=== PATIENT | female | born 1940 | race Caucasian/White ===

== ENCOUNTER 2020-02-16 08:50 | Outpatient (RCR) | payer MEDICARE, SELFPAY | END 2020-02-24 12:07 | disposition home or self-care (01) | LOC: HO.WCC 08:50 | PROVIDERS: PCP Internal Medicine; Visit Provider Surgery | DX: S81.811D Laceration without foreign body, right lower leg, subsequent encounter (principal) | CPT/HCPCS: 99212 ==

== ENCOUNTER 2020-03-14 10:34 | Outpatient (REF) | payer MEDICARE, SELFPAY ==
[2020-03-14 11:40] LABS: C Reactive Protein 0.12 mg/dL (< or = 0.50)
[2020-03-14 12:10] LABS: Erythrocyte Sedimentation Rate 12 MM/HR (0-20)
== END 2020-03-14 10:35 | disposition home or self-care (01) ==
LOC: HO.LAB 10:34
PROVIDERS: PCP Internal Medicine; Visit Provider Student in an Organized Health Care Education/Training Program
DX: M35.3 Polymyalgia rheumatica (principal); Z79.52 Long term (current) use of systemic steroids
CPT/HCPCS: 36415; 85652; 86140

== ENCOUNTER 2020-03-21 09:18 | Outpatient (REF) | payer MEDICARE, SELFPAY ==
--- NOTE | 2020-03-21 10:57 | XR_ITS ---
EXAMINATION: XR CHEST CLINICAL INFORMATION: Nonthrombocytopenic purpura. COMPARISON: CT chest 11/11/2019 TECHNIQUE: 2 views of the chest were obtained. FINDINGS: The lungs are somewhat expanded with increase interstitial markings in both lungs suggestive of chronic changes. No consolidation, mass or nodule seen. There is no pleural effusion. The heart size is enlarged. Pulmonary vascularity is normal. There are median sternotomy sutures and mediastinal caesar from previous CABG. No gross bony abnormality seen. XR/XR chest 2V IMPRESSION: Chronic increased interstitial markings likely airway disease. No acute pneumonic process seen.
[2020-03-21 11:15] LABS: MANUAL DIFF FLAG NO
[2020-03-21 11:32] LABS: Basophils Absolute Auto 0.1 X10*3/uL (0.0-0.2); Basophils Percent Auto 0.8 % (0-2); Eosinophils Absolute Auto 0.4 X10*3/uL (0.0-0.4); Eosinophils Percent Auto 6.3 % (0-4); Hemoglobin 12.5 g/dl (12.0-16.0); Imm Gran Abs Auto 0.02 X10*3/uL (0.00-0.03); Imm Gran Pct Auto 0.3 % (0.0-0.4); Lymphocytes Absolute Auto 1.2 X10*3/uL (1.2-4.9); Lymphocytes Percent Auto 18.7 % (20-40); Mean Corpuscular HGB Conc 32.1 g/dl (31.0-35.0); Mean Corpuscular Hemoglobin 29.9 pg (27.0-33.0); Mean Corpuscular Volume 93.3 fL (80-98); Mean Platelet Volume 8.9 fL (9.4-12.3); Monocytes Absolute Auto 0.5 X10*3/uL (0.1-1.2); Monocytes Percent Auto 8.2 % (2-11); Neutrophils Absolute Auto 4.1 X10*3/uL (2.0-8.3); Neutrophils Percent Auto 65.7 % (45-73); Platelet Count 325 X10*3/uL (160-400); Red Blood Count 4.18 X10*6/uL (4.20-5.50); Red Cell Distribution Width 12.3 % (11.0-16.0); White Blood Count 6.3 X10*3/uL (4.8-10.8)
[2020-03-21 11:51] LABS: Glucose Urine UA NEG (NEG); Leukocyte Esterase Urine 1+ (NEG); Nitrite Urine NEG (NEG); PH 5.5 (5.0-8.0); Specific Gravity - Urine >= 1.030 (1.005-1.025); Urine Blood 2+ (NEG); Urine Ketones NEG (NEG); Urine Protein NEG (NEG-TRACE)
[2020-03-21 11:57] LABS: Alanine Aminotransferase 15 U/L (0-31); Albumin Level 4.2 g/dL (3.5-5.0); Alkaline Phosphatase 73 U/L (39-117); Anion Gap 13 (12-20); Aspartate Amino Transferase 22 U/L (5-31); Bilirubin Total 0.2 mg/dL (0.0-1.0); Blood Urea Nitrogen 9 mg/dL (9-16); C Reactive Protein 0.48 mg/dL (< or = 0.50); Calcium 9.5 mg/dL (8.4-10.2); Carbon Dioxide 30 mmol/L (22-29); Chloride 103 mmol/L (96-108); Estimated Glomerular Filt Rate > 60; Glucose Random 103 mg/dL (60-115); Potassium 4.4 mmol/l (3.3-5.1); Sodium 142 mmol/L (135-145); Total Protein 6.9 g/dL (6.5-8.0)
[2020-03-21 11:58] LABS: Appearance Urine HAZY; Color Urine YELLOW
[2020-03-21 12:20] LABS: Mucus Urine 2+ /LPF; Renal Epithelial Cells Urine 1+ /LPF; Squamous Epithelial Cell Urine 2+ /LPF
[2020-03-21 12:42] LABS: Erythrocyte Sedimentation Rate 16 MM/HR (0-20)
[2020-03-22 11:17] LABS: Myeloperoxidase Antibody <1.0 AI; Proteinase 3 PR3 Antibodies <1.0 AI
[2020-03-25 12:56] LABS: Vitamin D 25-OH, D2 <4 ng/mL; Vitamin D 25-OH, D3 26 ng/mL; Vitamin D 25-OH, Total 26 ng/mL (30-100)
== END 2020-03-21 09:19 | disposition home or self-care (01) ==
LOC: HO.LAB 09:18
PROVIDERS: PCP Internal Medicine; Referring Provider Internal Medicine; Visit Provider Student in an Organized Health Care Education/Training Program
DX: M35.3 Polymyalgia rheumatica (principal); D69.2 Other nonthrombocytopenic purpura; M85.80 Other specified disorders of bone density and structure, unspecified site; Z79.52 Long term (current) use of systemic steroids
CPT/HCPCS: 36415; 71046; 80053; 81001; 82306; 85025; 85652; 86021; 86140; 99212

== ENCOUNTER → 2020-03-30 11:12 | Outpatient (BNVA) | payer MEDICARE, SELFPAY | PROVIDERS: PCP Internal Medicine; Visit Provider Nurse Practitioner Family | DX: I25.10 Atherosclerotic heart disease of native coronary artery without angina pectoris (principal); D69.2 Other nonthrombocytopenic purpura; E78.5 Hyperlipidemia, unspecified; Z79.02 Long term (current) use of antithrombotics/antiplatelets; Z79.52 Long term (current) use of systemic steroids; Z95.1 Presence of aortocoronary bypass graft | CPT/HCPCS: 93005; 99212 ==

== ENCOUNTER → 2020-05-07 10:09 | Outpatient (BNVA) | payer MEDICARE, SELFPAY | PROVIDERS: PCP Internal Medicine; Visit Provider Internal Medicine | DX: J84.10 Pulmonary fibrosis, unspecified (principal) | CPT/HCPCS: 99212 ==

== ENCOUNTER 2020-05-30 10:41 | Outpatient (REF) | payer MEDICARE, SELFPAY ==
[2020-05-30 12:40] LABS: Glucose Urine UA NEG (NEG); Leukocyte Esterase Urine NEG (NEG); Nitrite Urine NEG (NEG); PH 5.5 (5.0-8.0); Urine Blood 1+ (NEG); Urine Ketones NEG (NEG); Urine Protein NEG (NEG-TRACE)
[2020-05-30 12:47] LABS: Appearance Urine CLEAR; Color Urine YELLOW
[2020-05-30 13:16] LABS: Bacteria Urine TRACE /LPF; RBC Urine 0-2 /HPF (0); Squamous Epithelial Cell Urine 1+ /LPF; WBC Urine 0-2 /HPF (0-4)
== END 2020-05-30 10:42 | disposition home or self-care (01) ==
LOC: HO.LAB 10:41
PROVIDERS: PCP Internal Medicine; Visit Provider Student in an Organized Health Care Education/Training Program
DX: D69.2 Other nonthrombocytopenic purpura (principal)
CPT/HCPCS: 81001

== ENCOUNTER 2020-06-05 15:22 | Outpatient (REF) | payer MEDICARE, SELFPAY ==
--- NOTE | 2020-06-05 | MM_ITS ---
EXAMINATION: MM SCREENING DIGITAL BREAST TOMOSYNTHESIS, BILATERAL CLINICAL INFORMATION: Screening. Asymptomatic. The lifetime risk of breast cancer based on the Tyrer-Cuzick Model is 1.7%. COMPARISON: Mammography: May 31, 2019 and studies dating back to March 15, 2012 TECHNIQUE: Digital breast tomosynthesis is performed in both the craniocaudal and mediolateral oblique views along with computer-aided detection (CAD). Synthesized 2D images are generated from the tomosynthesis. FINDINGS: There are scattered areas of fibroglandular density (ACR BI-RADS breast composition Category b). There are no significant masses, abnormal calcifications, or other abnormalities. MM/MM tomosynthesis screening BI IMPRESSION: There are no significant changes from prior study. ASSESSMENT: BI-RADS 1: Negative RECOMMENDATION: Routine annual mammography screening. This patient's information was entered into a reminder system with a target due date for their next mammogram.
== END 2020-06-05 15:23 | disposition home or self-care (01) ==
LOC: HO.MAMMO 15:22
PROVIDERS: PCP Internal Medicine; Visit Provider Internal Medicine
DX: Z12.31 Encounter for screening mammogram for malignant neoplasm of breast (principal)
CPT/HCPCS: 77063; 77067

== ENCOUNTER → 2020-06-07 11:29 | Outpatient (BNVA) | payer MEDICARE, SELFPAY | PROVIDERS: PCP Internal Medicine; Referring Provider Internal Medicine; Visit Provider Student in an Organized Health Care Education/Training Program | DX: M35.3 Polymyalgia rheumatica (principal); Z79.52 Long term (current) use of systemic steroids | CPT/HCPCS: 99212 ==

== ENCOUNTER 2020-06-12 10:35 | Outpatient (REF) | payer MEDICARE, SELFPAY ==
[2020-06-12 12:23] LABS: Erythrocyte Sedimentation Rate 7 MM/HR (0-20)
[2020-06-12 12:38] LABS: C Reactive Protein 0.12 mg/dL (< or = 0.50)
== END 2020-06-12 10:36 | disposition home or self-care (01) ==
LOC: HO.LAB 10:35
PROVIDERS: PCP Internal Medicine; Visit Provider Student in an Organized Health Care Education/Training Program
DX: M35.3 Polymyalgia rheumatica (principal); D69.2 Other nonthrombocytopenic purpura
CPT/HCPCS: 36415; 85652; 86140

== ENCOUNTER → 2020-06-26 09:12 | Outpatient (BNVA) | payer MEDICARE, SELFPAY | PROVIDERS: PCP Internal Medicine; Visit Provider Internal Medicine Cardiovascular Disease | DX: I25.10 Atherosclerotic heart disease of native coronary artery without angina pectoris (principal); E78.2 Mixed hyperlipidemia | CPT/HCPCS: 99212 ==

== ENCOUNTER 2020-07-10 09:28 | Outpatient (REF) | payer MEDICARE, SELFPAY ==
[2020-07-10 10:25] LABS: Cholesterol 219 mg/dL; HDL Cholesterol 56 mg/dL; LDL Cholesterol Calculated 124 mg/dl; Triglycerides 199 mg/dL
[2020-07-10 10:48] LABS: Glucose Urine UA NEG (NEG); Leukocyte Esterase Urine 1+ (NEG); Nitrite Urine NEG (NEG); PH 5.5 (5.0-8.0); Specific Gravity - Urine >= 1.030 (1.005-1.025); Urine Blood 2+ (NEG); Urine Ketones NEG (NEG); Urine Protein NEG (NEG-TRACE)
[2020-07-10 10:51] LABS: Appearance Urine HAZY; Color Urine YELLOW
[2020-07-10 11:05] LABS: Mucus Urine 3+ /LPF; Squamous Epithelial Cell Urine 1+ /LPF
== END 2020-07-10 09:29 | disposition home or self-care (01) ==
LOC: HO.LAB 09:28
PROVIDERS: Student in an Organized Health Care Education/Training Program; PCP Internal Medicine; Visit Provider Internal Medicine Cardiovascular Disease
DX: I25.10 Atherosclerotic heart disease of native coronary artery without angina pectoris (principal); M35.3 Polymyalgia rheumatica; Z79.52 Long term (current) use of systemic steroids
CPT/HCPCS: 36415; 80061; 81001

== ENCOUNTER 2020-08-13 09:59 | Outpatient (REF) | payer MEDICARE, SELFPAY ==
[2020-08-13 11:34] LABS: Erythrocyte Sedimentation Rate 8 MM/HR (0-20)
[2020-08-13 12:06] LABS: Glucose Urine UA NEG (NEG); Leukocyte Esterase Urine NEG (NEG); Nitrite Urine NEG (NEG); PH 5.5 (5.0-8.0); Specific Gravity - Urine >= 1.030 (1.005-1.025); Urine Blood 2+ (NEG); Urine Ketones 5 MG/DL (NEG); Urine Protein TRACE MG/DL (NEG-TRACE)
[2020-08-13 12:10] LABS: Appearance Urine CLEAR; Color Urine YELLOW
[2020-08-13 12:23] LABS: WBC Urine 0-2 /HPF (0-4)
[2020-08-13 12:24] LABS: Bacteria Urine TRACE /LPF; Granular Casts Urine 0-2 /LPF
== END 2020-08-13 10:00 | disposition home or self-care (01) ==
LOC: HO.LAB 09:59
PROVIDERS: PCP Internal Medicine; Visit Provider Student in an Organized Health Care Education/Training Program
DX: M35.3 Polymyalgia rheumatica (principal); D69.2 Other nonthrombocytopenic purpura
CPT/HCPCS: 36415; 81001; 85652; 86140

== ENCOUNTER → 2020-08-16 09:09 | Outpatient (BNVA) | payer MEDICARE, SELFPAY | PROVIDERS: Visit Provider Student in an Organized Health Care Education/Training Program | DX: M35.3 Polymyalgia rheumatica (principal); M65.311 Trigger thumb, right thumb; M85.89 Other specified disorders of bone density and structure, multiple sites; Z79.52 Long term (current) use of systemic steroids | CPT/HCPCS: 99212 ==

== ENCOUNTER 2020-09-21 11:02 | Outpatient (REF) | payer MEDICARE, SELFPAY ==
[2020-09-21 12:11] LABS: C Reactive Protein 0.32 mg/dL (< or = 0.50)
[2020-09-21 13:26] LABS: Erythrocyte Sedimentation Rate 14 MM/HR (0-20)
[2020-09-21 13:59] LABS: Glucose Urine UA NEG (NEG); Leukocyte Esterase Urine TRACE (NEG); Nitrite Urine NEG (NEG); Urine Blood 1+ (NEG); Urine Ketones NEG (NEG); Urine Protein NEG (NEG-TRACE)
[2020-09-21 14:02] LABS: Appearance Urine CLEAR; Color Urine YELLOW
[2020-09-21 14:41] LABS: Mucus Urine 1+ /LPF; Squamous Epithelial Cell Urine 1+ /LPF
== END 2020-09-21 11:03 | disposition home or self-care (01) ==
LOC: HO.LAB 11:02
PROVIDERS: PCP Internal Medicine; Visit Provider Student in an Organized Health Care Education/Training Program
DX: M35.3 Polymyalgia rheumatica (principal)
CPT/HCPCS: 36415; 81001; 85652; 86140

== ENCOUNTER 2020-10-03 11:00 | Outpatient (RCR) | payer MEDICARE, SELFPAY ==
--- NOTE | 2020-08-22 09:59 | MHC.OT.OEV ---
[address] [phone] F: [phone] Occupational Therapy Evaluation Diagnosis: Right trigger thumb Date of Onset: 07/16/20 Attending Provider: Dr Mesa Prescribed Treatment: Samantha and Chase FARMER Follow Up Appointment: 10/16/20 History of Current Condition: Pt picked up her large 18lb cat and felt pain in the thumb, notes some locking but able to actively extend to correct. Significant Medical History: Precautions/Contraindications: Patient Goals: Pain free use of right thumb Hand Dominance: Right QuickDASH Score: 36 Prior Level of Function and Occupation Self Care, Employment, Leisure: Independent with all daily activities, enjoys quilting Living Situation, Family and/or Social Support: Lives w/ her Current Level of Function and Occupation Self Care, Employment, Leisure: Still Ind w/ activities, less quilting now Sleep: No issues sleeping, wears nighttime resting wrist orthosis w/ thumb free (for CTS) Wakes w/ pain and stiffness in thumb Driving: Limited driving due to age Vision: Balance: Pain Assessment Pain Score: 3 Pain Scale Used: Numeric (0 - 10) Pain Location and Description: Pain free at rest 2/10 tenderness at D1 MP/itz 3/10 w/ active trigger/locking Aggravating Factors: Gripping, pinching, tender to touch Alleviating Factors: Warm water helps w/ stiffness Skin and Soft Tissue Assessment Skin and Soft Tissue: Atrophy Callus Comments: Dry skin B/L hands, mild atrophy Sensory Assessment Comments: Denies sensory changes Edema Assessment Upper Extremity: WNL Lower Extremity: WNL Comments: Dexterity Assessment Dexterity: Right Impaired due to triggering/pain Comments: AROM(PROM) Strength Thumb Thumb CMC Flexion: Thumb MCP Flexion: Thumb IP Flexion: Radial Abduction: Palmar Abduction: [place] (Kapandji 0-10): Comments: WFL PROM Digits Index MCP: PIP: DIP: Long MCP: PIP: DIP: Ring MCP: PIP: DIP: Small MCP: PIP: DIP: Comments: WFL (right thumb tested passively) Gross Grasp: R 26lb L 32lb Lateral Pinch: Two-Point Pinch: Three-Jaw Jude: Comments: Patient Education Primary Language: Ghanaian Laborer General Required: No Current Knowledge: Understands information with skills for self-management Teaching Method: Demonstration Handouts Verbal Education Needs Identified on Evaluation: ADL's Disease Information Equipment Use Exercise Pain Safety How did patient/family demonstrate learning? Patient demonstrates Patient verbalizes Barriers to Learning: None Readiness for Learning: Accepting Who was educated? Patient Comments: Trigger thumb protocol Plan of Care Assessment: 79 yo female presents w/ onset of right trigger thumb for about 5 weeks now after lifting her cat and feeling immediate pain. She has been trying to self treat w/ ROM and gripping, but reports persistent pain and triggering, appears to be level two trigger finger and able to actively extend. She will benefit from cont'd OT for progression of protocol w/ orthosis, ROM, heat and ice massage. STG Duration: 3 weeks Short Term Goals: Ind w/ orthosis wear Trigger free w/ removal for hygiene and exercises <1/10 w/ light daily use of right hand Good understanding of progression of program and weaning schedule LTG Duration: Long-Term Goals: Same as above Frequency and Duration: The patient will be seen 1x/wk for 3 weeks Treatment Plan: Therapeutic Exercise Therapeutic Activity Home Exercise Program Splinting Patient Education Edema Control ADL Training Ultrasound Paraffin MHP Cold Packs Soft Tissue Mobilization Kinesiotaping Electronically Signed By: Radha Archer OTR/L Please sign and return to therapist, Thank you for your referral.
--- NOTE | 2020-10-03 11:28 | MHC.OT.DC ---
[address] [phone] F: [phone] Occupational Therapy Discharge Note Provider: Dr Mesa Diagnosis: Right trigger thumb Date of Evaluation: 08/22/20 Date of Discharge: Treatments to Date: 6 Cancellations to Date: No Shows to Date: Discharge Status: Recommend MD Follow-up Discharge Summary: Pt still w/ active trigger in right thumb, needing to passively extend IP joint to correct. Wearing the splint for hair wash but still getting a trigger. Completes exercises, but still gets trigger, unable to demo HEP w/ proper protective technique. Still w/ palpable nodule on volar thumb MP. Overall decreased carry over w/ safety recommendations and exercises. Eager to get back to more manual functional tasks (quilting), may benefit from cortisone injection, otherwise may refer to Ortho hand specialist. Electronically Signed By: Radha Archer OTR/L Reviewed/agree with student documentation: N/A Therapist: Please Sign and return to therapist, thank you for your referral.
== END 2020-10-03 11:29 | disposition other institution (70) ==
LOC: HO.OT 11:00
PROVIDERS: Visit Provider Student in an Organized Health Care Education/Training Program
DX: M65.311 Trigger thumb, right thumb (principal)
CPT/HCPCS: 29130; 97110; 97140; 97165; 97760

== ENCOUNTER → 2020-10-26 09:16 | Outpatient (BNVA) | payer MEDICARE, SELFPAY | PROVIDERS: PCP Internal Medicine; Visit Provider Student in an Organized Health Care Education/Training Program | DX: M35.3 Polymyalgia rheumatica (principal); M85.89 Other specified disorders of bone density and structure, multiple sites; Z79.52 Long term (current) use of systemic steroids | CPT/HCPCS: 99212 ==

== ENCOUNTER 2020-11-09 09:38 | Outpatient (REF) | payer MEDICARE, SELFPAY ==
[2020-11-09 10:18] LABS: MANUAL DIFF FLAG NO
[2020-11-09 10:22] LABS: Basophils Percent Auto 0.6 % (0-2); Eosinophils Absolute Auto 0.6 X10*3/uL (0.0-0.4); Hematocrit 39.5 % (37-47); Hemoglobin 12.9 g/dl (12.0-16.0); Imm Gran Abs Auto 0.02 X10*3/uL (0.00-0.03); Imm Gran Pct Auto 0.4 % (0.0-0.4); Lymphocytes Absolute Auto 1.7 X10*3/uL (1.2-4.9); Mean Corpuscular HGB Conc 32.7 g/dl (31.0-35.0); Mean Corpuscular Volume 91.9 fL (80-98); Mean Platelet Volume 8.8 fL (9.4-12.3); Monocytes Absolute Auto 0.5 X10*3/uL (0.1-1.2); Monocytes Percent Auto 8.9 % (2-11); Neutrophils Absolute Auto 2.3 X10*3/uL (2.0-8.3); Neutrophils Percent Auto 45.1 % (45-73); Platelet Count 260 X10*3/uL (160-400); Red Cell Distribution Width 12.9 % (11.0-16.0); White Blood Count 5.2 X10*3/uL (4.8-10.8)
[2020-11-09 10:39] LABS: Alanine Aminotransferase 10 U/L (0-31); Albumin Level 4.3 g/dL (3.5-5.0); Alkaline Phosphatase 67 U/L (39-117); Anion Gap 12 (12-20); Aspartate Amino Transferase 18 U/L (5-31); Bilirubin Total 0.4 mg/dL (0.0-1.0); Blood Urea Nitrogen 16 mg/dL (9-16); C Reactive Protein 0.13 mg/dL (< or = 0.50); Calcium 9.4 mg/dL (8.4-10.2); Carbon Dioxide 29 mmol/L (22-29); Chloride 104 mmol/L (96-108); Cholesterol 210 mg/dL; Estimated Glomerular Filt Rate > 60; Glucose Random 86 mg/dL (60-115); HDL Cholesterol 59 mg/dL; LDL Cholesterol Calculated 120 mg/dl; Potassium 4.1 mmol/L (3.3-5.1); Sodium 141 mmol/L (135-145); Total Protein 6.9 g/dL (6.5-8.0); Triglycerides 159 mg/dL
[2020-11-09 11:01] LABS: Thyroid Stimulating Hormone 2.72 uIU/mL (0.32-4.0)
[2020-11-09 11:02] LABS: Free T4 (Free Thyroxine) 0.77 ng/dL (0.71-1.85); Glucose Urine UA NEG (NEG); Leukocyte Esterase Urine TRACE (NEG); Nitrite Urine NEG (NEG); Urine Blood 2+ (NEG); Urine Ketones NEG (NEG); Urine Protein NEG (NEG-TRACE); Vitamin D 25-OH Total 28.2 ng/mL (>30)
[2020-11-09 11:04] LABS: Erythrocyte Sedimentation Rate 8 MM/HR (0-20)
[2020-11-09 11:08] LABS: Folate 15.1 ng/mL (> or = 4.0); Vitamin B12 272 pg/mL (200-900)
[2020-11-09 11:16] LABS: Appearance Urine CLEAR; Color Urine YELLOW
[2020-11-09 11:55] LABS: Calcium Phosphate Crystals Ur TRACE /LPF; Squamous Epithelial Cell Urine TRACE /LPF; WBC Urine 0-2 /HPF (0-4)
== END 2020-11-09 09:39 | disposition home or self-care (01) ==
LOC: HO.LAB 09:38
PROVIDERS: Student in an Organized Health Care Education/Training Program; PCP Internal Medicine; Visit Provider Internal Medicine
DX: M35.3 Polymyalgia rheumatica (principal); E78.2 Mixed hyperlipidemia; I25.10 Atherosclerotic heart disease of native coronary artery without angina pectoris; D69.2 Other nonthrombocytopenic purpura; E78.00 Pure hypercholesterolemia, unspecified
CPT/HCPCS: 36415; 80053; 80061; 81001; 82306; 82607; 82746; 84439; 84443; 85025; 85652; 86140

== ENCOUNTER → 2020-11-13 10:45 | Outpatient (BNVA) | payer MEDICARE, SELFPAY | PROVIDERS: PCP Internal Medicine; Visit Provider Internal Medicine | DX: J30.9 Allergic rhinitis, unspecified (principal); J84.10 Pulmonary fibrosis, unspecified; R05 Cough | CPT/HCPCS: 99212 ==

== ENCOUNTER 2020-11-22 08:14 | Outpatient (REF) | payer MEDICARE, SELFPAY ==
--- NOTE | ~2020-11-22 | CT_ITS ---
EXAMINATION: CT CHEST WITHOUT CONTRAST CLINICAL INFORMATION: Cough COMPARISON: Previous chest x-rays most recent March [address] October 2019 TECHNIQUE: Multidetector volumetric CT imaging of the chest was done. Axial MIP volume rendering provided. Sagittal and coronal reformatted images were obtained. This CT examination was performed using dose optimization techniques as appropriate, variously including the following: *Automated exposure control *Adjustment of mA and/or kV according to patient size (this includes techniques or standardized protocols for targeted exams where dose is matched to indication/reason for exam; i.e. extremities or head) *Use of iterative reconstruction technique DLP: 112 mGy-cm FINDINGS: LUNGS: There are increased peripheral interstitial markings with increased peripheral reticulation suggestive of mild interstitial lung disease. The lungs are otherwise clear. No pulmonary nodule is seen. There is no endobronchial or endotracheal lesion. No bronchiectasis or honeycombing is seen. MEDIASTINUM: There are post-CABG changes. The heart is slightly enlarged. There is no pericardial effusion. The thoracic aorta is normal in caliber. The pulmonary arteries are upper normal in size. There are no enlarged hilar or mediastinal lymph nodes. The visualized thyroid gland is unremarkable. PLEURA: There is no pleural effusion. No pleural mass or thickening. AXILLA: No lymphadenopathy. UPPER ABDOMEN: Unremarkable. OSSEOUS STRUCTURES: There are degenerative changes of the spine. There is a healed median sternotomy. CT/CT chest wo con IMPRESSION: Mild peripheral interstitial lung disease. This is not appear appreciably changed from October 2019 exam. Slightly enlarged heart and post-CABG changes.
== END 2020-11-22 08:15 | disposition home or self-care (01) ==
LOC: HO.CT 08:14
PROVIDERS: PCP Internal Medicine; Visit Provider Internal Medicine
DX: J84.10 Pulmonary fibrosis, unspecified (principal); R05 Cough
CPT/HCPCS: 71250

== ENCOUNTER → 2020-12-12 08:02 | Outpatient (BNVA) | payer MEDICARE, SELFPAY | PROVIDERS: PCP Physician Assistant; Visit Provider Orthopaedic Surgery | DX: M65.311 Trigger thumb, right thumb (principal) | CPT/HCPCS: 20550; 99202; J1100 ==

== ENCOUNTER 2020-12-27 09:13 | Outpatient (REF) | payer MEDICARE, SELFPAY ==
[2020-12-27 10:43] LABS: Glucose Urine UA NEG (NEG); Leukocyte Esterase Urine 1+ (NEG); Nitrite Urine NEG (NEG); Specific Gravity - Urine <= 1.005 (1.005-1.025); Urine Blood 1+ (NEG); Urine Ketones NEG (NEG); Urine Protein NEG (NEG-TRACE)
[2020-12-27 10:44] LABS: Erythrocyte Sedimentation Rate 8 MM/HR (0-20)
[2020-12-27 10:46] LABS: Appearance Urine CLEAR; Color Urine YELLOW
[2020-12-27 12:12] LABS: RBC Urine 0-2 /HPF (0); Renal Epithelial Cells Urine TRACE /LPF; Squamous Epithelial Cell Urine 1+ /LPF; WBC Urine 0-2 /HPF (0-4)
== END 2020-12-27 09:14 | disposition home or self-care (01) ==
LOC: HO.LAB 09:13
PROVIDERS: PCP Internal Medicine; Visit Provider Student in an Organized Health Care Education/Training Program
DX: D69.2 Other nonthrombocytopenic purpura (principal)
CPT/HCPCS: 36415; 81001; 85652

== ENCOUNTER → 2021-01-03 09:53 | Outpatient (BNVA) | payer MEDICARE, SELFPAY | PROVIDERS: Visit Provider Student in an Organized Health Care Education/Training Program | DX: M35.3 Polymyalgia rheumatica (principal); M85.89 Other specified disorders of bone density and structure, multiple sites; Z79.52 Long term (current) use of systemic steroids | CPT/HCPCS: 99212 ==

== ENCOUNTER → 2021-01-09 09:13 | Outpatient (BNVA) | payer MEDICARE, SELFPAY | PROVIDERS: PCP Internal Medicine; Visit Provider Orthopaedic Surgery | DX: M65.311 Trigger thumb, right thumb (principal); M35.3 Polymyalgia rheumatica; M81.0 Age-related osteoporosis without current pathological fracture; Z88.0 Allergy status to penicillin; Z88.2 Allergy status to sulfonamides; Z88.8 Allergy status to other drugs, medicaments and biological substances; Z88.6 Allergy status to analgesic agent; Z88.1 Allergy status to other antibiotic agents; Z91.041 Radiographic dye allergy status | CPT/HCPCS: 99212 ==

== ENCOUNTER 2021-01-22 07:22 | Day surgery (SDC) | payer MEDICARE, SELFPAY ==
[2021-01-22 06:25] VITALS: BMI 26.4
[2021-01-22 07:25] VITALS: BP 147/56; PULSE 55; RESP 16; TEMP 35.7; O2SAT 94
--- NOTE | 2021-01-22 07:49 | P.OP_ITS ---
Operative Note Operative Note Date of Service: 01/22/21 Narrative: Operative Note Preop diagnosis: 1. Right trigger thumb Postop diagnosis: Same Procedure: 1. Right thumb A1 itz release Surgeon: Becky Mcgill MD Anesthesia: local block using 1% lidocaine with epinephrine Findings: No locking or catching after A1 itz release EBL: Less than 5 mL Tourniquet time: None Specimens: None Complications: None Disposition: Brought to recovery room in stable condition Plan: Follow-up for 7-10 days for wound check and suture removal Indications: The patient is 80 years old, with a right thumb trigger finger that has been unresponsive to nonoperative management. The risks and benefits of operative treatment including but not limited to risk of damage to blood vessels, nerves, tendons, infection, persistent pain, persistent symptoms, recurrence or possible need for additional surgery were discussed with the patient and the patient wishes to proceed with surgery. Procedure: Once consent was obtained a local block was performed in the preop area using a combination of 1% lidocaine with epinephrine. The patient was then brought back to the operating suite and placed on the operative table in supine position. A tourniquet was applied to the proximal aspect of the right upper extremity and the limb was prepped and draped in a standard surgical fashion. Once assured that we had a good block, a 1.5 cm oblique incision was made yvette tered over the A1 itz of the right thumb . The incision was made through the skin to the subcutaneous tissues using a #15 blade. Careful dissection was made down to the level of the A1 itz using tenotomy scissors, with care being taken to protect the nearby neurovascular structures. A longitudinal incision was made in the A1 itz 1st using a #15 blade, then using tenotomy scissors under direct visualization. The A1 itz was noted to be thickened. Following our A1 itz release, we no longer saw any locking or catching of the digit with flexion and extension. Once satisfied with our A1 itz release the wound was copiously irrigated with normal saline and hemostasis was obtained with a brief period of local pressure. The skin edges were reapproximated with some 5.0 nylon suture material and a sterile dressing was applied. The patient appears to have tolerated the procedure well and with no complications. All digits were well vascularized at the conclusion of the case.
--- NOTE | 2021-01-22 07:49 | MHC.SHP ---
Pre-Procedural Eval Section A Date of Service: 01/22/21 The patient is an INPATIENT: No Changes since office visit: No Cold of Flu in the past 2 weeks, No New Medical Problems, No Changes in Medication and No Patient answered all questions The History & Physical has been completed within 30 days and I have reviewed it.: Yes Section B Chief Complaint: trigger thumb Allergies: Allergies Allergy/AdvReac Type Severity Reaction Status Date / Time Penicillins Allergy Severe ANAPHYLAXIS Verified 01/09/21 09:40 tamsulosin [Flomax] Allergy Severe severe Verified 01/09/21 09:40 chest pains acetaminophen [Percocet] Allergy Intermediate vomit Verified 01/09/21 09:40 clobetasol Allergy Intermediate made Verified 01/09/21 09:40 psoriasis worse ibuprofen [IBUPROFEN] Allergy Intermediate RASH, hives Verified 01/09/21 09:40 Iodinated Contrast Media Allergy Intermediate WEAKNESS, Verified 01/09/21 09:40 [IV CONTRAST] LIGHTHEADEDNESS, AND CONFUSION Kapidex Allergy Intermediate hyper, Verified 01/09/21 09:40 watery stool lansoprazole [Prevacid] Allergy Intermediate hyper, Verified 01/09/21 09:40 watery stool methotrexate [METHOTREXATE] Allergy Intermediate MUSCLE AND Verified 01/09/21 09:40 JOINT PAIN ranitidine Allergy Intermediate week, Verified 01/09/21 09:40 watery stool aspirin Allergy Mild UNKNOWN, Verified 01/09/21 09:40 one sided facial pain, green spots in eye rabeprazole Allergy Mild UNKNOWN Verified 01/09/21 09:40 Sulfa (Sulfonamide Allergy Mild RASH Verified 01/09/21 09:40 Antibiotics) [place] Allergy Unknown painful Verified 01/09/21 09:40 bones/muscles amoxicillin Allergy Unknown hives, bad Verified 01/09/21 09:40 rash atorvastatin Allergy Unknown Unknown Verified 01/09/21 09:40 Bifidobacterium infantis Allergy Unknown Unknown Verified 01/09/21 09:40 [Align] clarithromycin [Prevpac] Allergy Unknown unkn Verified 01/09/21 09:40 esomeprazole [Nexium] Allergy Unknown UNKNOWN Verified 01/09/21 09:40 levofloxacin [From LEVAQUIN] Allergy Unknown RASH Verified 01/09/21 09:40 omeprazole [From PRILOSEC] Allergy Unknown UNKNOWN Verified 01/09/21 09:40 oxycodone [Percocet] Allergy Unknown vomit Verified 01/09/21 09:40 pantoprazole [Protonix] Allergy Unknown one sided Verified 01/09/21 09:40 headache, yellow streak in left eye penicillin V Allergy Unknown hives, rash Verified 01/09/21 09:40 simvastatin [From ZOCOR] Allergy Unknown UNKNOWN Verified 01/09/21 09:40 alirocumab AdvReac Mild Generalized Verified 01/09/21 09:40 [From Praluent Pen] ecchymoses Plan I have reviewed the history and physical and performed a pertinent physical examination on my patient. No changes have occurred unless specified.
[2021-01-22 09:00] VITALS: BP 153/56; PULSE 64; RESP 16; TEMP 36.6; O2SAT 97
== END 2021-01-22 09:11 | disposition home or self-care (01) ==
PROVIDERS: PCP Internal Medicine; Visit Provider Orthopaedic Surgery
PROC: (CPT 26055; principal; 2021-01-22 07:30)
DX: M65.311 Trigger thumb, right thumb (principal); I25.10 Atherosclerotic heart disease of native coronary artery without angina pectoris; Z95.1 Presence of aortocoronary bypass graft; J45.909 Unspecified asthma, uncomplicated; J84.10 Pulmonary fibrosis, unspecified; Z86.73 Personal history of transient ischemic attack (TIA), and cerebral infarction without residual deficits; Z79.02 Long term (current) use of antithrombotics/antiplatelets; Z79.899 Other long term (current) drug therapy; Z85.828 Personal history of other malignant neoplasm of skin; Z88.0 Allergy status to penicillin; Z88.2 Allergy status to sulfonamides; Z88.8 Allergy status to other drugs, medicaments and biological substances; Z91.041 Radiographic dye allergy status
CPT/HCPCS: 26055

== ENCOUNTER → 2021-02-04 09:23 | Outpatient (BNVA) | payer MEDICARE, SELFPAY | PROVIDERS: Visit Provider Orthopaedic Surgery | DX: M65.311 Trigger thumb, right thumb (principal) | CPT/HCPCS: 99212 ==

== ENCOUNTER 2021-02-28 09:24 | Outpatient (REF) | payer MEDICARE, SELFPAY ==
[2021-02-28 10:18] LABS: Appearance Urine CLEAR; Color Urine YELLOW; Glucose Urine UA NEG (NEG); Leukocyte Esterase Urine 1+ (NEG); Nitrite Urine NEG (NEG); Specific Gravity - Urine <= 1.005 (1.005-1.025); Urine Blood 1+ (NEG); Urine Ketones NEG (NEG); Urine Protein NEG (NEG-TRACE)
[2021-02-28 10:32] LABS: C Reactive Protein 0.12 mg/dL (< or = 0.50)
[2021-02-28 10:52] LABS: Squamous Epithelial Cell Urine TRACE /LPF
[2021-02-28 11:34] LABS: Erythrocyte Sedimentation Rate 12 MM/HR (0-20)
== END 2021-02-28 09:25 | disposition home or self-care (01) ==
LOC: HO.LAB 09:24
PROVIDERS: PCP Internal Medicine; Referring Provider Nurse Practitioner Family; Visit Provider Student in an Organized Health Care Education/Training Program
DX: M35.3 Polymyalgia rheumatica (principal); N39.0 Urinary tract infection, site not specified
CPT/HCPCS: 36415; 81001; 85652; 86140

== ENCOUNTER → 2021-03-04 12:43 | Outpatient (BNVA) | payer MEDICARE, SELFPAY | PROVIDERS: PCP Internal Medicine; Visit Provider Nurse Practitioner Family | DX: M35.3 Polymyalgia rheumatica (principal); M85.89 Other specified disorders of bone density and structure, multiple sites; Z79.52 Long term (current) use of systemic steroids | CPT/HCPCS: 99212 ==

== ENCOUNTER 2021-03-28 09:21 | Outpatient (REF) | payer MEDICARE, SELFPAY ==
[2021-03-28 10:08] LABS: Appearance Urine CLEAR; Color Urine YELLOW; Glucose Urine UA NEG (NEG); Leukocyte Esterase Urine 2+ (NEG); Nitrite Urine NEG (NEG); Specific Gravity - Urine <= 1.005 (1.005-1.025); Urine Blood TRACE (NEG); Urine Ketones NEG (NEG); Urine Protein NEG (NEG-TRACE)
[2021-03-28 10:17] LABS: RBC Urine 0-2 /HPF (0); Squamous Epithelial Cell Urine 2+ /LPF
[2021-03-28 10:45] LABS: C Reactive Protein 0.14 mg/dL (< or = 0.50)
[2021-03-28 11:02] LABS: Erythrocyte Sedimentation Rate 12 MM/HR (0-20)
== END 2021-03-28 09:22 | disposition home or self-care (01) ==
LOC: HO.LAB 09:21
PROVIDERS: Student in an Organized Health Care Education/Training Program; Absent Provider Internal Medicine; PCP Internal Medicine; Visit Provider Nurse Practitioner Family
DX: M35.3 Polymyalgia rheumatica (principal); D69.2 Other nonthrombocytopenic purpura; N39.0 Urinary tract infection, site not specified
CPT/HCPCS: 36415; 81001; 85652; 86140

== ENCOUNTER 2021-03-29 18:11 | Outpatient (REF) | payer MEDICARE, SELFPAY | END 2021-03-29 18:12 | disposition home or self-care (01) | LOC: HO.LNP 18:11 | PROVIDERS: Visit Provider Nurse Practitioner Family | DX: N39.0 Urinary tract infection, site not specified (principal) | CPT/HCPCS: 87086 ==

== ENCOUNTER 2021-04-09 11:19 | Outpatient (REF) | payer MEDICARE, SELFPAY ==
[2021-04-09 11:46] LABS: MANUAL DIFF FLAG NO
[2021-04-09 12:03] LABS: Basophils Percent Auto 0.7 % (0-2); Eosinophils Absolute Auto 0.5 X10*3/uL (0.0-0.4); Eosinophils Percent Auto 8.6 % (0-4); Hemoglobin 12.1 g/dl (12.0-16.0); Imm Gran Abs Auto 0.02 X10*3/uL (0.00-0.03); Imm Gran Pct Auto 0.4 % (0.0-0.4); Lymphocytes Absolute Auto 1.4 X10*3/uL (1.2-4.9); Lymphocytes Percent Auto 25.2 % (20-40); Mean Corpuscular HGB Conc 32.7 g/dl (31.0-35.0); Mean Corpuscular Hemoglobin 29.9 pg (27.0-33.0); Mean Corpuscular Volume 91.4 fL (80.0-98.0); Mean Platelet Volume 8.6 fL (9.4-12.3); Monocytes Absolute Auto 0.5 X10*3/uL (0.1-1.2); Monocytes Percent Auto 9.7 % (2-11); Neutrophils Absolute Auto 3.1 x10*3/uL (2.0-8.3); Neutrophils Percent Auto 55.4 % (45-73); Platelet Count 246 X10*3/uL (160-400); Red Blood Count 4.05 X10*6/uL (4.20-5.50); Red Cell Distribution Width 12.5 % (11.0-16.0); White Blood Count 5.6 X10*3/uL (4.8-10.8)
[2021-04-09 12:25] LABS: Alanine Aminotransferase 15 U/L (0-31); Alkaline Phosphatase 64 U/L (39-117); Anion Gap 12 (12-20); Aspartate Amino Transferase 19 U/L (5-31); Bilirubin Total 0.2 mg/dL (0.0-1.0); Blood Urea Nitrogen 13 mg/dL (9-16); C Reactive Protein 0.11 mg/dL (< or = 0.50); Calcium 9.6 mg/dL (8.4-10.2); Carbon Dioxide 28 mmol/L (22-29); Chloride 103 mmol/L (96-108); Estimated Glomerular Filt Rate > 60; Glucose Random 102 mg/dL (60-115); Potassium 4.1 mmol/L (3.3-5.1); Sodium 139 mmol/L (135-145); Total Protein 6.7 g/dL (6.5-8.0)
[2021-04-09 13:24] LABS: Erythrocyte Sedimentation Rate 17 MM/HR (0-20)
== END 2021-04-09 11:20 | disposition home or self-care (01) ==
LOC: HO.LAB 11:19
PROVIDERS: Nurse Practitioner Family; PCP Internal Medicine; Visit Provider Nurse Practitioner Family
DX: R32 Unspecified urinary incontinence (principal); M35.3 Polymyalgia rheumatica
CPT/HCPCS: 36415; 80053; 85025; 85652; 86140

== ENCOUNTER 2021-05-01 09:27 | Outpatient (REF) | payer MEDICARE, SELFPAY ==
[2021-05-01 10:49] LABS: B Type Natriuretic Peptide 248 pg/mL (<100)
[2021-05-01 10:55] LABS: Anion Gap 11 (12-20); Blood Urea Nitrogen 10 mg/dL (9-16); Calcium 9.8 mg/dL (8.4-10.2); Carbon Dioxide 30 mmol/L (22-29); Chloride 103 mmol/L (96-108); Estimated Glomerular Filt Rate > 60; Glucose Random 87 mg/dL (60-115); Potassium 4.2 mmol/L (3.3-5.1); Sodium 140 mmol/L (135-145)
== END 2021-05-01 09:28 | disposition home or self-care (01) ==
LOC: HO.LAB 09:27
PROVIDERS: Referring Provider Student in an Organized Health Care Education/Training Program; Visit Provider Internal Medicine Cardiovascular Disease
DX: R06.02 Shortness of breath (principal); I25.10 Atherosclerotic heart disease of native coronary artery without angina pectoris
CPT/HCPCS: 36415; 80048; 83880

== ENCOUNTER 2021-05-09 09:33 | Outpatient (REF) | payer MEDICARE, SELFPAY ==
[2021-05-09 10:36] LABS: Anion Gap 13 (12-20); Blood Urea Nitrogen 13 mg/dL (9-16); Carbon Dioxide 28 mmol/L (22-29); Chloride 106 mmol/L (96-108); Estimated Glomerular Filt Rate > 60; Glucose Fasting 90 mg/dL (60-99); Potassium 4.6 mmol/L (3.3-5.1); Sodium 142 mmol/L (135-145)
[2021-05-09 10:41] LABS: B Type Natriuretic Peptide 177 pg/mL (<100)
== END 2021-05-09 09:34 | disposition home or self-care (01) ==
LOC: HO.LAB 09:33
PROVIDERS: Absent Provider Student in an Organized Health Care Education/Training Program; PCP Internal Medicine; Referring Provider Internal Medicine; Visit Provider Internal Medicine Cardiovascular Disease
DX: Z13.89 Encounter for screening for other disorder (principal)
CPT/HCPCS: 36415; 80048; 83880

== ENCOUNTER 2021-05-09 12:49 | Emergency (ER) | payer MEDICARE, SELFPAY ==
--- NOTE | ~2021-05-09 | XR_ITS ---
EXAMINATION: XR CHEST CLINICAL INFORMATION: Chest pain COMPARISON: March 21, [address] of November 22, 2020 TECHNIQUE: AP portable view of the chest was obtained. FINDINGS: There is chronic elevation of the right hemidiaphragm. There is some scarring at the right lung base. No confluent pneumonitis identified. Heart normal size. No evidence of pulmonary edema status post median sternotomy and CABG. XR/XR chest 1V IMPRESSION: No acute disease.
--- NOTE | 2021-05-09 13:09 | ECG_ITS ---
Test Reason : ANGINA Blood Pressure : / mmHG Vent. Rate : 053 BPM Atrial Rate : 053 BPM P-R Int : 190 ms QRS Dur : 090 ms QT Int : 460 ms P-R-T Axes : 028 001 003 degrees QTc Int : 431 ms Sinus bradycardia Nonspecific T wave abnormality Abnormal ECG When compared with ECG of 06-MAY-2017 15:08, Vent. rate has decreased BY 38 BPM T wave inversion now evident in Inferior leads Nonspecific T wave abnormality now evident in Anterior leads Referred By: Generic ED Physician Electronically Signed By:KATLIN LEMON
[2021-05-09 13:32] VITALS: BP 161/44; PULSE 50; RESP 18; TEMP 36.7; O2SAT 99; BMI 26.2
[2021-05-09 14:03] LABS: MANUAL DIFF FLAG NO
[2021-05-09 14:06] LABS: Basophils Absolute Auto 0.1 X10*3/uL (0.0-0.2); Basophils Percent Auto 0.8 % (0-2); Eosinophils Absolute Auto 0.6 X10*3/uL (0.0-0.4); Eosinophils Percent Auto 9.3 % (0-4); Hematocrit 37.6 % (37.0-47.0); Hemoglobin 12.3 g/dl (12.0-16.0); Imm Gran Abs Auto 0.02 X10*3/uL (0.00-0.03); Imm Gran Pct Auto 0.3 % (0.0-0.4); Lymphocytes Absolute Auto 1.5 X10*3/uL (1.2-4.9); Lymphocytes Percent Auto 23.9 % (20-40); Mean Corpuscular HGB Conc 32.7 g/dl (31.0-35.0); Mean Corpuscular Hemoglobin 29.4 pg (27.0-33.0); Mean Platelet Volume 8.6 fL (9.4-12.3); Monocytes Absolute Auto 0.6 X10*3/uL (0.1-1.2); Monocytes Percent Auto 9.3 % (2-11); Neutrophils Absolute Auto 3.6 x10*3/uL (2.0-8.3); Neutrophils Percent Auto 56.4 % (45-73); Platelet Count 260 X10*3/uL (160-400); Red Blood Count 4.18 X10*6/uL (4.20-5.50); Red Cell Distribution Width 12.7 % (11.0-16.0); White Blood Count 6.5 X10*3/uL (4.8-10.8)
[2021-05-09 14:25] LABS: Blood Urea Nitrogen 12 mg/dL (9-16); Calcium 9.9 mg/dL (8.4-10.2); Creatinine Clr Calc Pharmacy 46.9; Estimated Glomerular Filt Rate > 60; Glucose Random 104 mg/dL (60-115); Troponin-I High Sensitivity 4.2 ng/L (<3.5-17.0)
[2021-05-09 14:35] LABS: Anion Gap 11 (12-20); Carbon Dioxide 29 mmol/L (22-29); Chloride 103 mmol/L (96-108); Potassium 4.2 mmol/L (3.3-5.1); Sodium 139 mmol/L (135-145)
--- NOTE | 2021-05-09 18:35 | ED.MEDCLEAR ---
HPI - Medical Clearance General Chief complaint: Medical Clearance Stated complaint: pcp referral/ SOB mild angina Time Seen by Provider: 05/09/21 18:35 Source: patient Mode of arrival: ambulatory Limitations: no limitations History of Present Illness HPI Narrative: Patient has significant history of coronary disease status post CABG x2 received her booster dose on 04/19 1 week after the dose patient reports low-grade fever and subjective shortness of breath since yesterday noticed sharp pain in the left side of the chest in the lower part of left chest off and on lasting for few seconds only no radiation of pain no nausea no vomiting no diaphoresis patient called her belt press operator who asked her to go to the hospital to get evaluated at this time patient denies any complaints no chest pain no nausea no vomiting or shortness of breath, patient saturating 99% on room air Related Information Home Medications Medication Instructions Recorded Confirmed docusate sodium 100 mg capsule 100 mg PO DAILY 03/21/20 03/29/21 (Stool Softener) triamcinolone acetonide 0.1 % TOPICAL BID 05/07/20 03/29/21 topical ointment prednisone 1 mg tablet 0 mg PO 03/04/21 03/29/21 halobetasol propionate 0.05 % appl TOPICAL 03/11/21 03/29/21 topical cream Previous Rx's Medication Instructions Recorded cetirizine 10 mg capsule (Zyrtec) 10 mg PO DAILY 10 Days #10 cap 04/19/20 metoprolol tartrate 25 mg tablet 12.5 mg PO BID 90 Days #90 tab 06/21/20 ezetimibe 10 mg tablet 10 mg PO DAILY #90 tab 08/27/20 clopidogrel 75 mg tablet 75 mg PO DAILY #90 tab 12/16/20 hydrocodone 5 mg-acetaminophen 325 1 tab PO Q4-6H PRN #5 tab 01/22/21 mg tablet nitrofurantoin 100 mg PO Q12H 7 Days #14 cap 03/29/21 monohydrate/macrocrystals 100 mg capsule (Macrobid) fluticasone propionate 50 1 spray INTRANASAL DAILY 10 Days 04/22/21 mcg/actuation nasal #150 ml spray,suspension (Flonase Allergy Relief) ethacrynic acid 25 mg tablet 12.5 mg PO DAILY #20 tab 05/02/21 Allergies Allergy/AdvReac Type Severity Reaction Status Date / Time Penicillins Allergy Severe ANAPHYLAXIS Verified 03/29/21 11:54 tamsulosin [Flomax] Allergy Severe severe Verified 03/29/21 11:54 chest pains acetaminophen [Percocet] Allergy Intermediate vomit Verified 03/29/21 11:54 clobetasol Allergy Intermediate made Verified 03/29/21 11:54 psoriasis worse ibuprofen [IBUPROFEN] Allergy Intermediate RASH, hives Verified 03/29/21 11:54 Iodinated Contrast Media Allergy Intermediate WEAKNESS, Verified 03/29/21 11:54 [IV CONTRAST] LIGHTHEADEDNESS, AND CONFUSION Kapidex Allergy Intermediate hyper, Verified 03/29/21 11:54 watery stool lansoprazole [Prevacid] Allergy Intermediate hyper, Verified 03/29/21 11:54 watery stool methotrexate [METHOTREXATE] Allergy Intermediate MUSCLE AND Verified 03/29/21 11:54 JOINT PAIN ranitidine Allergy Intermediate week, Verified 03/29/21 11:54 watery stool aspirin Allergy Mild UNKNOWN, Verified 03/29/21 11:54 one sided facial pain, green spots in eye rabeprazole Allergy Mild UNKNOWN Verified 03/29/21 11:54 Sulfa (Sulfonamide Allergy Mild RASH Verified 03/29/21 11:54 Antibiotics) [place] Allergy Unknown painful Verified 03/29/21 11:54 bones/muscles amoxicillin Allergy Unknown hives, bad Verified 03/29/21 11:54 rash atorvastatin Allergy Unknown Unknown Verified 03/29/21 11:54 Bifidobacterium infantis Allergy Unknown Unknown Verified 03/29/21 11:54 [Align] clarithromycin [Prevpac] Allergy Unknown unkn Verified 03/29/21 11:54 esomeprazole [Nexium] Allergy Unknown UNKNOWN Verified 03/29/21 11:54 levofloxacin [From LEVAQUIN] Allergy Unknown RASH Verified 03/29/21 11:54 omeprazole [From PRILOSEC] Allergy Unknown UNKNOWN Verified 03/29/21 11:54 oxycodone [Percocet] Allergy Unknown vomit Verified 03/29/21 11:54 pantoprazole [Protonix] Allergy Unknown one sided Verified 03/29/21 11:54 headache, yellow streak in left eye penicillin V Allergy Unknown hives, rash Verified 03/29/21 11:54 simvastatin [From ZOCOR] Allergy Unknown UNKNOWN Verified 03/29/21 11:54 alirocumab AdvReac Mild Generalized Verified 03/29/21 11:54 [From Praluent Pen] ecchymoses Review of Systems Review of Systems: Yes all other systems are reviewed and are negative [facility] Past Medical History Medical History Allergic rhinitis Asthma Barretts esophagus CAD (coronary artery disease) Cough Diverticular disease GERD (gastroesophageal reflux disease) Hiatal hernia History of CVA (cerebrovascular accident) History of hemorrhoids History of rib fracture HLD (hyperlipidemia) Lung fibrosis Osteopenia Polymyalgia rheumatica Postoperative atrial fibrillation Psoriasis Pulmonary nodule Sinusitis Skin cancer UTI (urinary tract infection) Surgical History History of bladder suspension procedure History of tonsillectomy History of tonsillectomy and adenoidectomy Hx of CABG Hx of hemorrhoidectomy Family History Family History Father No problems noted. Mother No problems noted. Social History Social History Housing: House Alcohol intake: never Patient Tobacco Use Status: Never used Tobacco e-Cigarette/Vaping Use: Never Used Second Hand Smoke Exposure: No Advance Directives: No Advance Directives Information Provided: No service: No Current occupational status: retired Current occupation: rt hand Current occupational exposures/hazards: No Cognitive needs: No Hearing needs: No Vision needs: No Physical Exam Vital Signs: Vital Signs: Last Vital Signs Temp 98.0 F 05/09/21 13:32 Pulse 50 05/09/21 13:32 Resp 18 05/09/21 13:32 BP 161/44 H 05/09/21 13:32 Pulse Ox 99 05/09/21 13:32 BMI result Body Mass Index 26.2 Appearance: Alert. Oriented X3. No acute distress. ENT: Pharynx normal. Oral Mucosa moist Neck: Normal inspection. Neck supple. CVS: Normal heart rate and rhythm. Pulses normal. No murmur/ gallop Respiratory: No respiratory distress. Equal air entry bilateral, no wheezing/rales/rhonchi Abdomen: Soft and nontender. Bowel sounds are present, no mass palpable, Skin: Skin warm and dry. Normal skin color. Normal skin turgor. Extremities: No lower extremity edema. No calf tenderness Neuro: Oriented X 3. No motor deficit. MDM - Medical Clearance MDM Narrative Medical decision making narrative: Patient with atypical chest pain without any EKG changes troponin negative will discharge patient home advised to follow with belt press operator Lab Data Attestation: I reviewed the patient's lab results. Result diagrams: 05/09/21 13:57 05/09/21 13:57 Labs: Lab Results 05/09/21 05/09/21 05/09/21 Range/Units 13:57 13:57 13:57 WBC 6.5 (4.8-10.8) X10*3/uL RBC 4.18 L (4.20-5.50) X10*6/uL Hgb 12.3 (12.0-16.0) g/dl Hct 37.6 (37.0-47.0) % MCV 90.0 (80.0-98.0) fL MCH 29.4 (27.0-33.0) pg MCHC 32.7 (31.0-35.0) g/dl RDW 12.7 (11.0-16.0) % Plt Count 260 (160-400) X10*3/uL MPV 8.6 L (9.4-12.3) fL Immature Gran % (Auto) 0.3 (0.0-0.4) % Neut % (Auto) 56.4 (45-73) % Lymph % (Auto) 23.9 (20-40) % [place] % (Auto) 9.3 (2-11) % Eos % (Auto) 9.3 H (0-4) % Baso % (Auto) 0.8 (0-2) % Lymph # (Auto) 1.5 (1.2-4.9) X10*3/uL [place] # (Auto) 0.6 (0.1-1.2) X10*3/uL Eos # (Auto) 0.6 H (0.0-0.4) X10*3/uL Baso # (Auto) 0.1 (0.0-0.2) X10*3/uL Abs Immat Gran (auto) 0.02 (0.00-0.03) X10*3/uL Absolute Neuts (auto) 3.6 (2.0-8.3) x10*3/uL Absolute Nucleated RBC 0.000 (0.0-0.012) X10*3/uL Nucleated RBC % (auto) 0.0 (0.0-0.2) /100WBC Sodium 139 (135-145) mmol/L Potassium 4.2 (3.3-5.1) mmol/L Chloride 103 (96-108) mmol/L Carbon Dioxide 29 (22-29) mmol/L Anion Gap 11 L (12-20) BUN 12 (9-16) mg/dL Creatinine 0.84 (0.5-1.4) mg/dL Estim Creat Clear Calc 46.9 Estimated GFR > 60 Random Glucose 104 (60-115) mg/dL Calcium 9.9 (8.4-10.2) mg/dL Troponin I High Sens 4.2 (<3.5-17.0) ng/L ECG Data Attestation: I personally reviewed and interpreted this ECG as follows: Interpretation: Sinus bradycardia heart rate 53 beats per minute nonspecific diffuse T-wave changes no acute ST T wave change no acute skin no acute ischemia Discharge Plan Discharge Clinical Impression: Chest pain Qualifiers: Chest pain type: precordial pain Qualified Code(s): R07.2 - Precordial pain Patient Disposition: Home, Self-Care Instructions: Chest Pain (ED) Additional Instructions: No chest pain is likely atypical chest pain follow with the belt press operator if chest pain continues or gets worse Prescriptions: No Action metoprolol tartrate 25 mg tablet 12.5 mg PO BID 90 Days Qty: 90 RF: 3 ezetimibe 10 mg tablet 10 mg PO DAILY Qty: 90 RF: 2 clopidogrel 75 mg tablet 75 mg PO DAILY Qty: 90 RF: 3 fluticasone propionate [Flonase Allergy Relief] 50 mcg/actuation spray,suspension 1 spray intranasal DAILY 10 Days Qty: 150 RF: 12 ethacrynic acid 25 mg tablet 12.5 mg PO DAILY Qty: 20 RF: 1 hydrocodone-acetaminophen 5-325 mg tablet 1 tab PO Q4-6H PRN (Reason: pain) Qty: 5 RF: 0 Zyrtec 10 mg capsule 10 mg PO DAILY 10 Days Qty: 10 RF: 0 halobetasol propionate 0.05 % cream topical RF: 0 nitrofurantoin monohyd/m-cryst [Macrobid] 100 mg capsule 100 mg PO Q12H 7 Days Qty: 14 RF: 0 docusate sodium [Stool Softener] 100 mg capsule 100 mg PO DAILY RF: 0 triamcinolone acetonide 0.1 % ointment topical BID RF: 0 prednisone 1 mg tablet 0 mg PO RF: 0 Interventions: ED Discharge Assessment Last Done: 05/09/21 19:18 Discharge Date/Time: 05/09/21 19:20
== END 2021-05-09 19:20 | disposition home or self-care (01) ==
PROVIDERS: Emergency Provider Internal Medicine; PCP Internal Medicine
DX: R07.2 Precordial pain (principal); I25.10 Atherosclerotic heart disease of native coronary artery without angina pectoris; J45.909 Unspecified asthma, uncomplicated; Z86.73 Personal history of transient ischemic attack (TIA), and cerebral infarction without residual deficits; Z95.1 Presence of aortocoronary bypass graft
CPT/HCPCS: 36415; 71045; 80048; 83880; 84484; 85025; 93005; 99283

== ENCOUNTER → 2021-05-13 07:19 | Outpatient (REF) | payer MEDICARE, SELFPAY ==
--- NOTE | 2021-05-13 07:21 | CA_ITS ---
Transthoracic Echocardiogram Patient (Last, First, Middle): Mary Whitfield I Gender: Female Date of : 1940 Age: 80 Procedure Date: 05/13/2021 Procedure Type: Transthoracic Echocardiogram Location: OP Height: 154.94 cm Weight: 63.05 kg BSA: 1.62 m2 Heart Rate: bpm BP: 122 / 78 mmHg Obgyn Specialist: Referring MD: Anahi Lu COOK FRY-C Symptoms: I25.10 - Atherosclerotic heart disease of [place] coronary... Study Quality: Fair ECG Rhythm: Sinus Conclusions: - The left ventricular systolic function is normal. The calculated ejection fraction is 62% by biplane method. - Evidence suggests grade II (moderate) diastolic dysfunction. - The basal inferior, mid inferior, and basal inferolateral segments are hypokinetic. - The left atrium is moderately dilated. - There is mild mitral annular calcification. Findings Procedure Information Contrast agent, definity, is being given per protocol without apparent complications. Left Ventricle Normal left ventricular cavity size. The left ventricular systolic function is normal. The calculated ejection fraction is 62% by biplane method. E/E prime ratio is between 8 and 15 consistent with indeterminate filling pressures. Evidence suggests grade II (moderate) diastolic dysfunction. There is mild septal and mild basal asymmetric hypertrophy. Wall Motion Rest Echo Findings The basal inferior, mid inferior, and basal inferolateral segments are hypokinetic. Right Ventricle Normal right ventricular cavity size and systolic function. Atria The left atrium is moderately dilated. The right atrium is normal in size. Aortic Valve There is a normal trileaflet aortic valve. There is no aortic valve stenosis. There is no aortic valve regurgitation. Mitral Valve There is mild mitral annular calcification. There is mild mitral valve regurgitation. There is no mitral valve stenosis. Pulmonic Valve The pulmonic valve was not well visualized. There is trace to mild pulmonic valve regurgitation. Tricuspid Valve Normal tricuspid valve structure. There is trace tricuspid valve regurgitation. The pulmonary artery systolic pressure is normal. Great Vessels The aortic annulus, sinuses of valsalva, and asc aorta are normal in size. Small plaque is seen in the sino tubular ridge. Venous The inferior vena cava is normal in size and collapses greater than 50% with inspiration. Pericardium/Pleural There is no evidence of pericardial effusion. Prior Study Comparison Changes noted compared to prior study dated: 09/29/2017. See comments on wall motion. Measurements 2D Linear Measurements IVSd: 1.03 0.6-0.9/0.6-1.0 cm LVIDd: 4.38 3.9-5.3/4.2-5.9 cm LVIDd Index: 2.70 2.4-3.2/2.2-3.1 cm/m2 LVIDs: 2.71 2.0-3.6 cm LVPWd: 1.14 0.7-1.1 cm Ao Root: 3.10 2.1-3.5 cm LA Diam: 4.70 2.7-3.8/3.0-4.0 cm LAIDs Index: 2.90 1.5-2.3 cm/m2 LV Mass: 204.86 67-162/88-224 g LV Mass Index: 126.46 43-95/49-115 g/m2 LVOT Diam: 2.00 3.0+(-)1.3 cm 2D Systolic Function EF 4C: 75.70 >55% EF 2C: 39.30 >55% EF BiP: 62.10 >55% Mitral Valve MV Pk E: 0.84 MV PK A: 0.32 MV Decel Time: 139.00 E/A: 2.70 E'Lateral: 12.00 E'Medial: 6.31 E/E' Med: 13.40 E/E' Lat: 7.00 PHT: 41.00 MVA PHT: 5.37 Decel [place]: 6.05 Aortic Valve AoV Pk Jose Raul: 1.03 AoV Mn Jose Raul: 0.72 AoV VTI: 0.32 AoV Pk Grad: 4.00 Aov Mn Grad: 2.00 ELIZABETH Cont.VTI: 1.86 LVOT LVOT Pk Jose Raul: 0.69 LVOT Mn Jose Raul: 0.42 LVOT VTI: 0.19 LVOT Pk Grad: 2.00 LVOT Mn Grad: 1.00 LVOT Diam: 2.00 LVOT Area: 3.14 Diastolic Function MV Pk E: 0.84 MV Pk A: 0.32 E/A: 2.70 E'Medial: 6.31 E/E' Med: 13.40 E' Laterial: 12.00 E/E' Lat: 7.00 Right Ventricle TAPSE (mm): 20.00 Tricuspid Valve TR Pk Jose Raul: 1.95 TR Pk Grad: 15.00 RA Press: 3.00 RVSP: 18.00 Great Vessels Aorta Ao Root-2D: 3.10 2.0-3.7 cm Ao Asc: 3.40 2.1-3.4 cm Pulmonary Valve PV Pk Jose Raul: 0.75 Peak PV Grad: 2.00 Updated in Other Vendor System with Status of Final Elias Morataya MD electronically signed on 05/13/2021 11:21:07 AM with status of Final
== END ==
LOC: HO.CARD 07:19
PROVIDERS: PCP Internal Medicine; Visit Provider Nurse Practitioner Family
DX: I25.10 Atherosclerotic heart disease of native coronary artery without angina pectoris (principal)
CPT/HCPCS: 93306; Q9957

== ENCOUNTER 2021-05-15 10:33 | Outpatient (REF) | payer MEDICARE, SELFPAY | END 2021-05-15 10:34 | disposition home or self-care (01) | LOC: HO.LAB 10:33 | PROVIDERS: PCP Internal Medicine; Visit Provider Internal Medicine | DX: Z13.89 Encounter for screening for other disorder (principal) ==

== ENCOUNTER 2021-05-31 09:00 | Outpatient (REF) | payer MEDICARE, SELFPAY ==
[2021-05-31 10:25] LABS: C Reactive Protein 0.11 mg/dL (< or = 0.50)
[2021-05-31 10:29] LABS: Erythrocyte Sedimentation Rate 11 MM/HR (0-20)
[2021-05-31 11:46] LABS: Appearance Urine HAZY; Color Urine YELLOW; Glucose Urine UA NEG (NEG); Leukocyte Esterase Urine 1+ (NEG); Nitrite Urine NEG (NEG); PH 5.5 (5.0-8.0); Specific Gravity - Urine >= 1.030 (1.005-1.025); Urine Blood 2+ (NEG); Urine Ketones 5 MG/DL (NEG); Urine Protein 1+ MG/DL (NEG-TRACE)
[2021-05-31 12:53] LABS: Bacteria Urine 1+ /LPF; RBC Urine 0-2 /HPF (0); Renal Epithelial Cells Urine 2+ /LPF; Squamous Epithelial Cell Urine 1+ /LPF; WBC Urine 0-2 /HPF (0-4)
== END 2021-05-31 09:01 | disposition home or self-care (01) ==
LOC: HO.LAB 09:00
PROVIDERS: Student in an Organized Health Care Education/Training Program; Absent Provider Nurse Practitioner Family; PCP Internal Medicine; Visit Provider Internal Medicine
DX: M35.3 Polymyalgia rheumatica (principal); N39.0 Urinary tract infection, site not specified
CPT/HCPCS: 36415; 81001; 85652; 86140

== ENCOUNTER → 2021-06-04 07:50 | Outpatient (REF) | payer MEDICARE, SELFPAY ==
--- NOTE | ~2021-06-04 | NM_ITS ---
Lexiscan Myocardial perfusion study Indication: Chest pain, assess for coronary disease and ischemia Technique: The patient was brought in for a Lexiscan perfusion study on 04/04/2022 and was injected 0.4 mg of Lexiscan intravenously. Within a minute of this injection 25 mCi of sestamibi was given intravenously. Images were obtained using the SPECT gamma camera interlaced with the gating device. Images were obtained in supine position. Resting perfusion study was performed on 04/05/2022. Patient was administered 25 mCi of sestamibi intravenously at rest. Images were then obtained in supine position. Total DLP 93mGy-cm. Images were processed with the software and compared side to side in short axis, horizontal long axis and vertical long axis views. Findings: Raw acquisition was reviewed. The stress perfusion study showed diminished tracer uptake along the inferior wall. There is improvement with CT attenuation correction except in the most apical portion. The gated study shows normal LV systolic function with calculated LVEF of 74%. LV cavity is normal in size. The gated study shows inferior hypokinesis. Resting study shows diminished tracer uptake along the distal part of inferior wall which is seen in uncorrected and corrected acquisitions. Gating at rest reveals normal wall motion with ejection fraction at 67%. The findings are consistent with reversible perfusion defect along the inferior wall with superimposed diaphragmatic attenuation. NM/NM cardiolite stress test Impression: 1. Myocardial perfusion imaging study shows [id number]-uo-mrglocde ischemia along the inferior wall with superimposed diaphragmatic attenuation. 2. Gated LVEF is 74% during stress and 67% during rest. 3. Transient ischemic dilatation not present. EKG component of the test reported separately.
--- NOTE | 2021-06-04 07:53 | CA_ITS ---
Acquisition Time: 2021-06-04 08:19:11 Total Exercise Time: 00:02:00 Test Indications: Chest Pain Medications: METOPROLOL CLOPIDOGREL PREDNISONE ZYRTEC Protocol: LEXISCAN Max HR: 107 BPM 75% of Pred: 142 BPM Max BP: 144/072 mmHG Max Work Load: 1.0 METS Pharmacological stress test with Lexiscan injection, while sitting and kicking her legs, without anginal symptoms, with isolated PVC, PACs and one 5 beat atrial tach following injection, with normotensive response to injection, with nondiagnostic EKG for ischemia. In recovery she reported weakness and was treated with Aminophyllne 75 mg IVP to reverse Lexiscan with resolution of symptoms. Nuclear images pending. Test reviewed with Dr Lynn. Referred By: Anahi Lu Overread By: ANAHI LU
== END ==
LOC: HO.CARD 07:50
PROVIDERS: PCP Internal Medicine; Visit Provider Nurse Practitioner Family
DX: R93.1 Abnormal findings on diagnostic imaging of heart and coronary circulation (principal); I25.10 Atherosclerotic heart disease of native coronary artery without angina pectoris; M35.3 Polymyalgia rheumatica; M85.89 Other specified disorders of bone density and structure, multiple sites; Z79.52 Long term (current) use of systemic steroids
CPT/HCPCS: 78452; 93017; 99212; A9500; J0280; J2785

== ENCOUNTER 2021-06-14 07:13 | Outpatient (REF) | payer MEDICARE, SELFPAY ==
--- NOTE | ~2021-06-14 | MM_ITS ---
EXAMINATION: MM SCREENING DIGITAL BREAST TOMOSYNTHESIS, BILATERAL CLINICAL INFORMATION: Screening. Asymptomatic. The lifetime risk of breast cancer based on the Tyrer-Cuzick Model is 1%. COMPARISON: Mammography: 06/05/2020, 05/31/2019, 05/20/2018 TECHNIQUE: Digital breast tomosynthesis is performed in both the craniocaudal and mediolateral oblique views along with computer-aided detection (CAD). Synthesized 2D images are generated from the tomosynthesis. Additional bilateral MLO views are provided. FINDINGS: There are scattered areas of fibroglandular density (ACR BI-RADS breast composition Category b). There are no significant masses, abnormal calcifications, or other abnormalities. Parenchymal pattern is similar to prior studies. There is no developing density or architectural abnormality. The axilla and skin contours are unremarkable. No significant changes. MM/MM tomosynthesis screening BI IMPRESSION: No mammographic evidence of malignancy. ASSESSMENT: BI-RADS 1: Negative RECOMMENDATION: Routine annual mammography screening. This patient's information was entered into a reminder system with a target due date for their next mammogram.
== END 2021-06-14 07:14 | disposition home or self-care (01) ==
LOC: HO.MAMMO 07:13
PROVIDERS: PCP Internal Medicine; Visit Provider Internal Medicine
DX: Z12.31 Encounter for screening mammogram for malignant neoplasm of breast (principal)
CPT/HCPCS: 77063; 77067

== ENCOUNTER → 2021-06-20 10:12 | Outpatient (BNVA) | payer MEDICARE, SELFPAY | PROVIDERS: PCP Internal Medicine; Visit Provider Internal Medicine | DX: J84.10 Pulmonary fibrosis, unspecified (principal); J30.9 Allergic rhinitis, unspecified; R05.9 Cough, unspecified | CPT/HCPCS: 99212 ==

== ENCOUNTER → 2021-06-24 10:12 | Outpatient (BNVA) | payer MEDICARE, SELFPAY | PROVIDERS: PCP Internal Medicine; Referring Provider Internal Medicine; Visit Provider Internal Medicine Cardiovascular Disease | DX: N39.0 Urinary tract infection, site not specified (principal); I50.30 Unspecified diastolic (congestive) heart failure; I25.10 Atherosclerotic heart disease of native coronary artery without angina pectoris | CPT/HCPCS: 51798; 99202; 99212 ==

== ENCOUNTER 2021-06-27 10:06 | Outpatient (REF) | payer MEDICARE, SELFPAY ==
[2021-06-27 11:35] LABS: C Reactive Protein 0.21 mg/dL (< or = 0.50)
[2021-06-27 11:49] LABS: Erythrocyte Sedimentation Rate 14 MM/HR (0-20)
== END 2021-06-27 10:07 | disposition home or self-care (01) ==
LOC: HO.LAB 10:06
PROVIDERS: PCP Internal Medicine; Visit Provider Nurse Practitioner Family
DX: M35.3 Polymyalgia rheumatica (principal)
CPT/HCPCS: 36415; 85652; 86140

== ENCOUNTER → 2021-07-02 12:24 | Outpatient (BNVA) | payer MEDICARE, SELFPAY | PROVIDERS: PCP Internal Medicine | DX: N39.0 Urinary tract infection, site not specified (principal) | CPT/HCPCS: Q3014 ==

== ENCOUNTER → 2021-07-04 08:17 | Outpatient (BNVA) | payer MEDICARE, SELFPAY | PROVIDERS: PCP Internal Medicine; Visit Provider Nurse Practitioner Family | DX: M35.3 Polymyalgia rheumatica (principal); M85.89 Other specified disorders of bone density and structure, multiple sites; M79.641 Pain in right hand; M79.642 Pain in left hand; M25.561 Pain in right knee; M25.562 Pain in left knee; Z79.52 Long term (current) use of systemic steroids | CPT/HCPCS: 99212 ==

== ENCOUNTER 2021-07-16 14:37 | Outpatient (REF) | payer MEDICARE, SELFPAY ==
[2021-07-16 15:56] LABS: Anion Gap 13 (12-20); Blood Urea Nitrogen 14 mg/dL (9-16); Calcium 9.9 mg/dL (8.4-10.2); Carbon Dioxide 30 mmol/L (22-29); Chloride 100 mmol/L (96-108); Estimated Glomerular Filt Rate 53; Glucose Random 113 mg/dL (60-115); Rheumatoid Factor < 15.0 IU/mL (<15.0); Sodium 139 mmol/L (135-145)
[2021-07-17 13:06] LABS: Anti Nuclear Antibody Screen NEGATIVE (NEGATIVE)
[2021-07-19 04:06] LABS: Aldolase 4.8 U/L (<=8.1)
== END 2021-07-16 14:38 | disposition home or self-care (01) ==
LOC: HO.LAB 14:37
PROVIDERS: PCP Internal Medicine; Visit Provider Psychiatry & Neurology Neurology
DX: M35.3 Polymyalgia rheumatica (principal); N39.0 Urinary tract infection, site not specified
CPT/HCPCS: 36415; 80048; 82085; 82550; 86038; 86039; 86431; 87086

== ENCOUNTER → 2021-07-23 08:40 | Outpatient (BNVA) | payer MEDICARE, SELFPAY | PROVIDERS: PCP Internal Medicine | DX: Z13.89 Encounter for screening for other disorder (principal) | CPT/HCPCS: Q3014 ==

== ENCOUNTER 2021-07-24 10:12 | Outpatient (REF) | payer MEDICARE, SELFPAY ==
[2021-07-24 11:12] LABS: C Reactive Protein 0.15 mg/dL (< or = 0.50); Uric Acid 7.1 mg/dL (2.4-5.7)
[2021-07-24 11:21] LABS: Erythrocyte Sedimentation Rate 12 MM/HR (0-20)
== END 2021-07-24 10:13 | disposition home or self-care (01) ==
LOC: HO.LAB 10:12
PROVIDERS: PCP Internal Medicine; Visit Provider Psychiatry & Neurology Neurology
DX: M35.3 Polymyalgia rheumatica (principal)
CPT/HCPCS: 36415; 84550; 85652; 86140

== ENCOUNTER 2021-08-29 10:42 | Outpatient (REF) | payer MEDICARE, SELFPAY ==
--- NOTE | ~2021-08-29 | MM_ITS ---
EXAMINATION: BONE DENSITOMETRY CLINICAL INDICATION: Age-related osteoporosis without current pathological fracture. COMPARISON: Previous BD dated 04/26/2019 and baseline BD dated 02/29/2008. TECHNIQUE: Using a [facility] DXA System (software version: 13.1) manufactured by [employer], dual-energy x-ray absorptiometry was performed of the lumbar spine and left hip. The images are of good technical quality. Summary results are attached. FINDINGS: AP SPINE L1-L4: Current: BMD 0.951 g/cm2, Z-score 0.0, T-score -1.9, osteopenia, 0.6% increase from previous, 8.2% decrease from baseline (<5% change is not significant). Prior: BMD 0.945 g/cm2. Baseline: BMD 1.036 g/cm2. LEFT FEMUR, NECK: Current: BMD 0.759 g/cm2, Z-score 0.2, T-score -2.0, osteopenia. Prior: BMD 0.782 g/cm2. Baseline: BMD 0.874 g/cm2. LEFT FEMUR, TOTAL: Current: BMD 0.807 g/cm2, Z-score 0.4, T-score -1.6, osteopenia, 5.1% decrease from previous, 16.8% decrease from baseline (<5% change is not significant). Prior: BMD 0.850 g/cm2. Baseline: BMD 0.970 g/cm2. IDENTIFIED RISK FACTORS: Osteoporosis, height loss, low calcium intake. Early menopause, secondary osteoporosis, glucocorticoids (chronic), hysterectomy. HISTORY OF FRACTURE: None listed. MEDICATIONS: Calcium or multivitamin. MM/XR DEXA axial skeleton IMPRESSION: 1. DIAGNOSIS: Osteopenia based on the lowest T-score value of -2.0 in the femoral neck applying World Health Organization criteria. 2. 10-YEAR FRACTURE RISK PREDICTION, FRAX: Major osteoporotic fracture (clinical spine, forearm, hip or shoulder) 23.5%. Hip fracture 7.9%. 3. Treatment Recommendations: NOF guidelines recommend consideration for treatment in postmenopausal women and men age 50 and older presenting with the following: -A hip or vertebral (clinical or morphometric) fracture. -T-score less than or equal to -2.5 at the femoral neck or spine after appropriate evaluation to exclude secondary causes. -Low bone mass at the hip or spine and a 10-year fracture probability by FRAX of greater than or equal to 3% for hip fracture or greater than or equal to 20% for major osteoporotic fracture based on the [place] adapted WHO algorithm. 4. Other Recommendations: All treatment decisions require clinical judgment and consideration of individual patient factors, including patient preferences, comorbidities, previous drug use, risk factors not captured in the FRAX model (e.g. frailty, falls, vitamin D deficiency, increased bone turnover, interval significant decline in bone density) and possible under or overestimation of fracture risk by FRAX. Additional medical evaluation for secondary cause of low bone mineral density may be appropriate. FUTURE SCAN RECOMMENDATION: People with diagnosed cases of osteoporosis or at high risk for fracture should have regular bone mineral density tests. For patients eligible for Medicare, routine testing is allowed once every 2 years. The testing frequency can be increased to one year for patients who have rapidly progressing disease, those who are receiving or discontinuing medical therapy to restore bone mass, or have additional risk factors.
== END 2021-08-29 10:43 | disposition home or self-care (01) ==
LOC: HO.MAMMO 10:42
PROVIDERS: PCP Internal Medicine; Visit Provider Internal Medicine
DX: Z13.820 Encounter for screening for osteoporosis (principal); M81.0 Age-related osteoporosis without current pathological fracture; Z78.0 Asymptomatic menopausal state
CPT/HCPCS: 77080

== ENCOUNTER → 2021-09-04 13:06 | Outpatient (BNVA) | payer MEDICARE, SELFPAY | PROVIDERS: PCP Internal Medicine; Referring Provider Internal Medicine; Visit Provider Internal Medicine Cardiovascular Disease | DX: I50.30 Unspecified diastolic (congestive) heart failure (principal); I25.10 Atherosclerotic heart disease of native coronary artery without angina pectoris | CPT/HCPCS: 99212 ==

== ENCOUNTER 2021-09-06 10:10 | Outpatient (REF) | payer MEDICARE, SELFPAY ==
[2021-09-06 16:47] LABS: Urine Cytology See Pathology rpt
== END 2021-09-06 10:11 | disposition home or self-care (01) ==
LOC: HO.LAB 10:10
PROVIDERS: PCP Internal Medicine
DX: R31.9 Hematuria, unspecified (principal); R32 Unspecified urinary incontinence; N39.0 Urinary tract infection, site not specified
CPT/HCPCS: 88112; 99212

== ENCOUNTER 2021-09-11 09:28 | Outpatient (REF) | payer MEDICARE, SELFPAY ==
--- NOTE | ~2021-09-11 | CT_ITS ---
EXAMINATION: CT ABDOMEN AND PELVIS WITHOUT AND WITH CONTRAST CLINICAL INFORMATION: Unspecified hydronephrosis. COMPARISON: None TECHNIQUE: Noncontrast CT of the abdomen and pelvis is performed followed by split bolus contrast-enhanced images using 85 mL Omnipaque 350 contrast.? Postcontrast imaging is performed during the combined nephrogram and excretion phase. Sagittal and coronal reformatted images were obtained on the technologist's workstation for both the precontrast and postcontrast phases. This CT examination was performed using dose optimization techniques as appropriate, variously including the following: *Automated exposure control *Adjustment of mA and/or kV according to patient size (this includes techniques or standardized protocols for targeted exams where dose is matched to indication/reason for exam; i.e. extremities or head) *Use of iterative reconstruction technique DLP: 533 mGy-cm FINDINGS: LUNG BASES: The heart size is normal. There is minimal subpleural reticular prominence in both lower lobes likely early scarring. There are coronary artery calcifications present. LIVER, GALLBLADDER, AND BILIARY TREE: The liver is normal in size, shape, and attenuation. No focal hepatic lesion or biliary ductal dilatation is present. The gallbladder is unremarkable with no evidence of radiopaque gallstones, gallbladder wall thickening, or obvious pericholecystic inflammatory changes. PANCREAS: Unremarkable. SPLEEN: Unremarkable. ADRENAL GLANDS: Unremarkable. KIDNEYS AND URETERS: The kidneys are normal in size, shape, and attenuation. No radiopaque calculi seen. Postcontrast nephrograms are symmetrical in size, lobulated shape. There is a nonenhancing 5 mm cyst posterior cortex midpole left kidney. No caliectasis or hydronephrosis seen. There is good opacification of bilateral pelvicalyceal system and the ureters without any intraluminal filling defect or obstruction. There are bilateral extrarenal kidney pelvises. BLADDER: There are no radiopaque calculi. There is no bladder wall thickening. Minimal excreted contrast is seen along the dependent portion of the bladder. GASTROINTESTINAL TRACT: There is scattered stool, gas and diverticula seen in colon without distention or diverticulitis. The small bowel loops are normal caliber. Appendix is not seen well. ABDOMINAL WALL: A small umbilical hernia containing fat is noted. LYMPH NODES: Normal. VASCULAR: There is atherosclerotic calcification of abdominal aorta and common iliac arteries without aneurysmal dilatation. PELVIC VISCERA: The uterus is atrophied or surgically removed. OSSEUS STRUCTURES: No lytic or sclerotic process seen. There are degenerative disc changes and vacuum disc phenomena L5-S1 disc level. CT/CT urogram IMPRESSION: No radiopaque renal calculi, enhancing renal mass. There is probable small 5 mm cyst. There are extrarenal kidney pelvises. No hydronephrosis seen. The bladder is unremarkable. Colonic diverticulosis most prominent in the sigmoid colon but no evidence of diverticulitis.
[2021-09-11 10:17] LABS: Blood Urea Nitrogen 16 mg/dL (9-16); C Reactive Protein 0.15 mg/dL (< or = 0.50); Estimated Glomerular Filt Rate 55
[2021-09-11 11:14] LABS: Erythrocyte Sedimentation Rate 10 MM/HR (0-20)
[2021-09-11] MEDS: iohexoL 350 MG/ML 100 ML INFUS..BTL IV (16:46)
== END 2021-09-11 09:29 | disposition home or self-care (01) ==
LOC: HO.CT 09:28
PROVIDERS: Nurse Practitioner Family; PCP Internal Medicine; Referring Provider Internal Medicine
DX: C67.9 Malignant neoplasm of bladder, unspecified (principal); M35.3 Polymyalgia rheumatica; N13.30 Unspecified hydronephrosis
CPT/HCPCS: 36415; 74178; 82565; 84520; 85652; 86140; Q9967

== ENCOUNTER → 2021-10-25 12:51 | Outpatient (BNVA) | payer MEDICARE, SELFPAY | PROVIDERS: PCP Internal Medicine; Visit Provider Urology | DX: N39.0 Urinary tract infection, site not specified (principal); R89.6 Abnormal cytological findings in specimens from other organs, systems and tissues | CPT/HCPCS: 51798; 99212 ==

== ENCOUNTER 2021-11-04 13:35 | Day surgery (SDC) | payer MEDICARE, SELFPAY ==
[2021-10-28 15:04] VITALS: BMI 26.7
--- NOTE | 2021-11-01 09:37 | HO.ANESPROP2 ---
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) UTI (urinary tract infection) (Acute) Trigger thumb of right hand (Acute) Medicare annual wellness visit, initial (Acute) Trigger finger (Acute) Trigger finger of right thumb (Acute) Recurrent UTI (Acute) Urine incontinence (Acute) Age-related osteoporosis without current pathological fracture (Acute) Abnormal bladder cytology (Acute) Diastolic heart failure (Acute) Cough (Acute) Allergic rhinitis (Acute) Lung fibrosis (Acute) Psoriasis (Acute) Barretts esophagus (Acute) GERD (gastroesophageal reflux disease) (Acute) UTI (urinary tract infection) (Acute) HLD (hyperlipidemia) (Acute) CAD (coronary artery disease) (Acute) Osteopenia (Acute) Polymyalgia rheumatica (Acute) Past Medical History Medical History Abnormal echocardiogram Asthma Diverticular disease Hiatal hernia History of CVA (cerebrovascular accident) History of hemorrhoids History of rib fracture Osteopenia Postoperative atrial fibrillation Pulmonary nodule Sinusitis Skin cancer Family History Family History Father No problems noted. Mother No problems noted. Surgical History Surgical History (Updated 10/28/21 @ 14:38 by Dottie Mukherjee RN) History of bladder suspension procedure History of tonsillectomy History of tonsillectomy and adenoidectomy Hx of CABG Hx of hemorrhoidectomy S/P trigger finger release Social History Social History Housing: House Are you a primary manager critical care to a significant other at home: No Do you presently have visiting nurse or other home services: No Alcohol intake: never Patient Tobacco Use Status: Never used Tobacco e-Cigarette/Vaping Use: Never Used Second Hand Smoke Exposure: No Use of substances other than those prescribed or required for medical reasons: No Have you been hit, kicked, punched, or otherwise hurt by someone within the past year? If so, by whom?: No Are you DNR?: No Advance Directives: Yes Advance Directives Information Provided: No Advance Directives on File: Yes Advance Directives Date on File: 08/29/16 Recently lost weight without trying: No Eating poorly because of decreased appetite: No Nutrition Risks: No Nutritional Risk service: No Current occupational status: retired Current occupation: rt hand Current occupational exposures/hazards: No Cognitive needs: No Hearing needs: No Vision needs: No Meds Allergies Allergy/AdvReac Type Severity Reaction Status Date / Time Penicillins Allergy Severe ANAPHYLAXIS Verified 10/28/21 14:36 tamsulosin [Flomax] Allergy Severe severe Verified 10/28/21 14:36 chest pains ibuprofen [IBUPROFEN] Allergy Intermediate RASH, hives Verified 10/28/21 14:36 rabeprazole Allergy Mild UNKNOWN Verified 10/28/21 14:36 Sulfa (Sulfonamide Allergy Mild RASH Verified 10/28/21 14:36 Antibiotics) amoxicillin Allergy Unknown hives, bad Verified 10/28/21 14:36 rash atorvastatin Allergy Unknown Unknown Verified 10/28/21 14:36 Bifidobacterium infantis Allergy Unknown Unknown Verified 10/28/21 14:36 [Align] clarithromycin [Prevpac] Allergy Unknown unkn Verified 10/28/21 14:36 esomeprazole [Nexium] Allergy Unknown UNKNOWN Verified 10/28/21 14:36 levofloxacin [From LEVAQUIN] Allergy Unknown RASH Verified 10/28/21 14:36 omeprazole [From PRILOSEC] Allergy Unknown UNKNOWN Verified 10/28/21 14:36 simvastatin [From ZOCOR] Allergy Unknown UNKNOWN Verified 10/28/21 14:36 clobetasol AdvReac Intermediate made Verified 10/28/21 14:36 psoriasis worse dexlansoprazole AdvReac Intermediate hyper,watery Verified 10/28/21 14:36 [From Kapidex] stool Iodinated Contrast Media AdvReac Intermediate WEAKNESS, Verified 10/28/21 14:36 [IV CONTRAST] LIGHTHEADEDNESS, AND CONFUSION lansoprazole [Prevacid] AdvReac Intermediate hyper, Verified 10/28/21 14:36 watery stool methotrexate [METHOTREXATE] AdvReac Intermediate MUSCLE AND Verified 10/28/21 14:36 JOINT PAIN ranitidine AdvReac Intermediate week, Verified 10/28/21 14:36 watery stool alirocumab AdvReac Mild Generalized Verified 10/28/21 14:36 [From Praluent Pen] ecchymoses aspirin AdvReac Mild UNKNOWN, Verified 10/28/21 14:36 one sided facial pain, green spots in eye oxycodone [Percocet] AdvReac Unknown vomit Verified 10/28/21 14:36 pantoprazole [Protonix] AdvReac Unknown one sided Verified 10/28/21 14:36 headache, yellow streak in left eye fexofenadine [From [place]] AdvReac painful Verified 10/28/21 14:36 bones and muscles Home Medications Medication Instructions Recorded Confirmed Last Taken Type docusate sodium 100 mg capsule 100 mg PO DAILY 03/21/20 10/28/21 Unknown History (Stool Softener) triamcinolone acetonide 0.1 % 1 appl topical BID-TID 07/23/21 10/28/21 Unknown History topical cream cetirizine 10 mg capsule (Zyrtec) 10 mg PO BEDTIME 10/28/21 10/28/21 Unknown History dupilumab 300 mg/2 mL subcutaneous 300 mg subcut Q2W 10/28/21 10/28/21 Unknown History pen injector (Dupixent) prednisone 5 mg tablet 1 tab PO DAILY 10/28/21 10/28/21 Unknown History Exam Exam Date and Time: November 01, 2021 0937 Height,Weight and Vital Signs: Height 5 ft Weight 62.142 kg Pertinent Lab Results Pertinent Lab Results: Laboratory Tests 05/09/21 07/16/21 09/11/21 13:57 14:49 09:58 WBC 6.5 Hgb 12.3 Hct 37.6 Plt Count 260 Sodium 139 Potassium 4.0 Chloride 100 Carbon Dioxide 30 H BUN 16 Creatinine 0.98 Narrative Narrative: EKG 04/2021 Vent. Rate : 053 BPM ? ? Atrial Rate : 053 BPM ?? P-R Int : 190 ms? QRS Dur : 090 ms ? ? QT Int : 460 ms ? ? ? P-R-T Axes : 028 001 003 degrees ?? QTc Int : 431 ms ? Sinus bradycardia Nonspecific T wave abnormality Abnormal ECG When compared with ECG of 06-MAY-2017 15:08, Vent. rate has decreased BY? 38 BPM T wave inversion now evident in Inferior leads Nonspecific T wave abnormality now evident in Anterior leads ECHO 04/2021 Conclusions: - The left ventricular systolic function is normal.? The ? calculated ejection fraction is 62% by biplane method. ? - Evidence suggests grade II (moderate) diastolic dysfunction. ? - The basal inferior, mid inferior, and basal inferolateral? ? ? segments are hypokinetic.? - The left atrium is moderately dilated. ? - There is mild mitral annular calcification. NM cardiolite stress test 05/2021 Impression: ? 1.? Myocardial perfusion imaging study shows [id number] ischemia along the inferior wall with superimposed diaphragmatic attenuation. 2.? Gated LVEF is 74% during stress and 67% during rest. 3. Transient ischemic dilatation not present. ? EKG component of the test reported separately.?? Assessment and Plan Assessment Anesthesia Assessment: Chart Reviewed Documented by User: Zeb So MD 11/04/21 18:21 [facility] Past Medical History Medical History Abnormal echocardiogram Asthma Diverticular disease Hiatal hernia History of CVA (cerebrovascular accident) History of hemorrhoids History of rib fracture Osteopenia Postoperative atrial fibrillation Pulmonary nodule Sinusitis Skin cancer Functional capacity: independent ambulation Family History Family History Father No problems noted. Mother No problems noted. Family history of problems with anesthesia: No Surgical History Surgical History (Updated 10/28/21 @ 14:38 by Dottie Mukherjee RN) History of bladder suspension procedure History of tonsillectomy History of tonsillectomy and adenoidectomy Hx of CABG Hx of hemorrhoidectomy S/P trigger finger release History of Problems with Anesthesia: No Social History Social History Housing: House Are you a primary manager critical care to a significant other at home: No Do you presently have visiting nurse or other home services: No Alcohol intake: never Patient Tobacco Use Status: Never used Tobacco e-Cigarette/Vaping Use: Never Used Second Hand Smoke Exposure: No Use of substances other than those prescribed or required for medical reasons: No Have you been hit, kicked, punched, or otherwise hurt by someone within the past year? If so, by whom?: No Are you DNR?: No Advance Directives: Yes Advance Directives Information Provided: No Advance Directives on File: Yes Advance Directives Date on File: 08/29/16 Recently lost weight without trying: No Eating poorly because of decreased appetite: No Nutrition Risks: No Nutritional Risk service: No Current occupational status: retired Current occupation: rt hand Current occupational exposures/hazards: No Cognitive needs: No Hearing needs: No Vision needs: No Meds Allergies Allergy/AdvReac Type Severity Reaction Status Date / Time Penicillins Allergy Severe ANAPHYLAXIS Verified 10/28/21 14:36 tamsulosin [Flomax] Allergy Severe severe Verified 10/28/21 14:36 chest pains ibuprofen [IBUPROFEN] Allergy Intermediate RASH, hives Verified 10/28/21 14:36 rabeprazole Allergy Mild UNKNOWN Verified 10/28/21 14:36 Sulfa (Sulfonamide Allergy Mild RASH Verified 10/28/21 14:36 Antibiotics) amoxicillin Allergy Unknown hives, bad Verified 10/28/21 14:36 rash atorvastatin Allergy Unknown Unknown Verified 10/28/21 14:36 Bifidobacterium infantis Allergy Unknown Unknown Verified 10/28/21 14:36 [Align] clarithromycin [Prevpac] Allergy Unknown unkn Verified 10/28/21 14:36 esomeprazole [Nexium] Allergy Unknown UNKNOWN Verified 10/28/21 14:36 levofloxacin [From LEVAQUIN] Allergy Unknown RASH Verified 10/28/21 14:36 omeprazole [From PRILOSEC] Allergy Unknown UNKNOWN Verified 10/28/21 14:36 simvastatin [From ZOCOR] Allergy Unknown UNKNOWN Verified 10/28/21 14:36 clobetasol AdvReac Intermediate made Verified 10/28/21 14:36 psoriasis worse dexlansoprazole AdvReac Intermediate hyper,watery Verified 10/28/21 14:36 [From Kapidex] stool Iodinated Contrast Media AdvReac Intermediate WEAKNESS, Verified 10/28/21 14:36 [IV CONTRAST] LIGHTHEADEDNESS, AND CONFUSION lansoprazole [Prevacid] AdvReac Intermediate hyper, Verified 10/28/21 14:36 watery stool methotrexate [METHOTREXATE] AdvReac Intermediate MUSCLE AND Verified 10/28/21 14:36 JOINT PAIN ranitidine AdvReac Intermediate week, Verified 10/28/21 14:36 watery stool alirocumab AdvReac Mild Generalized Verified 10/28/21 14:36 [From Praluent Pen] ecchymoses aspirin AdvReac Mild UNKNOWN, Verified 10/28/21 14:36 one sided facial pain, green spots in eye oxycodone [Percocet] AdvReac Unknown vomit Verified 10/28/21 14:36 pantoprazole [Protonix] AdvReac Unknown one sided Verified 10/28/21 14:36 headache, yellow streak in left eye fexofenadine [From [place]] AdvReac painful Verified 10/28/21 14:36 bones and muscles Home Medications Medication Instructions Recorded Confirmed Last Taken Type docusate sodium 100 mg capsule 100 mg PO DAILY 03/21/20 10/28/21 Unknown History (Stool Softener) triamcinolone acetonide 0.1 % 1 appl topical BID-TID 07/23/21 10/28/21 Unknown History topical cream cetirizine 10 mg capsule (Zyrtec) 10 mg PO BEDTIME 10/28/21 10/28/21 Unknown History dupilumab 300 mg/2 mL subcutaneous 300 mg subcut Q2W 10/28/21 10/28/21 Unknown History pen injector (Dupixent) prednisone 5 mg tablet 1 tab PO DAILY 10/28/21 10/28/21 Unknown History Exam Airway Mallampati Class: III TM Dist: >3cm Neck ROM: Full Partial: Upper Loose/Missing/Broken Teeth: Yes (Poor detition) Heart: S1,S2 Lungs: b/l breath sounds Assessment and Plan Assessment Anesthesia Assessment: Anesthesia Plan Discussed Final Anesthetic Review Family History of Problems with Anesthesia: No History of Problems with Anesthesia: No NPO: Yes ASA Class: III Final Preanesthetic Review: Meds/Allgs Chart Reviewed, Consent Obtained/Reviewed and Anes Risks/Benef Reviewed Patient Risk: High Procedure Risk: Intermediate Anesthetic Plan Anesthetic Plan: MAC: Disposition: Standard PACU
[2021-11-04] VITALS (7 sets, daily range): BP systolic 140–163; BP diastolic 54–90; PULSE 52–76; RESP 15–18; TEMP 36.2–36.6; O2SAT 95–100
[2021-11-04] MEDS: Albuterol Sulfate (0.083%) 2.5 MG/3 ML VIAL.NEB INHALE (14:16)
[2021-11-04] MEDS: Lactated Ringers 1,000 ML 50 ML IVCONT (14:17)
[2021-11-04] MEDS: Nitrofurantoin Monohyd/M-Cryst 100 MG CAPSULE PO (14:24)
--- NOTE | 2021-11-04 17:23 | MHC.SHP ---
Pre-Procedural Eval Section A Date of Service: 11/04/21 The patient is an INPATIENT: No Changes since office visit: No Cold of Flu in the past 2 weeks, No New Medical Problems, No Changes in Medication and No Patient answered all questions The History & Physical has been completed within 30 days and I have reviewed it.: Yes Section B Chief Complaint: neoplasm of bladder Allergies: Allergies Allergy/AdvReac Type Severity Reaction Status Date / Time Penicillins Allergy Severe ANAPHYLAXIS Verified 10/28/21 14:36 tamsulosin [Flomax] Allergy Severe severe Verified 10/28/21 14:36 chest pains ibuprofen [IBUPROFEN] Allergy Intermediate RASH, hives Verified 10/28/21 14:36 rabeprazole Allergy Mild UNKNOWN Verified 10/28/21 14:36 Sulfa (Sulfonamide Allergy Mild RASH Verified 10/28/21 14:36 Antibiotics) amoxicillin Allergy Unknown hives, bad Verified 10/28/21 14:36 rash atorvastatin Allergy Unknown Unknown Verified 10/28/21 14:36 Bifidobacterium infantis Allergy Unknown Unknown Verified 10/28/21 14:36 [Align] clarithromycin [Prevpac] Allergy Unknown unkn Verified 10/28/21 14:36 esomeprazole [Nexium] Allergy Unknown UNKNOWN Verified 10/28/21 14:36 levofloxacin [From LEVAQUIN] Allergy Unknown RASH Verified 10/28/21 14:36 omeprazole [From PRILOSEC] Allergy Unknown UNKNOWN Verified 10/28/21 14:36 simvastatin [From ZOCOR] Allergy Unknown UNKNOWN Verified 10/28/21 14:36 clobetasol AdvReac Intermediate made Verified 10/28/21 14:36 psoriasis worse dexlansoprazole AdvReac Intermediate hyper,watery Verified 10/28/21 14:36 [From Kapidex] stool Iodinated Contrast Media AdvReac Intermediate WEAKNESS, Verified 10/28/21 14:36 [IV CONTRAST] LIGHTHEADEDNESS, AND CONFUSION lansoprazole [Prevacid] AdvReac Intermediate hyper, Verified 10/28/21 14:36 watery stool methotrexate [METHOTREXATE] AdvReac Intermediate MUSCLE AND Verified 10/28/21 14:36 JOINT PAIN ranitidine AdvReac Intermediate week, Verified 10/28/21 14:36 watery stool alirocumab AdvReac Mild Generalized Verified 10/28/21 14:36 [From Praluent Pen] ecchymoses aspirin AdvReac Mild UNKNOWN, Verified 10/28/21 14:36 one sided facial pain, green spots in eye oxycodone [Percocet] AdvReac Unknown vomit Verified 10/28/21 14:36 pantoprazole [Protonix] AdvReac Unknown one sided Verified 10/28/21 14:36 headache, yellow streak in left eye fexofenadine [From [place]] AdvReac painful Verified 10/28/21 14:36 bones and muscles Review of Systems Sugical H&P ROS: Negative: Constitution, Cardiovascular, Respiratory, Neurological, Psychiatric, Hem-Onc, Allergic/Immunologic, Gastrointestinal, Genitourinary, Musculoskeletal, Integumentary, Endocrine and Eyes/Ears/Nose/Throat Exam Surgical H&P Exam: Normal: HEENT, Normal: Heart, Normal: Lungs, Normal: Extremities, Normal: Abdomen, Normal: Skin and Normal: Neurological Plan Diagnosis/Plan: Unchanged ( cystoscopy with bladder biopsy possible fulguration) I have reviewed the history and physical and performed a pertinent physical examination on my patient. No changes have occurred unless specified.
--- NOTE | 2021-11-04 18:49 | P.OP_ITS ---
Operative Note Operative Note Date of Service: 11/04/21 Narrative: PreOperative Diagnosis: microscopic hematuria Post Operative Diagnosis: superficial bladder cancer Procedure: bladder biopsy with extensive fulguration left-sided bladder Surgeon: Dr Celio Mix Anesthesia: general Indications for procedure: microscopic hematuria with negative imaging and high-grade cytology Procedure: After informed consent was verified the patient was brought to the operating room and placed in a supine position. anesthesia was administered per p rotocol. the patient was placed in a modified dorsal lithotomy position and prepped and draped in a sterile fashion. Safety pause time-out was performed. Antibiotics were confirmed. A 26 [place] continuous flow resectoscope was inserted per urethra. The visual obturator was used in order to minimize potential for urethral damage. superficial lesion and area of mucosal change seen on left lateral superior sidewall. Area was biopsied. Using the resectoscope in area was fulgurated. Approximately 2 cm x 4 cm there was some degree of terminal hematuria and glomerulations suggestive of i nterstitial type disease. She tolerated procedure well was extubated in operating room transferred in stable condition to the recovery area Pathology: bladder biopsies Drains: -
[2021-11-04] MEDS: Phenazopyridine HCL 100 MG TABLET PO (19:04)
--- NOTE | 2021-11-04 19:29 | PC.NURSE ---
OOB DRESSING AT BEDSIDE. AMBULATED TO VOID AT THE BATHROOM
== END 2021-11-04 19:33 | disposition home or self-care (01) ==
PROVIDERS: PCP Internal Medicine; Visit Provider Urology
PROC: (CPT 52234; principal; 2021-11-04 14:40)
DX: C67.2 Malignant neoplasm of lateral wall of bladder (principal); N39.43 Post-void dribbling; Z87.440 Personal history of urinary (tract) infections; J84.10 Pulmonary fibrosis, unspecified; J30.89 Other allergic rhinitis; I25.10 Atherosclerotic heart disease of native coronary artery without angina pectoris; Z98.61 Coronary angioplasty status; I50.30 Unspecified diastolic (congestive) heart failure; I97.190 Other postprocedural cardiac functional disturbances following cardiac surgery; I48.91 Unspecified atrial fibrillation; M35.3 Polymyalgia rheumatica; Z86.73 Personal history of transient ischemic attack (TIA), and cerebral infarction without residual deficits; Z88.0 Allergy status to penicillin; Z88.2 Allergy status to sulfonamides; Z88.8 Allergy status to other drugs, medicaments and biological substances; Z91.041 Radiographic dye allergy status
CPT/HCPCS: 52234; 88305; 94640; J3010

== ENCOUNTER → 2021-11-13 12:37 | Outpatient (BNVA) | payer MEDICARE, SELFPAY | PROVIDERS: PCP Internal Medicine; Visit Provider Urology | DX: C67.9 Malignant neoplasm of bladder, unspecified (principal) | CPT/HCPCS: Q3014 ==

== ENCOUNTER 2021-11-14 09:21 | Outpatient (REF) | payer MEDICARE, SELFPAY ==
[2021-11-14 09:36] LABS: MANUAL DIFF FLAG NO
[2021-11-14 10:45] LABS: Appearance Urine CLOUDY; Color Urine YELLOW; Glucose Urine UA NEG (NEG); Leukocyte Esterase Urine 1+ (NEG); Nitrite Urine NEG (NEG); Specific Gravity - Urine 1.025 (1.005-1.025); Urine Blood 3+ (NEG); Urine Ketones NEG (NEG); Urine Protein 2+ MG/DL (NEG-TRACE)
[2021-11-14 10:53] LABS: RBC Urine TNTC /HPF (0); Squamous Epithelial Cell Urine 1+ /LPF; WBC Urine 50-75 /HPF (0-4)
[2021-11-14 10:57] LABS: Basophils Percent Auto 0.5 % (0-2); Eosinophils Absolute Auto 0.4 X10*3/uL (0.0-0.4); Eosinophils Percent Auto 7.5 % (0-4); Hematocrit 38.9 % (37.0-47.0); Hemoglobin 12.4 g/dl (12.0-16.0); Imm Gran Abs Auto 0.04 X10*3/uL (0.00-0.03); Imm Gran Pct Auto 0.7 % (0.0-0.4); Lymphocytes Absolute Auto 1.8 X10*3/uL (1.2-4.9); Lymphocytes Percent Auto 30.4 % (20-40); Mean Corpuscular HGB Conc 31.9 g/dl (31.0-35.0); Mean Corpuscular Hemoglobin 28.8 pg (27.0-33.0); Mean Corpuscular Volume 90.3 fL (80.0-98.0); Mean Platelet Volume 8.7 fL (9.4-12.3); Monocytes Absolute Auto 0.6 X10*3/uL (0.1-1.2); Monocytes Percent Auto 9.9 % (2-11); Neutrophils Absolute Auto 2.9 x10*3/uL (2.0-8.3); Platelet Count 283 X10*3/uL (160-400); Red Blood Count 4.31 X10*6/uL (4.20-5.50); White Blood Count 5.8 X10*3/uL (4.8-10.8)
[2021-11-14 11:12] LABS: Estimated Average Glucose 114 mg/dL; Hemoglobin A1c % 5.6 %
[2021-11-14 11:22] LABS: B Type Natriuretic Peptide 145 pg/mL (<100)
[2021-11-14 11:48] LABS: Alanine Aminotransferase 11 U/L (0-31); Alkaline Phosphatase 70 U/L (39-117); Anion Gap 13 (12-20); Aspartate Amino Transferase 19 U/L (5-31); Bilirubin Total 0.4 mg/dL (0.0-1.0); Blood Urea Nitrogen 15 mg/dL (9-16); Calcium 9.3 mg/dL (8.4-10.2); Carbon Dioxide 29 mmol/L (22-29); Chloride 102 mmol/L (96-108); Cholesterol 201 mg/dL; Estimated Glomerular Filt Rate > 60; Glucose Random 86 mg/dL (60-115); HDL Cholesterol 62 mg/dL; LDL Cholesterol Calculated 114 mg/dl; Potassium 3.7 mmol/L (3.3-5.1); Sodium 140 mmol/L (135-145); Total Protein 6.7 g/dL (6.5-8.0); Triglycerides 126 mg/dL
[2021-11-14 11:54] LABS: Free T4 (Free Thyroxine) 0.91 ng/dL (0.71-1.85); Thyroid Stimulating Hormone 3.33 uIU/mL (0.32-4.0); Vitamin D 25-OH Total 28.2 ng/mL (>30)
[2021-11-14 11:59] LABS: Folate 14.5 ng/mL (> or = 4.0); Vitamin B12 214 pg/mL (200-900)
== END 2021-11-14 09:22 | disposition home or self-care (01) ==
LOC: HO.LAB 09:21
PROVIDERS: PCP Internal Medicine; Visit Provider Internal Medicine
DX: E78.00 Pure hypercholesterolemia, unspecified (principal); I25.10 Atherosclerotic heart disease of native coronary artery without angina pectoris; R73.9 Hyperglycemia, unspecified; M81.0 Age-related osteoporosis without current pathological fracture
CPT/HCPCS: 36415; 80053; 80061; 81001; 82306; 82607; 82746; 83036; 83880; 84439; 84443; 85025

== ENCOUNTER 2021-11-21 13:00 | Outpatient (REF) | payer MEDICARE, SELFPAY ==
[2021-11-21 14:20] LABS: Appearance Urine CLOUDY; Color Urine YELLOW; Glucose Urine UA NEG (NEG); Leukocyte Esterase Urine 2+ (NEG); Nitrite Urine NEG (NEG); PH 5.5 (5.0-8.0); Specific Gravity - Urine 1.015 (1.005-1.025); UACC Culture Trigger YES; Urine Blood 3+ (NEG); Urine Ketones NEG (NEG); Urine Protein NEG (NEG-TRACE)
[2021-11-21 14:35] LABS: RBC Urine 50-75 /HPF (0)
[2021-11-21 14:36] LABS: Bacteria Urine 1+ /LPF; Squamous Epithelial Cell Urine 1+ /LPF; WBC Clumps Urine NOTED; WBC Urine 50-75 /HPF (0-4)
== END 2021-11-21 13:01 | disposition home or self-care (01) ==
LOC: HO.LAB 13:00
PROVIDERS: PCP Internal Medicine; Visit Provider Internal Medicine
DX: N39.0 Urinary tract infection, site not specified (principal)
CPT/HCPCS: 81001; 87086

== ENCOUNTER 2021-12-22 12:20 | Emergency (ER) | payer MEDICARE, SELFPAY ==
[2021-12-22] VITALS (8 sets, daily range): BP systolic 143–190; BP diastolic 43–72; PULSE 52–66; RESP 14–18; TEMP 36.4–37.2; O2SAT 98; BMI 26.7
--- NOTE | ~2021-12-22 | XR_ITS ---
EXAMINATION: XR CHEST CLINICAL INFORMATION: Shortness of breath COMPARISON: Chest x-ray on 05/09/2021 TECHNIQUE: Frontal view of the chest was obtained. FINDINGS: The cardiomediastinal silhouette is unchanged. No areas of consolidation. No pleural effusions. Mild chronic interstitial disease. XR/XR chest 1V IMPRESSION: No acute disease.
--- NOTE | 2021-12-22 12:42 | ECG_ITS ---
Test Reason : intermittent dizziness Blood Pressure : / mmHG Vent. Rate : 052 BPM Atrial Rate : 052 BPM P-R Int : 180 ms QRS Dur : 094 ms QT Int : 458 ms P-R-T Axes : 030 -01 004 degrees QTc Int : 425 ms Sinus bradycardia with Premature supraventricular complexes Minimal voltage criteria for LVH, may be normal variant ( Ganesh product ) Nonspecific T wave abnormality Abnormal ECG When compared with ECG of 09-MAY-2021 13:48, Premature supraventricular complexes are now Present Referred By: Generic ED Physician Electronically Signed By:KATLIN LEMON
[2021-12-22 12:58] LABS: MANUAL DIFF FLAG NO
[2021-12-22 12:59] LABS: Basophils Percent Auto 0.2 % (0-2); Eosinophils Absolute Auto 0.2 X10*3/uL (0.0-0.4); Eosinophils Percent Auto 3.1 % (0-4); Hematocrit 35.7 % (37.0-47.0); Hemoglobin 11.9 g/dl (12.0-16.0); Imm Gran Abs Auto 0.01 X10*3/uL (0.00-0.03); Imm Gran Pct Auto 0.2 % (0.0-0.4); Lymphocytes Absolute Auto 0.9 X10*3/uL (1.2-4.9); Lymphocytes Percent Auto 17.6 % (20-40); Mean Corpuscular HGB Conc 33.3 g/dl (31.0-35.0); Mean Corpuscular Hemoglobin 29.6 pg (27.0-33.0); Mean Corpuscular Volume 88.8 fL (80.0-98.0); Mean Platelet Volume 8.5 fL (9.4-12.3); Monocytes Absolute Auto 0.3 X10*3/uL (0.1-1.2); Monocytes Percent Auto 4.8 % (2-11); Neutrophils Absolute Auto 3.9 x10*3/uL (2.0-8.3); Neutrophils Percent Auto 74.1 % (45-73); Platelet Count 208 X10*3/uL (160-400); Red Blood Count 4.02 X10*6/uL (4.20-5.50); Red Cell Distribution Width 12.8 % (11.0-16.0); White Blood Count 5.2 X10*3/uL (4.8-10.8)
[2021-12-22 13:04] LABS: INTERNATIONAL NORM RATIO 0.9 (0.9-1.1); Prothrombin Time 10.8 SEC (10.0-13.1)
[2021-12-22 13:15] LABS: Alanine Aminotransferase 14 U/L (0-31); Albumin Level 4.1 g/dL (3.5-5.0); Alkaline Phosphatase 70 U/L (39-117); Anion Gap 15 (12-20); Aspartate Amino Transferase 19 U/L (5-31); Bilirubin Total 0.5 mg/dL (0.0-1.0); Blood Urea Nitrogen 12 mg/dL (9-16); Calcium 8.9 mg/dL (8.4-10.2); Carbon Dioxide 28 mmol/L (22-29); Chloride 97 mmol/L (96-108); Creatinine Clr Calc Pharmacy 40.4; Estimated Glomerular Filt Rate 58; Glucose Random 190 mg/dL (60-115); Potassium 3.4 mmol/L (3.3-5.1); Sodium 137 mmol/L (135-145); Total Protein 6.7 g/dL (6.5-8.0)
[2021-12-22 13:18] LABS: B Type Natriuretic Peptide 138 pg/mL (<100); Troponin-I High Sensitivity 4.2 ng/L (<3.5-17.0)
--- NOTE | 2021-12-22 16:11 | ED_ITS ---
HPI - General Adult General Chief complaint: General Medical Stated complaint: Blood pressure keeps dropping and rising Time Seen by Provider: 12/22/21 16:11 Source: patient Mode of arrival: ambulatory Limitations: no limitations History of Present Illness HPI narrative: 81-year-old female past medical history history of polymyalgia rheumatica, hyperlipidemia, coronary artery disease, Quiroz's esophagus, asthma, diastolic heart failure, bladder cancer currently receiving chemotherapy last session was on Thursday presenting to the emergency department with concerns of dizziness, shortness of breath, malaise X3 days. Patient tells me that she has been feeling it dizzy today, which she describes as the room spinning she tells me that this has never happened to her before, when this happened she tells me her heart rate was in the low 40s. She reports that she feels extremely fatigued and weak. She reports shortness of breath particularly with exertion however still having some shortness of breath at rest. She reports that she is fairly active and she goes to the gym, she tells me that now she feels like her interns is going down, she is easily fatigued and has become extremely short of breath. This is new for her. She is followed by cardiology in takes metoprolol daily as well as Lasix. At this time she denies chest pain, headache, vision changes, weakness, nausea, vomiting, abdominal pain. Patient currently on clopidogrel Onset (ago): day(s) (3) Related Data Home Medications Medication Instructions Recorded Confirmed triamcinolone acetonide 0.1 % 1 appl topical BID-TID 07/23/21 12/13/21 topical cream cetirizine 10 mg capsule (Zyrtec) 10 mg PO BEDTIME 10/28/21 12/13/21 dupilumab 300 mg/2 mL subcutaneous 300 mg subcut Q2W 10/28/21 12/13/21 pen injector (Dupixent) prednisone 1 mg tablet 4 mg PO DAILY 11/19/21 12/13/21 Previous Rx's Medication Instructions Recorded ezetimibe 10 mg tablet 10 mg PO DAILY #90 tabs 05/12/21 metoprolol tartrate 25 mg tablet 12.5 mg PO BID 90 days #90 tabs 05/13/21 furosemide 20 mg tablet (Lasix) 20 mg PO DAILY #90 tabs 08/29/21 clopidogrel 75 mg tablet 75 mg PO DAILY #90 tabs 12/15/21 Allergies Allergy/AdvReac Type Severity Reaction Status Date / Time Penicillins Allergy Severe ANAPHYLAXIS Verified 12/13/21 08:52 tamsulosin [Flomax] Allergy Severe severe Verified 12/13/21 08:52 chest pains ibuprofen [IBUPROFEN] Allergy Intermediate RASH, hives Verified 12/13/21 08:52 rabeprazole Allergy Mild UNKNOWN Verified 12/13/21 08:52 Sulfa (Sulfonamide Allergy Mild RASH Verified 12/13/21 08:52 Antibiotics) amoxicillin Allergy Unknown hives, bad Verified 12/13/21 08:52 rash atorvastatin Allergy Unknown Unknown Verified 12/13/21 08:52 Bifidobacterium infantis Allergy Unknown Unknown Verified 12/13/21 08:52 [Align] clarithromycin [Prevpac] Allergy Unknown unkn Verified 12/13/21 08:52 esomeprazole [Nexium] Allergy Unknown UNKNOWN Verified 12/13/21 08:52 levofloxacin [From LEVAQUIN] Allergy Unknown RASH Verified 12/13/21 08:52 omeprazole [From PRILOSEC] Allergy Unknown UNKNOWN Verified 12/13/21 08:52 simvastatin [From ZOCOR] Allergy Unknown UNKNOWN Verified 12/13/21 08:52 clobetasol AdvReac Intermediate made Verified 12/13/21 08:52 psoriasis worse dexlansoprazole AdvReac Intermediate hyper,watery Verified 12/13/21 08:52 [From Kapidex] stool Iodinated Contrast Media AdvReac Intermediate WEAKNESS, Verified 12/13/21 08:52 [IV CONTRAST] LIGHTHEADEDNESS, AND CONFUSION lansoprazole [Prevacid] AdvReac Intermediate hyper, Verified 12/13/21 08:52 watery stool methotrexate [METHOTREXATE] AdvReac Intermediate MUSCLE AND Verified 12/13/21 08:52 JOINT PAIN ranitidine AdvReac Intermediate week, Verified 12/13/21 08:52 watery stool alirocumab AdvReac Mild Generalized Verified 12/13/21 08:52 [From Praluent Pen] ecchymoses aspirin AdvReac Mild UNKNOWN, Verified 12/13/21 08:52 one sided facial pain, green spots in eye oxycodone [Percocet] AdvReac Unknown vomit Verified 12/13/21 08:52 pantoprazole [Protonix] AdvReac Unknown one sided Verified 12/13/21 08:52 headache, yellow streak in left eye fexofenadine [From [place]] AdvReac painful Verified 12/13/21 08:52 bones and muscles Review of Systems Review of Systems: Constitutional : No Weight loss, No Fever, No Chills, + Fatigue, + Malaise ENT/Mouth : No sore throat, No Rhinorrhea Eyes: No Eye Pain, No Swelling, No Redness Cardiovascular : No Chest Pain, + SOB, + Dyspnea on Exertion, No Orthopnea, No Edema, No Palpitations Respiratory : No Cough, No Sputum, No Wheezing Gastrointestinal : No Nausea, No Vomiting, No Diarrhea, No Constipation, No abdominal Pain, No Hematochezia, No Melena Genitourinary : No Dysuria, No Urinary Frequency, No Hematuria, Musculoskeletal : No joint pain, No Myalgias, No Joint Swelling Skin : No Skin Lesions, No rash Neuro : No Weakness, No Numbness, No Dizziness, No Headache Psych : No Anxiety/Panic, No Depression All other systems reviewed and are negative Yes all other systems are reviewed and are negative [facility] Past Medical History Attestation statement: The following information was validated with the patient. Source: old records reviewed and nursing notes reviewed Medical History Abnormal bladder cytology Abnormal echocardiogram Asthma Diverticular disease Hiatal hernia History of CVA (cerebrovascular accident) History of hemorrhoids History of rib fracture Osteopenia Postoperative atrial fibrillation Pulmonary nodule Sinusitis Skin cancer Surgical History History of bladder suspension procedure History of tonsillectomy History of tonsillectomy and adenoidectomy Hx of CABG Hx of hemorrhoidectomy S/P trigger finger release Family History Family History Father No problems noted. Mother No problems noted. Social History Social History Housing: House Are you a primary nursing care attendant to a significant other at home: No Do you presently have visiting nurse or other home services: No Alcohol intake: never Patient Tobacco Use Status: Never used Tobacco e-Cigarette/Vaping Use: Never Used Second Hand Smoke Exposure: No Use of substances other than those prescribed or required for medical reasons: No Advance Directives: Yes Advance Directives on File: Yes Advance Directives Date on File: 08/29/16 service: No Current occupational status: retired Current occupation: rt hand Current occupational exposures/hazards: No Cognitive needs: No Hearing needs: No Vision needs: No Physical Exam ED Vital Signs: Vital Signs - 24 hr 12/22/21 12:39 12/22/21 16:32 12/22/21 17:37 Temperature 98.9 F 97.5 F Pulse Rate 56 52 55 Respiratory Rate 18 14 Blood Pressure 155/44 H 143/49 H 146/59 H Pulse Oximetry 98 98 Oxygen Delivery Method Room Air Room Air 12/22/21 17:38 12/22/21 17:41 12/22/21 18:44 Temperature Pulse Rate 66 64 54 Respiratory Rate 18 Blood Pressure 164/70 H 177/69 H Pulse Oximetry 98 Oxygen Delivery Method Room Air 12/22/21 21:07 12/22/21 21:07 12/22/21 21:09 Temperature Pulse Rate 55 65 64 Respiratory Rate Blood Pressure 145/43 H 184/72 H 190/71 H Pulse Oximetry Oxygen Delivery Method BMI result Body Mass Index 26.7 vss Appearance: Alert.? Oriented X3.? No acute distress.? Head: Normocephalic, atraumatic, no step-offs or deformities Eyes: Pupils equal, round and reactive to light.? ENT: Pharynx normal.? Neck: Normal inspection.? Neck supple.? CVS: Slow rate (44) irregular rhythm.? Pulses normal.? Respiratory: No respiratory distress.? Breath sounds normal.? Abdomen: Soft and nontender.? Skin: Skin warm and dry.? Normal skin color.? Normal skin turgor.? Extremities: No lower extremity edema.? No calf ttp, negative cynthia. 5/5 strength to bilateral upper and lower extremities Neuro: Oriented X 3.? No motor deficit.? No sensory deficit. CN 2-12 intact. Normal finger to nose, heel to gupta, steady tandem gait. Course Reevaluation(s) Reevaluation #1: CBC appears to be around patient's baseline. Chemistry with no acute findings. Troponin negative, EKG nonischemic unlikely that this is ACS. BNP 138, no signs of fluid overload on exam therefore no need for Lasix at this time. Coags wi thin normal limits. Time: 16:12 Reevaluation #2: Numerically orthostatics are negative. However when patient goes from sitting to standing she states she feels lightheaded. Discuss this case with Dr. Del Rosario will add on a D-dimer. Time: 18:21 Reevaluation #3: Patient reports she is feeling much better after fluids. Ambulating with steady gait to the bathroom without dizziness. Orthostatics negative. D-dimer negative unlikely that this is PE. Patient's pulse rate has been around mid 40s to high 50s. Patient requesting to go home. At this time I feel comfortable discharge home with Cardiology follow-up. Advised to return with new or worse paola symptoms. Medical Decision Making MDM Narrative Medical decision making narrative: [id number] 81-year-old female presents with shortness of breath, dyspnea on exertion, dizziness x3 days worsening. Was recently started on chemotherapy for bladder cancer. Physical examination significant for slow rate, 44, a regular rhythm. Negative Cynthia bilaterally. No signs of fluid overload on exam. Lungs are clear. History and physical examination not consistent with stroke, posterior stroke. Low suspicion for CHF, pneumonia. Likely orthostasis or arrhythmia. Plan at this time is to obtain basic labs, EKG, troponin, BNP, orthostatic vital signs. Medical Records Medical records reviewed: Yes I reviewed the patient's medical records. Lab Data Lab results reviewed: Yes I reviewed the patient's lab results. Result diagrams: 12/22/21 12:53 12/22/21 12:53 Labs: Lab Results 12/22/21 12/22/21 12/22/21 Range/Units 12:53 12:53 12:53 WBC 5.2 (4.8-10.8) X10*3/uL RBC 4.02 L (4.20-5.50) X10*6/uL Hgb 11.9 L (12.0-16.0) g/dl Hct 35.7 L (37.0-47.0) % MCV 88.8 (80.0-98.0) fL MCH 29.6 (27.0-33.0) pg MCHC 33.3 (31.0-35.0) g/dl RDW 12.8 (11.0-16.0) % Plt Count 208 D (160-400) X10*3/uL MPV 8.5 L (9.4-12.3) fL Immature Gran % (Auto) 0.2 (0.0-0.4) % Neut % (Auto) 74.1 H (45-73) % Lymph % (Auto) 17.6 L (20-40) % [place] % (Auto) 4.8 (2-11) % Eos % (Auto) 3.1 (0-4) % Baso % (Auto) 0.2 (0-2) % Lymph # (Auto) 0.9 L (1.2-4.9) X10*3/uL [place] # (Auto) 0.3 (0.1-1.2) X10*3/uL Eos # (Auto) 0.2 (0.0-0.4) X10*3/uL Baso # (Auto) 0.0 (0.0-0.2) X10*3/uL Abs Immat Gran (auto) 0.01 (0.00-0.03) X10*3/uL Absolute Neuts (auto) 3.9 (2.0-8.3) x10*3/uL Absolute Nucleated RBC 0.000 (0.0-0.012) X10*3/uL Nucleated RBC % (auto) 0.0 (0.0-0.2) /100WBC PT (10.0-13.1) SEC INR (0.9-1.1) D-Dimer High Sensitivty NG/ML Sodium 137 (135-145) mmol/L Potassium 3.4 (3.3-5.1) mmol/L Chloride 97 (96-108) mmol/L Carbon Dioxide 28 (22-29) mmol/L Anion Gap 15 (12-20) BUN 12 (9-16) mg/dL Creatinine 0.93 (0.5-1.4) mg/dL Estim Creat Clear Calc 40.4 Estimated GFR 58 Random Glucose 190 H (60-115) mg/dL Calcium 8.9 (8.4-10.2) mg/dL Total Bilirubin 0.5 (0.0-1.0) mg/dL AST 19 (5-31) U/L ALT 14 (0-31) U/L Alkaline Phosphatase 70 (39-117) U/L Troponin I High Sens 4.2 (<3.5-17.0) ng/L B-Natriuretic Peptide 138 H (<100) pg/mL Total Protein 6.7 (6.5-8.0) g/dL Albumin 4.1 (3.5-5.0) g/dL 12/22/21 Range/Units 12:53 WBC (4.8-10.8) X10*3/uL RBC (4.20-5.50) X10*6/uL Hgb (12.0-16.0) g/dl Hct (37.0-47.0) % MCV (80.0-98.0) fL MCH (27.0-33.0) pg MCHC (31.0-35.0) g/dl RDW (11.0-16.0) % Plt Count (160-400) X10*3/uL MPV (9.4-12.3) fL Immature Gran % (Auto) (0.0-0.4) % Neut % (Auto) (45-73) % Lymph % (Auto) (20-40) % [place] % (Auto) (2-11) % Eos % (Auto) (0-4) % Baso % (Auto) (0-2) % Lymph # (Auto) (1.2-4.9) X10*3/uL [place] # (Auto) (0.1-1.2) X10*3/uL Eos # (Auto) (0.0-0.4) X10*3/uL Baso # (Auto) (0.0-0.2) X10*3/uL Abs Immat Gran (auto) (0.00-0.03) X10*3/uL Absolute Neuts (auto) (2.0-8.3) x10*3/uL Absolute Nucleated RBC (0.0-0.012) X10*3/uL Nucleated RBC % (auto) (0.0-0.2) /100WBC PT 10.8 (10.0-13.1) SEC INR 0.9 (0.9-1.1) D-Dimer High Sensitivty < 150 NG/ML Sodium (135-145) mmol/L Potassium (3.3-5.1) mmol/L Chloride (96-108) mmol/L Carbon Dioxide (22-29) mmol/L Anion Gap (12-20) BUN (9-16) mg/dL Creatinine (0.5-1.4) mg/dL Estim Creat Clear Calc Estimated GFR Random Glucose (60-115) mg/dL Calcium (8.4-10.2) mg/dL Total Bilirubin (0.0-1.0) mg/dL AST (5-31) U/L ALT (0-31) U/L Alkaline Phosphatase (39-117) U/L Troponin I High Sens (<3.5-17.0) ng/L B-Natriuretic Peptide (<100) pg/mL Total Protein (6.5-8.0) g/dL Albumin (3.5-5.0) g/dL ECG Data Attestation: I personally reviewed and interpreted this ECG as follows: Prior ECG tracings: available for review Interpretation: Ventricular rate of 52, PA normal, QRS normal QT/QTC normal. EKG with sinus bradycardia, with premature supraventricular complexes, when compared to EKG April 2021 there are now supraventricular complexes present. However, at this time no signs of acute ischemia. Critical Care Time Critical Care Time Critical Care Time: No Discharge Plan Discharge Clinical Impression: Bradycardia, Orthostatic dizziness Patient Disposition: Home, Self-Care Instructions: Bradycardia (ED), Dizziness (ED) Additional Instructions: Take your medications as prescribed. If you were prescribed antibiotics today, it is important that you take your medication to their entirety, do not skip any doses, do not finish them early. Follow-up with your primary care provider this week. Return to the emergency department with new or worsening symptoms. Such as fevers, chills, chest pain, shortness of breath, nausea, vomiting, dizziness, headache, vision changes, lethargy In case of emergency call 911 Your labs were reassuring, chest x-ray looked good, your screening test for a blood clot was negative. You felt better after fluid hydration. Prescriptions: No Action ezetimibe 10 mg tablet 10 mg PO DAILY Qty: 90 2RF metoprolol tartrate 25 mg tablet 12.5 mg PO BID 90 Days Qty: 90 3RF furosemide [Lasix] 20 mg tablet 20 mg PO DAILY Qty: 90 3RF clopidogrel 75 mg tablet 75 mg PO DAILY Qty: 90 3RF Zyrtec 10 mg capsule 10 mg PO BEDTIME Dupixent Pen 300 mg/2 mL Pen Injector 300 mg SUBCUT Q2W prednisone 1 mg tablet 4 mg PO DAILY Rx Instructions: PMR Dr. Ramos triamcinolone acetonide 0.1 % cream 1 appl topical BID-TID Referrals: Po,Mariya Metcalf MD [Primary Care Provider] - 2 days Boo Jimenez MD [Physician] - 3 days Stand Alone Forms: Work/School Release
[2021-12-22 18:49] LABS: D Dimer High Sensitivity < 150 NG/ML
[2021-12-22] MEDS: Meclizine HCl 25 MG TABLET PO (20:15)
[2021-12-22] MEDS: 0.9 % Sodium Chloride 500 ML IV (20:16)
== END 2021-12-22 21:55 | disposition home or self-care (01) ==
PROVIDERS: Physician Assistant; Emergency Provider Student in an Organized Health Care Education/Training Program; PCP Internal Medicine
DX: R00.1 Bradycardia, unspecified (principal); I95.1 Orthostatic hypotension; R06.02 Shortness of breath; C67.9 Malignant neoplasm of bladder, unspecified; Z92.21 Personal history of antineoplastic chemotherapy; Z79.52 Long term (current) use of systemic steroids
CPT/HCPCS: 36415; 71045; 80053; 83880; 84484; 85025; 85379; 85610; 93005; 99284

== ENCOUNTER → 2021-12-30 09:44 | Outpatient (REF) | payer MEDICARE, SELFPAY ==
--- NOTE | 2021-12-30 09:48 | HM_ITS ---
* Total monitoring time 2 days and 23 hours. * Underlying rhythm is sinus. Average rate 82/Min. Range 57 to 119/Min. * Occasional supraventricular ectopy with minimal burden. Short runs noted. Longest 28 beats. Cannot exclude transient atrial fibrillation. * Occasional ventricular ectopy. [place] of about 1%. 3 morphologies. Some couplets. Longest run 2-3 beats. * No patient events. MTDD
== END ==
LOC: HO.CARD 09:44
PROVIDERS: Visit Provider Internal Medicine Cardiovascular Disease
DX: R00.1 Bradycardia, unspecified (principal)
CPT/HCPCS: 93242

== ENCOUNTER → 2022-01-30 12:00 | Outpatient (BNVA) | payer MEDICARE, SELFPAY | PROVIDERS: PCP Internal Medicine; Visit Provider Urology | DX: N39.0 Urinary tract infection, site not specified (principal); C67.9 Malignant neoplasm of bladder, unspecified | CPT/HCPCS: Q3014 ==

== ENCOUNTER 2022-02-10 05:59 | Day surgery (SDC) | payer MEDICARE, SELFPAY ==
[2022-02-05 13:21] VITALS: BMI 26.2
[2022-02-06 12:19] VITALS: BMI 26.2
--- NOTE | 2022-02-07 09:27 | P.CONAN_ITS ---
Documented by User: Lynette Rice NP 02/07/22 09:42 HPI - Anesthesia Eval Consult details Narrative: 81yo F Cystoscopy possible Bladder Biopsy s/p same 10/2021 with MAC *Multiple Med Allergies* Plavix for CAD s/p CABG 2018 Daily prednisone for PMR Follows [facility] [place] cardiology, stable at 08/2021. F/U scheduled 02/12/22. PMF Active Problems Active Problems: All Active Problems (Updated 12/30/21 @ 15:27 by Taqueria Sutton PA-C) optometric technologist systemic steroid user (Acute) UTI (urinary tract infection) (Acute) Trigger thumb of right hand (Acute) Medicare annual wellness visit, initial (Acute) Trigger finger (Acute) Trigger finger of right thumb (Acute) Recurrent UTI (Acute) Urine incontinence (Acute) Age-related osteoporosis without current pathological fracture (Acute) Urinary bladder cancer (Acute) Encounter for subsequent annual wellness visit (AWV) in Medicare patient (Acute) Vitamin B 12 deficiency (Acute) Bladder cancer (Acute) H/O sinus bradycardia (Acute) HTN (hypertension) (Acute) Diastolic heart failure (Acute) Cough (Acute) Allergic rhinitis (Acute) Lung fibrosis (Acute) Psoriasis (Acute) Barretts esophagus (Acute) GERD (gastroesophageal reflux disease) (Acute) UTI (urinary tract infection) (Acute) HLD (hyperlipidemia) (Acute) CAD (coronary artery disease) (Acute) Osteopenia (Acute) Polymyalgia rheumatica (Acute) Past Medical History Medical History (Updated 02/10/22 @ 09:00 by Mariya Gutierrez MD) Allergic rhinitis Asthma Barretts esophagus CAD (coronary artery disease) Diastolic heart failure Diverticular disease GERD (gastroesophageal reflux disease) Hiatal hernia History of CVA (cerebrovascular accident) History of hemorrhoids History of rib fracture HLD (hyperlipidemia) Lung fibrosis Osteopenia Osteopenia Polymyalgia rheumatica Postoperative atrial fibrillation Psoriasis Pulmonary nodule Recurrent UTI Skin cancer Family History Family History Father No problems noted. Mother No problems noted. Family history of problems with anesthesia: No Surgical History Surgical History (Updated 02/06/22 @ 12:10 by Miryam Disla RN) History of bladder suspension procedure History of cystoscopy History of nasal surgery History of tonsillectomy History of tonsillectomy and adenoidectomy Hx of CABG Hx of hemorrhoidectomy S/P trigger finger release History of Problems with Anesthesia: No Social History Social History Housing: House Are you a primary acute care physician to a significant other at home: No Do you presently have visiting nurse or other home services: No Alcohol intake: never Patient Tobacco Use Status: Never used Tobacco e-Cigarette/Vaping Use: Never Used Second Hand Smoke Exposure: No Advance Directives Date on File: 08/29/16 service: No Current occupational status: retired Current occupation: rt hand Current occupational exposures/hazards: No Cognitive needs: No Hearing needs: No Vision needs: No Meds Allergies Allergy/AdvReac Type Severity Reaction Status Date / Time Penicillins Allergy Severe ANAPHYLAXIS Verified 02/06/22 12:09 tamsulosin [Flomax] Allergy Severe severe Verified 02/06/22 12:09 chest pains ibuprofen [IBUPROFEN] Allergy Intermediate RASH, hives Verified 02/06/22 12:09 amoxicillin Allergy Mild hives, bad Verified 02/10/22 06:31 rash esomeprazole [Nexium] Allergy Mild Gastrointestinal Verified 02/10/22 06:31 Upset levofloxacin [From LEVAQUIN] Allergy Mild RASH Verified 02/10/22 06:31 rabeprazole Allergy Mild UNKNOWN Verified 02/06/22 12:09 Sulfa (Sulfonamide Allergy Mild RASH Verified 02/06/22 12:09 Antibiotics) atorvastatin Allergy Unknown Unknown Verified 02/06/22 12:09 Bifidobacterium infantis Allergy Unknown Unknown Verified 02/06/22 12:09 [Align] clarithromycin [Prevpac] Allergy Unknown Unknown Verified 02/06/22 12:09 omeprazole [From PRILOSEC] Allergy Unknown UNKNOWN Verified 02/06/22 12:09 simvastatin [From ZOCOR] Allergy Unknown UNKNOWN Verified 02/06/22 12:09 oxycodone [Percocet] AdvReac Severe Vomiting Verified 02/10/22 06:31 clobetasol AdvReac Intermediate made Verified 02/06/22 12:09 psoriasis worse dexlansoprazole AdvReac Intermediate hyper,watery Verified 02/06/22 12:09 [From Kapidex] stool Iodinated Contrast Media AdvReac Intermediate WEAKNESS, Verified 02/06/22 12:09 [IV CONTRAST] LIGHTHEADEDNESS, AND CONFUSION lansoprazole [Prevacid] AdvReac Intermediate hyper, Verified 02/06/22 12:09 watery stool methotrexate [METHOTREXATE] AdvReac Intermediate MUSCLE AND Verified 02/06/22 12:09 JOINT PAIN ranitidine AdvReac Intermediate weak, Verified 02/06/22 12:09 watery stool alirocumab AdvReac Mild Generalized Verified 02/06/22 12:09 [From Praluent Pen] ecchymoses aspirin AdvReac Mild one sided Verified 02/06/22 12:09 facial pain, green spots in eye pantoprazole [Protonix] AdvReac Mild one sided Verified 02/10/22 06:31 headache, yellow streak in left eye fexofenadine [From [place]] AdvReac painful Verified 02/06/22 12:09 bones and muscles Home Medications Medication Instructions Recorded Confirmed Last Taken Type triamcinolone acetonide 0.1 % 1 appl topical BID-TID 07/23/21 02/06/22 Unknown History topical cream cetirizine 10 mg capsule (Zyrtec) 10 mg PO BEDTIME 10/28/21 02/06/22 Unknown History dupilumab 300 mg/2 mL subcutaneous 300 mg subcut Q2W 10/28/21 02/06/22 Unknown History pen injector (Dupixent) prednisone 1 mg tablet 3 mg PO DAILY 11/19/21 02/06/22 02/10/22 History Tums PRN Gastric Reflux 02/06/22 02/06/22 Unknown History Exam Exam Date and Time: February 07, 2022 0927 Height,Weight and Vital Signs: Height 5 ft 1 in Weight 62.959 kg Pertinent Lab Results Pertinent Lab Results: Laboratory Tests 12/22/21 12/22/21 12:53 12:53 WBC 5.2 Hgb 11.9 L Hct 35.7 L Plt Count 208 D Sodium 137 Potassium 3.4 Chloride 97 Carbon Dioxide 28 BUN 12 Creatinine 0.93 Narrative Narrative: EKG 12/2021 Vent. Rate : 052 BPM ? ? Atrial Rate : 052 BPM ?? P-R Int : 180 ms? QRS Dur : 094 ms ? ? QT Int : 458 ms ? ? ? P-R-T Axes : 030 -01 004 degrees ?? QTc Int : 425 ms ? Sinus bradycardia with Premature supraventricular complexes Minimal voltage criteria for LVH, may be normal variant ( Temperance product ) Nonspecific T wave abnormality Abnormal ECG When compared with ECG of 09-MAY-2021 13:48, Premature supraventricular complexes are now Present 2 Day Holter 12/2021 * Total monitoring time 2 days and 23 hours. * Underlying rhythm is sinus.? Average rate 82/Min.? Range 57 to 119/Min. * Occasional supraventricular ectopy with minimal burden.? Short runs noted.? Longest 28 beats.? Cannot exclude transient atrial fibrillation. * Occasional ventricular ectopy.? Orange of about 1%. 3 morphologies. Some couplets. Longest run 2-3 beats. * No patient events. ECHO 04/2021 Conclusions: - The left ventricular systolic function is normal.? The ? calculated ejection fraction is 62% by biplane method. ? - Evidence suggests grade II (moderate) diastolic dysfunction. ? - The basal inferior, mid inferior, and basal inferolateral? ? ? segments are hypokinetic.? - The left atrium is moderately dilated. ? - There is mild mitral annular calcification. NM cardiolite stress test 05/2021 Impression: ? 1.? Myocardial perfusion imaging study shows [id number] ischemia along the inferior wall with superimposed diaphragmatic attenuation. 2.? Gated LVEF is 74% during stress and 67% during rest. 3. Transient ischemic dilatation not present. ? EKG component of the test reported separately. Assessment and Plan Assessment Anesthesia Assessment: Chart Reviewed Final Anesthetic Review Family History of Problems with Anesthesia: No History of Problems with Anesthesia: No Documented by User: Zeb So MD 02/10/22 18:37 [facility] Past Medical History Medical History (Updated 02/10/22 @ 09:00 by Mariya Gutierrez MD) Allergic rhinitis Asthma Barretts esophagus CAD (coronary artery disease) Diastolic heart failure Diverticular disease GERD (gastroesophageal reflux disease) Hiatal hernia History of CVA (cerebrovascular accident) History of hemorrhoids History of rib fracture HLD (hyperlipidemia) Lung fibrosis Osteopenia Osteopenia Polymyalgia rheumatica Postoperative atrial fibrillation Psoriasis Pulmonary nodule Recurrent UTI Skin cancer Functional capacity: independent ambulation Family History Family History Father No problems noted. Mother No problems noted. Surgical History Surgical History (Updated 02/06/22 @ 12:10 by Miryam Disla RN) History of bladder suspension procedure History of cystoscopy History of nasal surgery History of tonsillectomy History of tonsillectomy and adenoidectomy Hx of CABG Hx of hemorrhoidectomy S/P trigger finger release Social History Social History Housing: House Are you a primary acute care physician to a significant other at home: No Do you presently have visiting nurse or other home services: No Alcohol intake: never Patient Tobacco Use Status: Never used Tobacco e-Cigarette/Vaping Use: Never Used Second Hand Smoke Exposure: No Advance Directives Date on File: 08/29/16 service: No Current occupational status: retired Current occupation: rt hand Current occupational exposures/hazards: No Cognitive needs: No Hearing needs: No Vision needs: No Meds Allergies Allergy/AdvReac Type Severity Reaction Status Date / Time Penicillins Allergy Severe ANAPHYLAXIS Verified 02/06/22 12:09 tamsulosin [Flomax] Allergy Severe severe Verified 02/06/22 12:09 chest pains ibuprofen [IBUPROFEN] Allergy Intermediate RASH, hives Verified 02/06/22 12:09 amoxicillin Allergy Mild hives, bad Verified 02/10/22 06:31 rash esomeprazole [Nexium] Allergy Mild Gastrointestinal Verified 02/10/22 06:31 Upset levofloxacin [From LEVAQUIN] Allergy Mild RASH Verified 02/10/22 06:31 rabeprazole Allergy Mild UNKNOWN Verified 02/06/22 12:09 Sulfa (Sulfonamide Allergy Mild RASH Verified 02/06/22 12:09 Antibiotics) atorvastatin Allergy Unknown Unknown Verified 02/06/22 12:09 Bifidobacterium infantis Allergy Unknown Unknown Verified 02/06/22 12:09 [Align] clarithromycin [Prevpac] Allergy Unknown Unknown Verified 02/06/22 12:09 omeprazole [From PRILOSEC] Allergy Unknown UNKNOWN Verified 02/06/22 12:09 simvastatin [From ZOCOR] Allergy Unknown UNKNOWN Verified 02/06/22 12:09 oxycodone [Percocet] AdvReac Severe Vomiting Verified 02/10/22 06:31 clobetasol AdvReac Intermediate made Verified 02/06/22 12:09 psoriasis worse dexlansoprazole AdvReac Intermediate hyper,watery Verified 02/06/22 12:09 [From Kapidex] stool Iodinated Contrast Media AdvReac Intermediate WEAKNESS, Verified 02/06/22 12:09 [IV CONTRAST] LIGHTHEADEDNESS, AND CONFUSION lansoprazole [Prevacid] AdvReac Intermediate hyper, Verified 02/06/22 12:09 watery stool methotrexate [METHOTREXATE] AdvReac Intermediate MUSCLE AND Verified 02/06/22 12:09 JOINT PAIN ranitidine AdvReac Intermediate weak, Verified 02/06/22 12:09 watery stool alirocumab AdvReac Mild Generalized Verified 02/06/22 12:09 [From Praluent Pen] ecchymoses aspirin AdvReac Mild one sided Verified 02/06/22 12:09 facial pain, green spots in eye pantoprazole [Protonix] AdvReac Mild one sided Verified 02/10/22 06:31 headache, yellow streak in left eye fexofenadine [From [place]] AdvReac painful Verified 02/06/22 12:09 bones and muscles Home Medications Medication Instructions Recorded Confirmed Last Taken Type triamcinolone acetonide 0.1 % 1 appl topical BID-TID 07/23/21 02/06/22 Unknown History topical cream cetirizine 10 mg capsule (Zyrtec) 10 mg PO BEDTIME 10/28/21 02/06/22 Unknown History dupilumab 300 mg/2 mL subcutaneous 300 mg subcut Q2W 10/28/21 02/06/22 Unknown History pen injector (Dupixent) prednisone 1 mg tablet 3 mg PO DAILY 11/19/21 02/06/22 02/10/22 History Tums PRN Gastric Reflux 02/06/22 02/06/22 Unknown History Exam Airway Mallampati Class: III TM Dist: >3cm Neck ROM: Full Denture: Upper Loose/Missing/Broken Teeth: Yes Heart: S1,S2 Lungs: b/l breath sounds Assessment and Plan Assessment Anesthesia Assessment: Anesthesia Plan Discussed Final Anesthetic Review NPO: Yes ASA Class: III Final Preanesthetic Review: Meds/Allgs Chart Reviewed, Consent Obtained/Reviewed and Anes Risks/Benef Reviewed Patient Risk: Intermediate Procedure Risk: Intermediate Anesthetic Plan Anesthetic Plan: GA Disposition: Standard PACU
[2022-02-10 06:26] VITALS: BP 137/50; PULSE 71; RESP 16; TEMP 36.7; O2SAT 97
[2022-02-10] MEDS: Lactated Ringers 1,000 ML 50 ML IVCONT (06:41)
--- NOTE | 2022-02-10 07:37 | P.HPSUR_ITS ---
Pre-Procedural Eval Section A Date of Service: 02/10/22 The patient is an INPATIENT: No Changes since office visit: No Cold of Flu in the past 2 weeks, No New Medical Problems, No Changes in Medication and No Patient answered all questions The History & Physical has been completed within 30 days and I have reviewed it.: Yes Section B Chief Complaint: mal neoplasm of bladder Details of Present Illness: cystoscopy, bladder biopsy Allergies: Allergies Allergy/AdvReac Type Severity Reaction Status Date / Time Penicillins Allergy Severe ANAPHYLAXIS Verified 02/06/22 12:09 tamsulosin [Flomax] Allergy Severe severe Verified 02/06/22 12:09 chest pains ibuprofen [IBUPROFEN] Allergy Intermediate RASH, hives Verified 02/06/22 12:09 amoxicillin Allergy Mild hives, bad Verified 02/10/22 06:31 rash esomeprazole [Nexium] Allergy Mild Gastrointestinal Verified 02/10/22 06:31 Upset levofloxacin [From LEVAQUIN] Allergy Mild RASH Verified 02/10/22 06:31 rabeprazole Allergy Mild UNKNOWN Verified 02/06/22 12:09 Sulfa (Sulfonamide Allergy Mild RASH Verified 02/06/22 12:09 Antibiotics) atorvastatin Allergy Unknown Unknown Verified 02/06/22 12:09 Bifidobacterium infantis Allergy Unknown Unknown Verified 02/06/22 12:09 [Align] clarithromycin [Prevpac] Allergy Unknown Unknown Verified 02/06/22 12:09 omeprazole [From PRILOSEC] Allergy Unknown UNKNOWN Verified 02/06/22 12:09 simvastatin [From ZOCOR] Allergy Unknown UNKNOWN Verified 02/06/22 12:09 oxycodone [Percocet] AdvReac Severe Vomiting Verified 02/10/22 06:31 clobetasol AdvReac Intermediate made Verified 02/06/22 12:09 psoriasis worse dexlansoprazole AdvReac Intermediate hyper,watery Verified 02/06/22 12:09 [From Kapidex] stool Iodinated Contrast Media AdvReac Intermediate WEAKNESS, Verified 02/06/22 12:09 [IV CONTRAST] LIGHTHEADEDNESS, AND CONFUSION lansoprazole [Prevacid] AdvReac Intermediate hyper, Verified 02/06/22 12:09 watery stool methotrexate [METHOTREXATE] AdvReac Intermediate MUSCLE AND Verified 02/06/22 12:09 JOINT PAIN ranitidine AdvReac Intermediate weak, Verified 02/06/22 12:09 watery stool alirocumab AdvReac Mild Generalized Verified 02/06/22 12:09 [From Praluent Pen] ecchymoses aspirin AdvReac Mild one sided Verified 02/06/22 12:09 facial pain, green spots in eye pantoprazole [Protonix] AdvReac Mild one sided Verified 02/10/22 06:31 headache, yellow streak in left eye fexofenadine [From [place]] AdvReac painful Verified 02/06/22 12:09 bones and muscles Review of Systems Sugical H&P ROS: Negative: Constitution, Cardiovascular, Respiratory, Neurological, Psychiatric, Hem-Onc, Allergic/Immunologic, Gastrointestinal, Genitourinary, Musculoskeletal, Integumentary, Endocrine and Eyes/Ear s/Nose/Throat Exam Surgical H&P Exam: Normal: HEENT, Normal: Heart, Normal: Lungs, Normal: Extremities, Normal: Abdomen, Normal: Skin and Normal: Neurological Plan Diagnosis/Plan: Unchanged ( cysto, bladder biopsy, fulguration) I have reviewed the history and physical and performed a pertinent physical examination on my patient. No changes have occurred unless specified.
--- NOTE | 2022-02-10 08:15 | W.PM.OPN ---
Operative Note Operative Note Date of Service: 02/10/22 Narrative: PreOperative Diagnosis: bladder cancer Post Operative Diagnosis: bladder cancer Procedure: cystoscopy, bladder biopsy, fulguration Surgeon: Dr Celio Mix Anesthesia: LMA Indications for procedure: Superficial bladder cancer. Here for cystoscopy, bladder biopsy. Evaluation. Procedure: After informed consent was verified the patient was brought to the operating room and placed in a supine position. Anesthesia was administered per protocol. The patient was placed in modified dorsal lithotomy position and prepped and draped in a sterile fashion. Safety pause time-out was performed. Antibiotics being given. Cystoscopy was performed. Areas of prior resection could be seen on the dome of the bladder. Using the Olympus narrow band imaging the bladder was re-examined and there were a few cellular areas that was seen. No recurrence of cancer was noted. Bladder biopsies were taken from the edge of the prior resection and from the left anterior sidewall with there was a flat change in mucosa. Fulguration was performed on these areas. Bladder was re-examined with narrow band imaging and no areas of suspicion was seen. The patient tolerated the procedure well. They were extubated in operating room and transferred in stable conditions recovery area. Pathology: Bladder biopsies Drains: None
[2022-02-10 08:23] VITALS: BP 124/51; PULSE 77; RESP 15; TEMP 36.5; O2SAT 100
[2022-02-10 08:28] VITALS: BP 142/63; PULSE 80; RESP 16; O2SAT 100
[2022-02-10 08:33] VITALS: BP 127/48; PULSE 81; RESP 16; O2SAT 95
[2022-02-10 08:38] VITALS: BP 129/57; PULSE 77; RESP 16; TEMP 36.6; O2SAT 95
[2022-02-10] MEDS: Acetaminophen 325 MG TABLET 650 MG PO (08:48)
[2022-02-10] MEDS: Phenazopyridine HCL 100 MG TABLET PO (08:49)
[2022-02-10 08:53] VITALS: BP 136/54; PULSE 78; RESP 16; TEMP 36.1; O2SAT 96
== END 2022-02-10 09:42 | disposition home or self-care (01) ==
PROVIDERS: PCP Internal Medicine; Visit Provider Urology
PROC: (CPT 52240; principal; 2022-02-10 07:30)
DX: D09.0 Carcinoma in situ of bladder (principal); J45.909 Unspecified asthma, uncomplicated; K22.70 Barrett's esophagus without dysplasia; I97.190 Other postprocedural cardiac functional disturbances following cardiac surgery; Y83.8 Other surgical procedures as the cause of abnormal reaction of the patient, or of later complication, without mention of misadventure at the time of the procedure; I50.30 Unspecified diastolic (congestive) heart failure; I25.10 Atherosclerotic heart disease of native coronary artery without angina pectoris; Z95.1 Presence of aortocoronary bypass graft; E78.5 Hyperlipidemia, unspecified; M35.3 Polymyalgia rheumatica; M85.80 Other specified disorders of bone density and structure, unspecified site; Z77.22 Contact with and (suspected) exposure to environmental tobacco smoke (acute) (chronic); Z79.52 Long term (current) use of systemic steroids; Z79.899 Other long term (current) drug therapy; Z88.0 Allergy status to penicillin; Z88.1 Allergy status to other antibiotic agents; Z88.2 Allergy status to sulfonamides; Z88.8 Allergy status to other drugs, medicaments and biological substances; Z91.041 Radiographic dye allergy status; Z86.73 Personal history of transient ischemic attack (TIA), and cerebral infarction without residual deficits
CPT/HCPCS: 52240; 88305; J2370; J3010

== ENCOUNTER → 2022-02-12 15:16 | Outpatient (BNVA) | payer MEDICARE, SELFPAY | PROVIDERS: PCP Internal Medicine; Visit Provider Internal Medicine Cardiovascular Disease | DX: I49.5 Sick sinus syndrome (principal); I50.30 Unspecified diastolic (congestive) heart failure; I25.10 Atherosclerotic heart disease of native coronary artery without angina pectoris; I49.9 Cardiac arrhythmia, unspecified; Z79.02 Long term (current) use of antithrombotics/antiplatelets; Z79.899 Other long term (current) drug therapy; Z95.1 Presence of aortocoronary bypass graft | CPT/HCPCS: 99212 ==

== ENCOUNTER → 2022-02-18 12:04 | Outpatient (BNVA) | payer MEDICARE, SELFPAY | PROVIDERS: PCP Internal Medicine; Visit Provider Urology | DX: C67.9 Malignant neoplasm of bladder, unspecified (principal); F41.8 Other specified anxiety disorders | CPT/HCPCS: Q3014 ==

== ENCOUNTER 2022-03-13 09:46 | Outpatient (REF) | payer MEDICARE, SELFPAY ==
[2022-03-13 11:18] LABS: Appearance Urine Clear; Color Urine Yellow; Glucose Urine UA Negative (Negative); Leukocyte Esterase Urine Trace (Negative); Nitrite Urine Negative (Negative); Specific Gravity - Urine <= 1.005 (1.005-1.025); UMIC TRIGGER UACC YES; Urine Blood Small (1+) (Negative); Urine Ketones Negative (Negative); Urine Protein Negative (Neg-Trace)
[2022-03-13 11:40] LABS: Bacteria Urine None Seen (None Seen); Hyaline Casts Urine 0-2 /LPF (0-2); RBC Urine 0-2 /HPF (0-2); Squamous Epithelial Cell Urine 0-2 /HPF (0-2); WBC Urine 0-5 /HPF (0-5)
== END 2022-03-13 09:47 | disposition home or self-care (01) ==
LOC: HO.LAB 09:46
PROVIDERS: PCP Internal Medicine; Visit Provider Internal Medicine
DX: C67.9 Malignant neoplasm of bladder, unspecified (principal)
CPT/HCPCS: 81001; 81003

== ENCOUNTER 2022-05-20 08:44 | Outpatient (REF) | payer MEDICARE, SELFPAY | END 2022-05-20 08:45 | disposition home or self-care (01) | LOC: HO.LAB 08:44 | PROVIDERS: PCP Internal Medicine; Visit Provider Urology | DX: C67.9 Malignant neoplasm of bladder, unspecified (principal) | CPT/HCPCS: 52000; 88121; 99212 ==

== ENCOUNTER 2022-06-09 05:49 | Day surgery (SDC) | payer MEDICARE, SELFPAY ==
[2022-06-03 14:20] VITALS: BMI 26.4
[2022-06-09] VITALS (8 sets, daily range): BP systolic 111–133; BP diastolic 42–57; PULSE 62–96; RESP 16–18; TEMP 36.1–36.6; O2SAT 96–97; BMI 26.2
--- NOTE | 2022-06-09 07:25 | P.CONAN_ITS ---
HPI - Anesthesia Eval Consult details Narrative: cysto, mitomycin PMFSH Active Problems Active Problems: All Active Problems (Updated 06/03/22 @ 14:19 by Nella Apodaca RN) UTI (urinary tract infection) (Acute) UTI (urinary tract infection) (Acute) Trigger thumb of right hand (Acute) Urine incontinence (Acute) Age-related osteoporosis without current pathological fracture (Acute) Urinary bladder cancer (Acute) Encounter for subsequent annual wellness visit (AWV) in Medicare patient (Acute) Vitamin B 12 deficiency (Acute) HTN (hypertension) (Acute) Sick sinus syndrome (Acute) Cardiac arrhythmia (Acute) Diastolic heart failure (Acute) Allergic rhinitis (Acute) Lung fibrosis (Acute) Psoriasis (Acute) Barretts esophagus (Acute) GERD (gastroesophageal reflux disease) (Acute) HLD (hyperlipidemia) (Acute) CAD (coronary artery disease) (Acute) Osteopenia (Acute) Polymyalgia rheumatica (Acute) Past Medical History Medical History (Updated 06/03/22 @ 14:19 by Nella Apodaca RN) Allergic rhinitis Asthma Barretts esophagus Bladder cancer CAD (coronary artery disease) Diastolic heart failure Diverticular disease GERD (gastroesophageal reflux disease) Hiatal hernia History of CVA (cerebrovascular accident) History of hemorrhoids History of rib fracture HLD (hyperlipidemia) Lung fibrosis 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 Mother No problems noted. Family history of problems with anesthesia: No Surgical History Surgical History (Updated 06/03/22 @ 13:56 by Nella Apodaca RN) History of bladder suspension procedure History of cystoscopy History of nasal surgery History of tonsillectomy History of tonsillectomy and adenoidectomy Hx of CABG Hx of hemorrhoidectomy S/P trigger finger release History of Problems with Anesthesia: No Social History Social History Housing: House Are you a primary palliative care physician to a significant other at home: No Do you presently have visiting nurse or other home services: No Alcohol intake: never Patient Tobacco Use Status: Never used Tobacco e-Cigarette/Vaping Use: Never Used Second Hand Smoke Exposure: No Use of substances other than those prescribed or required for medical reasons: No Have you been hit, kicked, punched, or otherwise hurt by someone within the past year? If so, by whom?: No Are you DNR?: No Advance Directives: Yes Advance Directives Information Provided: Yes Advance Directives on File: Yes Advance Directives Date on File: 08/29/16 Recently lost weight without trying: No Nutrition Risks: Surgical patient >75years Poor oral hygiene: No (wears upper partial) service: No Current occupational status: retired Current occupation: rt hand Current occupational exposures/hazards: No Cognitive needs: No Hearing needs: No Vision needs: No Meds Allergies Allergy/AdvReac Type Severity Reaction Status Date / Time Penicillins Allergy Severe ANAPHYLAXIS Verified 05/20/22 08:51 tamsulosin [Flomax] Allergy Severe severe Verified 05/20/22 08:51 chest pains ibuprofen [IBUPROFEN] Allergy Intermediate RASH, hives Verified 05/20/22 08:51 amoxicillin Allergy Mild hives, bad Verified 05/20/22 08:51 rash esomeprazole [Nexium] Allergy Mild Gastrointestinal Verified 05/20/22 08:51 Upset levofloxacin [From LEVAQUIN] Allergy Mild RASH Verified 05/20/22 08:51 rabeprazole Allergy Mild UNKNOWN Verified 05/20/22 08:51 Sulfa (Sulfonamide Allergy Mild RASH Verified 05/20/22 08:51 Antibiotics) atorvastatin Allergy Unknown Unknown Verified 05/20/22 08:51 Bifidobacterium infantis Allergy Unknown Unknown Verified 05/20/22 08:51 [Align] clarithromycin [Prevpac] Allergy Unknown Unknown Verified 05/20/22 08:51 omeprazole [From PRILOSEC] Allergy Unknown UNKNOWN Verified 05/20/22 08:51 simvastatin [From ZOCOR] Allergy Unknown UNKNOWN Verified 05/20/22 08:51 oxycodone [Percocet] AdvReac Severe Vomiting Verified 05/20/22 08:51 clobetasol AdvReac Intermediate made Verified 05/20/22 08:51 psoriasis worse dexlansoprazole AdvReac Intermediate hyper,watery Verified 05/20/22 08:51 [From Kapidex] stool Iodinated Contrast Media AdvReac Intermediate WEAKNESS, Verified 05/20/22 08:51 [IV CONTRAST] LIGHTHEADEDNESS, AND CONFUSION lansoprazole [Prevacid] AdvReac Intermediate hyper, Verified 05/20/22 08:51 watery stool methotrexate [METHOTREXATE] AdvReac Intermediate MUSCLE AND Verified 05/20/22 08:51 JOINT PAIN ranitidine AdvReac Intermediate weak, Verified 05/20/22 08:51 watery stool alirocumab AdvReac Mild Generalized Verified 05/20/22 08:51 [From Praluent Pen] ecchymoses aspirin AdvReac Mild one sided Verified 05/20/22 08:51 facial pain, green spots in eye pantoprazole [Protonix] AdvReac Mild one sided Verified 05/20/22 08:51 headache, yellow streak in left eye fexofenadine [From [place]] AdvReac painful Verified 05/20/22 08:51 bones and muscles Home Medications Medication Instructions Recorded Confirmed Last Taken Type triamcinolone acetonide 0.1 % 1 appl topical BID-TID 07/23/21 06/03/22 Unknown History topical cream cetirizine 10 mg capsule (Zyrtec) 10 mg PO BEDTIME 10/28/21 02/12/22 Unknown History dupilumab 300 mg/2 mL subcutaneous 300 mg subcut Q2W 10/28/21 06/03/22 Unknown History pen injector (Dupixent) Tums PRN Gastric Reflux 02/06/22 02/12/22 Unknown History phenazopyridine 100 mg tablet 100 mg PO TID PRN Spasm 02/12/22 06/03/22 Unknown History (Pyridium) fluorouracil 5 % topical cream appl topical BID 02/13/22 Unknown History fluticasone propionate 50 1 spray intranasal DAILY 02/13/22 06/03/22 Unknown History mcg/actuation nasal spray,suspension prednisone 2.5 mg tablet 2.5 mg PO DAILY 05/20/22 06/03/22 06/09/22 History Exam Exam Date and Time: June 09, 2022 0725 Height,Weight and Vital Signs: Height 5 ft 1 in Weight 63.049 kg Last Vital Signs Temp 97.0 F 06/09/22 06:10 Pulse 96 06/09/22 06:10 Resp 18 06/09/22 06:10 BP 129/42 L 06/09/22 06:10 Pulse Ox 96 06/09/22 06:10 O2 Del Method 06/09/22 06:10 Airway Mallampati Class: I TM Dist: >3cm Neck ROM: Full Partial: Upper Loose/Missing/Broken Teeth: Yes and Upper Heart: ok Lungs: ok Assessment and Plan Final Anesthetic Review Family History of Problems with Anesthesia: No History of Problems with Anesthesia: No NPO: Yes ASA Class: IV Final Preanesthetic Review: No Changes in Pt Med Stat, Meds/Allgs Chart Review ed, Consent Obtained/Reviewed and Anes Risks/Benef Reviewed Patient Risk: High Procedure Risk: Low Anesthetic Plan Anesthetic Plan: GA and Agree w/ Assess. and Plan Disposition: Standard PACU
--- NOTE | 2022-06-09 07:45 | MHC.SHP ---
Pre-Procedural Eval Section A Date of Service: 06/09/22 The patient is an INPATIENT: No Changes since office visit: No Cold of Flu in the past 2 weeks, No New Medical Problems, No Changes in Medication and No Patient answered all questions The History & Physical has been completed within 30 days and I have reviewed it.: Yes Section B Chief Complaint: Malignant neoplasm of bladder, unspecified Details of Present Illness: cystoscopy, bladder biopsy, mitomycin-C Relevant Social History: None Present Medications: see Short Stay Collaborative assessment History of Previous Operations: Relevant previous surgery/procedure and date(s) Allergies: Allergies Allergy/AdvReac Type Severity Reaction Status Date / Time Penicillins Allergy Severe ANAPHYLAXIS Verified 05/20/22 08:51 tamsulosin [Flomax] Allergy Severe severe Verified 05/20/22 08:51 chest pains ibuprofen [IBUPROFEN] Allergy Intermediate RASH, hives Verified 05/20/22 08:51 amoxicillin Allergy Mild hives, bad Verified 05/20/22 08:51 rash esomeprazole [Nexium] Allergy Mild Gastrointestinal Verified 05/20/22 08:51 Upset levofloxacin [From LEVAQUIN] Allergy Mild RASH Verified 05/20/22 08:51 rabeprazole Allergy Mild UNKNOWN Verified 05/20/22 08:51 Sulfa (Sulfonamide Allergy Mild RASH Verified 05/20/22 08:51 Antibiotics) atorvastatin Allergy Unknown Unknown Verified 05/20/22 08:51 Bifidobacterium infantis Allergy Unknown Unknown Verified 05/20/22 08:51 [Align] clarithromycin [Prevpac] Allergy Unknown Unknown Verified 05/20/22 08:51 omeprazole [From PRILOSEC] Allergy Unknown UNKNOWN Verified 05/20/22 08:51 simvastatin [From ZOCOR] Allergy Unknown UNKNOWN Verified 05/20/22 08:51 oxycodone [Percocet] AdvReac Severe Vomiting Verified 05/20/22 08:51 clobetasol AdvReac Intermediate made Verified 05/20/22 08:51 psoriasis worse dexlansoprazole AdvReac Intermediate hyper,watery Verified 05/20/22 08:51 [From Kapidex] stool Iodinated Contrast Media AdvReac Intermediate WEAKNESS, Verified 05/20/22 08:51 [IV CONTRAST] LIGHTHEADEDNESS, AND CONFUSION lansoprazole [Prevacid] AdvReac Intermediate hyper, Verified 05/20/22 08:51 watery stool methotrexate [METHOTREXATE] AdvReac Intermediate MUSCLE AND Verified 05/20/22 08:51 JOINT PAIN ranitidine AdvReac Intermediate weak, Verified 05/20/22 08:51 watery stool alirocumab AdvReac Mild Generalized Verified 05/20/22 08:51 [From Praluent Pen] ecchymoses aspirin AdvReac Mild one sided Verified 05/20/22 08:51 facial pain, green spots in eye pantoprazole [Protonix] AdvReac Mild one sided Verified 05/20/22 08:51 headache, yellow streak in left eye fexofenadine [From [place]] AdvReac painful Verified 05/20/22 08:51 bones and muscles Review of Systems Sugical H&P ROS: Negative: Constitution, Cardiovascular, Respiratory, Neurological, Psychiatric, Hem-Onc, Allergic/Immunologic, Gastrointestinal, Genitourinary, Musculoskeletal, Integumentary, Endocrine and Eyes/Ears/Nose/Throat Exam Surgical H&P Exam: Normal: HEENT, Normal: Heart, Normal: Lungs, Normal: Extremities, Normal: Abdomen, Normal: Skin and Normal: Neurological Plan Diagnosis/Plan: Unchanged ( cystoscopy, bladder biopsy, mitomycin-C) I have reviewed the history and physical and performed a pertinent physical examination on my patient. No changes have occurred unless specified. Time Spent With Patient Time: Total time managing care of this patient today ____ minutes.
--- NOTE | 2022-06-09 08:27 | P.OP_ITS ---
Operative Note Operative Note Date of Service: 06/09/22 Narrative: PreOperative Diagnosis: bladder cancer Recurrence superficial Post Operative Diagnosis: bladder cancer recurrence superficial Procedure: small TURBT ( fulguration) and Gemcitabine installation Surgeon: Dr Celio Mix Anesthesia: general Indications for procedure: recurrence superficial bladder cancer with suspicious areas Procedure: After informed consent was verified the patient was brought to the operating room and placed in a supine position. Anesthesia was administered per protocol. The patient was placed in a modified dorsal lithotomy position and prepped and draped in a sterile fashion. Safety pause time-out was performed. Antibiotics were confirmed. A 22 [place] cystoscope was placed. Both ureteric orifices normal position. Recurrent superficial bladder cancer seen on the Edge of prior TURBT site on left upper bladder sidewall. Small tumor was removed using bladder biopsy device. Fulguration was performed 1 cm around and involving the area of biopsy. For other areas were fulgurated each approximately 1 cm that had mucosal change. At the completion of the procedure the bladder was irrigated. The cystoscope was removed. A [address] [place] Chanel catheter was inserted into the bladder. 10 cc was placed in the balloon. 40mg mitomycin-C in 20 cc of normal saline was instilled into the bladder. The flow from the catheter was left clamped. The inflow to the catheter was attached to a 3 L normal saline bag. The patient tolerated the procedure well. They were extubated in the operating room and transferred in stable condition to the recovery area. Mitomycin-C will remain in the bladder for 1 hour. At the completion of 1 hour the clamp will be removed. The mitomycin-C will be allowed to egress to the urine collection bag. The 3 L bag of normal saline will be run at maximum rate through the bladder in order to dilute any residual gemcitabine. The Chanel catheter will then be removed. Pathology: bladder biopsy Drains: Chanel catheter
== END 2022-06-09 10:52 | disposition home or self-care (01) ==
PROVIDERS: PCP Internal Medicine; Visit Provider Urology
PROC: (CPT 52234; principal; 2022-06-09 07:30)
DX: C67.9 Malignant neoplasm of bladder, unspecified (principal); Z57.5 Occupational exposure to toxic agents in other industries; Z77.22 Contact with and (suspected) exposure to environmental tobacco smoke (acute) (chronic); I50.30 Unspecified diastolic (congestive) heart failure; Z95.1 Presence of aortocoronary bypass graft; I25.10 Atherosclerotic heart disease of native coronary artery without angina pectoris; E78.5 Hyperlipidemia, unspecified; J45.909 Unspecified asthma, uncomplicated; J84.10 Pulmonary fibrosis, unspecified; K22.70 Barrett's esophagus without dysplasia; Z86.73 Personal history of transient ischemic attack (TIA), and cerebral infarction without residual deficits; Z85.828 Personal history of other malignant neoplasm of skin; Z88.0 Allergy status to penicillin; Z88.1 Allergy status to other antibiotic agents; Z88.2 Allergy status to sulfonamides; Z91.041 Radiographic dye allergy status
CPT/HCPCS: 52234; 52204; 51720; 88305; J3010; J9280

== ENCOUNTER 2022-06-17 08:26 | Outpatient (REF) | payer MEDICARE, SELFPAY ==
--- NOTE | ~2022-06-17 | MM_ITS ---
EXAMINATION: MM SCREENING DIGITAL BREAST TOMOSYNTHESIS, BILATERAL CLINICAL INFORMATION: Screening. Asymptomatic. COMPARISON: Mammography: 06/14/2021, 06/05/2020, 05/31/2019 TECHNIQUE: Digital breast tomosynthesis is performed in both the craniocaudal and mediolateral oblique views along with computer-aided detection (CAD). Synthesized 2D images are generated from the tomosynthesis. FINDINGS: There are scattered areas of fibroglandular density (ACR BI-RADS breast composition Category b). There are no significant masses, abnormal calcifications, or other abnormalities. No architectural abnormality or developing density or significant change from prior studies. The axilla are unremarkable. MM/MM tomosynthesis screening BI IMPRESSION: No mammographic evidence of malignancy. ASSESSMENT: BI-RADS 1: Negative RECOMMENDATION: Routine annual mammography screening. This patient's information was entered into a reminder system with a target due date for their next mammogram.
== END 2022-06-17 08:27 | disposition home or self-care (01) ==
LOC: HO.MAMMO 08:26
PROVIDERS: PCP Internal Medicine; Visit Provider Internal Medicine
DX: Z12.31 Encounter for screening mammogram for malignant neoplasm of breast (principal)
CPT/HCPCS: 77063; 77067

== ENCOUNTER → 2022-06-19 11:34 | Outpatient (BNVA) | payer MEDICARE, SELFPAY | PROVIDERS: PCP Internal Medicine; Visit Provider Urology | DX: C67.9 Malignant neoplasm of bladder, unspecified (principal) | CPT/HCPCS: Q3014 ==

== ENCOUNTER → 2022-07-01 13:27 | Outpatient (BNVA) | payer MEDICARE, SELFPAY | PROVIDERS: PCP Internal Medicine; Visit Provider Internal Medicine | DX: J84.10 Pulmonary fibrosis, unspecified (principal); J30.9 Allergic rhinitis, unspecified | CPT/HCPCS: 99212 ==

== ENCOUNTER 2022-07-11 07:13 | Outpatient (REF) | payer MEDICARE, SELFPAY ==
--- NOTE | ~2022-07-11 | CT_ITS ---
EXAMINATION: CT CHEST WITHOUT CONTRAST CLINICAL INFORMATION: Pulmonary fibrosis. COMPARISON: Chest x-ray 12/22/[address] chest 11/22/2020. TECHNIQUE: Multidetector volumetric CT imaging of the chest was done. Axial MIP volume rendering provided. Sagittal and coronal reformatted images were obtained. This CT examination was performed using dose optimization techniques as appropriate, variously including the following: *Automated exposure control *Adjustment of mA and/or kV according to patient size (this includes techniques or standardized protocols for targeted exams where dose is matched to indication/reason for exam; i.e. extremities or head) *Use of iterative reconstruction technique DLP: 128 mGy-cm FINDINGS: ELECTRICAL INSTALLATION SUPERVISOR: Well-inflated lungs. LUNGS: The lungs are hyperinflated with prominent peripheral interstitial thickening and reticulation suggestive mild interstitial lung disease similar to previous study 11/22/2020. There are no pulmonary nodules, mass or consolidation. MEDIASTINUM: The thyroid lobes are symmetric and normal. The central trachea and the bronchi are widely patent. The heart size and the great vessels are normal caliber. No pericardial effusion seen. No abnormal size mediastinal or hilar lymphadenopathy. CORONARY ARTERY CALCIFICATION: Moderate coronary artery calcifications are present. PLEURA: There is no pleural effusion. No pleural mass or thickening. AXILLA: There are small shotty axillary lymph nodes. The chest wall is unremarkable. UPPER ABDOMEN: Visualized liver, spleen, pancreas and bilateral adrenal glands are unremarkable. OSSEOUS STRUCTURES: No aggressive lytic or sclerotic process seen. There are median sternotomy sutures from previous intervention. CT/CT chest wo IV con IMPRESSION: 1. Chronic interstitial lung changes with peripheral interstitial thickening and reticulation similar to previous study 11/22/2020. 2. There are no pulmonary nodules, mass or consolidation. 3. No abnormal mediastinal or axillary lymphadenopathy. 4. Moderate coronary artery calcifications. Fleischner guidelines were followed.
== END 2022-07-11 07:14 | disposition home or self-care (01) ==
LOC: HO.CT 07:13
PROVIDERS: Visit Provider Internal Medicine
DX: J84.10 Pulmonary fibrosis, unspecified (principal)
CPT/HCPCS: 71250

== ENCOUNTER 2022-07-22 08:52 | Outpatient (REF) | payer MEDICARE, SELFPAY ==
--- NOTE | 2022-07-22 18:11 | PFT_ITS ---
INDICATION: COPD. SPIROMETRY: FEV1 to FVC of 86% with an FEV1 of 1.5 L, which is 89% predicted and FVC of 1.75 L, which is 77% predicted. No significant response to bronchodilator is noted. Maximum voluntary ventilation is 91% predicted. LUNG VOLUMES: Total lung capacity 60% predicted with an expiratory residual volume of 63% predicted. DIFFUSION CAPACITY: DLCO 57% predicted. COMPARISON: I do not have any available. INTERPRETATION: No obstructive ventilatory defects. No significant response to bronchodilator is noted. Normal maximum voluntary ventilation. However, the patient does have restrictive ventilatory defect consistent with moderate restrictive lung disease. Therefore, need to consider underlying parenchymal lung conditions or neuromuscular conditions that may be affecting the total lung capacity. The patient does have a moderate diffusion impairment that corresponds to the total lung capacity decrease, although it does correct to normal and correcting for the alveolar volume, which is reassuring. Clinical correlation warranted. MD MINNIE Lua/ALONDRA / [phone]
== END 2022-07-22 08:53 | disposition home or self-care (01) ==
LOC: HO.RESP 08:52
PROVIDERS: Visit Provider Internal Medicine
DX: J30.9 Allergic rhinitis, unspecified (principal); J84.10 Pulmonary fibrosis, unspecified
CPT/HCPCS: 94060; 94727; 94729

== ENCOUNTER → 2022-08-14 09:50 | Outpatient (BNVA) | payer MEDICARE, SELFPAY | PROVIDERS: PCP Internal Medicine; Referring Provider Internal Medicine; Visit Provider Internal Medicine Cardiovascular Disease | DX: R07.9 Chest pain, unspecified (principal); I50.30 Unspecified diastolic (congestive) heart failure; I25.10 Atherosclerotic heart disease of native coronary artery without angina pectoris; I10 Essential (primary) hypertension; Z95.1 Presence of aortocoronary bypass graft; Z79.52 Long term (current) use of systemic steroids; Z79.899 Other long term (current) drug therapy | CPT/HCPCS: 99212 ==

== ENCOUNTER → 2022-08-26 08:48 | Outpatient (REF) | payer MEDICARE, SELFPAY ==
--- NOTE | ~2022-08-26 | NM_ITS ---
EXERCISE MYOCARDIAL PERFUSION STUDY INDICATION: Coronary artery disease, assess for ischemia TECHNIQUE: The patient was brought in for an exercise perfusion study on 08/26/2022. Patient performed exercise as per Tim protocol and was injected 25 mCi of sestamibi once target heart rate was achieved. Images were obtained using the SPECT gamma camera interlaced with the gating device. Images were obtained in supine position. Resting perfusion study was performed on 08/27/2022. Patient was administered 25 mCi of sestamibi intravenously at rest. Images were then obtained in supine position. Images were processed with the software and compared side to side in short axis, horizontal long axis and vertical long axis views. Total DLP 95mGy-cm. FINDINGS: Raw images were reviewed. The stress perfusion study showed diminished tracer uptake along the basal inferior wall. There is also adjacent GI tracer uptake. With CT attenuation correction, there is significant improvement suggestive of diaphragmatic attenuation artifact. The gated study shows normal LV systolic function with calculated LVEF of > 70%. LV cavity is normal in size. The gated study shows normal wall thickening and contraction of segments. Resting study shows diminished tracer uptake along the inferior wall. Similar to the stress acquisition. There is improvement with CT attenuation correction suggestive of diaphragmatic attenuation artifact. Gating at rest reveals normal wall motion with ejection fraction at > 70%. The findings are consistent with fixed inferior perfusion defect suggestive of diaphragmatic attenuation artifact. No clear reversible defects. NM/NM cardiolite stress test IMPRESSION: 1. Myocardial perfusion imaging study shows normal myocardial perfusion. No clear evidence of any ischemia or infarction. 2. Gated LVEF is > 70% during stress and rest. 3. Transient ischemic dilatation not present. EKG component of the test reported separately.
--- NOTE | 2022-08-26 08:51 | CA_ITS ---
Acquisition Time: 2022-08-26 10:03:14 Total Exercise Time: 00:06:32 Test Indications: AFIB, CHF Medications: SEE H Protocol: AYAN Max HR: 123 BPM 87% of Pred: 141 BPM Max BP: 170/060 mmHG Max Work Load: 7.1 METS Exercise stres test exercise 6 min 32 sec of Ayan protocol (stage 2 held and incline increased to 13%) acheiving 83% MPHR, without anginal symptoms, with isolated PACs and PVCs, with normotensive response, borderline ST changes in V5 and V6 inferiorly at peak which correct quickly in recovery. Nuclear images pending. Test reviewed with Dr. Jimenez. Referred By: Boo Jimenez Overread By: JOESPH HOYOS
--- NOTE | 2022-08-26 08:51 | CA_ITS ---
Transthoracic Echocardiogram Patient (Last, First, Middle): Mary Whitfield I Gender: Female Date of : 1940 Age: 81 Procedure Date: 08/26/2022 Procedure Type: Transthoracic Echocardiogram Location: OP Height: 154.94 cm Weight: 62.14 kg BSA: 1.61 m2 Heart Rate: bpm BP: 105 / 65 mmHg Glass Inserter: TERRI Referring MD: Boo Jimenez MD Gray Mixing Operator: Boo Jimenez MD Symptoms: I50.30 - Unspecified diastolic (congestive) heart failure Study Quality: Technically Difficult ECG Rhythm: Sinus Conclusions: - 1. Normal LV ejection fraction of 60 65% with restrictive filling defect 2. At least mildly dilated left atrium 3. Normal cardiac valvular Dopplers next 4. Normal measured RV systolic pressure 5. No gross pericardial effusion Findings Left Ventricle Normal left ventricular size, thickness, and systolic function. The visually estimated ejection fraction is between 60-65%. Spectral Doppler is indicative of a restrictive filling pattern. E/E prime ratio is between 8 and 15 consistent with indeterminate filling pressures. Peak GLS is -18.8%, within normal limits. Wall Motion Rest Echo Findings The basal inferior and basal inferoseptal segments are akinetic. All other scored wall segments showed normal motion. Right Ventricle The right ventricle was not well visualized. Atria The left atrium is mildly dilated. Interatrial shunt cannot be excluded. The right atrium was not well visualized. Aortic Valve Normal aortic valve structure and function. There is no aortic valve stenosis. There is no aortic valve regurgitation. Mitral Valve There is mild anterior and posterior mitral leaflet thickening. There is trace mitral valve regurgitation. There is no mitral valve stenosis. Pulmonic Valve The pulmonic valve was not well visualized. Tricuspid Valve Likely normal tricuspid valve structure and function. There is trace tricuspid valve regurgitation. The right ventricular systolic pressure is normal. The right ventricular systolic pressure is 14 mmHg. Normal right atrial pressure. There is no evidence of pulmonary hypertension. Great Vessels All visible segments of the aorta are normal in size. The pulmonary artery was not well visualized. Small plaque is seen in the sino tubular ridge. Venous The inferior vena cava is normal in size and collapses greater than 50% with inspiration. Pericardium/Pleural There is no evidence of pericardial effusion. Prior Study Comparison No significant change compared to prior study dated: 05/13/2021. Measurements 2D Linear Measurements IVSd: 0.92 0.6-0.9/0.6-1.0 cm LVIDd: 4.21 3.9-5.3/4.2-5.9 cm LVIDd Index: 2.61 2.4-3.2/2.2-3.1 cm/m2 LVIDs: 2.68 2.0-3.6 cm LVPWd: 1.01 0.7-1.1 cm LA Diam: 3.70 2.7-3.8/3.0-4.0 cm LAIDs Index: 2.30 1.5-2.3 cm/m2 LV Mass: 163.01 67-162/88-224 g LV Mass Index: 101.25 43-95/49-115 g/m2 LVOT Diam: 1.90 3.0+(-)1.3 cm 2D Systolic Function EF 4C: 59.20 >55% EF 2C: 65.50 >55% EF BiP: 60.40 >55% Mitral Valve MV Pk E: 0.78 MV PK A: 0.43 MV Decel Time: 202.00 E/A: 1.80 E'Lateral: 8.70 E'Medial: 6.09 E/E' Med: 12.70 E/E' Lat: 8.90 PHT: 59.00 MVA PHT: 3.73 Decel Lyon: 3.84 Aortic Valve AoV Pk Jose Raul: 1.04 AoV Mn Jose Raul: 0.79 AoV VTI: 0.27 AoV Pk Grad: 4.00 Aov Mn Grad: 3.00 ELIZABETH Cont.VTI: 2.01 LVOT LVOT Pk Jose Raul: 0.78 LVOT Mn Jose Raul: 0.53 LVOT VTI: 0.19 LVOT Pk Grad: 2.00 LVOT Mn Grad: 1.00 LVOT Diam: 1.90 LVOT Area: 2.84 Diastolic Function MV Pk E: 0.78 MV Pk A: 0.43 E/A: 1.80 E'Medial: 6.09 E/E' Med: 12.70 E' Laterial: 8.70 E/E' Lat: 8.90 Right Ventricle TAPSE (mm): 16.70 TVS' Jose Raul: 7.51 Tricuspid Valve TR Pk Jose Raul: 1.68 TR Pk Grad: 11.00 RA Press: 3.00 RVSP: 14.00 Great Vessels Aorta Sinus of Valsalva: 3.27 2.0-3.[address] Ridge: 2.53 1.7-3.4 cm Ao Asc: 3.30 2.1-3.4 cm Updated in Other Vendor System with Status of Final Boo Jimenez MD electronically signed on 08/27/2022 2:58:40 PM with status of Final
== END ==
LOC: HO.CARD 08:48
PROVIDERS: PCP Internal Medicine; Visit Provider Internal Medicine Cardiovascular Disease
DX: R07.9 Chest pain, unspecified (principal); I25.10 Atherosclerotic heart disease of native coronary artery without angina pectoris; I50.30 Unspecified diastolic (congestive) heart failure; Z95.1 Presence of aortocoronary bypass graft
CPT/HCPCS: 78452; 93017; 93306; 93356; A9500

== ENCOUNTER 2022-10-02 08:51 | Outpatient (REF) | payer MEDICARE, SELFPAY ==
[2022-10-02 16:24] LABS: Urine Cytology See Pathology rpt
== END 2022-10-02 08:52 | disposition home or self-care (01) ==
LOC: HO.LAB 08:51
PROVIDERS: PCP Internal Medicine; Visit Provider Urology
DX: C67.9 Malignant neoplasm of bladder, unspecified (principal)
CPT/HCPCS: 52000; 88112; 99212

== ENCOUNTER 2022-10-16 08:32 | Outpatient (REF) | payer MEDICARE, SELFPAY ==
[2022-10-16 08:49] LABS: MANUAL DIFF FLAG NO
[2022-10-16 09:07] LABS: Appearance Urine Cloudy; Color Urine Yellow; Glucose Urine UA Negative (Negative); Leukocyte Esterase Urine Moderate (2+) (Negative); Nitrite Urine Negative (Negative); PH 5.5 (5.0-9.0); UMIC TRIGGER UACC YES; Urine Blood Moderate (2+) (Negative); Urine Ketones Trace mg/dL (Negative); Urine Protein Trace mg/dL (Neg-Trace)
[2022-10-16 09:11] LABS: Bacteria Urine None Seen (None Seen); Hyaline Casts Urine 0-2 /LPF (0-2); UACC Culture Trigger YES
[2022-10-16 09:55] LABS: Basophils Percent Auto 0.8 % (0-2); Eosinophils Absolute Auto 0.4 X10*3/uL (0.0-0.4); Eosinophils Percent Auto 7.2 % (0-4); Hematocrit 38.4 % (37.0-47.0); Hemoglobin 12.3 g/dl (12.0-16.0); Imm Gran Abs Auto 0.02 X10*3/uL (0.00-0.03); Imm Gran Pct Auto 0.4 % (0.0-0.4); Immature Retic Fraction 12.2 % (3.0-15.9); Lymphocytes Absolute Auto 1.8 X10*3/uL (1.2-4.9); Lymphocytes Percent Auto 36.2 % (20-40); Mean Corpuscular Hemoglobin 28.8 pg (27.0-33.0); Mean Corpuscular Volume 89.9 fL (80.0-98.0); Monocytes Absolute Auto 0.4 X10*3/uL (0.1-1.2); Monocytes Percent Auto 9.1 % (2-11); Neutrophils Absolute Auto 2.3 x10*3/uL (2.0-8.3); Neutrophils Percent Auto 46.3 % (45-73); Platelet Count 278 X10*3/uL (160-400); Red Blood Count 4.27 X10*6/uL (4.20-5.50); Red Cell Distribution Width 13.2 % (11.0-16.0); Retic HGB Equivalent 34.1 pg (30.0-35.0); Reticulocyte Percent 2.1 % (0.5-1.8); Reticulocytes Absolute 0.088 X10*6/uL (0.026-0.095); White Blood Count 4.9 X10*3/uL (4.8-10.8)
[2022-10-16 10:38] LABS: Erythrocyte Sedimentation Rate 14 MM/HR (0-20)
[2022-10-16 10:45] LABS: Alanine Aminotransferase 12 U/L (0-31); Albumin Level 3.9 g/dL (3.5-5.0); Alkaline Phosphatase 70 U/L (39-117); Anion Gap 13 (12-20); Aspartate Amino Transferase 17 U/L (5-31); Bilirubin Total 0.5 mg/dL (0.0-1.0); Blood Urea Nitrogen 13 mg/dL (9-16); C Reactive Protein 0.24 mg/dL (< or = 0.50); Calcium 9.3 mg/dL (8.4-10.2); Carbon Dioxide 27 mmol/L (22-29); Chloride 104 mmol/L (96-108); Cholesterol 205 mg/dL; Estimated Glomerular Filt Rate > 60; Glucose Random 86 mg/dL (60-115); HDL Cholesterol 53 mg/dL; Iron 94 mcg/dL (30-160); LDL Cholesterol Calculated 120 mg/dl; Percent Iron Saturation 31 % (15-50); Potassium 3.5 mmol/L (3.3-5.1); Sodium 140 mmol/L (135-145); Total Iron Binding Capacity 302 mcg/dL (228-428); Total Protein 6.7 g/dL (6.5-8.0); Triglycerides 162 mg/dL; Unsaturated Iron Binding 208 ug/dL
[2022-10-16 10:59] LABS: Ferritin 44 ng/mL (10-250); Folate 15.2 ng/mL (> or = 4.0); Thyroid Stimulating Hormone 4.39 uIU/mL (0.32-4.0); Vitamin B12 521 pg/mL (200-900); Vitamin D 25-OH Total 38.2 ng/mL (>30)
[2022-10-16 11:22] LABS: Uric Acid 6.4 mg/dL (2.4-5.7)
== END 2022-10-16 08:33 | disposition home or self-care (01) ==
LOC: HO.LAB 08:32
PROVIDERS: PCP Internal Medicine; Visit Provider Internal Medicine
DX: K21.9 Gastro-esophageal reflux disease without esophagitis (principal); M35.3 Polymyalgia rheumatica; E78.00 Pure hypercholesterolemia, unspecified; R82.90 Unspecified abnormal findings in urine; D64.9 Anemia, unspecified; M81.0 Age-related osteoporosis without current pathological fracture
CPT/HCPCS: 36415; 80053; 80061; 81001; 81003; 82306; 82607; 82728; 82746; 83540; 84439; 84443; 84550; 85025; 85045; 85652; 86140; 87086

== ENCOUNTER 2022-11-24 11:04 | Outpatient (REF) | payer MEDICARE, SELFPAY ==
[2022-11-24 12:48] LABS: C Reactive Protein 1.06 mg/dL (< or = 0.50)
== END 2022-11-24 11:05 | disposition home or self-care (01) ==
LOC: HO.LAB 11:04
PROVIDERS: PCP Internal Medicine; Visit Provider Psychiatry & Neurology Neurology
DX: M35.3 Polymyalgia rheumatica (principal)
CPT/HCPCS: 36415; 82550; 85652; 86140

== ENCOUNTER 2023-01-01 10:40 | Outpatient (AMB) | payer MEDICARE, SELFPAY ==
--- NOTE | 2023-01-01 11:07 | A.OFFVIS_ITS ---
Intake Intake Visit Reasons: 3m/cysto Intake Note: Patient is present for Cystoscopy Urology Med: None Antibiotic Allergy: Penicillins, Amoxicillin, Levofloxacin, Sulfa Antibiotics Blood Thinner: Clopidogrel Pharmacy: [facility] Disposable Cystoscope used during Procedure LOT#:[id number] EXP: 09/19/2024 Urine will be sent for cytology Allergies Penicillins Allergy (Severe, Verified 01/01/23 11:11) Anaphylaxis tamsulosin [Flomax] Allergy (Severe, Verified 01/01/23 11:11) severe chest pains ibuprofen [IBUPROFEN] Allergy (Intermediate, Verified 01/01/23 11:11) Rash, hives amoxicillin Allergy (Mild, Verified 01/01/23 11:11) Hives, bad rash levofloxacin [From LEVAQUIN] Allergy (Mild, Verified 01/01/23 11:11) Rash rabeprazole Allergy (Mild, Verified 01/01/23 11:11) Unknown Sulfa (Sulfonamide Antibiotics) Allergy (Mild, Verified 01/01/23 11:11) Rash atorvastatin Allergy (Unknown, Verified 01/01/23 11:11) Unknown Bifidobacterium infantis [Align] Allergy (Unknown, Verified 01/01/23 11:11) Unknown clarithromycin [Prevpac] Allergy (Unknown, Verified 01/01/23 11:11) Unknown omeprazole [From PRILOSEC] Allergy (Unknown, Verified 01/01/23 11:11) Unknown simvastatin [From ZOCOR] Allergy (Unknown, Verified 01/01/23 11:11) Unknown oxycodone [Percocet] Adverse Reaction (Severe, Verified 01/01/23 11:11) Vomiting clobetasol Adverse Reaction (Intermediate, Verified 01/01/23 11:11) made psoriasis worse dexlansoprazole [From Kapidex] Adverse Reaction (Intermediate, Verified 01/01/23 11:11) hyper,watery stool Iodinated Contrast Media [IV CONTRAST] Adverse Reaction (Intermediate, Verified 01/01/23 11:11) Weakness, Lightheaded and confusion lansoprazole [Prevacid] Adverse Reaction (Intermediate, Verified 01/01/23 11:11) hyper, watery stool methotrexate [METHOTREXATE] Adverse Reaction (Intermediate, Verified 01/01/23 11:11) Muscle and joint pain ranitidine Adverse Reaction (Intermediate, Verified 01/01/23 11:11) weak, watery stool alirocumab [From Praluent Pen] Adverse Reaction (Mild, Verified 01/01/23 11:11) Generalized ecchymoses aspirin Adverse Reaction (Mild, Verified 01/01/23 11:11) one sided facial pain, green spots in eye esomeprazole [Nexium] Adverse Reaction (Mild, Verified 01/01/23 11:11) Gastrointestinal Upset pantoprazole [Protonix] Adverse Reaction (Mild, Verified 01/01/23 11:11) one sided headache, yellow streak in left eye fexofenadine [From [place]] Adverse Reaction (Verified 01/01/23 11:11) painful bones and muscles HPI HPI Comments History of Present Illness Details Mary is a pleasant female. She is a patient of Dr. Gutierrez. She is seen for the following urologic conditions - microscopic hematuria - abnormal urine cytology - bladder cancer Three month cystoscopy Small lesion area on left side bladder Will plan for fulguration in 3 months Bladder cancer - 11/06 - high-grade superficial, 06/09 TURBt low-grade superficial Detected after evaluation for microscopic hematuria Interventions - TURBT 11/06 high-grade superficial, 02/06 BBx with fulgeration CIS, 06/09 low- grade superficial with MMCl Smoking history - 2nd exposure through Workplace exposure - plastics exposure, glue exposure Imaging - 10/06 CT urogram normal Cytology - 10/06 high-grade Adjuvant therapy - 11/06 6 week induction Gemcitabine, 3 week boost 10/07 Therapeutic plan - 3 month bladder biopsy, fulguration, mitomycin-C PFSH Medical History Allergic rhinitis Asthma Barretts esophagus Bladder cancer CAD (coronary artery disease) Diastolic heart failure Diverticular disease GERD (gastroesophageal reflux disease) Hiatal hernia History of CVA (cerebrovascular accident) History of hemorrhoids History of rib fracture HLD (hyperlipidemia) Lung fibrosis 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 Mother No problems noted. Social History Housing: House Are you a primary childcare center director to a significant other at home: No Do you presently have visiting nurse or other home services: No Alcohol intake: never Patient Tobacco Use Status: Never used Tobacco e-Cigarette/Vaping Use: Never Used Second Hand Smoke Exposure: No Advance Directives Date on File: 08/29/16 service: No Current occupational status: retired Current occupation: rt hand Current occupational exposures/hazards: No Cognitive needs: No Hearing needs: No Vision needs: No Review of Systems Const Denies chills and Denies fever(s) Card Reports no additional complaints and Denies syncope Resp Denies cough GI Denies abdominal pain and Denies heartburn Reports as per HPI and Denies change in libido Neuro Denies syncope Psych Denies change in libido Endo Denies change in libido Physical Exam Const General: cooperative, healthy appearing, comfortable and no acute distress Orientation/consciousness: patient oriented x3 HEENT Face and sinus: Yes normal facial exam Mouth: moist mucous membranes Neck Neck: Yes normal visual inspection, Yes full ROM and Yes trachea midline Chest Chest palpation & inspection: normal inspection of the chest Resp Effort & Inspection: normal respiratory effort, able to speak in complete sentences and no respiratory distress GI Inspection: Yes normal to inspection Back/Spine/Pelvis Cervical Spine: normal cervical lordosis Thoracic/Lumbar Spine: thoracic and lumbar spine normal to inspection Skin General skin exam: no rashes or lesions noted Neuro General: patient oriented x3, gait normal, tone normal and moves all extremities Extrem General: Yes normal to inspection and Yes capillary refill normal Office Procedures Cystoscopy Consent Discussed risk and benefit or proposed procedure with the patient. Information consent for procedure given to the patient. Discussed technical aspects, risks, benefits and alternatives in full. Addressed all of the patient's questions and concerns regarding the procedure. The patient demonstrated knowledge and understanding. They wish to proceed with this procedure. Preparation The patient was prepped in the usual manner. A chassis wirer was present and in the room. Genitalia was prepped with betadine solution in a sterile manner. Lidocaine Jelly 2% was placed into the urethra and 16Fr flexible Olympus cystoscope was inserted into the meatus after adequate lubrication. Procedure Meatus current call Urethra normal Bladder examination with retroflexion of cystoscope Bladder Orifices normal shape and position Trigone normal Bladder Capacity medium Trabeculations none Cellule Formation - Diverticulum Formation - Mucosal Erythema left bladder sidewall area approximately size of a quarter Bladder Tumor - [id number] DISPOSABLE SCOPE URO-G FLEXIBLE SCOPE Procedure code (CPT) selection complete Office Meds lidocaine HCl Performing Provider: Celio Mix MD Administered by: Emeli Middleton RN on 01/01/23 11:28 Dose Route Admin Location Lot Number Expiration Date [place] Proofsheet Corrector 10 mL intra-urethral nitrofurantoin monohyd/m-cryst 100 mg Performing Provider: Celio Mix MD Administered by: Emeli Middleton RN on 01/01/23 11:28 Dose Route Admin Location Lot Number Expiration Date [facility] Proofsheet Corrector 100 mg PO naproxen Performing Provider: Celio Mix MD Administered by: Emeli Middleton RN on 01/01/23 11:28 Dose Route Admin Location Lot Number Expiration Date ND Proofsheet Corrector 500 mg PO Results AMB Urinalysis, Automated UA Leukoctes 0 Mark/uL Last Edit by Leticia Herrera Ashia on 01/01/23 11:22 UA Nitrite Negative Last Edit by Leticia Herrera [facility] on 01/01/23 11:22 UA Urobilinogen 0.2 mg/dL Last Edit by Leticia Herrera A on 01/01/23 11:2 2 UA Protein 0 mg/dL Last Edit by Leticia Herrera [facility] on 01/01/23 11:22 UA pH 6.0 Last Edit by Leticia Herrera [facility] on 01/01/23 11:22 UA Blood 25 Sushant/uL Last Edit by Leticia Herrera [facility] on 01/01/23 11:22 UA Specific [place] 1.010 Last Edit by Leticia Herrera [facility] on 01/01/23 11: 22 UA Ketone Negative Last Edit by Leticia Herrera [facility] on 01/01/23 11:22 UA Bilirubin 0 mg/dL Last Edit by Leticia Herrera [facility] on 08/17/23 11:22 UA Glucose 0 mg/dL Last Edit by ANITA Salas on 01/01/23 11:22 Results Reviewed Results Reviewed: Laboratory Last Values Urine pH (Auto) 6.0 01/01/23 11:11 Specific [place] (Auto) 1.010 01/01/23 11:11 Urine Protein (Auto) 0 mg/dL 01/01/23 11:11 Glucose (UA)(Auto) 0 mg/dL 01/01/23 11:11 Urine Ketones (Auto) Negative 01/01/23 11:11 Urine Blood (Auto) 25 Sushant/uL 01/01/23 11:11 Urine Nitrite (Auto) Negative 01/01/23 11:11 Urine Bilirubin (Auto) 0 mg/dL 01/01/23 11:11 Urine Urobilinogen (Auto) 0.2 mg/dL 01/01/23 11:11 Leukocyte Esterase (Auto) 0 Mark/uL 01/01/23 11:11 Assessment & Plan Assessment & Plan (1) Urinary bladder cancer: Comment: - High-grade papillary urothelial carcinoma, non-invasive. Bladder biopsy with extensive fulguration left-sided bladder Dr. Mix October 2021, January 2022 - 02/06 CIS TURBT and gemcitabine instillation Dr. Mix May 2022 Code(s): C67.9 - Malignant neoplasm of bladder, unspecified Plan Three month follow-up [facility] bladder biopsy with fulguration Orders: Orders FISH Bladder Cancer Today C67.9 - Malignant neoplasm of bladder, unspecified AMB Cystoscopy Today C67.9 - Malignant neoplasm of bladder, unspecified AMB Urinalysis Automated Today Z13.9 - Encounter for screening, unspecified Medications: New ciprofloxacin HCl 250 mg PO DAILY 5 tabs 0RF 5 days N39.0 - Urinary tract infection, site not specified Patient Instructions: Imaging studies, laboratory and physical exam results were discussed and reviewed in detail. No major barriers to patient understanding were identified. An opportunity to ask questions regarding the treatment plan was provided. All questions were answered. The patient expressed understanding and agreement with the above treatment plan. The patient is aware they should contact our office by phone for worsening of their current condition or the appearance of new urologic symptoms. Compliance is encouraged with any medications and followup testing that is ordered. It is a privilege to participate in the urologic care of your patient. If you have any questions or concerns regarding treatment for the above conditions, or other urologic issues, please do not hesitate to contact me. The office telephone contact is [phone]. This note is constructed using voice recognition software. While every effort has been made to ensure accuracy canned food reconditioning inspector errors may have been included. Yours sincerely, Dr Celio Mix MD, [facility] - Urology Providers of Expert, Compassionate Care for the Genitourinary System Coding Level of Care Code Est Pt Level 3 (83583) Diagnoses Urinary bladder cancer C67.9 CPT Codes Cystoscopy - CPT: 97535-[id number] ([id number]) Cystoscopy - CPT: DISPOSABLE SCOPE URO-G FLEXIBLE SCOPE ([id number])
== END 2023-01-01 11:57 | disposition home or self-care (01) ==
PROVIDERS: PCP Internal Medicine; Visit Provider Urology
DX: C67.8 Malignant neoplasm of overlapping sites of bladder (principal); N39.0 Urinary tract infection, site not specified; Z13.9 Encounter for screening, unspecified
CPT/HCPCS: 52000

== ENCOUNTER 2023-01-01 10:40 | Outpatient (REF) | payer MEDICARE, SELFPAY | END 2023-01-01 10:41 | disposition home or self-care (01) | LOC: HO.LAB 10:40 | PROVIDERS: Visit Provider Urology | DX: C67.9 Malignant neoplasm of bladder, unspecified (principal) | CPT/HCPCS: 52000; 81003; 88121; C1747 ==

== ENCOUNTER 2023-01-08 07:10 | Outpatient (AMB) | payer MEDICARE, SELFPAY ==
--- NOTE | 2023-01-08 07:11 | A.OFFPC_ITS ---
Intake Visit Reasons: PMR flareup Allergies Penicillins Allergy (Severe, Verified 01/08/23 07:11) Anaphylaxis tamsulosin [Flomax] Allergy (Severe, Verified 01/08/23 07:11) severe chest pains ibuprofen [IBUPROFEN] Allergy (Intermediate, Verified 01/08/23 07:11) Rash, hives amoxicillin Allergy (Mild, Verified 01/08/23 07:11) Hives, bad rash levofloxacin [From LEVAQUIN] Allergy (Mild, Verified 01/08/23 07:11) Rash rabeprazole Allergy (Mild, Verified 01/08/23 07:11) Unknown Sulfa (Sulfonamide Antibiotics) Allergy (Mild, Verified 01/08/23 07:11) Rash atorvastatin Allergy (Unknown, Verified 01/08/23 07:11) Unknown Bifidobacterium infantis [Align] Allergy (Unknown, Verified 01/08/23 07:11) Unknown clarithromycin [Prevpac] Allergy (Unknown, Verified 01/08/23 07:11) Unknown omeprazole [From PRILOSEC] Allergy (Unknown, Verified 01/08/23 07:11) Unknown simvastatin [From ZOCOR] Allergy (Unknown, Verified 01/08/23 07:11) Unknown oxycodone [Percocet] Adverse Reaction (Severe, Verified 01/08/23 07:11) Vomiting clobetasol Adverse Reaction (Intermediate, Verified 01/08/23 07:11) made psoriasis worse dexlansoprazole [From Kapidex] Adverse Reaction (Intermediate, Verified 01/08/23 07:11) hyper,watery stool Iodinated Contrast Media [IV CONTRAST] Adverse Reaction (Intermediate, Verified 01/08/23 07:11) Weakness, Lightheaded and confusion lansoprazole [Prevacid] Adverse Reaction (Intermediate, Verified 01/08/23 07:11) hyper, watery stool methotrexate [METHOTREXATE] Adverse Reaction (Intermediate, Verified 01/08/23 07:11) Muscle and joint pain ranitidine Adverse Reaction (Intermediate, Verified 01/08/23 07:11) weak, watery stool alirocumab [From Praluent Pen] Adverse Reaction (Mild, Verified 01/08/23 07:11) Generalized ecchymoses aspirin Adverse Reaction (Mild, Verified 01/08/23 07:11) one sided facial pain, green spots in eye esomeprazole [Nexium] Adverse Reaction (Mild, Verified 01/08/23 07:11) Gastrointestinal Upset pantoprazole [Protonix] Adverse Reaction (Mild, Verified 01/08/23 07:11) one sided headache, yellow streak in left eye fexofenadine [From [place]] Adverse Reaction (Verified 01/08/23 07:11) painful bones and muscles Tobacco use date assessed: 10/21/22 Fall risk assessment: No Falls in past year Last assessed Fall Risk: 01/08/23 Dental Screening Dental Screen Date: 01/08/23 Did you have a dental visit in the last 12 months?: Yes Did you have a dental problem in the last 6 months where you did not have access to dental care?: No Was dental information given to patient?: Patient has dentist HPI HPI Comments History of Present Illness Details 82-year-old female with a history of coronary artery disease, Polymyalgia Rhematica,Osteopenia, hypercholesterolemia, hypertension Quiroz's esophagus history of urinary bladder cancer coming in for follow-up.?Patient of Dr. Gutierrez last seen in October presents today for Telehealth appointment . Patient reports worsening ongoing flare of her polymyalgia rheumatica. Due to her prednisone being weaned down to 1 mg. Patient reports her prednisone was increased back 5 mg daily last month and her symptoms are not improving. Patient states she is unable to walk or bear weight on the right knee. Patient reports its so bad that she will be seeking care at the emergency room. Patient also reports a squamous cell skin cancer removal done by [facility] 1 week ago. Patient continues to follow with Dr. Mix for her bladder cancer on bladder chemotherapy. Follow up schedule with orthopedic next week however patient states she is not able to wait that long for cortisone injection. 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 Mother No problems noted. Social History Housing: House Are you a primary direct care supervisor to a significant other at home: No Do you presently have visiting nurse or other home services: No Alcohol intake: never Patient Tobacco Use Status: Never used Tobacco e-Cigarette/Vaping Use: Never Used Second Hand Smoke Exposure: No Advance Directives Date on File: 08/29/16 service: No Current occupational status: retired Current occupation: rt hand Current occupational exposures/hazards: No Cognitive needs: No Hearing needs: No Vision needs: No Questionnaire PHQ-9 Over the last 2 weeks, how often have you been bothered by any of the following problems? 1. Little interest or pleasure in doing things: not at all 2. Feeling down, depressed, or hopeless: not at all 3. Trouble falling or staying asleep, or sleeping too much: not at all 4. Feeling tired or having little energy: not at all 5. Poor appetite or overeating: not at all 6. Feeling bad about yourself - or that you are a failure or have let yourself or your family down: not at all 7. Trouble concentrating on things, such as reading the newspaper or watching television: not at all 8. Moving or speaking so slowly that other people could have noticed. Or the opposite - being so fidgety or restless that you have been moving around a lot more than usual: not at all 9. Thoughts that you would be better off or of hurting yourself in some way: not at all Total score: 0 Depression Screening Interpretation: Negative Source: Developed by Drs. Librado Fraser, Ingris Fuentes, Harry Acevedo and colleagues, with an educational marissa from [employer]. Thrive Questionnaire Date Thrive assessed: 06/24/22 AUDIT C Alcohol Use Questionnaire (AUDIT-C) 1. How often do you have a drink containing alcohol?: Never 2. How many drinks containing alcohol do you have on a typical day when you are drinking?: 1 or 2 (0) 3. How often do you have six or more drinks on one occasion?: Never Total Score: 0 Score Reviewed/Action Taken: Yes BIRDIE-7 AMB Questionnaire BIRDIE-7 Date BIRDIE - 7 assessed: 06/24/22 Source: Developed by Drs. Librado Fraser, Ingris Fuentes, Harry Acevedo and colleagues, with an educational marissa from [employer]. Physical exam (Primary Care) Tobacco/Smoking Status: Tobacco use Status Tobacco use date assessed 10/21/22 01/08/23 07:13 Patient Tobacco Use Status Never used Tobacco 01/08/23 07:13 e-Cigarette/Vaping Use Never Used 01/08/23 07:13 PHQ-9: PHQ-9 Score PHQ-9: Total score 0 01/08/23 07:16 Depression Screening Interpretation: Negative Thrive Assessment: Date of Thrive Assessment Date Thrive assessed 06/24/22 01/08/23 07:13 Telehealth Telehealth Location of provider rendering services: practice address Location of patient: address on file Patient Identification confirmed using: Name, : Yes Telehealth method: voice only Patient verbally consented to treatment: Yes Patient verbally consented to billing insurance company: Yes Patient informed of any privacy concerns related to visit: Yes Minutes spent on Phone/Video with Pt.: 6 Assessment and Plan Assessment & Plan (1) Polymyalgia rheumatica: Code(s): M35.3 - Polymyalgia rheumatica Plan: Continue on prednisone 5mg daily Given patient unable to bear weight on right leg she reports she will be going to ER For furthure evaluation and treatment (2) HLD (hyperlipidemia): Code(s): E78.5 - Hyperlipidemia, unspecified Qualifiers: Hyperlipidemia type: mixed hyperlipidemia Qualified Code(s): E78.2 - Mixed hyperlipidemia Plan: Avoid fried foods, chicken skin, eggs, butter,margarine, pastries and? red meat. (3) HTN (hypertension): Code(s): I10 - Essential (primary) hypertension Qualifiers: Hypertension type: primary hypertension Qualified Code(s): I10 - Essential (primary) hypertension Plan: Continue on amlodipine 2.5mg Follow low salt diet and excercise. Coding Level of Care Code Tele Est Pt Level 3 (79994) Diagnoses Polymyalgia rheumatica M35.3 HLD (hyperlipidemia) E78.2 Hyperlipidemia type: mixed hyperlipidemia HTN (hypertension) I10 Hypertension type: primary hypertension
== END 2023-01-08 07:25 | disposition home or self-care (01) ==
LOC: HO.HMGH 07:10
PROVIDERS: PCP Internal Medicine; Visit Provider Nurse Practitioner Family
DX: M35.3 Polymyalgia rheumatica (principal); I10 Essential (primary) hypertension; E78.2 Mixed hyperlipidemia
CPT/HCPCS: 99441

== ENCOUNTER 2023-01-08 08:51 | Emergency (ER) | payer MEDICARE, SELFPAY ==
--- NOTE | ~2023-01-08 | XR_ITS ---
EXAMINATION: XR KNEE, RIGHT CLINICAL INFORMATION: Pain. COMPARISON: Right knee 10/23/2016 TECHNIQUE: Four views of the right knee. FINDINGS: The tricompartment joint space is maintained normal. No bony erosive changes, loose bodies, acute fracture or dislocation seen. There is mild anterior spur patellar spurring. No joint effusion noted. There is mild osteopenia. The soft tissues are normal. XR/XR knee RT 4V IMPRESSION: Mild anterior patellar spur. No visible acute fracture, dislocation or subluxation seen.
[2023-01-08 09:08] VITALS: BP 142/60; PULSE 63; RESP 14; TEMP 36.7; O2SAT 97; BMI 26.3
[2023-01-08 10:26] VITALS: BP 166/78; PULSE 63; RESP 18; O2SAT 98
[2023-01-08 10:41] LABS: Appearance Urine Clear; Color Urine Yellow; Glucose Urine UA Negative (Negative); Leukocyte Esterase Urine Negative (Negative); Nitrite Urine Negative (Negative); PH 5.5 (5.0-9.0); Specific Gravity - Urine <= 1.005 (1.005-1.025); Urine Blood Negative (Negative); Urine Ketones Negative (Negative); Urine Protein Negative (Neg-Trace)
[2023-01-08 10:46] LABS: Bacteria Urine None Seen (None Seen); Hyaline Casts Urine 0-2 /LPF (0-2); RBC Urine 0-2 /HPF (0-2); Squamous Epithelial Cell Urine 0-2 /HPF (0-2); WBC Urine 0-5 /HPF (0-5)
[2023-01-08 12:00] VITALS: BP 164/64; PULSE 71; RESP 14; O2SAT 99
--- NOTE | 2023-01-08 12:59 | ED.EXTPRO ---
HPI - Extremity Problem General Chief complaint: Extremity Problem Stated complaint: r knee pain Time Seen by Provider: 01/08/23 11:26 Source: patient and RN notes reviewed Mode of arrival: ambulatory Limitations: no limitations History of Present Illness HPI Narrative: This is a 82-year-old female, with a past medical history of bladder cancer, and polymyalgia rheumatica, presenting to the emergency department with complaints of right knee pain x 4 weeks. Patient states that she recently had a flare of PMR and attributed this to a reduction in her prednisone dose. 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 Patient denies any recent trauma or injury to her right knee. Patient reports pain worsens in her right knee with ambulation. She states that she is normally very active in the gym and is discouraged given her right knee as this had caused her to have a setback in her activity levels. Patient denies any fevers, chills, chest pain, shortness of breath, abdominal pain, nausea, vomiting or diarrhea. She has no urinary symptoms however reports cystoscopies often cause her to have urinary tract infections, that of which she has had recently. No other complaints or concerns at this time. MD Complaint: extremity pain Onset (ago): week(s) Pain Consistency: constant Location: right and lower extremity Quality: aching Radiation: none Relieving factors: nothing Exacerbating factors: nothing Associated symptoms: denies other symptoms Related Data Home Medications Medication Instructions Recorded Confirmed triamcinolone acetonide 0.1 % 1 appl topical BID-TID 07/23/21 08/14/22 topical cream cetirizine 10 mg capsule (Zyrtec) 10 mg PO BEDTIME 10/28/21 08/14/22 dupilumab 300 mg/2 mL subcutaneous 300 mg subcut Q2W 10/28/21 08/14/22 pen injector (Dupixent) Tums PRN Gastric Reflux 02/06/22 08/14/22 fluorouracil 5 % topical cream appl topical BID 02/13/22 08/14/22 prednisone 2.5 mg tablet 5 mg PO DAILY 01/08/23 Previous Rx's Medication Instructions Recorded ezetimibe 10 mg tablet 10 mg PO DAILY #90 tabs 03/20/22 amlodipine 2.5 mg tablet 2.5 mg PO BEDTIME #90 tabs 07/08/22 furosemide 20 mg tablet 20 mg PO DAILY #90 tabs 09/15/22 clopidogrel 75 mg tablet 75 mg PO DAILY #90 tabs 10/06/22 Allergies Allergy/AdvReac Type Severity Reaction Status Date / Time Penicillins Allergy Severe Anaphylaxis Verified 01/08/23 07:11 tamsulosin [Flomax] Allergy Severe severe Verified 01/08/23 07:11 chest pains ibuprofen [IBUPROFEN] Allergy Intermediate Rash, hives Verified 01/08/23 07:11 amoxicillin Allergy Mild Hives, bad Verified 01/08/23 07:11 rash levofloxacin [From LEVAQUIN] Allergy Mild Rash Verified 01/08/23 07:11 rabeprazole Allergy Mild Unknown Verified 01/08/23 07:11 Sulfa (Sulfonamide Allergy Mild Rash Verified 01/08/23 07:11 Antibiotics) atorvastatin Allergy Unknown Unknown Verified 01/08/23 07:11 Bifidobacterium infantis Allergy Unknown Unknown Verified 01/08/23 07:11 [Align] clarithromycin [Prevpac] Allergy Unknown Unknown Verified 01/08/23 07:11 omeprazole [From PRILOSEC] Allergy Unknown Unknown Verified 01/08/23 07:11 simvastatin [From ZOCOR] Allergy Unknown Unknown Verified 01/08/23 07:11 oxycodone [Percocet] AdvReac Severe Vomiting Verified 01/08/23 07:11 clobetasol AdvReac Intermediate made Verified 01/08/23 07:11 psoriasis worse dexlansoprazole AdvReac Intermediate hyper,watery Verified 01/08/23 07:11 [From Kapidex] stool Iodinated Contrast Media AdvReac Intermediate Weakness, Verified 01/08/23 07:11 [IV CONTRAST] Lightheaded and confusion lansoprazole [Prevacid] AdvReac Intermediate hyper, Verified 01/08/23 07:11 watery stool methotrexate [METHOTREXATE] AdvReac Intermediate Muscle and Verified 01/08/23 07:11 joint pain ranitidine AdvReac Intermediate weak, Verified 01/08/23 07:11 watery stool alirocumab AdvReac Mild Generalized Verified 01/08/23 07:11 [From Praluent Pen] ecchymoses aspirin AdvReac Mild one sided Verified 01/08/23 07:11 facial pain, green spots in eye esomeprazole [Nexium] AdvReac Mild Gastrointestinal Verified 01/08/23 07:11 Upset pantoprazole [Protonix] AdvReac Mild one sided Verified 01/08/23 07:11 headache, yellow streak in left eye fexofenadine [From [place]] AdvReac painful Verified 01/08/23 07:11 bones and muscles Review of Systems Review of Systems: Yes all other systems are reviewed and are negative PMFSH Past Medical History Medical History Allergic rhinitis Asthma Barretts esophagus Bladder cancer CAD (coronary artery disease) Diastolic heart failure Diverticular disease GERD (gastroesophageal reflux disease) Hiatal hernia History of CVA (cerebrovascular accident) History of hemorrhoids History of rib fracture HLD (hyperlipidemia) Lung fibrosis 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 Mother No problems noted. Social History Social History Housing: House Are you a primary customer care assistant to a significant other at home: No Do you presently have visiting nurse or other home services: No Alcohol intake: never Patient Tobacco Use Status: Never used Tobacco Smoked in Last 30 Days: No e-Cigarette/Vaping Use: Never Used Second Hand Smoke Exposure: No Use of substances other than those prescribed or required for medical reasons: No Advance Directives: No Advance Directives Date on File: 08/29/16 service: No Current occupational status: retired Current occupation: rt hand Current occupational exposures/hazards: No Cognitive needs: No Hearing needs: No Vision needs: No Physical Exam Vital Signs: Vital Signs: Last Vital Signs Temp 98.0 F 01/08/23 09:08 Pulse 71 01/08/23 12:00 Resp 14 01/08/23 12:00 BP 164/64 H 01/08/23 12:00 Pulse Ox 99 01/08/23 12:00 O2 Del Method Room Air 01/08/23 12:00 BMI result Body Mass Index 26.3 Const: Other: General: Awake, alert, and oriented X3. No acute distress. HEENT: Normal inspection CVS: Normal heart rate and rhythm. Pulses normal. Respiratory: No respiratory distress Skin: Warm, dry, no rashes noted to exposed skin. Normal skin color. Normal skin turgor. Extremities: Right knee nonedematous, nonerythematous, range of motion to approximately 40?. Tenderness to palpation along the medial and anterior joint line. No calf tenderness. No tenderness to palpation along the posterior knee. Patient is ambulatory. Neuro: Oriented X 3. No motor deficit. No sensory deficit. Medical Decision Making Medical Decision Making [facility] Narrative: 82-year-old female presenting to the emergency department with complaints of atraumatic right knee pain x4 weeks. Patient reports she is normally active however given the pain in her right knee she is unable to go to the gym. She has been taking Tylenol infrequently for her pain which has provided her with some relief. She also admits that her prednisone dose has been slowly tapering it is unsure whether not this would be contributing to her pain. X-rays were performed showing a bone spur. I discussed with patient that this may be causing her to have pain. Advised patient to take Tylenol as prescribed, use Hunter wrap, also encouraged to follow-up with orthopedics as they have other treatment options. Patient reports that she has an appointment with them next week. Patient educated the importance of returning if any new or worsening symptoms occur. Patient understands and agrees with plan. Patient stable for discharge. Differential Diagnosis Differential Diagnoses: The differential diagnosis associated with the presentation includes Knee pain, strain, contusion, fracture, gouty arthritis, septic arthritis. Lab Data [facility] Lab Attestation statement: I reviewed the patient's lab results. No evidence of infection at this time. Labs: Lab Results 01/08/23 Range/Units 10:31 Urine Color Yellow Urine Appearance Clear Urine pH 5.5 (5.0-9.0) Ur Specific [place] <= 1.005 (1.005-1.025) Urine Protein Negative (Neg-Trace) mg/dL Urine Glucose (UA) Negative (Negative) mg/dL Urine Ketones Negative (Negative) mg/dL Urine Blood Negative (Negative) Urine Nitrite Negative (Negative) Ur Leukocyte Esterase Negative (Negative) Urine RBC 0-2 (0-2) /HPF Urine WBC 0-5 (0-5) /HPF Ur Squamous Epith Cells 0-2 (0-2) /HPF Urine Bacteria None Seen (None Seen) Hyaline Casts 0-2 (0-2) /LPF Independent Interpretation I performed an independent interpretation of an: Plain X-Ray Interpretation: EXAMINATION: XR KNEE, RIGHT? CLINICAL INFORMATION: Pain.? COMPARISON: Right knee 10/23/2016? TECHNIQUE: Four views of the right knee. FINDINGS: The tricompartment joint space is maintained normal. No bony erosive changes, loose bodies, acute fracture or dislocation seen. There is mild anterior spur patellar spurring. No joint effusion noted. There is mild osteopenia. The soft tissues are normal. XR/XR knee RT 4V IMPRESSION: Mild anterior patellar spur. No visible acute fracture, dislocation or subluxation seen. ? Dictated By: Darwin Peterson MD Discharge Plan Discharge Clinical Impression: Knee pain, right Patient Disposition: Home, Self-Care Instructions: Knee Pain (ED) Additional Instructions: Your x-ray shows a mild anterior patellar spur. There is no acute fracture dislocation or subluxation. There is no swelling noted. Please rest, ice or use warm compresses, gentle range of motion, and elevate your leg. An Hunter wrap was provided to you for comfort. Please follow-up with orthopedics as scheduled. Take Tylenol as directed as needed for pain. Any new or worsening symptoms lymphoma 2. Cores and 1 point, swelling, decreased range of motion, please return for re-evaluation. Prescriptions: No Action ezetimibe 10 mg tablet 10 mg PO DAILY Qty: 90 3RF amlodipine 2.5 mg tablet 2.5 mg PO BEDTIME Qty: 90 3RF furosemide 20 mg tablet 20 mg PO DAILY Qty: 90 3RF clopidogrel 75 mg tablet 75 mg PO DAILY Qty: 90 3RF Zyrtec 10 mg capsule 10 mg PO BEDTIME Dupixent Pen 300 mg/2 mL Pen Injector 300 mg SUBCUT Q2W Tums PRN (Reason: Gastric Reflux) fluorouracil 5 % cream topical BID prednisone 2.5 mg tablet 5 mg PO DAILY triamcinolone acetonide 0.1 % cream 1 appl topical BID-TID Referrals: [facility] Orthopedic Surgeons [Provider Group] Interventions: ED Discharge Assessment Last Done: 01/08/23 13:14 Discharge Date/Time: 01/08/23 13:14
== END 2023-01-08 13:14 | disposition home or self-care (01) ==
PROVIDERS: Emergency Provider Emergency Medicine; PCP Internal Medicine
DX: M25.561 Pain in right knee (principal); I11.0 Hypertensive heart disease with heart failure; I50.30 Unspecified diastolic (congestive) heart failure; E78.5 Hyperlipidemia, unspecified; Z79.899 Other long term (current) drug therapy
CPT/HCPCS: 73564; 81001; 99283; 99284

== ENCOUNTER 2023-01-14 08:59 | Outpatient (REF) | payer MEDICARE, SELFPAY ==
--- NOTE | ~2023-01-14 | XR_ITS ---
EXAMINATION: XR KNEE AP STANDING XR KNEE, RIGHT CLINICAL INFORMATION: Right knee pain COMPARISON: 01/08/2023, 10/23/2016 TECHNIQUE: AP bilateral standing view of the knees was obtained. A patellar sunrise view of the right knee was obtained. FINDINGS: No fracture or dislocation. Alignment is anatomic. Joint spaces are maintained. No significant marginal spurring is appreciated. No abnormal soft tissue calcification. XR/XR knee RT 1V IMPRESSION: No significant arthritic change is demonstrated in either knee.
--- NOTE | ~2023-01-14 | XR_ITS ---
EXAMINATION: XR KNEE AP STANDING XR KNEE, RIGHT CLINICAL INFORMATION: Right knee pain COMPARISON: 01/08/2023, 10/23/2016 TECHNIQUE: AP bilateral standing view of the knees was obtained. A patellar sunrise view of the right knee was obtained. FINDINGS: No fracture or dislocation. Alignment is anatomic. Joint spaces are maintained. No significant marginal spurring is appreciated. No abnormal soft tissue calcification. XR/XR knee standing BI IMPRESSION: No significant arthritic change is demonstrated in either knee.
== END 2023-01-14 09:00 | disposition home or self-care (01) ==
LOC: HO.HOSX 08:59
PROVIDERS: Visit Provider Physician Assistant
DX: M17.11 Unilateral primary osteoarthritis, right knee (principal)
CPT/HCPCS: 20610; 73560; 73565; J1040

== ENCOUNTER 2023-01-14 09:45 | Outpatient (AMB) | payer MEDICARE, SELFPAY ==
--- NOTE | 2023-01-14 09:49 | A.OFFVIS_ITS ---
Intake Vital Signs 01/14/23 09:50 Height 5 ft 1 in Weight 139 lb BMI 26.3 Intake Visit Reasons: Newprob-Right knee pain Intake Note: Mary an 82 year old female who presents today with complaints of right knee pain. Patient reports pain has been present for about 6 weeks and is located in the anterior and posterior aspect of knee. States 3 weeks ago she had squamous cell removed from right leg. Patient was seen at [facility] [place] [place] ED where xrays were taken and was told having a bone spur. She was using an [place] wrap which provided relief but causes discomfort due to leg swelling. States pain is manageable with rest and Tylenol. Patient uses a cane to ambulate. She would like to discuss having a cortisone injection. Allergies Penicillins Allergy (Severe, Verified 01/14/23 10:02) Anaphylaxis tamsulosin [Flomax] Allergy (Severe, Verified 01/14/23 10:02) severe chest pains ibuprofen [IBUPROFEN] Allergy (Intermediate, Verified 01/14/23 10:02) Rash, hives amoxicillin Allergy (Mild, Verified 01/14/23 10:02) Hives, bad rash levofloxacin [From LEVAQUIN] Allergy (Mild, Verified 01/14/23 10:02) Rash rabeprazole Allergy (Mild, Verified 01/14/23 10:02) Unknown Sulfa (Sulfonamide Antibiotics) Allergy (Mild, Verified 01/14/23 10:02) Rash atorvastatin Allergy (Unknown, Verified 01/14/23 10:02) Unknown Bifidobacterium infantis [Align] Allergy (Unknown, Verified 01/14/23 10:02) Unknown clarithromycin [Prevpac] Allergy (Unknown, Verified 01/14/23 10:02) Unknown omeprazole [From PRILOSEC] Allergy (Unknown, Verified 01/14/23 10:02) Unknown simvastatin [From ZOCOR] Allergy (Unknown, Verified 01/14/23 10:02) Unknown oxycodone [Percocet] Adverse Reaction (Severe, Verified 01/14/23 10:02) Vomiting clobetasol Adverse Reaction (Intermediate, Verified 01/14/23 10:02) made psoriasis worse dexlansoprazole [From Kapidex] Adverse Reaction (Intermediate, Verified 01/14/23 10:02) hyper,watery stool Iodinated Contrast Media [IV CONTRAST] Adverse Reaction (Intermediate, Verified 01/14/23 10:02) Weakness, Lightheaded and confusion lansoprazole [Prevacid] Adverse Reaction (Intermediate, Verified 01/14/23 10:02) hyper, watery stool methotrexate [METHOTREXATE] Adverse Reaction (Intermediate, Verified 01/14/23 10:02) Muscle and joint pain ranitidine Adverse Reaction (Intermediate, Verified 01/14/23 10:02) weak, watery stool alirocumab [From Praluent Pen] Adverse Reaction (Mild, Verified 01/14/23 10:02) Generalized ecchymoses aspirin Adverse Reaction (Mild, Verified 01/14/23 10:02) one sided facial pain, green spots in eye esomeprazole [Nexium] Adverse Reaction (Mild, Verified 01/14/23 10:02) Gastrointestinal Upset pantoprazole [Protonix] Adverse Reaction (Mild, Verified 01/14/23 10:02) one sided headache, yellow streak in left eye fexofenadine [From [place]] Adverse Reaction (Verified 01/14/23 10:02) painful bones and muscles Medication List - Last Reconciled 01/14/23 by Andra Melo PA-C amlodipine 2.5 mg PO BEDTIME cetirizine (Zyrtec) 10 mg PO BEDTIME clopidogrel 75 mg PO DAILY dupilumab (Dupixent) 300 mg subcut Q2W ezetimibe 10 mg PO DAILY fluorouracil 5% appl topical BID furosemide 20 mg PO DAILY prednisone 5 mg PO DAILY triamcinolone acetonide 0.1% 1 appl topical BID-TID [Tums PRN] HPI Newprob-Right knee pain HPI Details 82-year-old female who presents to the office today for evaluation of right knee pain for about 6 weeks. She was seen at ED where x-rays were pe rformed. She states she has worsening pain in the anterior and posterior aspect of her knee which is aggravated with stair use and walking long distances. She also c/o swelling in her right leg with prolonged use. She finds relief with CORNELL wraps and Tylenol. She is currently using a cane to ambulate. She would like to have a cortisone injection. She has a history of bladder cancer and had undergone squamous cell removal surgery on her right leg about 3 weeks ago. She does not have a history of diabetes. 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 Mother No problems noted. Social History Housing: House Are you a primary director of managed care to a significant other at home: No Do you presently have visiting nurse or other home services: No Alcohol intake: never Patient Tobacco Use Status: Never used Tobacco e-Cigarette/Vaping Use: Never Used Second Hand Smoke Exposure: No Advance Directives Date on File: 08/29/16 service: No Current occupational status: retired Current occupation: rt hand Current occupational exposures/hazards: No Cognitive needs: No Hearing needs: No Vision needs: No Review of Systems Const All systems reviewed & are unremarkable except as noted in HPI and below Physical Exam Vital Signs: BMI result Body Mass Index 26.3 Extrem Other: Right knee: Skin intact, no erythema or joint effusion. Tenderness along the medial and lateral joint line. Full ROM with crepitus. Negative Mamadou?s. No ligamentous laxity. NVI. Office Procedures Joint Injection/Drain Joint Injection/Drain Primary Site: right knee Prep: site was prepped using aseptic technique, ethochloride spray was applied and injection warnings given Injected: 80 mg of, DepoMedrol, with 8 mL of, 1% plain lidocaine and in the joint Approach Used: anterolateral Procedure: The patient tolerated the procedure well and there was some relief with the local anesthesia Coding 65958 - Glenohumeral/Tronchanteric Bursa/Intraarticular Procedure code (CPT) selection complete Results Reviewed Results Reviewed: 01/14/23 10:19 Lidocaine HCl 2 % MPF [Xylocaine 2 % MPF] 5 ml .ROUTE .STK-MED ONE methylPREDNISolone acetate [DEPO-MedroL] 80 mg .ROUTE .STK-MED ONE Xrays were obtained in the office today and personally reviewed by me of the right knee show mild medial and lateral compartment oa Assessment & Plan Assessment & Plan (1) Osteoarthritis of right knee: Code(s): M17.11 - Unilateral primary osteoarthritis, right knee Plan We discussed options today which include steroid injection. They did consent to move forward with the right knee injection, which was tolerated well. I recommended rest, ice and elevation and OTC anti-inflammatories PRN for discomfort. If symptoms persist or worsens over the next 6-8 weeks, patient will contact the office, otherwise follow-up as needed. Orders: Orders XR knee RT 1V Today M25.561 - Pain in right knee XR knee standing BI Today M25.561 - Pain in right knee, M25.562 - Pain in left knee Patient Instructions: Scribed for Andra Melo PA-C, by [facility] medical csr, on 01/14/2023 at 10:00 AM EST. Andra Muniz PA-C, have personally reviewed and agree with the information entered by the scribe. Coding Level of Care Code New Pt Level 3 (09488) Diagnoses Osteoarthritis of right knee M17.11 CPT Codes Coding - Joint 7: 40853 - Glenohumeral/Tronchanteric Bursa/Intraarticular ([id number])
[2023-01-14 09:50] VITALS: BMI 26.3
== END 2023-01-14 10:33 | disposition home or self-care (01) ==
PROVIDERS: PCP Internal Medicine; Visit Provider Physician Assistant
DX: M17.11 Unilateral primary osteoarthritis, right knee (principal)
CPT/HCPCS: 20610; 99214

== ENCOUNTER 2023-01-21 09:12 | Outpatient (REF) | payer MEDICARE, SELFPAY ==
[2023-01-21 10:32] LABS: Appearance Urine Clear; Color Urine Dark Yellow; Glucose Urine UA Negative (Negative); Leukocyte Esterase Urine Moderate (2+) (Negative); Nitrite Urine Negative (Negative); PH 5.5 (5.0-9.0); Specific Gravity - Urine 1.025 (1.005-1.025); UMIC TRIGGER UACC YES; Urine Blood Moderate (2+) (Negative); Urine Ketones Trace mg/dL (Negative); Urine Protein Trace mg/dL (Neg-Trace)
[2023-01-21 10:35] LABS: Bacteria Urine Trace (None Seen); Hyaline Casts Urine 0-2 /LPF (0-2); UACC Culture Trigger YES
[2023-01-21 11:10] LABS: Free T4 (Free Thyroxine) 0.75 ng/dL (0.71-1.85); Thyroid Stimulating Hormone 2.08 uIU/mL (0.32-4.0)
== END 2023-01-21 09:13 | disposition home or self-care (01) ==
LOC: HO.LAB 09:12
PROVIDERS: PCP Internal Medicine; Visit Provider Internal Medicine
DX: R30.0 Dysuria (principal); N39.0 Urinary tract infection, site not specified; R94.6 Abnormal results of thyroid function studies
CPT/HCPCS: 36415; 81001; 84439; 84443; 87086

== ENCOUNTER 2023-02-17 13:14 | Outpatient (AMB) | payer MEDICARE, SELFPAY ==
--- NOTE | 2023-02-17 13:17 | MHC.OFFVIS ---
Intake Vital Signs 02/17/23 13:18 Height 5 ft 1 in Weight 140 lb BMI 26.4 BP 126/80 Blood Pressure Location Lt brachial Position Sitting Pulse 83 Intake Visit Reasons: 6 mth f/up Intake Note: 6 month follow-up c/o chest pain at [facility] on chest and across the bra line Service [facility] Supervisor Required: No Machine Operator Helper: Machine Operator Helper Present Accompanied by: Spouse Allergies Penicillins Allergy (Severe, Verified 01/14/23 10:02) Anaphylaxis tamsulosin [Flomax] Allergy (Severe, Verified 01/14/23 10:02) severe chest pains ibuprofen [IBUPROFEN] Allergy (Intermediate, Verified 01/14/23 10:02) Rash, hives amoxicillin Allergy (Mild, Verified 01/14/23 10:02) Hives, bad rash levofloxacin [From LEVAQUIN] Allergy (Mild, Verified 01/14/23 10:02) Rash rabeprazole Allergy (Mild, Verified 01/14/23 10:02) Unknown Sulfa (Sulfonamide Antibiotics) Allergy (Mild, Verified 01/14/23 10:02) Rash atorvastatin Allergy (Unknown, Verified 01/14/23 10:02) Unknown Bifidobacterium infantis [Align] Allergy (Unknown, Verified 01/14/23 10:02) Unknown clarithromycin [Prevpac] Allergy (Unknown, Verified 01/14/23 10:02) Unknown omeprazole [From PRILOSEC] Allergy (Unknown, Verified 01/14/23 10:02) Unknown simvastatin [From ZOCOR] Allergy (Unknown, Verified 01/14/23 10:02) Unknown oxycodone [Percocet] Adverse Reaction (Severe, Verified 01/14/23 10:02) Vomiting clobetasol Adverse Reaction (Intermediate, Verified 01/14/23 10:02) made psoriasis worse dexlansoprazole [From Kapidex] Adverse Reaction (Intermediate, Verified 01/14/23 10:02) hyper,watery stool Iodinated Contrast Media [IV CONTRAST] Adverse Reaction (Intermediate, Verified 01/14/23 10:02) Weakness, Lightheaded and confusion lansoprazole [Prevacid] Adverse Reaction (Intermediate, Verified 01/14/23 10:02) hyper, watery stool methotrexate [METHOTREXATE] Adverse Reaction (Intermediate, Verified 01/14/23 10:02) Muscle and joint pain ranitidine Adverse Reaction (Intermediate, Verified 01/14/23 10:02) weak, watery stool alirocumab [From Praluent Pen] Adverse Reaction (Mild, Verified 01/14/23 10:02) Generalized ecchymoses aspirin Adverse Reaction (Mild, Verified 01/14/23 10:02) one sided facial pain, green spots in eye esomeprazole [Nexium] Adverse Reaction (Mild, Verified 01/14/23 10:02) Gastrointestinal Upset pantoprazole [Protonix] Adverse Reaction (Mild, Verified 01/14/23 10:02) one sided headache, yellow streak in left eye fexofenadine [From [place]] Adverse Reaction (Verified 01/14/23 10:02) painful bones and muscles Medication List - Last Reconciled 02/17/23 by Boo Jimenez MD amlodipine 2.5 mg PO BEDTIME cetirizine (Zyrtec) 10 mg PO BEDTIME clopidogrel 75 mg PO DAILY dupilumab (Dupixent) 300 mg subcut Q2W ezetimibe 10 mg PO DAILY fluorouracil 5% appl topical BID furosemide 20 mg PO DAILY prednisone 5 mg PO DAILY triamcinolone acetonide 0.1% 1 appl topical BID-TID [Tums PRN] HPI HPI Comments History of Present Illness Details Mary comes for follow-up. She had a myocardial perfusion within the last 6 months which was within normal limits. Echocardiogram shows normal LV systolic function. She is scheduled to undergo cystoscopy for bladder cancer. She has been getting chest discomfort mostly at nighttime which she describes as bilateral breast tenderness and inframammary discomfort in both distribution and then into the retrosternal area which is present for long period time. The symptoms are not exertion related. She denies any shortness of breath, orthopnea, PND. No significant leg edema. 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 Mother No problems noted. Social History Housing: House Are you a primary healthcare or medical to a significant other at home: No Do you presently have visiting nurse or other home services: No Alcohol intake: never Patient Tobacco Use Status: Never used Tobacco e-Cigarette/Vaping Use: Never Used Second Hand Smoke Exposure: No Advance Directives Date on File: 08/29/16 service: No Current occupational status: retired Current occupation: rt hand Current occupational exposures/hazards: No Cognitive needs: No Hearing needs: No Vision needs: No Review of Systems Const Denies chills, Denies fatigue, Denies fever(s), Denies frequent falls, Denies weakness, Denies weight gain and Denies weight loss ENT Denies dizziness Card Denies chest pain, Denies leg edema, Denies lightheadedness, Denies palpitations, Denies dyspnea, Denies dyspnea on exertion, Denies orthopnea and Denies other (loss of consciousness) Resp Denies cough, Denies dyspnea and Denies dyspnea on exertion GI Denies hematochezia and Denies change in stool character Musc Denies abnormal gait, Denies muscle weakness, Denies numbness, Denies radiating pain into limb and Denies tingling Neuro Denies abnormal gait, Denies dizziness, Denies frequent falls, Denies numbness, Denies tingling and Denies weakness Endo Denies fatigue and Denies palpitations Physical Exam Vital Signs: Last Vital Signs Pulse 83 02/17/23 13:18 BP 126/80 02/17/23 13:18 BMI result Body Mass Index 26.4 Const General: cooperative, comfortable, alert, awake and well groomed Nutritional Appearance: overweight Orientation/consciousness: patient oriented x3 Limitations: no limitations Neck Neck: Yes trachea midline, Yes supple and Yes no JVD Chest Chest palpation & inspection: abnormal inspection of the chest kyphotic and scoliotic and other (Well-healed sternotomy scar) Resp Effort & Inspection: normal respiratory effort Auscultation: crackles (Coarse crackles predominantly right base) Cardio Jugular venous distension: no JVD Palpation: normal PMI Rate: regular rate Rhythm: abnormal rhythm with ectopic beats Heart sounds: S1 normal heart sound present, S2 normal heart sound present, no click, no gallops and no murmurs GI Auscultation: normal bowel sounds Skin General skin exam: no rashes or lesions noted and ecchymosis Neuro General: patient oriented x3 and no focal motor deficits Extrem General: Yes no clubbing, cyanosis or edema and Yes other (Bilateral mild varicosities and venous stasis) Psych Appearance: grossly normal Office Procedures EKG Details: EKG shows normal sinus rhythm with PACs with nonspecific ST changes [id number], Complete Assessment & Plan Assessment & Plan (1) Non-cardiac chest pain: Code(s): R07.89 - Other chest pain Plan: Patient's inframammary and breast tenderness related chest discomfort does appear to be cardiac in origin. Most likely either musculoskeletal chest discomfort. She is very anxious about this. Discussed with her that in this does not require any further cardiac workup. Myocardial perfusion imaging last 6 months or within normal limits. Continue current medical therapy (2) CAD (coronary artery disease): Comment: CABG x2 2018 WHITAKER to LAD, SVG to OM Dr. Godoy Code(s): I25.10 - Atherosclerotic heart disease of [place] coronary artery without angina pectoris Qualifiers: Coronary Disease-Associated Artery/Lesion type: [place] artery [place] vs. transplanted heart: [place] heart Associated angina: without angina Qualified Code(s): I25.10 - Atherosclerotic heart disease of [place] coronary artery without angina pectoris Plan: Coronary artery disease status post prior coronary bypass grafting. Myocardial perfusion imaging within normal limits. No further workup is indicated. Continue current medical therapy. Continue Plavix as prescribed. Currently only on ezetimibe therapy due to intolerance of statins. LDL is not well optimized and risk of progressive atherosclerosis was discussed. She wants to defer any other therapy. Target goal LDL less than 70 mg/dL. Blood pressure is currently well optimized. (3) Diastolic heart failure: Code(s): I50.30 - Unspecified diastolic (congestive) heart failure Plan: Diastolic heart failure, clinically euvolemic and well compensated. Continue current low-dose diuretic regimen. Daily weight monitoring avoidance of salt loading was discussed continue aggressive control of blood pressure. Follow up in the clinic in 1 year's time, sooner p.r.n.. Thank you for allowing me to partake in her care Coding Level of Care Code Est Pt Level 4 (30267) Diagnoses Non-cardiac chest pain R07.89 Coronary artery disease involving [place] coronary artery of [place] heart without angina pectoris I25.10 Coronary Disease-Associated Artery/Lesion type: [place] artery [place] vs. transplanted heart: [place] heart Associated angina: without angina Diastolic heart failure I50.30 CPT Codes EKG - CPT: 51535-[id number], Complete ([id number])
[2023-02-17 13:18] VITALS: BP 126/80; PULSE 83; BMI 26.4
== END 2023-02-17 13:44 | disposition home or self-care (01) ==
PROVIDERS: PCP Internal Medicine; Visit Provider Internal Medicine Cardiovascular Disease
DX: R07.89 Other chest pain (principal); I25.10 Atherosclerotic heart disease of native coronary artery without angina pectoris; I50.30 Unspecified diastolic (congestive) heart failure
CPT/HCPCS: 93010; 99214

== ENCOUNTER → 2023-02-17 13:14 | Outpatient (BNVA) | payer MEDICARE, SELFPAY | PROVIDERS: PCP Internal Medicine; Visit Provider Internal Medicine Cardiovascular Disease | DX: R07.89 Other chest pain (principal); I25.10 Atherosclerotic heart disease of native coronary artery without angina pectoris; I50.30 Unspecified diastolic (congestive) heart failure; Z79.02 Long term (current) use of antithrombotics/antiplatelets; Z79.899 Other long term (current) drug therapy | CPT/HCPCS: 93005; 99212 ==

== ENCOUNTER 2023-02-25 09:29 | Outpatient (AMB) | payer MEDICARE, SELFPAY ==
[2023-02-25 09:32] VITALS: BP 130/76; PULSE 70; O2SAT 98; BMI 26.8
--- NOTE | 2023-02-25 09:32 | MHC.PC.OV ---
Vital Signs 02/25/23 09:32 Height 5 ft 1 in Weight 64.41 kg BMI 26.8 BP 130/76 Blood Pressure Location Lt brachial Position Sitting Pulse 70 Pulse Source Pulse Oximeter Pulse Oximetry (%) 98 Oxygen Delivery Method Room Air Intake Visit Reasons: cad Allergies Penicillins Allergy (Severe, Verified 02/25/23 09:37) Anaphylaxis tamsulosin [Flomax] Allergy (Severe, Verified 02/25/23:37) severe chest pains ibuprofen [IBUPROFEN] Allergy (Intermediate, Verified 02/25/23:37) Rash, hives amoxicillin Allergy (Mild, Verified 02/25/23:37) Hives, bad rash levofloxacin [From LEVAQUIN] Allergy (Mild, Verified 02/25/23:37) Rash rabeprazole Allergy (Mild, Verified 02/25/23:37) Unknown Sulfa (Sulfonamide Antibiotics) Allergy (Mild, Verified 02/25/23:37) Rash atorvastatin Allergy (Unknown, Verified 02/25/23:) Unknown Bifidobacterium infantis [Align] Allergy (Unknown, Verified 02/25/23:) Unknown clarithromycin [Prevpac] Allergy (Unknown, Verified 02/25/23:37) Unknown omeprazole [From PRILOSEC] Allergy (Unknown, Verified 02/25/23:) Unknown simvastatin [From ZOCOR] Allergy (Unknown, Verified 02/25/23:) Unknown oxycodone [Percocet] Adverse Reaction (Severe, Verified 02/25/23:37) Vomiting clobetasol Adverse Reaction (Intermediate, Verified 02/25/23:) made psoriasis worse dexlansoprazole [From Kapidex] Adverse Reaction (Intermediate, Verified 02/25/23:37) hyper,watery stool Iodinated Contrast Media [IV CONTRAST] Adverse Reaction (Intermediate, Verified 02/25/23:37) Weakness, Lightheaded and confusion lansoprazole [Prevacid] Adverse Reaction (Intermediate, Verified 02/25/23:37) hyper, watery stool methotrexate [METHOTREXATE] Adverse Reaction (Intermediate, Verified 02/25/23:37) Muscle and joint pain ranitidine Adverse Reaction (Intermediate, Verified 02/25/23:37) weak, watery stool alirocumab [From Praluent Pen] Adverse Reaction (Mild, Verified 02/25/23 09:37) Generalized ecchymoses aspirin Adverse Reaction (Mild, Verified 02/25/23 09:37) one sided facial pain, green spots in eye esomeprazole [Nexium] Adverse Reaction (Mild, Verified 02/25/23 09:37) Gastrointestinal Upset pantoprazole [Protonix] Adverse Reaction (Mild, Verified 02/25/23 09:37) one sided headache, yellow streak in left eye fexofenadine [From [place]] Adverse Reaction (Verified 02/25/23 09:37) painful bones and muscles Tobacco use date assessed: 10/21/22 Fall risk assessment: No Falls in past year Last assessed Fall Risk: 02/25/23 Dental Screening Dental Screen Date: 02/25/23 Did you have a dental visit in the last 12 months?: Yes Did you have a dental problem in the last 6 months where you did not have access to dental care?: No Was dental information given to patient?: Patient has dentist HPI cad HPI Details 82-year-old female with polymyalgia, hypercholesterolemia hypertension last seen in December 2022. Patientplanned 03/16/2023.. mitomycin intravesical for bladder cancer under Dr. Mix patient has followed up with Cardiology recently also for chest pains noncardiac since 6 months ago myocardial perfusion scanning negative. Patient also sees orthopedics for the right knee osteoarthritis right knee injection done. 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 Mother No problems noted. Social History Housing: House Are you a primary primary care md to a significant other at home: No Do you presently have visiting nurse or other home services: No Alcohol intake: never Patient Tobacco Use Status: Never used Tobacco e-Cigarette/Vaping Use: Never Used Second Hand Smoke Exposure: No Advance Directives Date on File: 08/29/16 service: No Current occupational status: retired Current occupation: rt hand Current occupational exposures/hazards: No Cognitive needs: No Hearing needs: No Vision needs: No Questionnaire PHQ-9 Over the last 2 weeks, how often have you been bothered by any of the following problems? 1. Little interest or pleasure in doing things: not at all 2. Feeling down, depressed, or hopeless: not at all 3. Trouble falling or staying asleep, or sleeping too much: not at all 4. Feeling tired or having little energy: not at all 5. Poor appetite or overeating: not at all 6. Feeling bad about yourself - or that you are a failure or have let yourself or your family down: not at all 7. Trouble concentrating on things, such as reading the newspaper or watching television: not at all 8. Moving or speaking so slowly that other people could have noticed. Or the opposite - being so fidgety or restless that you have been moving around a lot more than usual: not at all 9. Thoughts that you would be better off or of hurting yourself in some way: not at all Total score: 0 Depression Screening Interpretation: Negative Depression Screening Done: Yes Source: Developed by Drs. Librado Fraser, Ingris Fuentes, Harry Acevedo and colleagues, with an educational marissa from [employer]. Thrive Questionnaire Date Thrive assessed: 06/24/22 AUDIT C Alcohol Use Questionnaire (AUDIT-C) 1. How often do you have a drink containing alcohol?: Never 2. How many drinks containing alcohol do you have on a typical day when you are drinking?: 1 or 2 (0) 3. How often do you have six or more drinks on one occasion?: Never Total Score: 0 Score Reviewed/Action Taken: Yes BIRDIE-7 AMB Questionnaire BIRDIE-7 Date BIRDIE - 7 assessed: 06/24/22 Source: Developed by Drs. Librado Fraser, Ingris Fuentes, Harry Acevedo and colleagues, with an educational marissa from [employer]. Physical exam (Primary Care) Vital Signs: Last Vital Signs Pulse 70 02/25/23 09:32 BP 130/76 02/25/23 09:32 Pulse Ox 98 02/25/23 09:32 Oxygen Delivery Method Room Air 02/25/23 09:32 BMI result Body Mass Index 26.8 Tobacco/Smoking Status: Tobacco use Status Tobacco use date assessed 10/21/22 02/25/23 09:39 Patient Tobacco Use Status Never used Tobacco 02/25/23 09:39 e-Cigarette/Vaping Use Never Used 02/25/23 09:39 PHQ-9: PHQ-9 Score PHQ-9: Total score 0 02/25/23 10:26 Depression Screening Interpretation: Negative Thrive Assessment: Date of Thrive Assessment Date Thrive assessed 06/24/22 02/25/23 09:39 Const General: alert; No acute distress Eyes Conjunctivae: conjunctivae normal Chest Other: breast exam no masses no discharge bilateral Resp Auscultation: clear to auscultation bilaterally Cardio Rate: regular rate Rhythm: regular rhythm GI Inspection: Yes normal to inspection Extrem General: Yes normal to inspection and No edema Office Procedures Flu Questionnaire Does the patient have a severe egg allergy?: No Does the patient have severe life threatening allergies?: No Does the patient have a fever or illness today?: No Has the patient ever had Guillain-Rumney Syndrome?: No Has the patient ever had any past reaction to a flu shot?: No Immunizations flu vacc [id number] 6mos up(PF) 60 mcg(15 mcgx4)/0.5 mL IM syringe Performing Provider: Mariya Gutierrez MD [facility] Administered by: Cassandra Schulte CMA on 02/25/23 10:39 Dose Route Admin Location Dispensed Lot Number Expiration Date NDC Flyer Builder 0.5 mL IM Left Deltoid 0.5 mL [id number] 11/15/23 18228-639-50 [employer] VIS Given Date VIS Provided VIS Publication Date 02/25/23 Single Vaccine 20 Eligibility Eligibility Date Funding Source Not [facility] Eligible 02/25/23 Private Assessment and Plan Assessment & Plan (1) Osteoarthritis of right knee: Code(s): M17.11 - Unilateral primary osteoarthritis, right knee Plan: Patient has seen orthopedics and had injections (2) Urinary bladder cancer: Comment: - High-grade papillary urothelial carcinoma, non-invasive. Bladder biopsy with extensive fulguration left-sided bladder Dr. Mix October 2021, January 2022 - 02/06 CIS TURBT and gemcitabine instillation Dr. Mix May 2022 Code(s): C67.9 - Malignant neoplasm of bladder, unspecified Plan: Recently had mitomycin installation under urology February 2023 (3) HTN (hypertension): Code(s): I10 - Essential (primary) hypertension Qualifiers: Hypertension type: primary hypertension Qualified Code(s): I10 - Essential (primary) hypertension Plan: Continue with blood pressure medication. Decrease salt intake and exercise continuing on amlodipine 2.5 mg once a day (4) Barretts esophagus: Comment: January 2012 no more Code(s): K22.70 - Quiroz's esophagus without dysplasia Qualifiers: Quiroz's esophagus type: without dysplasia Qualified Code(s): K22.70 - Quiroz's esophagus without dysplasia Plan: Avoid the foods that causes that usually spicy foods, tomato products, juices, coffee, soda and foods that your sensitive to. After eating do not lie down, allow 3-4 hours before in lie down. And keep the head of bed above 30 degrees to avoid the acid from going up. (5) HLD (hyperlipidemia): Code(s): E78.5 - Hyperlipidemia, unspecified Qualifiers: Hyperlipidemia type: mixed hyperlipidemia Qualified Code(s): E78.2 - Mixed hyperlipidemia Plan: Avoid fried foods, chicken skin, eggs, butter margarine, pastries and meat. Be it pork or beef they have a lot of cholesterol on Zetia 10 mg once a day statin intolerant (6) CAD (coronary artery disease): Comment: CABG x2 2017 WHITAKER to LAD, SVG to OM Dr. Godoy Code(s): I25.10 - Atherosclerotic heart disease of [place] coronary artery without angina pectoris Qualifiers: Associated angina: without angina Coronary Disease-Associated Artery/Lesion type: [place] artery [place] vs. transplanted heart: [place] heart Qualified Code(s): I25.10 - Atherosclerotic heart disease of [place] coronary artery without angina pectoris Plan: Control the cholesterol, weight, blood pressure (7) Polymyalgia rheumatica: Code(s): M35.3 - Polymyalgia rheumatica (8) Painful breasts: Code(s): N64.4 - Mastodynia Orders: Orders MM tomosynthesis diagnostic BI Today N64.4 - Mastodynia Influenza [id number] Immunization Today Z23 - Encounter for immunization Patient Instructions: Patient has been started on steroids Coding Level of Care Code Est Pt Level 4 (66802) Diagnoses Osteoarthritis of right knee M17.11 Urinary bladder cancer C67.9 Primary hypertension I10 Hypertension type: primary hypertension Quiroz's esophagus without dysplasia K22.70 Quiroz's esophagus type: without dysplasia Mixed hyperlipidemia E78.2 Hyperlipidemia type: mixed hyperlipidemia Coronary artery disease involving [place] coronary artery of [place] heart without angina pectoris I25.10 Associated angina: without angina Coronary Disease-Associated Artery/Lesion type: [place] artery [place] vs. transplanted heart: [place] heart Polymyalgia rheumatica M35.3 Painful breasts N64.4
== END 2023-02-25 10:45 | disposition home or self-care (01) ==
PROVIDERS: PCP Internal Medicine; Visit Provider Internal Medicine
DX: M17.11 Unilateral primary osteoarthritis, right knee (principal); C67.9 Malignant neoplasm of bladder, unspecified; M35.3 Polymyalgia rheumatica; Z23 Encounter for immunization; I10 Essential (primary) hypertension; K22.70 Barrett's esophagus without dysplasia; E78.2 Mixed hyperlipidemia; I25.10 Atherosclerotic heart disease of native coronary artery without angina pectoris; N64.4 Mastodynia
CPT/HCPCS: 90471; 90686; 99214

== ENCOUNTER 2023-02-27 10:58 | Outpatient (REF) | payer MEDICARE, SELFPAY ==
[2023-02-27 13:58] LABS: Appearance Urine Clear; Color Urine Yellow; Glucose Urine UA Negative (Negative); Leukocyte Esterase Urine Trace (Negative); Nitrite Urine Negative (Negative); Specific Gravity - Urine <= 1.005 (1.005-1.025); UMIC TRIGGER UACC YES; Urine Blood Trace (Negative); Urine Ketones Negative (Negative); Urine Protein Negative (Neg-Trace)
[2023-02-27 14:04] LABS: Bacteria Urine None Seen (None Seen); Hyaline Casts Urine 0-2 /LPF (0-2); RBC Urine 0-2 /HPF (0-2); Squamous Epithelial Cell Urine 0-2 /HPF (0-2); WBC Urine 0-5 /HPF (0-5)
== END 2023-02-27 10:59 | disposition home or self-care (01) ==
LOC: HO.LAB 10:58
PROVIDERS: PCP Internal Medicine; Referring Provider Urology; Visit Provider Internal Medicine
DX: C67.9 Malignant neoplasm of bladder, unspecified (principal)
CPT/HCPCS: 81001

== ENCOUNTER 2023-03-06 12:03 | Outpatient (AMB) | payer MEDICARE, SELFPAY ==
--- NOTE | 2023-03-06 12:03 | A.OFFVIS_ITS ---
Intake Intake Visit Reasons: H&P (turbt 03/16) Intake Note: Patient is Present for Telephone Follow Up H&P Urology Med: Antibiotic Allergy: Penicillins,Amoxicillin,Levofloxacin, Sulfa Blood Thinner: Clopidogrel Pharamcy: [facility] Allergies Penicillins Allergy (Severe, Verified 03/06/23 12:04) Anaphylaxis tamsulosin [Flomax] Allergy (Severe, Verified 03/06/23 12:04) severe chest pains ibuprofen [IBUPROFEN] Allergy (Intermediate, Verified 03/06/23 12:04) Rash, hives amoxicillin Allergy (Mild, Verified 03/06/23 12:04) Hives, bad rash levofloxacin [From LEVAQUIN] Allergy (Mild, Verified 03/06/23 12:04) Rash rabeprazole Allergy (Mild, Verified 03/06/23 12:04) Unknown Sulfa (Sulfonamide Antibiotics) Allergy (Mild, Verified 03/06/23 12:04) Rash atorvastatin Allergy (Unknown, Verified 03/06/23 12:04) Unknown Bifidobacterium infantis [Align] Allergy (Unknown, Verified 03/06/23 12:04) Unknown clarithromycin [Prevpac] Allergy (Unknown, Verified 03/06/23 12:04) Unknown omeprazole [From PRILOSEC] Allergy (Unknown, Verified 03/06/23 12:04) Unknown simvastatin [From ZOCOR] Allergy (Unknown, Verified 03/06/23 12:04) Unknown oxycodone [Percocet] Adverse Reaction (Severe, Verified 03/06/23 12:04) Vomiting clobetasol Adverse Reaction (Intermediate, Verified 03/06/23 12:04) made psoriasis worse dexlansoprazole [From Kapidex] Adverse Reaction (Intermediate, Verified 03/06/23 12:04) hyper,watery stool Iodinated Contrast Media [IV CONTRAST] Adverse Reaction (Intermediate, Verified 03/06/23 12:04) Weakness, Lightheaded and confusion lansoprazole [Prevacid] Adverse Reaction (Intermediate, Verified 03/06/23 12:04) hyper, watery stool methotrexate [METHOTREXATE] Adverse Reaction (Intermediate, Verified 03/06/23 12:04) Muscle and joint pain ranitidine Adverse Reaction (Intermediate, Verified 03/06/23 12:04) weak, watery stool alirocumab [From Praluent Pen] Adverse Reaction (Mild, Verified 03/06/23 12:04) Generalized ecchymoses aspirin Adverse Reaction (Mild, Verified 03/06/23 12:04) one sided facial pain, green spots in eye esomeprazole [Nexium] Adverse Reaction (Mild, Verified 03/06/23 12:04) Gastrointestinal Upset pantoprazole [Protonix] Adverse Reaction (Mild, Verified 03/06/23 12:04) one sided headache, yellow streak in left eye fexofenadine [From [place]] Adverse Reaction (Verified 03/06/23 12:04) painful bones and muscles HPI HPI Comments History of Present Illness Details Mary is a pleasant female. She is a patient of Dr. Gutierrez. She is seen for the following urologic conditions - microscopic hematuria - abnormal urine cytology - bladder cancer Telemedicine Evaluation 15 min Consultation Pneuron Rody Video attempted Planned OR for bladder biopsy, fulgeration and MMC next week Questions answered Bladder cancer - 11/06 - high-grade superficial, 06/09 TURBt low-grade superficial Detected after evaluation for microscopic hematuria Interventions - TURBT 11/06 high-grade superficial, 01/17 2 BBx with fulgeration CIS, 06/09 low- grade superficial with MMC Smoking history - 2nd exposure through Workplace exposure - plastics exposure, glue exposure Imaging - 10/06 CT urogram normal Cytology - 10/06 high-grade Adjuvant therapy - 11/06 6 week induction Gemcitabine, 3 w [place] boost 10/07 Therapeutic plan - bladder biopsy, fulguration, mitomycin -C PFSH Medical History Allergic rhinitis Asthma Barretts esophagus Bladder cancer CAD (coronary artery disease) Diastolic heart failure Diverticular disease GERD (gastroesophageal reflux disease) Hiatal hernia History of CVA (cerebrovascular accident) History of hemorrhoids History of rib fracture HLD (hyperlipidemia) Lung fibrosis 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 Mother No problems noted. Social History Housing: House Are you a primary primary care coordinator to a significant other at home: No Do you presently have visiting nurse or other home services: No Alcohol intake: never Patient Tobacco Use Status: Never used Tobacco e-Cigarette/Vaping Use: Never Used Second Hand Smoke Exposure: No Advance Directives Date on File: 08/29/16 service: No Current occupational status: retired Current occupation: rt hand Current occupational exposures/hazards: No Cognitive needs: No Hearing needs: No Vision needs: No Review of Systems Const All systems reviewed & are unremarkable except as noted in HPI and below Reports no additional complaints Resp Reports no additional complaints GI Reports no additional complaints Reports as per HPI Musc Reports no additional complaints Physical Exam Telemedicine evaluation Appropriate responses Regular breathing rate and rhythm HEENT Head: Yes normal to inspection Ears: hearing grossly normal bilaterally Eyes General: appearance normal, both eyes and all related structures Neck Neck: Yes normal visual inspection Chest Chest palpation & inspection: normal inspection of the chest Resp Effort & Inspection: normal respiratory effort and able to speak in complete sentences Assessment & Plan Assessment & Plan (1) Urinary bladder cancer: Comment: - High-grade papillary urothelial carcinoma, non-invasive. Bladder biopsy with extensive fulguration left-sided bladder Dr. Mix October 2021, January 2022 - 02/06 CIS TURBT and gemcitabine instillation Dr. Mix May 2022 Code(s): C67.9 - Malignant neoplasm of bladder, unspecified Qualifiers: Bladder location: unspecified site Qualified Code(s): C67.9 - Malignant neoplasm of bladder, unspecified Plan Risks, benefits and alternatives to therapy were discussed. These include but are not limited to infection, bleeding, damage to local organs and tissues, need for further interventions. Anesthetic risks regarding cardiac arrhythmia, blood clots, and potential mortal ity were discussed. The patient understands the typical recovery time and the outpatient nature of the procedure. After consideration of these risks the patient gives full informed consent and they wish to move ahead with the procedure. Bladder biopsy and fulgeration Patient Instructions: Imaging studies, laboratory and physical exam results were discussed and reviewed in detail. No major barriers to patient understanding were identified. An opportunity to ask questions regarding the treatment plan was provided. All questions were answered. The patient expressed understanding and agreement with the above treatment plan. The patient is aware they should contact our office by phone for worsening of their current condition or the appearance of new urologic symptoms. Compliance is encouraged with any medications and followup testing that is ordered. It is a privilege to participate in the urologic care of your patient. If you have any questions or concerns regarding treatment for the above conditions, or other urologic issues, please do not hesitate to contact me. The office telephone contact is [phone]. This note is constructed using voice recognition software. While every effort has been made to ensure accuracy vacuum plastic forming machine operator errors may have been included. Yours sincerely, Dr Celio Mix MD, SERE [facility] - Urology Providers of Expert, Compassionate Care for the Genitourinary System Telehealth Telehealth Location of provider rendering services: practice address Location of patient: address on file Patient Identification confirmed using: Name, : Yes Telehealth method: voice only Patient verbally consented to treatment: Yes Patient verbally consented to billing insurance company: Yes Patient informed of any privacy concerns related to visit: Yes Coding Level of Care Code Tele Est Pt Level 3 (81293) Diagnoses Malignant neoplasm of urinary bladder, unspecified site C67.9 Bladder location: unspecified site
== END 2023-03-06 12:15 | disposition home or self-care (01) ==
LOC: HO.HUSH 12:03
PROVIDERS: PCP Internal Medicine; Visit Provider Urology
DX: C67.8 Malignant neoplasm of overlapping sites of bladder (principal)
CPT/HCPCS: 99499

== ENCOUNTER → 2023-03-06 12:03 | Outpatient (BNVA) | payer MEDICARE, SELFPAY | PROVIDERS: PCP Internal Medicine; Visit Provider Urology ==

== ENCOUNTER 2023-03-16 06:51 | Day surgery (SDC) | payer MEDICARE, SELFPAY ==
[2023-03-12 10:15] VITALS: BMI 26.4
[2023-03-16] VITALS (10 sets, daily range): BP systolic 125–150; BP diastolic 53–66; PULSE 63–74; RESP 16–18; TEMP 36.1–36.2; O2SAT 96–100; BMI 26.6
[2023-03-16] MEDS: Lactated Ringers 1,000 ML 100 ML IVCONT (08:00)
--- NOTE | 2023-03-16 08:21 | P.CONAN_ITS ---
HPI - Anesthesia Eval Consult details Narrative: for cysto PMFSH Active Problems Active Problems: All Active Problems (Updated 03/12/23 @ 10:14 by Nella Apodaca RN) Painful breasts (Acute) Osteoarthritis of right knee (Acute) TSH elevation (Acute) UTI (urinary tract infection) (Acute) Cardiac arrhythmia (Acute) Sick sinus syndrome (Acute) HTN (hypertension) (Acute) Vitamin B 12 deficiency (Acute) Encounter for subsequent annual wellness visit (AWV) in Medicare patient (Acute) Urinary bladder cancer (Acute) Age-related osteoporosis without current pathological fracture (Acute) Urine incontinence (Acute) Trigger thumb of right hand (Acute) Osteopenia (Acute) Diastolic heart failure (Acute) Allergic rhinitis (Acute) Lung fibrosis (Acute) Psoriasis (Acute) Barretts esophagus (Acute) GERD (gastroesophageal reflux disease) (Acute) HLD (hyperlipidemia) (Acute) CAD (coronary artery disease) (Acute) Polymyalgia rheumatica (Acute) Past Medical History Medical History 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 Mother No problems noted. Family history of problems with anesthesia: No Surgical History Surgical History History of nasal surgery History of cystoscopy S/P trigger finger release Hx of CABG History of bladder suspension procedure History of tonsillectomy and adenoidectomy History of tonsillectomy Hx of hemorrhoidectomy History of Problems with Anesthesia: No Social History Social History Housing: House Are you a primary senior care specialist to a significant other at home: No Do you presently have visiting nurse or other home services: No Alcohol intake: never Patient Tobacco Use Status: Never used Tobacco e-Cigarette/Vaping Use: Never Used Second Hand Smoke Exposure: No Use of substances other than those prescribed or required for medical reasons: No Are you DNR?: No Advance Directives: No Advance Directives Information Provided: Yes Advance Directives Date on File: 08/29/16 service: No Current occupational status: retired Current occupation: rt hand Current occupational exposures/hazards: No Cognitive needs: No Hearing needs: No Vision needs: No Meds Allergies Allergy/AdvReac Type Severity Reaction Status Date / Time Penicillins Allergy Severe Anaphylaxis Verified 03/16/23 07:47 tamsulosin [Flomax] Allergy Severe severe Verified 03/16/23 07:47 chest pains ibuprofen [IBUPROFEN] Allergy Intermediate Rash, hives Verified 03/16/23 07:47 amoxicillin Allergy Mild Hives, bad Verified 03/16/23 07:47 rash levofloxacin [From LEVAQUIN] Allergy Mild Rash Verified 03/16/23 07:47 rabeprazole Allergy Mild Unknown Verified 03/16/23 07:47 Sulfa (Sulfonamide Allergy Mild Rash Verified 03/16/23 07:47 Antibiotics) atorvastatin Allergy Unknown Unknown Verified 03/16/23 07:47 Bifidobacterium infantis Allergy Unknown Unknown Verified 03/16/23 07:47 [Align] clarithromycin [Prevpac] Allergy Unknown Unknown Verified 03/16/23 07:47 omeprazole [From PRILOSEC] Allergy Unknown Unknown Verified 03/16/23 07:47 simvastatin [From ZOCOR] Allergy Unknown Unknown Verified 03/16/23 07:47 oxycodone [Percocet] AdvReac Severe Vomiting Verified 03/16/23 07:47 clobetasol AdvReac Intermediate made Verified 03/16/23 07:47 psoriasis worse dexlansoprazole AdvReac Intermediate hyper,watery Verified 03/16/23 07:47 [From Kapidex] stool Iodinated Contrast Media AdvReac Intermediate Weakness, Verified 03/16/23 07:47 [IV CONTRAST] Lightheaded and confusion lansoprazole [Prevacid] AdvReac Intermediate hyper, Verified 03/16/23 07:47 watery stool methotrexate [METHOTREXATE] AdvReac Intermediate Muscle and Verified 03/16/23 07:47 joint pain ranitidine AdvReac Intermediate weak, Verified 03/16/23 07:47 watery stool alirocumab AdvReac Mild Generalized Verified 03/16/23 07:47 [From Praluent Pen] ecchymoses aspirin AdvReac Mild one sided Verified 03/06/23 12:04 facial pain, green spots in eye esomeprazole [Nexium] AdvReac Mild Gastrointestinal Verified 03/16/23 07:47 Upset pantoprazole [Protonix] AdvReac Mild one sided Verified 03/16/23 07:47 headache, yellow streak in left eye fexofenadine [From [place]] AdvReac painful Verified 03/16/23 07:47 bones and muscles Active Medications: Current Medications Mitomycin 40 mg/ Sodium (Chloride) 20 mls @ 10 mls/hr INTRAVESIC ONCE PRINCE Stop: 03/16/23 23:59 Home Medications Medication Instructions Recorded Confirmed Last Taken Type triamcinolone acetonide 0.1 % 1 appl topical BID-TID 07/23/21 03/12/23 Unknown History topical cream cetirizine 10 mg capsule (Zyrtec) 10 mg PO BEDTIME 10/28/21 03/16/23 03/15/23 History dupilumab 300 mg/2 mL subcutaneous 300 mg subcut Q2W 10/28/21 03/16/23 03/12/23 History pen injector (Dupixent) Tums PRN Gastric Reflux 02/06/22 02/17/23 Unknown History fluorouracil 5 % topical cream 1 appl topical BID 02/13/22 03/12/23 Unknown History prednisone 5 mg tablet 3.5 mg PO DAILY 02/25/23 03/16/23 03/15/23 History Exam Exam Date and Time: March 16, 2023 0821 Height,Weight and Vital Signs: Height 5 ft 1 in Weight 63.957 kg Last Vital Signs Temp 97.1 F 03/16/23 07:44 Pulse 66 03/16/23 07:44 Resp 16 03/16/23 07:44 BP 150/65 H 03/16/23 07:44 Pulse Ox 98 03/16/23 07:44 O2 Del Method Room Air 03/16/23 07:44 Airway Mallampati Class: II TM Dist: >3cm Neck ROM: Limited Partial: Upper Heart: rrr Lungs: cta Assessment and Plan Assessment Anesthesia Assessment: Anesthesia Plan Discussed and Chart Reviewed Final Anesthetic Review Family History of Problems with Anesthesia: No History of Problems with Anesthesia: No NPO: Yes ASA Class: III and Emergency Final Preanesthetic Review: No Changes in Pt Med Stat, Meds/Allgs Chart Reviewed, Consent Obtained/Reviewed and Anes Risks/Benef Reviewed Patient Risk: Intermediate Procedure Risk: Low Anesthetic Plan Anesthetic Plan: GA Disposition: Standard PACU
--- NOTE | 2023-03-16 08:23 | MHC.SHP ---
Pre-Procedural Eval Section A Date of Service: 03/16/23 The patient is an INPATIENT: No Changes since office visit: No Cold of Flu in the past 2 weeks, No New Medical Problems, No Changes in Medication and No Patient answered all questions The History & Physical has been completed within 30 days and I have reviewed it.: Yes Section B Chief Complaint: Malignant neoplasm of bladder, unspecified Allergies: Allergies Allergy/AdvReac Type Severity Reaction Status Date / Time Penicillins Allergy Severe Anaphylaxis Verified 03/16/23 07:47 tamsulosin [Flomax] Allergy Severe severe Verified 03/16/23 07:47 chest pains ibuprofen [IBUPROFEN] Allergy Intermediate Rash, hives Verified 03/16/23 07:47 amoxicillin Allergy Mild Hives, bad Verified 03/16/23 07:47 rash levofloxacin [From LEVAQUIN] Allergy Mild Rash Verified 03/16/23 07:47 rabeprazole Allergy Mild Unknown Verified 03/16/23 07:47 Sulfa (Sulfonamide Allergy Mild Rash Verified 03/16/23 07:47 Antibiotics) atorvastatin Allergy Unknown Unknown Verified 03/16/23 07:47 Bifidobacterium infantis Allergy Unknown Unknown Verified 03/16/23 07:47 [Align] clarithromycin [Prevpac] Allergy Unknown Unknown Verified 03/16/23 07:47 omeprazole [From PRILOSEC] Allergy Unknown Unknown Verified 03/16/23 07:47 simvastatin [From ZOCOR] Allergy Unknown Unknown Verified 03/16/23 07:47 oxycodone [Percocet] AdvReac Severe Vomiting Verified 03/16/23 07:47 clobetasol AdvReac Intermediate made Verified 03/16/23 07:47 psoriasis worse dexlansoprazole AdvReac Intermediate hyper,watery Verified 03/16/23 07:47 [From Kapidex] stool Iodinated Contrast Media AdvReac Intermediate Weakness, Verified 03/16/23 07:47 [IV CONTRAST] Lightheaded and confusion lansoprazole [Prevacid] AdvReac Intermediate hyper, Verified 03/16/23 07:47 watery stool methotrexate [METHOTREXATE] AdvReac Intermediate Muscle and Verified 03/16/23 07:47 joint pain ranitidine AdvReac Intermediate weak, Verified 03/16/23 07:47 watery stool alirocumab AdvReac Mild Generalized Verified 03/16/23 07:47 [From Praluent Pen] ecchymoses aspirin AdvReac Mild one sided Verified 03/06/23 12:04 facial pain, green spots in eye esomeprazole [Nexium] AdvReac Mild Gastrointestinal Verified 03/16/23 07:47 Upset pantoprazole [Protonix] AdvReac Mild one sided Verified 03/16/23 07:47 headache, yellow streak in left eye fexofenadine [From [place]] AdvReac painful Verified 03/16/23 07:47 bones and muscles Plan Diagnosis/Plan: Unchanged I have reviewed the history and physical and performed a pertinent physical examination on my patient. No changes have occurred unless specified. Time Spent With Patient Time: Total time managing care of this patient today ____ minutes.
--- NOTE | 2023-03-16 10:16 | W.PM.OPN ---
Operative Note Operative Note Date of Service: 03/16/23 Narrative: PreOperative Diagnosis: bladder cancer Post Operative Diagnosis: bladder cancer Procedure: cystoscopy, bladder biopsy, fulguration Surgeon: Dr Celio Mix Anesthesia: LMA Indications for procedure: Superficial bladder cancer. Here for cystoscopy, bladder biopsy. Procedure: After informed consent was verified the patient was brought to the operating room and placed in a supine position. Anesthesia was administered per protocol. The patient was placed in modified dorsal lithotomy position and prepped and draped in a sterile fashion. Safety pause time-out was performed. Antibiotics being given. Cystoscopy was performed. Recurrent lesion 2cm flat on left bladder side wall. Bladder biopsy performed on left lateral side with lesion - fulgeration performed on 4 different areas - each area quarter size. At the completion of the procedure the bladder was irrigated. The cystoscope was removed. A [address]el catheter was inserted into the bladder. 10 cc was placed in the balloon. 04mg MMC in 20cc Nsal - was instilled into the bladder. The flow from the catheter was left clamped. The inflow to the catheter was attached to a 3 L normal saline bag. The patient tolerated the procedure well. They were extubated in the operating room and transferred in stable condition to the recovery area. MMC will remain in the bladder for 1 hour. At the completion of 1 hour the clamp will be removed. The MMC will be allowed to egress to the urine collection bag. The 3 L bag of normal saline will be run at maximum rate through the bladder in order to dilute any residual MMC. The Chanel catheter will then be removed. The patient tolerated the procedure well. They were extubated in operating room and transferred in stable conditions recovery area. Pathology: Bladder tumor Drains: None
[2023-03-16] MEDS: levoFLOXacin 500 MG TABLET PO (10:18)
--- NOTE | 2023-03-16 12:56 | PC.NURSE ---
Late Entry: Per Dr Mix ok to not obtain urine prior to procedure as pt was unable to produce.
== END 2023-03-16 11:33 | disposition home or self-care (01) ==
PROVIDERS: PCP Internal Medicine; Visit Provider Urology
PROC: 0TBB8ZZ Excision of Bladder, Via Natural or Artificial Opening Endoscopic (ICD-10-PCS; CPT 52204; principal; 2023-03-16 08:20)
DX: C67.9 Malignant neoplasm of bladder, unspecified (principal); R31.29 Other microscopic hematuria; R32 Unspecified urinary incontinence; I11.0 Hypertensive heart disease with heart failure; I50.30 Unspecified diastolic (congestive) heart failure; E78.5 Hyperlipidemia, unspecified; J45.909 Unspecified asthma, uncomplicated; K21.9 Gastro-esophageal reflux disease without esophagitis; J84.10 Pulmonary fibrosis, unspecified; Z86.73 Personal history of transient ischemic attack (TIA), and cerebral infarction without residual deficits; Z87.440 Personal history of urinary (tract) infections; Z95.1 Presence of aortocoronary bypass graft
CPT/HCPCS: 52204; 88305; J0131; J1100; J1956; J2405; J3010; J9280

== ENCOUNTER → 2023-03-16 06:51 | Outpatient (BNV) | payer MEDICARE, SELFPAY | PROVIDERS: PCP Internal Medicine; Visit Provider Urology | DX: C67.9 Malignant neoplasm of bladder, unspecified (principal) | CPT/HCPCS: 52204 ==

== ENCOUNTER 2023-03-30 14:15 | Outpatient (REF) | payer MEDICARE, SELFPAY ==
--- NOTE | ~2023-03-30 | MM_ITS ---
EXAMINATION: MM DIAGNOSTIC DIGITAL BREAST TOMOSYNTHESIS, BILATERAL US BREAST LIMITED, BILATERAL MAMMOGRAPHY: CLINICAL INFORMATION: Bilateral diffuse breast pain worse in the undersurfaces. COMPARISON: Mammography: 06/17/2022, 06/14/2021, 06/05/2020, 05/31/2019 TECHNIQUE: Digital breast tomosynthesis is performed in both the craniocaudal and mediolateral oblique views along with computer-aided detection (CAD). Synthesized 2D images are generated from the tomosynthesis. FINDINGS: There are scattered areas of fibroglandular density (ACR BI-RADS breast composition Category b). There are no suspicious masses, suspicious grouped calcifications, or areas of architectural distortion in either breast. The parenchymal pattern is stable from prior exams. No skin or axillary changes. There is no mammographic correlate to the complaint of breast pain. ULTRASOUND: CLINICAL INFORMATION: Bilateral diffuse breast pain worse in the undersurfaces. COMPARISON: None relevant. TECHNIQUE: Targeted sonographic evaluation was performed using a high frequency linear transducer. Attention was paid to the regions of pain, essentially entire breasts. Selected archived documentation. FINDINGS: RIGHT BREAST: There is a mixture of fatty and fibroglandular tissue. No suspicious mass is seen. There is no pathologic acoustic shadowing. There are no cystic findings. LEFT BREAST: There is a mixture of fatty and fibroglandular tissue. No suspicious mass is seen. There is no pathologic acoustic shadowing. There are no cystic findings. There is no ultrasonographic correlate to the complaint of breast pain. MM/MM tomosynthesis diagnostic BI IMPRESSION: There are no findings suspicious for malignancy. There is no mammographic or ultrasonographic correlate to the complaint of bilateral breast pain. Recommend clinical management. Otherwise, recommend resuming routine annual screening. OVERALL ASSESSMENT: Mammography: BI-RADS 1 - Negative Ultrasound: BI-RADS 1 - Negative RECOMMENDATION: 1. Patient should be managed based on the clinical impression. 2. Otherwise, routine annual screening mammography. This patient's information was entered into a reminder system with a target due date for their next mammogram.
== END 2023-03-30 14:16 | disposition home or self-care (01) ==
LOC: HO.MAMMO 14:15
PROVIDERS: PCP Internal Medicine; Visit Provider Internal Medicine
DX: N64.4 Mastodynia (principal)
CPT/HCPCS: 76642; 77062; 77066

== ENCOUNTER → 2023-03-30 14:30 | Outpatient (BNV) | payer MEDICARE, SELFPAY | PROVIDERS: PCP Internal Medicine; Visit Provider Radiology Diagnostic Radiology | DX: N64.4 Mastodynia (principal) | CPT/HCPCS: 76642; 77062; 77066; G0279 ==

== ENCOUNTER 2023-03-31 09:31 | Outpatient (AMB) | payer MEDICARE, SELFPAY ==
--- NOTE | 2023-03-31 09:37 | A.OFFVIS_ITS ---
Intake Intake Visit Reasons: 2 week (turbt) Intake Note: Patient is Present for 2 Week post Op Turbt Urology Med: None Antibiotic Allergy: Penicillins,Amoxicillin,Levofloxacin, Sulfa Blood Thinner: Clopidogrel & Furosemide Pharamcy: [facility] [employer] Tester Required: No Accompanied by: Self / Same As Patient Allergies Penicillins Allergy (Severe, Verified 03/31/23 09:39) Anaphylaxis tamsulosin [Flomax] Allergy (Severe, Verified 03/31/23:39) severe chest pains ibuprofen [IBUPROFEN] Allergy (Intermediate, Verified 03/31/23 09:39) Rash, hives amoxicillin Allergy (Mild, Verified 03/31/23 09:39) Hives, bad rash levofloxacin [From LEVAQUIN] Allergy (Mild, Verified 03/31/23 09:39) Rash rabeprazole Allergy (Mild, Verified 03/31/23 09:39) Unknown Sulfa (Sulfonamide Antibiotics) Allergy (Mild, Verified 03/31/23 09:39) Rash atorvastatin Allergy (Unknown, Verified 03/31/23:39) Unknown Bifidobacterium infantis [Align] Allergy (Unknown, Verified 03/31/23 09:39) Unknown clarithromycin [Prevpac] Allergy (Unknown, Verified 03/31/23:39) Unknown omeprazole [From PRILOSEC] Allergy (Unknown, Verified 03/31/23:39) Unknown simvastatin [From ZOCOR] Allergy (Unknown, Verified 03/31/23 09:39) Unknown oxycodone [Percocet] Adverse Reaction (Severe, Verified 03/31/23:39) Vomiting clobetasol Adverse Reaction (Intermediate, Verified 03/31/23:39) made psoriasis worse dexlansoprazole [From Kapidex] Adverse Reaction (Intermediate, Verified 03/31/23 09:39) hyper,watery stool Iodinated Contrast Media [IV CONTRAST] Adverse Reaction (Intermediate, Verified 03/31/23:39) Weakness, Lightheaded and confusion lansoprazole [Prevacid] Adverse Reaction (Intermediate, Verified 03/31/23 09:39) hyper, watery stool methotrexate [METHOTREXATE] Adverse Reaction (Intermediate, Verified 03/31/23 09:39) Muscle and joint pain ranitidine Adverse Reaction (Intermediate, Verified 03/31/23 09:39) weak, watery stool alirocumab [From Praluent Pen] Adverse Reaction (Mild, Verified 03/31/23 09:39) Generalized ecchymoses aspirin Adverse Reaction (Mild, Verified 03/31/23 09:39) one sided facial pain, green spots in eye esomeprazole [Nexium] Adverse Reaction (Mild, Verified 03/31/23 09:39) Gastrointestinal Upset pantoprazole [Protonix] Adverse Reaction (Mild, Verified 03/31/23 09:39) one sided headache, yellow streak in left eye fexofenadine [From [place]] Adverse Reaction (Verified 03/31/23 09:39) painful bones and muscles HPI HPI Comments History of Present Illness Details Mary is a pleasant female. She is a patient of Dr. Gutierrez. She is seen for the following urologic conditions - microscopic hematuria - abnormal urine cytology - bladder cancer The recurrent high-grade superficial disease Discussed findings Will need 5 week mitomycin-C with cytarabine 3 month follow-up cystoscopy in office Bladder cancer - 11/06 - high-grade superficial, 06/09 TURBt low-grade superficial Detected after evaluation for microscopic hematuria Interventions - TURBT 11/06 high-grade superficial, 01/17 2 BBx with fulgeration CIS, 06/09 low- grade superficial with MMC Smoking history - 2nd exposure through Workplace exposure - plastics exposure, glue exposure Imaging - 10/06 CT urogram normal Cytology - 10/06 high-grade Adjuvant therapy - 11/06 6 week induction Gemcitabine, 3 w nightmute boost 10/07 Therapeutic plan - bladder biopsy, fulguration, mitomycin -C [facility] Medical History (Updated 03/17/23 @ 19:10 by Mariya Gutierrez MD) 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 Bladder cancer Diastolic heart failure Recurrent UTI Osteopenia Allergic rhinitis Lung fibrosis Skin cancer History of rib fracture History of hemorrhoids Hiatal hernia Diverticular disease Pulmonary nodule Psoriasis Barretts esophagus GERD (gastroesophageal reflux disease) History of CVA (cerebrovascular accident) HLD (hyperlipidemia) Postoperative atrial fibrillation CAD (coronary artery disease) Asthma Polymyalgia rheumatica Surgical History (Updated 03/31/23 @ 09:40 by ANITA Torres) History of transurethral resection of bladder tumor (TURBT) History of nasal surgery History of cystoscopy S/P trigger finger release Hx of CABG History of bladder suspension procedure History of tonsillectomy and adenoidectomy History of tonsillectomy Hx of hemorrhoidectomy Family History Father No problems noted. Mother No problems noted. Social History Housing: House Are you a primary zoo caretaker to a significant other at home: No Do you presently have visiting nurse or other home services: No Alcohol intake: never Patient Tobacco Use Status: Never used Tobacco e-Cigarette/Vaping Use: Never Used Second Hand Smoke Exposure: No Advance Directives Date on File: 08/29/16 service: No Current occupational status: retired Current occupation: rt hand Current occupational exposures/hazards: No Cognitive needs: No Hearing needs: No Vision needs: No Review of Systems Const Denies chills and Denies fever(s) Card Reports no additional complaints and Denies syncope Resp Denies cough GI Denies abdominal pain and Denies heartburn Reports as per HPI and Denies change in libido Neuro Denies syncope Psych Denies change in libido Endo Denies change in libido Physical Exam Const General: cooperative, healthy appearing, comfortable and no acute distress Orientation/consciousness: patient oriented x3 HEENT Face and sinus: Yes normal facial exam Mouth: moist mucous membranes Neck Neck: Yes normal visual inspection, Yes full ROM and Yes trachea midline Chest Chest palpation & inspection: normal inspection of the chest Resp Effort & Inspection: normal respiratory effort, able to speak in complete sentences and no respiratory distress GI Inspection: Yes normal to inspection Back/Spine/Pelvis Cervical Spine: normal cervical lordosis Thoracic/Lumbar Spine: thoracic and lumbar spine normal to inspection Skin General skin exam: no rashes or lesions noted Neuro General: patient oriented x3, gait normal, tone normal and moves all extremities Extrem General: Yes normal to inspection and Yes capillary refill normal Results AMB Urinalysis, Automated UA Leukoctes 70 Mark/uL Last Edit by ANITA Torres on 03/31/23 09:48 1+ Anita Bliss 03/31/23 09:48 UA Nitrite Negative Last Edit by Anita Bliss [facility] on 03/31/23 09:48 UA Urobilinogen 0.2 mg/dL Last Edit by Anita Bliss [facility] on 03/31/23 09:4 8 UA Protein 30 mg/dL Last Edit by Anita Bliss [facility] on 03/31/23 09:48 1+ Anita Bliss 03/31/23 09:48 UA pH 6.0 Last Edit by Anita Bliss [facility] on 03/31/23 09:48 UA Blood 200 Sushant/uL Last Edit by Anita Bliss [facility] on 03/31/23 09:48 3+ Anita Bliss 03/31/23 09:48 UA Specific [place] 1.020 Last Edit by Anita Bliss [facility] on 03/31/23 09: 48 UA Ketone Negative Last Edit by Anita Bliss [facility] on 03/31/23 09:48 UA Bilirubin 1 mg/dL Last Edit by Anita Bliss [facility] on 03/31/23 09:48 UA Glucose 0 mg/dL Last Edit by Anita Bliss [facility] on 03/31/23 09:48 Results Reviewed Results Reviewed: Laboratory Last Values Urine pH (Auto) 6.0 03/31/23 09:44 Specific [place] (Auto) 1.020 03/31/23 09:44 Urine Protein (Auto) 30 mg/dL 03/31/23 09:44 Glucose (UA)(Auto) 0 mg/dL 03/31/23 09:44 Urine Ketones (Auto) Negative 03/31/23 09:44 Urine Blood (Auto) 200 Sushant/uL 03/31/23 09:44 Urine Nitrite (Auto) Negative 03/31/23 09:44 Urine Bilirubin (Auto) 1 mg/dL 03/31/23 09:44 Urine Urobilinogen (Auto) 0.2 mg/dL 03/31/23 09:44 Leukocyte Esterase (Auto) 70 Mark/uL 03/31/23 09:44 Assessment & Plan Assessment & Plan (1) Urinary bladder cancer: Comment: - High-grade papillary urothelial carcinoma, non-invasive. Bladder biopsy with extensive fulguration left-sided bladder Dr. Mix October 2021, January 2022 - 02/06 CIS TURBT and gemcitabine instillation Dr. Mix May 2022 biopsy 02/2023 high grade papillary carcinoma Code(s): C67.9 - Malignant neoplasm of bladder, unspecified Qualifiers: Bladder location: unspecified site Qualified Code(s): C67.9 - Malignant neoplasm of bladder, unspecified Plan Bladder immunotherapy Bladder immuno/chemotherapy was discussed today. These medications are used to create an immune reaction against bladder cancer. The intention is to destroy any tumor cells left on the bladder surface. Since BCG and gemcitabine involved immunostimulation they are not indicated in situations where there is immune weakness. Medications are placed directly into the bladder. It should be held for one to 2 hours. The toilet should be disinfected with a cap full of household bleach prior to urination. Side effects from BCG and gemcitabine generally include mucosa-related changes such as urinary urgency and/or frequency, and hematuria BCG may also invoke an infection type response. An elevated temperature may be indicative of more serious issues and should be reported to the Dr. The intention with bladder immunotherapy is to reduce the frequency of bladder cancer recurrence by 50%. Multiple protocols are available - MMC plus Cytarabine for alkalinization - 40mg/200mg in 40mg - Sequential Gemcitabine/Docetaxel - 1gm in 50cc NSal 60min/37.5mg in 50cc NSal 60min Will undergo - 5 weeks of MMC/Cytarbine Orders: Orders AMB Urinalysis Automated Today Z13.9 - Encounter for screening, unspecified Patient Instructions: Imaging studies, laboratory and physical exam results were discussed and reviewed in detail. No major barriers to patient understanding were identified. An opportunity to ask questions regarding the treatment plan was provided. All questions were answered. The patient expressed understanding and agreement with the above treatment plan. The patient is aware they should contact our office by phone for worsening of their current condition or the appearance of new urologic symptoms. Compliance is encouraged with any medications and followup testing that is ordered. It is a privilege to participate in the urologic care of your patient. If you have any questions or concerns regarding treatment for the above conditions, or other urologic issues, please do not hesitate to contact me. The office telephone contact is [phone]. This note is constructed using voice recognition software. While every effort has been made to ensure accuracy director veterinary errors may have been included. Yours sincerely, Dr Celio Mix MD, [facility] - Urology Providers of Expert, Compassionate Care for the Genitourinary System Telehealth Telehealth Location of provider rendering services: practice address Location of patient: address on file Patient Identification confirmed using: Name, : Yes Telehealth method: video Patient verbally consented to treatment: Yes Patient verbally consented to billing insurance company: Yes Patient informed of any privacy concerns related to visit: Yes Coding Level of Care Code Est Pt Level 4 (24952) Diagnoses Malignant neoplasm of urinary bladder, unspecified site C67.9 Bladder location: unspecified site
== END 2023-03-31 10:12 | disposition home or self-care (01) ==
PROVIDERS: PCP Internal Medicine; Visit Provider Urology
DX: C67.9 Malignant neoplasm of bladder, unspecified (principal); Z13.9 Encounter for screening, unspecified
CPT/HCPCS: 99214

== ENCOUNTER → 2023-03-31 09:31 | Outpatient (BNVA) | payer MEDICARE, SELFPAY | PROVIDERS: PCP Internal Medicine; Visit Provider Urology | DX: C67.9 Malignant neoplasm of bladder, unspecified (principal) | CPT/HCPCS: 81003; 99212 ==

== ENCOUNTER 2023-05-04 14:14 | Outpatient (AMB) | payer MEDICARE, SELFPAY ==
--- NOTE | 2023-05-04 14:25 | A.OFFVIS_ITS ---
Intake Intake Visit Reasons: ov-Right knee pain repeat injection Intake Note: Amry an 82 year old female presents today for a follow up of right knee, last injection 01/07/23. Patient reports last injection provided her good relief until recently, stating pain returned about a month ago. She would like to repeat injections. Allergies Penicillins Allergy (Severe, Verified 03/31/23 09:39) Anaphylaxis tamsulosin [Flomax] Allergy (Severe, Verified 03/31/23 09:39) severe chest pains ibuprofen [IBUPROFEN] Allergy (Intermediate, Verified 03/31/23 09:39) Rash, hives amoxicillin Allergy (Mild, Verified 03/31/23 09:39) Hives, bad rash levofloxacin [From LEVAQUIN] Allergy (Mild, Verified 03/31/23 09:39) Rash rabeprazole Allergy (Mild, Verified 03/31/23 09:39) Unknown Sulfa (Sulfonamide Antibiotics) Allergy (Mild, Verified 03/31/23 09:39) Rash atorvastatin Allergy (Unknown, Verified 03/31/23 09:39) Unknown Bifidobacterium infantis [Align] Allergy (Unknown, Verified 03/31/23 09:39) Unknown clarithromycin [Prevpac] Allergy (Unknown, Verified 03/31/23 09:39) Unknown omeprazole [From PRILOSEC] Allergy (Unknown, Verified 03/31/23 09:39) Unknown simvastatin [From ZOCOR] Allergy (Unknown, Verified 03/31/23 09:39) Unknown oxycodone [Percocet] Adverse Reaction (Severe, Verified 03/31/23 09:39) Vomiting clobetasol Adverse Reaction (Intermediate, Verified 03/31/23 09:39) made psoriasis worse dexlansoprazole [From Kapidex] Adverse Reaction (Intermediate, Verified 03/31/23 09:39) hyper,watery stool Iodinated Contrast Media [IV CONTRAST] Adverse Reaction (Intermediate, Verified 03/31/23 09:39) Weakness, Lightheaded and confusion lansoprazole [Prevacid] Adverse Reaction (Intermediate, Verified 03/31/23 09:39) hyper, watery stool methotrexate [METHOTREXATE] Adverse Reaction (Intermediate, Verified 03/31/23 09:39) Muscle and joint pain ranitidine Adverse Reaction (Intermediate, Verified 03/31/23 09:39) weak, watery stool alirocumab [From Praluent Pen] Adverse Reaction (Mild, Verified 03/31/23 09:39) Generalized ecchymoses aspirin Adverse Reaction (Mild, Verified 03/31/23 09:39) one sided facial pain, green spots in eye esomeprazole [Nexium] Adverse Reaction (Mild, Verified 03/31/23 09:39) Gastrointestinal Upset pantoprazole [Protonix] Adverse Reaction (Mild, Verified 03/31/23 09:39) one sided headache, yellow streak in left eye fexofenadine [From [place]] Adverse Reaction (Verified 03/31/23 09:39) painful bones and muscles HPI ov-Right knee pain repeat injection HPI Details 82-year-old female who returns to the [facility] today for a follow-up of right knee pain. She had her last injection on 01/14/23 which provided her good relief until a month ago. She would like to repeat the injection. She reports she has not been using her cane for ambulation. 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 Bladder cancer Diastolic heart failure Recurrent UTI Osteopenia Allergic rhinitis Lung fibrosis Skin cancer History of rib fracture History of hemorrhoids Hiatal hernia Diverticular disease Pulmonary nodule Psoriasis Barretts esophagus GERD (gastroesophageal reflux disease) History of CVA (cerebrovascular accident) HLD (hyperlipidemia) Postoperative atrial fibrillation CAD (coronary artery disease) Asthma Polymyalgia rheumatica Surgical History (Updated 03/31/23 @ 09:40 by ANITA Torres) History of transurethral resection of bladder tumor (TURBT) History of nasal surgery History of cystoscopy S/P trigger finger release Hx of CABG History of bladder suspension procedure History of tonsillectomy and adenoidectomy History of tonsillectomy Hx of hemorrhoidectomy Family History Father No problems noted. Mother No problems noted. Social History Housing: House Are you a primary adult care manager to a significant other at home: No Do you presently have visiting nurse or other home services: No Alcohol intake: never Patient Tobacco Use Status: Never used Tobacco e-Cigarette/Vaping Use: Never Used Second Hand Smoke Exposure: No Advance Directives Date on File: 08/29/16 service: No Current occupational status: retired Current occupation: rt hand Current occupational exposures/hazards: No Cognitive needs: No Hearing needs: No Vision needs: No Review of Systems Const All systems reviewed & are unremarkable except as noted in HPI and below Physical Exam Extrem Other: Right knee: Skin intact, no erythema or joint effusion. Tenderness along the medial and lateral joint line. Full ROM with crepitus. Negative Mamadou?s. No ligamentous laxity. NVI. Office Procedures Joint Injection/Drain Joint Injection/Drain Primary Site: right knee Prep: site was prepped using aseptic technique, ethochloride spray was applied and injection warnings given Injected: 80 mg of, DepoMedrol, with 8 mL of, 1% plain lidocaine and in the joint Approach Used: anterolateral Procedure: The patient tolerated the procedure well and there was some relief with the local anesthesia Coding 88599 - Glenohumeral/Tronchanteric Bursa/Intraarticular Procedure code (CPT) selection complete Assessment & Plan Assessment & Plan (1) Osteoarthritis of right knee: Code(s): M17.11 - Unilateral primary osteoarthritis, right knee Qualifiers: Osteoarthritis type: primary Qualified Code(s): M17.11 - Unilateral primary osteoarthritis, right knee Plan We discussed options today which include steroid injection. They did consent to move forward with the right knee injection, which was tolerated well. I recommended rest, ice and elevation and OTC anti-inflammatories PRN for discomfort. If symptoms persist or worsens over the next 6-8 weeks, patient will contact the office, otherwise follow-up as needed. Patient Instructions: Scribed for Andra Melo PA-C, by Pa Wade expert medical writer, on 05/04/2023 at 2:30 PM EST. Andra Muniz PA-C, have personally reviewed and agree with the information entered by the scribe. Coding Level of Care Code Est Pt Level 3 (04782) Diagnoses Primary osteoarthritis of right knee M17.11 Osteoarthritis type: primary CPT Codes Coding - Joint 7: 58011 - Glenohumeral/Tronchanteric Bursa/Intraarticular ([id number])
== END 2023-05-04 14:49 | disposition home or self-care (01) ==
PROVIDERS: PCP Internal Medicine; Visit Provider Physician Assistant
DX: M17.11 Unilateral primary osteoarthritis, right knee (principal)
CPT/HCPCS: 20610

== ENCOUNTER → 2023-05-04 14:14 | Outpatient (BNVA) | payer MEDICARE, SELFPAY | PROVIDERS: PCP Internal Medicine; Visit Provider Physician Assistant | DX: M17.11 Unilateral primary osteoarthritis, right knee (principal) | CPT/HCPCS: 20610; J1040 ==

== ENCOUNTER 2023-06-12 08:21 | Outpatient (AMB) | payer MEDICARE, SELFPAY ==
[2023-06-12 08:36] VITALS: BP 122/62; PULSE 72; O2SAT 99; BMI 26.5
--- NOTE | 2023-06-12 08:36 | A.OFFPC_ITS ---
Vital Signs 06/12/23 08:36 Height 5 ft 1 in Weight 140 lb 0.8 oz BMI 26.5 BP 122/62 Blood Pressure Location Lt brachial Position Sitting Pulse 72 Pulse Source Pulse Oximeter Pulse Oximetry (%) 99 Oxygen Delivery Method Room Air Intake Visit Reasons: HTN knee OA barretts Cant Hooker Required: No Allergies Penicillins Allergy (Severe, Verified 06/12/23 08:41) Anaphylaxis tamsulosin [Flomax] Allergy (Severe, Verified 06/12/23 08:41) severe chest pains ibuprofen [IBUPROFEN] Allergy (Intermediate, Verified 06/12/23 08:41) Rash, hives amoxicillin Allergy (Mild, Verified 06/12/23 08:41) Hives, bad rash levofloxacin [From LEVAQUIN] Allergy (Mild, Verified 06/12/23 08:41) Rash rabeprazole Allergy (Mild, Verified 06/12/23 08:41) Unknown Sulfa (Sulfonamide Antibiotics) Allergy (Mild, Verified 06/12/23 08:41) Rash atorvastatin Allergy (Unknown, Verified 06/12/23 08:41) Unknown Bifidobacterium infantis [Align] Allergy (Unknown, Verified 06/12/23 08:41) Unknown clarithromycin [Prevpac] Allergy (Unknown, Verified 06/12/23 08:41) Unknown omeprazole [From PRILOSEC] Allergy (Unknown, Verified 06/12/23 08:41) Unknown simvastatin [From ZOCOR] Allergy (Unknown, Verified 06/12/23 08:41) Unknown oxycodone [Percocet] Adverse Reaction (Severe, Verified 06/12/23 08:41) Vomiting amlodipine Adverse Reaction (Intermediate, Unverified 06/12/23 09:11) breast pain clobetasol Adverse Reaction (Intermediate, Verified 06/12/23 08:41) made psoriasis worse dexlansoprazole [From Kapidex] Adverse Reaction (Intermediate, Verified 06/12/23 08:41) hyper,watery stool Iodinated Contrast Media [IV CONTRAST] Adverse Reaction (Intermediate, Verified 06/12/23 08:41) Weakness, Lightheaded and confusion lansoprazole [Prevacid] Adverse Reaction (Intermediate, Verified 06/12/23 08:41) hyper, watery stool methotrexate [METHOTREXATE] Adverse Reaction (Intermediate, Verified 06/12/23 08:41) Muscle and joint pain ranitidine Adverse Reaction (Intermediate, Verified 06/12/23 08:41) weak, watery stool alirocumab [From Praluent Pen] Adverse Reaction (Mild, Verified 06/12/23 08:41) Generalized ecchymoses aspirin Adverse Reaction (Mild, Verified 06/12/23 08:41) one sided facial pain, green spots in eye esomeprazole [Nexium] Adverse Reaction (Mild, Verified 06/12/23 08:41) Gastrointestinal Upset pantoprazole [Protonix] Adverse Reaction (Mild, Verified 06/12/23 08:41) one sided headache, yellow streak in left eye fexofenadine [From [place]] Adverse Reaction (Verified 06/12/23 08:41) painful bones and muscles Medication List - Last Reconciled 06/12/23 by Mariya Gutierrez MD cetirizine (Zyrtec) 10 mg PO BEDTIME clopidogrel 75 mg PO DAILY dupilumab (Dupixent) 300 mg subcut Q2W ezetimibe 10 mg PO DAILY fluorouracil 5% 1 appl topical BID furosemide 20 mg PO DAILY metoprolol succinate ER 12.5 mg (1/2 x 25 mg) PO DAILY prednisone 3.5 mg PO DAILY triamcinolone acetonide 0.1% 1 appl topical BID-TID [Tums PRN] Tobacco use date assessed: 06/12/23 Fall risk assessment: No Falls in past year Last assessed Fall Risk: 06/12/23 Dental Screening Dental Screen Date: 06/12/23 Did you have a dental visit in the last 12 months?: Yes Did you have a dental problem in the last 6 months where you did not have access to dental care?: No Was dental information given to patient?: Patient has dentist HPI HTN knee OA barretts HPI Details 82-year-old female with a history of uri nary bladder cancer hypertension Barretts esophagus hypercholesterolemia coronary artery disease polymyalgia rheumatica coming in for follow-up. Last seen in February 2023. Patient's mammogram is up-to-date due for May this month bone density in a couple more months and no more colonoscopies needed. Patient is here for follow-up. With a history of the urinary bladder cancer(2021) patient continues to have chemotherapy under Hematology Oncology for the intravesical medication. April follow-up with right knee orthopedic injections for osteoarthritis. Urology notes also appreciated March 2023. Patient also had some breast pain on last follow-up and had an ultrasound done finding no suspicious malignancy. 6th intravesical and stopped. R knee better had 2 shot. furosemid taking at night - advised to take am due to diuresis. 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 Bladder cancer Diastolic heart failure Recurrent UTI Osteopenia Allergic rhinitis Lung fibrosis Skin cancer History of rib fracture History of hemorrhoids Hiatal hernia Diverticular disease Pulmonary nodule Psoriasis Barretts esophagus GERD (gastroesophageal reflux disease) History of CVA (cerebrovascular accident) HLD (hyperlipidemia) Postoperative atrial fibrillation CAD (coronary artery disease) Asthma Polymyalgia rheumatica Surgical History (Updated 03/31/23 @ 09:40 by ANITA Torres) History of transurethral resection of bladder tumor (TURBT) History of nasal surgery History of cystoscopy S/P trigger finger release Hx of CABG History of bladder suspension procedure History of tonsillectomy and adenoidectomy History of tonsillectomy Hx of hemorrhoidectomy Family History Father No problems noted. Mother No problems noted. Social History Housing: House Are you a primary child care center administrator to a significant other at home: No Do you presently have visiting nurse or other home services: No Alcohol intake: never Patient Tobacco Use Status: Never used Tobacco e-Cigarette/Vaping Use: Never Used Second Hand Smoke Exposure: No Advance Directives Date on File: 08/29/16 service: No Current occupational status: retired Current occupation: rt hand Current occupational exposures/hazards: No Cognitive needs: No Hearing needs: No Vision needs: No Questionnaire PHQ-9 Over the last 2 weeks, how often have you been bothered by any of the following problems? 1. Little interest or pleasure in doing things: not at all 2. Feeling down, depressed, or hopeless: not at all 3. Trouble falling or staying asleep, or sleeping too much: not at all 4. Feeling tired or having little energy: not at all 5. Poor appetite or overeating: not at all 6. Feeling bad about yourself - or that you are a failure or have let yourself or your family down: not at all 7. Trouble concentrating on things, such as reading the newspaper or watching television: not at all 8. Moving or speaking so slowly that other people could have noticed. Or the opposite - being so fidgety or restless that you have been moving around a lot more than usual: not at all 9. Thoughts that you would be better off or of hurting yourself in some way: not at all Total score: 0 Depression Screening Interpretation: Negative Depression Screening Done: Yes Source: Developed by Drs. Librado Fraser, Ingris Fuentes, Harry Acevedo and colleagues, with an educational marissa from [employer]. Thrive Questionnaire Date Thrive assessed: 06/24/22 AUDIT C Alcohol Use Questionnaire (AUDIT-C) 1. How often do you have a drink containing alcohol?: Never 2. How many drinks containing alcohol do you have on a typical day when you are drinking?: 1 or 2 (0) 3. How often do you have six or more drinks on one occasion?: Never Total Score: 0 Score Reviewed/Action Taken: Yes BIRDIE-7 AMB Questionnaire BIRDIE-7 Date BIRDIE - 7 assessed: 06/12/23 Source: Developed by Drs. Librado Fraser, Ingris Fuentes, Harry Acevedo and colleagues, with an educational marissa from [employer]. Physical exam (Primary Care) Vital Signs: Last Vital Signs Pulse 72 06/12/23 08:36 BP 122/62 06/12/23 08:36 Pulse Ox 99 06/12/23 08:36 Oxygen Delivery Method Room Air 06/12/23 08:36 BMI result Body Mass Index 26.5 Tobacco/Smoking Status: Tobacco use Status Tobacco use date assessed 06/12/23 06/12/23 08:44 Patient Tobacco Use Status Never used Tobacco 06/12/23 08:44 e-Cigarette/Vaping Use Never Used 06/12/23 08:44 PHQ-9: PHQ-9 Score PHQ-9: Total score 0 06/12/23 08:44 Depression Screening Interpretation: Negative Thrive Assessment: Date of Thrive Assessment Date Thrive assessed 06/24/22 06/12/23 08:44 Const General: alert; No acute distress Eyes Conjunctivae: conjunctivae normal Resp Auscultation: clear to auscultation bilaterally Cardio Rate: regular rate Rhythm: regular rhythm GI Inspection: Yes normal to inspection Extrem General: Yes normal to inspection and No edema Assessment and Plan Assessment & Plan (1) CAD (coronary artery disease): Comment: CABG x2 2017 WHITAKER to LAD, SVG to OM Dr. Godoy Code(s): I25.10 - Atherosclerotic heart disease of [place] coronary artery without angina pectoris Qualifiers: Coronary Disease-Associated Artery/Lesion type: [place] artery [place] vs. transplanted heart: [place] heart Associated angina: without angina Qualified Code(s): I25.10 - Atherosclerotic heart disease of [place] coronary artery without angina pectoris Plan: Control the cholesterol, weight, blood pressure continue with clopidogrel as the patient has allergies to aspirin (2) HLD (hyperlipidemia): Code(s): E78.5 - Hyperlipidemia, unspecified Qualifiers: Hyperlipidemia type: mixed hyperlipidemia Qualified Code(s): E78.2 - Mixed hyperlipidemia Plan: Avoid fried foods, chicken skin, eggs, butter margarine, pastries and meat. Be it pork or beef they have a lot of cholesterol LDL goal of less than 70. Statin intolerant on Zetia (3) Barretts esophagus: Comment: January 2012 no more Code(s): K22.70 - Quiroz's esophagus without dysplasia Qualifiers: Quiroz's esophagus type: without dysplasia Qualified Code(s): K22.70 - Quiroz's esophagus without dysplasia Plan: Avoid the foods that causes that usually spicy foods, tomato products, juices, coffee, soda and foods that your sensitive to. After eating do not lie down, allow 3-4 hours before in lie down. And keep the head of bed above 30 degrees to avoid the acid from going up. (4) HTN (hypertension): Code(s): I10 - Essential (primary) hypertension Qualifiers: Hypertension type: primary hypertension Qualified Code(s): I10 - Essential (primary) hypertension Plan: Continue with blood pressure medication. Decrease salt intake and exercise on amlodipine 2.5 mg once a day (5) Osteoarthritis of right knee: Code(s): M17.11 - Unilateral primary osteoarthritis, right knee Qualifiers: Osteoarthritis type: primary Qualified Code(s): M17.11 - Unilateral primary osteoarthritis, right knee Plan: Patient met with orthopedics had steroid injections (6) Urinary bladder cancer: Comment: - High-grade papillary urothelial carcinoma, non-invasive. Bladder biopsy with extensive fulguration left-sided bladder Dr. Mix October 2021, January 2022 - 02/06 [facility] TURBT and gemcitabine instillation Dr. Mix May 2022 biopsy 02/2023 high grade papillary carcinoma Code(s): C67.9 - Malignant neoplasm of bladder, unspecified Qualifiers: Bladder location: unspecified site Qualified Code(s): C67.9 - Malignant neoplasm of bladder, unspecified Plan: Patient continues to be under treatment of hematology oncology and urology having instillation of chemotherapy (7) Osteopenia: Code(s): M85.80 - Other specified disorders of bone density and structure, unspecified site Qualifiers: Osteopenia location: multiple sites Qualified Code(s): M85.89 - Other specified disorders of bone density and structure, multiple sites Plan: Discussed about bone density and treatments and will do a repeat in August 2023 Orders: Orders Comprehensive Met. Panel Today I10 - Essential (primary) hypertension B Type Natriuretic Peptide Today I10 - Essential (primary) hypertension Complete Blood Count Auto Diff Today I10 - Essential (primary) hypertension XR DEXA axial skeleton 3 Months M81.0 - Age-related osteoporosis without current pathological fracture, M85.89 - Other specified disorders of bone density and structure, multiple sites Medications: New metoprolol succinate ER 12.5 mg (1/2 x 25 mg) PO DAILY 30 tabs 1RF I10 - Essential (primary) hypertension Discontinued amlodipine Discontinued Reason: Patient Refused 2.5 mg PO BEDTIME 90 tabs 3RF Coding Level of Care Code Est Pt Level 4 (54728) Diagnoses Coronary artery disease involving [place] coronary artery of [place] heart without angina pectoris I25.10 Coronary Disease-Associated Artery/Lesion type: [place] artery [place] vs. transplanted heart: [place] heart Associated angina: without angina Mixed hyperlipidemia E78.2 Hyperlipidemia type: mixed hyperlipidemia Quiroz's esophagus without dysplasia K22.70 Quiroz's esophagus type: without dysplasia Primary hypertension I10 Hypertension type: primary hypertension Primary osteoarthritis of right knee M17.11 Osteoarthritis type: primary Malignant neoplasm of urinary bladder, unspecified site C67.9 Bladder location: unspecified site Osteopenia of multiple sites M85.89 Osteopenia location: multiple sites
== END 2023-06-12 09:23 | disposition home or self-care (01) ==
PROVIDERS: PCP Internal Medicine; Visit Provider Internal Medicine
DX: I25.10 Atherosclerotic heart disease of native coronary artery without angina pectoris (principal); C67.9 Malignant neoplasm of bladder, unspecified; E78.2 Mixed hyperlipidemia; K22.70 Barrett's esophagus without dysplasia; I10 Essential (primary) hypertension; M17.11 Unilateral primary osteoarthritis, right knee; M85.89 Other specified disorders of bone density and structure, multiple sites
CPT/HCPCS: 99214

== ENCOUNTER 2023-06-12 09:32 | Outpatient (REF) | payer MEDICARE, SELFPAY ==
[2023-06-12 09:49] LABS: MANUAL DIFF FLAG NO
[2023-06-12 10:33] LABS: Basophils Absolute Auto 0.1 X10*3/uL (0.0-0.2); Basophils Percent Auto 0.8 % (0-2); Eosinophils Absolute Auto 0.3 X10*3/uL (0.0-0.4); Eosinophils Percent Auto 3.1 % (0-4); Hematocrit 34.7 % (37.0-47.0); Hemoglobin 11.2 g/dl (12.0-16.0); Imm Gran Abs Auto 0.08 X10*3/uL (0.00-0.03); Imm Gran Pct Auto 0.9 % (0.0-0.4); Lymphocytes Percent Auto 23.6 % (20-40); Mean Corpuscular HGB Conc 32.3 g/dl (31.0-35.0); Mean Platelet Volume 8.8 fL (9.4-12.3); Monocytes Absolute Auto 0.8 X10*3/uL (0.1-1.2); Monocytes Percent Auto 8.8 % (2-11); Neutrophils Absolute Auto 5.4 x10*3/uL (2.0-8.3); Neutrophils Percent Auto 62.8 % (45-73); Platelet Count 411 X10*3/uL (160-400); Red Blood Count 3.73 X10*6/uL (4.20-5.50); Red Cell Distribution Width 13.7 % (11.0-16.0); White Blood Count 8.7 X10*3/uL (4.8-10.8)
[2023-06-12 11:02] LABS: B Type Natriuretic Peptide 116 pg/mL (<100)
[2023-06-12 11:08] LABS: Alanine Aminotransferase 12 U/L (0-31); Alkaline Phosphatase 82 U/L (39-117); Anion Gap 15 (12-20); Aspartate Amino Transferase 19 U/L (5-31); Bilirubin Total 0.3 mg/dL (0.0-1.0); Blood Urea Nitrogen 12 mg/dL (9-16); Calcium 10.3 mg/dL (8.4-10.2); Carbon Dioxide 32 mmol/L (22-29); Chloride 99 mmol/L (96-108); Estimated Glomerular Filt Rate > 60; Glucose Random 92 mg/dL (60-115); Potassium 3.7 mmol/L (3.3-5.1); Sodium 142 mmol/L (135-145); Total Protein 7.4 g/dL (6.5-8.0)
== END 2023-06-12 09:33 | disposition home or self-care (01) ==
LOC: HO.LAB 09:32
PROVIDERS: PCP Internal Medicine; Visit Provider Internal Medicine
DX: I10 Essential (primary) hypertension (principal)
CPT/HCPCS: 36415; 80053; 83880; 85025

== ENCOUNTER 2023-07-03 08:36 | Outpatient (REF) | payer MEDICARE, SELFPAY | END 2023-07-03 08:37 | disposition home or self-care (01) | LOC: HO.MAMMO 08:36 | PROVIDERS: Visit Provider Internal Medicine | DX: Z13.89 Encounter for screening for other disorder (principal) ==

== ENCOUNTER 2023-07-10 09:38 | Outpatient (REF) | payer MEDICARE, SELFPAY ==
[2023-07-10 16:28] LABS: Urine Cytology See Pathology rpt
== END 2023-07-10 09:39 | disposition home or self-care (01) ==
LOC: HO.LAB 09:38
PROVIDERS: PCP Internal Medicine; Visit Provider Urology
DX: C67.9 Malignant neoplasm of bladder, unspecified (principal)
CPT/HCPCS: 52000; 81003; 88112

== ENCOUNTER 2023-07-10 09:38 | Outpatient (AMB) | payer MEDICARE, SELFPAY ==
--- NOTE | 2023-07-10 10:11 | A.OFFVIS_ITS ---
Intake Intake Visit Reasons: Cysto(Bladder CA) Intake Note: Patient presents today for a Cystoscopy Meds: None Allergies to Antibiotic: Penicillins, Amoxicillin, Levofloxacin, Sulfa, Clarithromycin Blood Thinner: None Urinalysis test clear for Cysto? Yes Disposable Uro-G Cystoscope Lot:[id number]/ Calender Tender Required: No Accompanied by: Self / Same As Patient Allergies Penicillins Allergy (Severe, Verified 07/10/23 10:32) Anaphylaxis tamsulosin [Flomax] Allergy (Severe, Verified 07/10/23 10:32) severe chest pains ibuprofen [IBUPROFEN] Allergy (Intermediate, Verified 07/10/23 10:32) Rash, hives amoxicillin Allergy (Mild, Verified 07/10/23 10:32) Hives, bad rash levofloxacin [From LEVAQUIN] Allergy (Mild, Verified 07/10/23 10:32) Rash rabeprazole Allergy (Mild, Verified 07/10/23 10:32) Unknown Sulfa (Sulfonamide Antibiotics) Allergy (Mild, Verified 07/10/23 10:32) Rash atorvastatin Allergy (Unknown, Verified 07/10/23 10:32) Unknown Bifidobacterium infantis [Align] Allergy (Unknown, Verified 07/10/23 10:32) Unknown clarithromycin [Prevpac] Allergy (Unknown, Verified 07/10/23 10:32) Unknown omeprazole [From PRILOSEC] Allergy (Unknown, Verified 07/10/23 10:32) Unknown simvastatin [From ZOCOR] Allergy (Unknown, Verified 07/10/23 10:32) Unknown oxycodone [Percocet] Adverse Reaction (Severe, Verified 07/10/23 10:32) Vomiting amlodipine Adverse Reaction (Intermediate, Verified 07/10/23 10:32) breast pain clobetasol Adverse Reaction (Intermediate, Verified 07/10/23 10:32) made psoriasis worse dexlansoprazole [From Kapidex] Adverse Reaction (Intermediate, Verified 07/10/23 10:32) hyper,watery stool Iodinated Contrast Media [IV CONTRAST] Adverse Reaction (Intermediate, Verified 07/10/23 10:32) Weakness, Lightheaded and confusion lansoprazole [Prevacid] Adverse Reaction (Intermediate, Verified 07/10/23 10:32) hyper, watery stool methotrexate [METHOTREXATE] Adverse Reaction (Intermediate, Verified 07/10/23 10:32) Muscle and joint pain ranitidine Adverse Reaction (Intermediate, Verified 07/10/23 10:32) weak, watery stool alirocumab [From Praluent Pen] Adverse Reaction (Mild, Verified 07/10/23 10:32) Generalized ecchymoses aspirin Adverse Reaction (Mild, Verified 07/10/23 10:32) one sided facial pain, green spots in eye esomeprazole [Nexium] Adverse Reaction (Mild, Verified 07/10/23 10:32) Gastrointestinal Upset pantoprazole [Protonix] Adverse Reaction (Mild, Verified 07/10/23 10:32) one sided headache, yellow streak in left eye fexofenadine [From [place]] Adverse Reaction (Verified 07/10/23 10:32) painful bones and muscles HPI HPI Comments History of Present Illness Details Mary is a pleasant female. She is a patient of Dr. Gutierrez. She is seen for the following urologic conditions - microscopic hematuria - abnormal urine cytology - bladder cancer Three-month follow-up cysto Areas of redness on posterior upper bladder wall consistent with chemotherapy changes Three-month follow-up cystoscopy Had some intolerance of treatment with sore mouth afterwards Bladder cancer - 11/06 - high-grade superficial, 06/09 TURBt low-grade superficial, 04/09 high-grade superficial Detected after evaluation for microscopic hematuria Interventions - TURBT 11/06 high-grade superficial, 01/17 2 BBx with fulgeration CIS, 06/09 low- grade superficial with MMC, 03/09 TURBT high-grade with fulguration Smoking history - 2nd exposure through Workplace exposure - plastics exposure, glue exposure Imaging - 10/06 CT urogram normal Cytology - 10/06 high-grade Adjuvant therapy - 11/06 6 week induction Gemcitabine, 3 w [place] boost 10/07, 04/09 reinduction 6 week MMC/cytarabine Therapeutic plan - continue surveillance PFSH Medical History 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 Bladder cancer Diastolic heart failure Recurrent UTI Osteopenia Allergic rhinitis Lung fibrosis Skin cancer History of rib fracture History of hemorrhoids Hiatal hernia Diverticular disease Pulmonary nodule Psoriasis Barretts esophagus GERD (gastroesophageal reflux disease) History of CVA (cerebrovascular accident) HLD (hyperlipidemia) Postoperative atrial fibrillation CAD (coronary artery disease) Asthma Polymyalgia rheumatica Surgical History History of transurethral resection of bladder tumor (TURBT) History of nasal surgery History of cystoscopy S/P trigger finger release Hx of CABG History of bladder suspension procedure History of tonsillectomy and adenoidectomy History of tonsillectomy Hx of hemorrhoidectomy Family History Father No problems noted. Mother No problems noted. Social History Housing: House Are you a primary healthcare applications analyst to a significant other at home: No Do you presently have visiting nurse or other home services: No Alcohol intake: never Patient Tobacco Use Status: Never used Tobacco e-Cigarette/Vaping Use: Never Used Second Hand Smoke Exposure: No Advance Directives Date on File: 08/29/16 service: No Current occupational status: retired Current occupation: rt hand Current occupational exposures/hazards: No Cognitive needs: No Hearing needs: No Vision needs: No Review of Systems Const Denies chills and Denies fever(s) Card Reports no additional complaints and Denies syncope Resp Denies cough GI Denies abdominal pain and Denies heartburn Reports as per HPI and Denies change in libido Neuro Denies syncope Psych Denies change in libido Endo Denies change in libido Physical Exam Const General: cooperative, healthy appearing, comfortable and no acute distress Orientation/consciousness: patient oriented x3 HEENT Face and sinus: Yes normal facial exam Mouth: moist mucous membranes Neck Neck: Yes normal visual inspection, Yes full ROM and Yes trachea midline Chest Chest palpation & inspection: normal inspection of the chest Resp Effort & Inspection: normal respiratory effort, able to speak in complete sentences and no respiratory distress GI Inspection: Yes normal to inspection Back/Spine/Pelvis Cervical Spine: normal cervical lordosis Thoracic/Lumbar Spine: thoracic and lumbar spine normal to inspection Skin General skin exam: no rashes or lesions noted Neuro General: patient oriented x3, gait normal, tone normal and moves all extremities Extrem General: Yes normal to inspection and Yes capillary refill normal Office Procedures Cystoscopy Consent Discussed risk and benefit or proposed procedure with the patient. Information consent for procedure given to the patient. Discussed technical aspects, risks, benefits and alternatives in full. Addressed all of the patient's questions and concerns regarding the procedure. The patient demonstrated knowledge and understanding. They wish to proceed with this procedure. Preparation The patient was prepped in the usual manner. A criminal lawyer was present and in the room. Genitalia was prepped with betadine solution in a sterile manner. Lidocaine Jelly 2% was placed into the urethra and 16Fr flexible Olympus cystoscope was inserted into the meatus after adequate lubrication. Procedure Meatus caruncle Urethra normal Bladder examination with retroflexion of cystoscope Bladder Orifices normal shape and position Trigone normal Bladder Capacity medium Trabeculations grade 1 Cellule Formation - Diverticulum Formation - Mucosal Erythema posterior midline upper Bladder Tumor prior scarring 24590-Blouotospm DISPOSABLE SCOPE URO-G FLEXIBLE SCOPE Procedure code (CPT) selection complete Office Meds lidocaine HCl 2 % mucosal jelly in applicator Performing Provider: Celio Mix MD Performing Location: [facility] Administered by: Anibal Reyes LPN on 07/10/23 10:36 Dose Route Admin Location Dispensed Lot Number Expiration Date NDC Egyptologist 10 mL intra-urethral 10 mL nitrofurantoin monohydrate/macrocrystals 100 mg capsule Performing Provider: Celio Mix MD Performing Location: [facility] Administered by: Anibal Reyes LPN on 07/10/23 10:36 Dose Route Admin Location Dispensed Lot Number Expiration Date NDC Egyptologist 100 mg PO 1 cap naproxen 500 mg tablet Performing Provider: Celio Mix MD Performing Location: [facility] Administered by: Anibal Reyes LPN on 07/10/23 10:36 Dose Route Admin Location Dispensed Lot Number Expiration Date NDC Egyptologist 500 mg PO 1 tab Results AMB Urinalysis, Automated UA Leukoctes 15 Mark/uL Last Edit by Carrie Fitch CMA on 07/10/23 10:28 UA Nitrite Negative Last Edit by Carrie Fitch CMA on 07/10/23 10: 28 UA Urobilinogen 0.2 mg/dL Last Edit by Carrie Fitch CMA on 4 10:28 UA Protein 30 mg/dL Last Edit by Carrie Fitch CMA on 07/10/23 10:2 8 UA pH 5.5 Last Edit by Carrie Fitch [facility] on 07/10/23 10:28 UA Blood 25 Sushant/uL Last Edit by Carrie Fitch [facility] on 07/10/23 10:28 UA Specific [place] 1.030 Last Edit by Carrie Fitch [facility] on 10:28 UA Ketone Positive Last Edit by Carrie Fitch [facility] on 07/10/23 10:2 8 5mg/dl Carrie Fitch 07/10/23 10:28 UA Bilirubin 1 mg/dL Last Edit by Carrie Fitch [facility] on 07/10/23 10: 28 UA Glucose 0 mg/dL Last Edit by Carrie Fitch [facility] on 07/10/23 10:28 Results Reviewed Results Reviewed: Laboratory Last Values Urine pH (Auto) 5.5 07/10/23 10:19 Specific [place] (Auto) 1.030 07/10/23 10:19 Urine Protein (Auto) 30 mg/dL 07/10/23 10:19 Glucose (UA)(Auto) 0 mg/dL 07/10/23 10:19 Urine Ketones (Auto) Positive 07/10/23 10:19 Urine Blood (Auto) 25 Sushant/uL 07/10/23 10:19 Urine Nitrite (Auto) Negative 07/10/23 10:19 Urine Bilirubin (Auto) 1 mg/dL 07/10/23 10:19 Urine Urobilinogen (Auto) 0.2 mg/dL 07/10/23 10:19 Leukocyte Esterase (Auto) 15 Mark/uL 07/10/23 10:19 Assessment & Plan Assessment & Plan (1) Urinary bladder cancer: Comment: - High-grade papillary urothelial carcinoma, non-invasive. Bladder biopsy with extensive fulguration left-sided bladder Dr. iMx October 2021, January 2022 - 02/06 CIS TURBT and gemcitabine instillation Dr. Mix May 2022 biopsy 02/2023 high grade papillary carcinoma Code(s): C67.9 - Malignant neoplasm of bladder, unspecified Qualifiers: Bladder location: unspecified site Qualified Code(s): C67.9 - Malignant neoplasm of bladder, unspecified Plan Bladder surveillance Orders: Orders Urine Cytology Today C67.9 - Malignant neoplasm of bladder, unspecified, N39.0 - Urinary tract infection, site not specified AMB Cystoscopy Today C67.9 - Malignant neoplasm of bladder, unspecified AMB Urinalysis Automated Today Z13.9 - Encounter for screening, unspecified Patient Instructions: Imaging studies, laboratory and physical exam results were discussed and reviewed in detail. No major barriers to patient understanding were identified. An opportunity to ask questions regarding the treatment plan was provided. All questions were answered. The patient expressed understanding and agreement with the above treatment plan. The patient is aware they should contact our office by phone for worsening of their current condition or the appearance of new urologic symptoms. Compliance is encouraged with any medications and followup testing that is ordered. It is a privilege to participate in the urologic care of your patient. If you have any questions or concerns regarding treatment for the above conditions, or other urologic issues, please do not hesitate to contact me. The office telephone contact is [phone]. This note is constructed using voice recognition software. While every effort has been made to ensure accuracy egyptologist errors may have been included. Yours sincerely, Dr Celio Mix MD, [facility] - Urology Providers of Expert, Compassionate Care for the Genitourinary System Coding Level of Care Code Procedure Only Diagnoses Malignant neoplasm of urinary bladder, unspecified site C67.9 Bladder location: unspecified site CPT Codes Cystoscopy - CPT: 41895-[id number] ([id number])
== END 2023-07-10 10:54 | disposition home or self-care (01) ==
PROVIDERS: PCP Internal Medicine; Visit Provider Urology
DX: C67.4 Malignant neoplasm of posterior wall of bladder (principal); Z13.9 Encounter for screening, unspecified
CPT/HCPCS: 52000

== ENCOUNTER 2023-08-11 09:41 | Outpatient (AMB) | payer MEDICARE, SELFPAY ==
--- NOTE | 2023-08-11 09:59 | A.OFFVIS_ITS ---
Intake Vital Signs 08/11/23 10:00 Height 5 ft 1 in BP 120/60 Blood Pressure Location Lt brachial Position Sitting Pulse 59 Pulse Source Pulse Oximeter Pulse Oximetry (%) 98 Oxygen Delivery Method Room Air Intake Visit Reasons: Pulmonary Fibrosis Intake Note: pt is here for follow up and states she is having an issue with weakness, some short of breath with exertion that just started. Had lab work due to black stools for Dr. Boyce 6 years since double pass. Dental Amalgam Processor Required: No Allergies Penicillins Allergy (Severe, Verified 08/11/23 10:22) Anaphylaxis tamsulosin [Flomax] Allergy (Severe, Verified 08/11/23 10:22) severe chest pains ibuprofen [IBUPROFEN] Allergy (Intermediate, Verified 08/11/23 10:22) Rash, hives amoxicillin Allergy (Mild, Verified 08/11/23 10:22) Hives, bad rash levofloxacin [From LEVAQUIN] Allergy (Mild, Verified 08/11/23 10:22) Rash rabeprazole Allergy (Mild, Verified 08/11/23 10:22) Unknown Sulfa (Sulfonamide Antibiotics) Allergy (Mild, Verified 08/11/23 10:22) Rash atorvastatin Allergy (Unknown, Verified 08/11/23 10:22) Unknown Bifidobacterium infantis [Align] Allergy (Unknown, Verified 08/11/23 10:22) Unknown clarithromycin [Prevpac] Allergy (Unknown, Verified 08/11/23 10:22) Unknown omeprazole [From PRILOSEC] Allergy (Unknown, Verified 08/11/23 10:22) Unknown simvastatin [From ZOCOR] Allergy (Unknown, Verified 08/11/23 10:22) Unknown oxycodone [Percocet] Adverse Reaction (Severe, Verified 08/11/23 10:22) Vomiting amlodipine Adverse Reaction (Intermediate, Verified 08/11/23 10:22) breast pain clobetasol Adverse Reaction (Intermediate, Verified 08/11/23 10:22) made psoriasis worse dexlansoprazole [From Kapidex] Adverse Reaction (Intermediate, Verified 08/11/23 10:22) hyper,watery stool Iodinated Contrast Media [IV CONTRAST] Adverse Reaction (Intermediate, Verified 08/11/23 10:22) Weakness, Lightheaded and confusion lansoprazole [Prevacid] Adverse Reaction (Intermediate, Verified 08/11/23 10:22) hyper, watery stool methotrexate [METHOTREXATE] Adverse Reaction (Intermediate, Verified 08/11/23 10:22) Muscle and joint pain ranitidine Adverse Reaction (Intermediate, Verified 08/11/23 10:22) weak, watery stool alirocumab [From Praluent Pen] Adverse Reaction (Mild, Verified 08/11/23 10:22) Generalized ecchymoses aspirin Adverse Reaction (Mild, Verified 08/11/23 10:22) one sided facial pain, green spots in eye esomeprazole [Nexium] Adverse Reaction (Mild, Verified 08/11/23 10:22) Gastrointestinal Upset pantoprazole [Protonix] Adverse Reaction (Mild, Verified 08/11/23 10:22) one sided headache, yellow streak in left eye fexofenadine [From [place]] Adverse Reaction (Verified 08/11/23 10:22) painful bones and muscles Medication List - Last Reconciled 08/11/23 by Balaji Espino MD cetirizine (Zyrtec) 10 mg PO BEDTIME clopidogrel 75 mg PO DAILY dupilumab (Dupixent) 300 mg subcut Q2W ezetimibe 10 mg PO DAILY fluorouracil 5% 1 appl topical BID fluticasone propionate 50 mcg/actuation 1 spray intranasal DAILY PRN furosemide 20 mg PO DAILY metoprolol succinate ER 12.5 mg (1/2 x 25 mg) PO DAILY prednisone 2 mg PO DAILY triamcinolone acetonide 0.1% 1 appl topical BID-TID [Tums PRN] Do you need a note to return to daycare/school/sports/work: No HPI Pulmonary Fibrosis HPI Details Mary is 82 years old very pleasant female who is here for her yearly follow-up for pulmonary fibrosis. As far as pulmonary fibrosis concerned she has stayed very stable and remains asymptomatic and not requiring any medical treatment. She is nonsmoker, ,has very little cough Her recent issue is that she has been feeling more short of breath on usual walking and also feeling somewhat more tired. She reports that in May of this year she did have black stools and was checked for any active bleeding, her CBC showed hemoglobin of 11.8 g not much lower than before. She has recovered from her weakness and is starting to feel but. This patient has been started on Dupixent injection 300 mg subQ q.2 weeks treatment of or chronic eczema. The skin condition is much better. 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 Bladder cancer Diastolic heart failure Recurrent UTI Osteopenia Allergic rhinitis Lung fibrosis Skin cancer History of rib fracture History of hemorrhoids Hiatal hernia Diverticular disease Pulmonary nodule Psoriasis Barretts esophagus GERD (gastroesophageal reflux disease) History of CVA (cerebrovascular accident) HLD (hyperlipidemia) Postoperative atrial fibrillation CAD (coronary artery disease) Asthma Polymyalgia rheumatica Surgical History History of transurethral resection of bladder tumor (TURBT) History of nasal surgery History of cystoscopy S/P trigger finger release Hx of CABG History of bladder suspension procedure History of tonsillectomy and adenoidectomy History of tonsillectomy Hx of hemorrhoidectomy Family History Father No problems noted. Mother No problems noted. Social History Housing: House Are you a primary director of health care marketing to a significant other at home: No Do you presently have visiting nurse or other home services: No Alcohol intake: never Patient Tobacco Use Status: Never used Tobacco e-Cigarette/Vaping Use: Never Used Second Hand Smoke Exposure: No Advance Directives Date on File: 08/29/16 service: No Current occupational status: retired Current occupation: rt hand Current occupational exposures/hazards: No Cognitive needs: No Hearing needs: No Vision needs: No Review of Systems Const All systems reviewed & are unremarkable except as noted in HPI and below Eyes Reports no additional complaints ENT Reports nasal congestion (Mild off and on) Card Denies irregular heart rhythm, Denies leg edema and Reports dyspnea on exertion (Mild) Resp Reports as per HPI and Reports dyspnea on exertion (Mild) GI Reports no additional complaints Reports no additional complaints Musc Reports back pain (Mild stiffness) and Reports arthralgias (Mostly in the knees) Skin/Breast Reports system reviewed and no additional complaints, except as documented Neuro Reports no additional complaints Psych Reports no additional complaints Physical Exam Vital Signs: Last Vital Signs Pulse 59 03/26/24 10:00 BP 120/60 08/11/23 10:00 Pulse Ox 98 08/11/23 10:00 Oxygen Delivery Method Room Air 08/11/23 10:00 Const General: comfortable, no acute distress, alert and awake Orientation/consciousness: patient oriented x3 HEENT Head: Yes normal to inspection General nose exam: No nasal polyps present and No nasal discharge present Face and sinus: Yes sinuses nontender Mouth: oropharynx normal Throat: Yes posterior oropharynx normal Eyes General: appearance normal, both eyes and all related structures Neck Neck: Yes normal visual inspection, Yes no lymphadenopathy, Yes trachea midline and Yes no JVD Thyroid: Thyroid normal Chest Chest palpation & inspection: abnormal inspection of the chest (She has mid sternal scar from previous cardiac surgery), normal palpation of entire chest wall and no tenderness Resp Other: Percussion note is resonant, she has equal breath sounds on both sides. A few fine inspiratory crackles over the basilar areas, no wheezes. Cardio Palpation: normal PMI Rate: regular rate Rhythm: regular rhythm Heart sounds: no gallops and no murmurs GI Palpation (GI): Soft to palpation, nontender, No hepatosplenomegaly present and no masses Auscultation: normal bowel sounds Back/Spine/Pelvis Thoracic/Lumbar Spine: thoracic and lumbar spine normal to inspection and thoraco-lumbar ROM limited Skin General skin exam: no rashes or lesions noted Neuro General: patient oriented x3 and no focal motor deficits Cranial nerves: Yes CN's II-XII intact bilaterally Extrem General: Yes normal to inspection, Yes no clubbing, cyanosis or edema and Yes no calf tenderness Psych Appearance: grossly normal and well kempt Speech and movement: Normal speech and movement present Assessment & Plan Assessment & Plan (1) Lung fibrosis: Comment: She has Mild sub plural Fibrotic changes in mid and lower parts of lungs. as per CT scan . last CT scan one year ago , was stable . PULMONARY FUNCTION TEST ON 07/22/2022: Showed mild restrictive disorder but no obstructive airway disorder. Code(s): J84.10 - Pulmonary fibrosis, unspecified Plan: TX: Does not need any treatment at this time except for albuterol HFA 2 puffs Q 4-6 hours p.r.n. if the cough becomes persistent. (2) Allergic rhinitis: Comment: She has chronic but mild allergic rhinitis. It is well controlled with use of Flonase 2 spray each nostril daily and loratadine 10 mg once a day p.r.n.. Code(s): J30.9 - Allergic rhinitis, unspecified Plan: Continue to use Flonase 1 or 2 spray in each nostril daily. Loratadine 10 mg once a day only p.r.n. Coding Level of Care Code Est Pt Level 3 (28375) Diagnoses Lung fibrosis J84.10 Allergic rhinitis J30.9
[2023-08-11 10:00] VITALS: BP 120/60; PULSE 59; O2SAT 98
== END 2023-08-11 10:31 | disposition home or self-care (01) ==
PROVIDERS: PCP Internal Medicine; Visit Provider Internal Medicine
DX: J84.10 Pulmonary fibrosis, unspecified (principal); J30.9 Allergic rhinitis, unspecified
CPT/HCPCS: 99213

== ENCOUNTER → 2023-08-11 09:41 | Outpatient (BNVA) | payer MEDICARE, SELFPAY | PROVIDERS: PCP Internal Medicine; Visit Provider Internal Medicine | DX: J84.10 Pulmonary fibrosis, unspecified (principal); J30.9 Allergic rhinitis, unspecified | CPT/HCPCS: 99212 ==

== ENCOUNTER 2023-09-15 14:21 | Outpatient (AMB) | payer MEDICARE, SELFPAY ==
[2023-09-15 14:23] VITALS: BP 130/72; PULSE 68; O2SAT 97; BMI 26.8
--- NOTE | 2023-09-15 14:23 | MHC.PC.OV ---
Vital Signs 09/15/23 14:23 Height 5 ft 1 in Weight 142 lb BMI 26.8 BP 130/72 Blood Pressure Location Lt brachial Position Sitting Pulse 68 Pulse Source Pulse Oximeter Pulse Oximetry (%) 97 Oxygen Delivery Method Room Air Intake Visit Reasons: 3 month f/u Intake Note: Requesting bone density. And refill on Loratadine Allergies Penicillins Allergy (Severe, Verified 09/15/23 14:23) Anaphylaxis tamsulosin [Flomax] Allergy (Severe, Verified 09/15/23 14:23) severe chest pains ibuprofen [IBUPROFEN] Allergy (Intermediate, Verified 09/15/23 14:23) Rash, hives amoxicillin Allergy (Mild, Verified 09/15/23 14:23) Hives, bad rash levofloxacin [From LEVAQUIN] Allergy (Mild, Verified 09/15/23 14:23) Rash rabeprazole Allergy (Mild, Verified 09/15/23 14:23) Unknown Sulfa (Sulfonamide Antibiotics) Allergy (Mild, Verified 09/15/23 14:23) Rash atorvastatin Allergy (Unknown, Verified 09/15/23 14:23) Unknown Bifidobacterium infantis [Align] Allergy (Unknown, Verified 09/15/23 14:23) Unknown clarithromycin [Prevpac] Allergy (Unknown, Verified 09/15/23 14:23) Unknown omeprazole [From PRILOSEC] Allergy (Unknown, Verified 09/15/23 14:23) Unknown simvastatin [From ZOCOR] Allergy (Unknown, Verified 09/15/23 14:23) Unknown oxycodone [Percocet] Adverse Reaction (Severe, Verified 09/15/23 14:23) Vomiting amlodipine Adverse Reaction (Intermediate, Verified 09/15/23 14:23) breast pain clobetasol Adverse Reaction (Intermediate, Verified 09/15/23 14:23) made psoriasis worse dexlansoprazole [From Kapidex] Adverse Reaction (Intermediate, Verified 09/15/23 14:23) hyper,watery stool Iodinated Contrast Media [IV CONTRAST] Adverse Reaction (Intermediate, Verified 09/15/23 14:23) Weakness, Lightheaded and confusion lansoprazole [Prevacid] Adverse Reaction (Intermediate, Verified 09/15/23 14:23) hyper, watery stool methotrexate [METHOTREXATE] Adverse Reaction (Intermediate, Verified 09/15/23 14:23) Muscle and joint pain ranitidine Adverse Reaction (Intermediate, Verified 09/15/23 14:23) weak, watery stool alirocumab [From Praluent Pen] Adverse Reaction (Mild, Verified 09/15/23 14:23) Generalized ecchymoses aspirin Adverse Reaction (Mild, Verified 09/15/23 14:23) one sided facial pain, green spots in eye esomeprazole [Nexium] Adverse Reaction (Mild, Verified 09/15/23 14:23) Gastrointestinal Upset pantoprazole [Protonix] Adverse Reaction (Mild, Verified 09/15/23 14:23) one sided headache, yellow streak in left eye fexofenadine [From [place]] Adverse Reaction (Verified 09/15/23 14:23) painful bones and muscles Tobacco use date assessed: 06/12/23 Fall risk assessment: No Falls in past year Last assessed Fall Risk: 09/15/23 Dental Screening Dental Screen Date: 06/12/23 HPI 3 month f/u HPI Details 83-year-old female with coronary artery disease hypercholesterolemia hypertension GERD/Quiroz's urinary bladder cancer coming in for follow-up. Last seen in May 2023. Mammogram is due in May 2022 bone density August 2021 patient has pulmonary fibrosis being followed up by Pulmonary this is stable. 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 Bladder cancer Diastolic heart failure Recurrent UTI Osteopenia Allergic rhinitis Lung fibrosis Skin cancer History of rib fracture History of hemorrhoids Hiatal hernia Diverticular disease Pulmonary nodule Psoriasis Barretts esophagus GERD (gastroesophageal reflux disease) History of CVA (cerebrovascular accident) HLD (hyperlipidemia) Postoperative atrial fibrillation CAD (coronary artery disease) Asthma Polymyalgia rheumatica Surgical History History of transurethral resection of bladder tumor (TURBT) History of nasal surgery History of cystoscopy S/P trigger finger release Hx of CABG History of bladder suspension procedure History of tonsillectomy and adenoidectomy History of tonsillectomy Hx of hemorrhoidectomy Family History Father No problems noted. Mother No problems noted. Social History Housing: House Are you a primary healthcare architect to a significant other at home: No Do you presently have visiting nurse or other home services: No Alcohol intake: never Patient Tobacco Use Status: Never used Tobacco e-Cigarette/Vaping Use: Never Used Second Hand Smoke Exposure: No Advance Directives Date on File: 08/29/16 service: No Current occupational status: retired Current occupation: rt hand Current occupational exposures/hazards: No Cognitive needs: No Hearing needs: No Vision needs: No Questionnaire PHQ-9 Over the last 2 weeks, how often have you been bothered by any of the following problems? 1. Little interest or pleasure in doing things: not at all 2. Feeling down, depressed, or hopeless: not at all 3. Trouble falling or staying asleep, or sleeping too much: not at all 4. Feeling tired or having little energy: not at all 5. Poor appetite or overeating: not at all 6. Feeling bad about yourself - or that you are a failure or have let yourself or your family down: not at all 7. Trouble concentrating on things, such as reading the newspaper or watching television: not at all 8. Moving or speaking so slowly that other people could have noticed. Or the opposite - being so fidgety or restless that you have been moving around a lot more than usual: not at all 9. Thoughts that you would be better off or of hurting yourself in some way: not at all Total score: 0 Depression Screening Interpretation: Negative Depression Screening Done: Yes Source: Developed by Drs. Librado Fraser, Ingris Fuentes, Harry Acevedo and colleagues, with an educational marissa from [employer]. Thrive Questionnaire Date Thrive assessed: 09/15/23 I am a: Patient What is your living situation today?: I have a steady place to live Within the past 12 months, did the food you bought not last and you didn't have the money to get more?: Never true Within the past 12 months, did you worry whether your food would run out before you got money to buy more?: Never true Do you have trouble paying for medicines?: No Do you have trouble getting transportation to medical appointments?: No Do you have trouble paying your heating and electricity bill?: No Do you have trouble taking care of your child, family member or friend?: No Do you have trouble with day-to-day activities such as bathing, preparing meals, shopping, managing finances, etc.?: No Are you currently unemployed and looking for a job?: No Are you interested in more education?: No Currently or been in a relationship where the following occur: no concerns reported THRIVE Score: 0 AUDIT C Alcohol Use Questionnaire (AUDIT-C) 1. How often do you have a drink containing alcohol?: Never 2. How many drinks containing alcohol do you have on a typical day when you are drinking?: 1 or 2 (0) 3. How often do you have six or more drinks on one occasion?: Never Total Score: 0 Score Reviewed/Action Taken: Yes BIRDIE-7 AMB Questionnaire BIRDIE-7 Date BIRDIE - 7 assessed: 06/12/23 Source: Developed by Drs. Librado Fraser, Ingris Fuentes, Harry Acevedo and colleagues, with an educational marissa from [employer]. Physical exam (Primary Care) Vital Signs: Last Vital Signs Pulse 68 09/15/23 14:23 BP 130/72 09/15/23 14:23 Pulse Ox 97 09/15/23 14:23 Oxygen Delivery Method Room Air 09/15/23 14:23 BMI result Body Mass Index 26.8 Tobacco/Smoking Status: Tobacco use Status Tobacco use date assessed 06/12/23 09/15/23 14:24 Patient Tobacco Use Status Never used Tobacco 09/15/23 14:24 e-Cigarette/Vaping Use Never Used 09/15/23 14:24 PHQ-9: PHQ-9 Score PHQ-9: Total score 0 09/15/23 14:36 Depression Screening Interpretation: Negative Thrive Assessment: Date of Thrive Assessment Date Thrive assessed 09/15/23 09/15/23 14:24 Currently or been in a relationship where the following occur: no concerns reported Const General: alert; No acute distress Eyes Conjunctivae: conjunctivae normal Resp Auscultation: clear to auscultation bilaterally Cardio Rate: regular rate Rhythm: regular rhythm GI Inspection: Yes normal to inspection Extrem General: Yes normal to inspection and No edema Assessment and Plan Assessment & Plan (1) CAD (coronary artery disease): Comment: CABG x2 2017 WHITAKER to LAD, SVG to OM Dr. Godoy Code(s): I25.10 - Atherosclerotic heart disease of holy cross coronary artery without angina pectoris Qualifiers: Coronary Disease-Associated Artery/Lesion type: holy cross artery [place] vs. transplanted heart: holy cross heart Associated angina: without angina Qualified Code(s): I25.10 - Atherosclerotic heart disease of [place] coronary artery without angina pectoris Plan: Control the cholesterol, weight, blood pressure, diabetes on clopidogrel 75 mg once a day due to allergies to aspirin (2) HLD (hyperlipidemia): Code(s): E78.5 - Hyperlipidemia, unspecified Qualifiers: Hyperlipidemia type: mixed hyperlipidemia Qualified Code(s): E78.2 - Mixed hyperlipidemia Plan: Avoid fried foods, chicken skin, eggs, butter margarine, pastries and meat. Be it pork or beef they have a lot of cholesterol LDL goal of less than 70 and triglyceride of less than 150. Will need blood work (3) Polymyalgia rheumatica: Code(s): M35.3 - Polymyalgia rheumatica Plan: Patient continuing on prednisone (4) Barretts esophagus: Comment: January 2012 no more Code(s): K22.70 - Quiroz's esophagus without dysplasia Qualifiers: Quiroz's esophagus type: without dysplasia Qualified Code(s): K22.70 - Quiroz's esophagus without dysplasia Plan: Avoid the foods that causes that usually spicy foods, tomato products, juices, coffee, soda and foods that your sensitive to. After eating do not lie down, allow 3-4 hours before in lie down. And keep the head of bed above 30 degrees to avoid the acid from going up. (5) Lung fibrosis: Comment: She has Mild sub plural Fibrotic changes in mid and lower parts of lungs. as per CT scan . last CT scan one year ago , was stable . PULMONARY FUNCTION TEST ON 07/22/2022: Showed mild restrictive disorder but no obstructive airway disorder. Code(s): J84.10 - Pulmonary fibrosis, unspecified Plan: Continue to follow-up with Pulmonary (6) HTN (hypertension): Code(s): I10 - Essential (primary) hypertension Qualifiers: Hypertension type: primary hypertension Qualified Code(s): I10 - Essential (primary) hypertension Plan: Continue with blood pressure medication. Decrease salt intake and exercise takes metoprolol 12.5 mg once a day (7) Urinary bladder cancer: Comment: - High-grade papillary urothelial carcinoma, non-invasive. Bladder biopsy with extensive fulguration left-sided bladder Dr. Mix October 2021, January 2022 - 02/06 CIS TURBT and gemcitabine instillation Dr. Mix May 2022 biopsy 02/2023 high grade papillary carcinoma Code(s): C67.9 - Malignant neoplasm of bladder, unspecified Qualifiers: Bladder location: unspecified site Qualified Code(s): C67.9 - Malignant neoplasm of bladder, unspecified Plan: Patient follows up with urology (8) Osteopenia: Code(s): M85.80 - Other specified disorders of bone density and structure, unspecified site Qualifiers: Osteopenia location: multiple sites Qualified Code(s): M85.89 - Other specified disorders of bone density and structure, multiple sites Orders: Orders B Type Natriuretic Peptide 3 Months I50.30 - Unspecified diastolic (congestive) heart failure Thyroid Stimulating Hormone 3 Months E78.2 - Mixed hyperlipidemia Vitamin B12 and Folate 3 Months E78.2 - Mixed hyperlipidemia Magnesium 3 Months I25.10 - Atherosclerotic heart disease of [place] coronary artery without angina pectoris XR DEXA axial skeleton Today M81.0 - Age-related osteoporosis without current pathological fracture, M85.89 - Other specified disorders of bone density and structure, multiple sites Lipid Panel 3 Months E78.00 - Pure hypercholesterolemia, unspecified, E78.2 - Mixed hyperlipidemia Complete Blood Count Auto Diff 3 Months E78.2 - Mixed hyperlipidemia Comprehensive Met. Panel 3 Months E78.2 - Mixed hyperlipidemia Free T4 (Free Thyroxine) 3 Months E78.2 - Mixed hyperlipidemia Vitamin D 25-OH Total 3 Months E78.2 - Mixed hyperlipidemia UA CC w/rflx Micro + Cult 2 Months C67.9 - Malignant neoplasm of bladder, unspecified, R30.0 - Dysuria Medications: New loratadine 10 mg PO DAILY 90 tabs 3RF M85.89 - Other specified disorders of bone density and structure, multiple sites Coding Level of Care Code Est Pt Level 4 (66037) Diagnoses Coronary artery disease involving holy cross coronary artery of holy cross heart without angina pectoris I25.10 Coronary Disease-Associated Artery/Lesion type: holy cross artery [place] vs. transplanted heart: holy cross heart Associated angina: without angina Mixed hyperlipidemia E78.2 Hyperlipidemia type: mixed hyperlipidemia Polymyalgia rheumatica M35.3 Quiroz's esophagus without dysplasia K22.70 Quiroz's esophagus type: without dysplasia Lung fibrosis J84.10 Primary hypertension I10 Hypertension type: primary hypertension Malignant neoplasm of urinary bladder, unspecified site C67.9 Bladder location: unspecified site Osteopenia of multiple sites M85.89 Osteopenia location: multiple sites
== END 2023-09-15 15:02 | disposition home or self-care (01) ==
LOC: HO.HMGH 14:21
PROVIDERS: PCP Internal Medicine; Visit Provider Internal Medicine
DX: I25.10 Atherosclerotic heart disease of native coronary artery without angina pectoris (principal); M35.3 Polymyalgia rheumatica; C67.9 Malignant neoplasm of bladder, unspecified; J84.10 Pulmonary fibrosis, unspecified; E78.2 Mixed hyperlipidemia; K22.70 Barrett's esophagus without dysplasia; I10 Essential (primary) hypertension; M85.89 Other specified disorders of bone density and structure, multiple sites
CPT/HCPCS: 99214

== ENCOUNTER 2023-10-08 09:42 | Outpatient (REF) | payer MEDICARE, SELFPAY ==
[2023-10-08 16:24] LABS: Urine Cytology See Pathology rpt
== END 2023-10-08 09:43 | disposition home or self-care (01) ==
LOC: HO.LAB 09:42
PROVIDERS: PCP Internal Medicine; Visit Provider Urology
DX: C67.9 Malignant neoplasm of bladder, unspecified (principal)
CPT/HCPCS: 52000; 81003; 88112

== ENCOUNTER 2023-10-08 09:42 | Outpatient (AMB) | payer MEDICARE, SELFPAY ==
--- NOTE | 2023-10-08 10:03 | MHC.OFFVIS ---
Intake Visit Reasons: cysto Intake Note: Patient is Present for Cystoscopy Urology Med: Antibiotic Allergy: Penicillins, Amoxicillin, Levofloxacin, Sulfa Antibiotic, Clarithromycin, Blood Thinner: Clopidogrel URO- G Disposable Cystoscope lot: [id number] exp:06/18/26 Allergies Penicillins Allergy (Severe, Verified 10/08/23 10:04) Anaphylaxis tamsulosin [Flomax] Allergy (Severe, Verified 10/08/23 10:04) severe chest pains ibuprofen [IBUPROFEN] Allergy (Intermediate, Verified 10/08/23 10:04) Rash, hives amoxicillin Allergy (Mild, Verified 10/08/23 10:04) Hives, bad rash levofloxacin [From LEVAQUIN] Allergy (Mild, Verified 10/08/23 10:04) Rash rabeprazole Allergy (Mild, Verified 10/08/23 10:04) Unknown Sulfa (Sulfonamide Antibiotics) Allergy (Mild, Verified 10/08/23 10:04) Rash atorvastatin Allergy (Unknown, Verified 10/08/23 10:04) Unknown Bifidobacterium infantis [Align] Allergy (Unknown, Verified 10/08/23 10:04) Unknown clarithromycin [Prevpac] Allergy (Unknown, Verified 10/08/23 10:04) Unknown omeprazole [From PRILOSEC] Allergy (Unknown, Verified 10/08/23 10:04) Unknown simvastatin [From ZOCOR] Allergy (Unknown, Verified 10/08/23 10:04) Unknown oxycodone [Percocet] Adverse Reaction (Severe, Verified 10/08/23 10:04) Vomiting amlodipine Adverse Reaction (Intermediate, Verified 10/08/23 10:04) breast pain clobetasol Adverse Reaction (Intermediate, Verified 10/08/23 10:04) made psoriasis worse dexlansoprazole [From Kapidex] Adverse Reaction (Intermediate, Verified 10/08/23 10:04) hyper,watery stool Iodinated Contrast Media [IV CONTRAST] Adverse Reaction (Intermediate, Verified 10/08/23 10:04) Weakness, Lightheaded and confusion lansoprazole [Prevacid] Adverse Reaction (Intermediate, Verified 10/08/23 10:04) hyper, watery stool methotrexate [METHOTREXATE] Adverse Reaction (Intermediate, Verified 10/08/23 10:04) Muscle and joint pain ranitidine Adverse Reaction (Intermediate, Verified 10/08/23 10:04) weak, watery stool alirocumab [From Praluent Pen] Adverse Reaction (Mild, Verified 10/08/23 10:04) Generalized ecchymoses aspirin Adverse Reaction (Mild, Verified 10/08/23 10:04) one sided facial pain, green spots in eye esomeprazole [Nexium] Adverse Reaction (Mild, Verified 10/08/23 10:04) Gastrointestinal Upset pantoprazole [Protonix] Adverse Reaction (Mild, Verified 10/08/23 10:04) one sided headache, yellow streak in left eye fexofenadine [From [place]] Adverse Reaction (Verified 10/08/23 10:04) painful bones and muscles HPI Comments Details: Mary is a pleasant female. She is a patient of Dr. Gutierrez. She is seen for the following urologic conditions - microscopic hematuria - abnormal urine cytology - bladder cancer Follow-up cystoscopy Needs boost therapy Minor areas of redness around extensive scarring FISH sent Had some intolerance of treatment with sore mouth afterwards Bladder cancer - 11/06 - high-grade superficial, 06/09 TURBt low-grade superficial, 04/09 high-grade superficial Detected after evaluation for microscopic hematuria Interventions - TURBT 11/06 high-grade superficial, 02/06 BBx with fulgeration CIS, 06/09 low-grade superficial with MMC, 03/09 TURBT high-grade with fulguration Smoking history - 2nd exposure through Workplace exposure - plastics exposure, glue exposure Imaging - 10/06 CT urogram normal Cytology - 10/06 high-grade - 07/11 - atypical scant Adjuvant therapy - 11/06 6 week induction Gemcitabine, 3 week boost 10/07, 04/09 reinduction 6 week MMC/cytarabine, 10/08 three-week mitomycin-C cytarabine Therapeutic plan - continue surveillance [facility] Medical History (Updated 09/15/23 @ 14:53 by Mariya Gutierrez MD) UTI (urinary tract infection) Cardiac arrhythmia TSH elevation Age-related osteoporosis without current pathological fracture Painful breasts 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 Bladder cancer Diastolic heart failure Recurrent UTI Osteopenia Allergic rhinitis Lung fibrosis Skin cancer History of rib fracture History of hemorrhoids Hiatal hernia Diverticular disease Pulmonary nodule Psoriasis Barretts esophagus GERD (gastroesophageal reflux disease) History of CVA (cerebrovascular accident) HLD (hyperlipidemia) Postoperative atrial fibrillation CAD (coronary artery disease) Asthma Polymyalgia rheumatica Surgical History History of transurethral resection of bladder tumor (TURBT) History of nasal surgery History of cystoscopy S/P trigger finger release Hx of CABG History of bladder suspension procedure History of tonsillectomy and adenoidectomy History of tonsillectomy Hx of hemorrhoidectomy Family History Father No problems noted. Mother No problems noted. Social History Housing: House Are you a primary hearing care professional to a significant other at home: No Do you presently have visiting nurse or other home services: No Alcohol intake: never Patient Tobacco Use Status: Never used Tobacco e-Cigarette/Vaping Use: Never Used Second Hand Smoke Exposure: No Advance Directives Date on File: 08/29/16 service: No Current occupational status: retired Current occupation: rt hand Current occupational exposures/hazards: No Cognitive needs: No Hearing needs: No Vision needs: No Review of Systems Const Denies chills and Denies fever(s) Card Reports no additional complaints and Denies syncope Resp Denies cough GI Denies abdominal pain and Denies heartburn Reports as per HPI and Denies change in libido Neuro Denies syncope Psych Denies change in libido Endo Denies change in libido Physical Exam Const General: cooperative, healthy appearing, comfortable and no acute distress Orientation/consciousness: patient oriented x3 HEENT Face and sinus: Yes normal facial exam Mouth: moist mucous membranes Neck Neck: Yes normal visual inspection, Yes full ROM and Yes trachea midline Chest Chest palpation & inspection: normal inspection of the chest Resp Effort & Inspection: normal respiratory effort, able to speak in complete sentences and no respiratory distress GI Inspection: Yes normal to inspection Back/Spine/Pelvis Cervical Spine: normal cervical lordosis Thoracic/Lumbar Spine: thoracic and lumbar spine normal to inspection Skin General skin exam: no rashes or lesions noted Neuro General: patient oriented x3, gait normal, tone normal and moves all extremities Extrem General: Yes normal to inspection and Yes capillary refill normal Office Procedures Cystoscopy Consent Discussed risk and benefit or proposed procedure with the patient. Information consent for procedure given to the patient. Discussed technical aspects, risks, benefits and alternatives in full. Addressed all of the patient's questions and concerns regarding the procedure. The patient demonstrated knowledge and understanding. They wish to proceed with this procedure. Preparation The patient was prepped in the usual manner. A redye hand was present and in the room. Genitalia was prepped with betadine solution in a sterile manner. Lidocaine Jelly 2% was placed into the urethra and 16Fr flexible Olympus cystoscope was inserted into the meatus after adequate lubrication. Procedure Meatus caruncle Urethra normal Bladder examination with retroflexion of cystoscope Bladder Orifices normal shape and position Trigone normal Bladder Capacity average Trabeculations grade 2 Cellule Formation none Diverticulum Formation none Mucosal Erythema mucosal changes around prior resection sites. Some areas of redness. Consistent with prior scope. Bladder Tumor none [id number] DISPOSABLE SCOPE URO-G FLEXIBLE SCOPE Procedure code (CPT) selection complete Office Meds lidocaine HCl 2 % mucosal jelly in applicator Performing Provider: Celio Mix MD Performing Location: [facility] [place] Administered by: Emeli Sharpe RN on 10/08/23 10:14 Dose Route Admin Location Dispensed Lot Number Expiration Date NDC Manga Artist 10 mL intra-urethral 10 mL nitrofurantoin monohydrate/macrocrystals 100 mg capsule Performing Provider: Celio Mix MD Performing Location: [facility] [place] Administered by: Emeli Sharpe RN on 10/08/23 10:14 Dose Route Admin Location Dispensed Lot Number Expiration Date NDC Manga Artist 100 mg PO 1 cap naproxen 500 mg tablet Performing Provider: Celio Mix MD Performing Location: [facility] [place] Administered by: Emeli Sharpe RN on 10/08/23 10:14 Dose Route Admin Location Dispensed Lot Number Expiration Date NDC Manga Artist 500 mg PO 1 tab Results AMB Urinalysis, Automated UA Leukoctes 15 Mark/uL Last Edit by ANITA Salas on 10/08/23 10:17 UA Nitrite Negative Last Edit by ANITA Salas on 10/08/23 10:17 UA Urobilinogen 0.2 mg/dL Last Edit by ANITA Salas on 10/08/23 10:17 UA Protein 15 mg/dL Last Edit by Leticia Herrera RMA on 10/08/23 10:17 UA pH 5.5 Last Edit by Leticia Herrera RMA on 10/08/23 10:17 UA Blood 80 Sushant/uL Last Edit by Leticia Herrera, RMA on 10/08/23 10:17 UA Specific [place] 1.015 Last Edit by Leticia Herrera RMA on 10/08/23 10:17 UA Ketone Negative Last Edit by Leticia Herrera RMA on 10/08/23 10:17 UA Bilirubin 0 mg/dL Last Edit by Leticia Herrera, RMA on 10/08/23 10:17 UA Glucose 0 mg/dL Last Edit by Leticia Herrera A on 10/08/23 10:17 Results Reviewed Results Reviewed: Laboratory Last Values Urine pH (Auto) 5.5 10/08/23 10:05 Specific [place] (Auto) 1.015 10/08/23 10:05 Urine Protein (Auto) 15 mg/dL 10/08/23 10:05 Glucose (UA)(Auto) 0 mg/dL 10/08/23 10:05 Urine Ketones (Auto) Negative 10/08/23 10:05 Urine Blood (Auto) 80 Sushant/uL 10/08/23 10:05 Urine Nitrite (Auto) Negative 10/08/23 10:05 Urine Bilirubin (Auto) 0 mg/dL 10/08/23 10:05 Urine Urobilinogen (Auto) 0.2 mg/dL 10/08/23 10:05 Leukocyte Esterase (Auto) 15 Mark/uL 10/08/23 10:05 Assessment & Plan Assessment & Plan (1) Urinary bladder cancer: Comment: - High-grade papillary urothelial carcinoma, non-invasive. Bladder biopsy with extensive fulguration left-sided bladder Dr. Mix October 2021, January 2022 - 02/06 CIS TURBT and gemcitabine instillation Dr. Mix May 2022 biopsy 02/2023 high grade papillary carcinoma Code(s): C67.9 - Malignant neoplasm of bladder, unspecified Category: Medical Qualifiers: Bladder location: unspecified site Qualified Code(s): C67.9 - Malignant neoplasm of bladder, unspecified Plan Three-week follow-up mitomycin-C cytarabine maintenance Three-month follow-up cystoscopy Risks, benefits and alternatives to therapy were discussed. These include but are not limited to infection, bleeding, damage to local organs and tissues, need for further interventions. Anesthetic risks regarding cardiac arrhythmia, blood clots, and potential mortality were discussed. The patient understands the typical recovery time and the outpatient nature of the procedure. After consideration of these risks the patient gives full informed consent and they wish to move ahead with the procedure. Orders: Orders AMB Urinalysis Automated Today Z13.9 - Encounter for screening, unspecified AMB Cystoscopy Today C67.9 - Malignant neoplasm of bladder, unspecified Urine Cytology Today C67.9 - Malignant neoplasm of bladder, unspecified Patient Instructions: Imaging studies, laboratory and physical exam results were discussed and reviewed in detail. No major barriers to patient understanding were identified. An opportunity to ask questions regarding the treatment plan was provided. All questions were answered. The patient expressed understanding and agreement with the above treatment plan. The patient is aware they should contact our office by phone for worsening of their current condition or the appearance of new urologic symptoms. Compliance is encouraged with any medications and followup testing that is ordered. It is a privilege to participate in the urologic care of your patient. If you have any questions or concerns regarding treatment for the above conditions, or other urologic issues, please do not hesitate to contact me. The office telephone contact is [phone]. This note is constructed using voice recognition software. While every effort has been made to ensure accuracy sample examiner errors may have been included. Yours sincerely, Dr Celio Mix MD, [facility] - Urology Providers of Expert, Compassionate Care for the Genitourinary System Coding Level of Care Code Est Pt Level 4 (81808) Complex EM visit Add On G2211 Diagnoses Malignant neoplasm of urinary bladder, unspecified site C67.9 Bladder location: unspecified site CPT Codes Cystoscopy - CPT: [id number] ([id number])
== END 2023-10-08 10:42 | disposition home or self-care (01) ==
PROVIDERS: PCP Internal Medicine; Visit Provider Urology
DX: C67.8 Malignant neoplasm of overlapping sites of bladder (principal); Z13.9 Encounter for screening, unspecified
CPT/HCPCS: 52000

== ENCOUNTER 2023-12-17 09:39 | Outpatient (REF) | payer MEDICARE, SELFPAY ==
[2023-12-17 10:02] LABS: MANUAL DIFF FLAG NO
[2023-12-17 10:20] LABS: Appearance Urine Cloudy; Color Urine Yellow; Glucose Urine UA Negative (Negative); Leukocyte Esterase Urine Moderate (2+) (Negative); Nitrite Urine Negative (Negative); UMIC TRIGGER UA YES; UMIC TRIGGER UACC YES; Urine Blood Moderate (2+) (Negative); Urine Ketones Negative (Negative); Urine Protein 100 (2+) mg/dL (Neg-Trace)
[2023-12-17 10:25] LABS: Bacteria Urine None Seen (None Seen); UACC Culture Trigger YES; WBC Urine >50 /HPF (0-5)
[2023-12-17 10:47] LABS: Basophils Absolute Auto 0.1 X10*3/uL (0.0-0.2); Basophils Percent Auto 0.8 % (0-2); Eosinophils Absolute Auto 0.6 X10*3/uL (0.0-0.4); Eosinophils Percent Auto 8.5 % (0-4); Hematocrit 36.8 % (37.0-47.0); Hemoglobin 12.1 g/dl (12.0-16.0); Imm Gran Abs Auto 0.02 X10*3/uL (0.00-0.03); Imm Gran Pct Auto 0.3 % (0.0-0.4); Lymphocytes Absolute Auto 2.3 X10*3/uL (1.2-4.9); Mean Corpuscular HGB Conc 32.9 g/dl (31.0-35.0); Mean Corpuscular Hemoglobin 29.8 pg (27.0-33.0); Mean Corpuscular Volume 90.6 fL (80.0-98.0); Mean Platelet Volume 8.8 fL (9.4-12.3); Monocytes Absolute Auto 0.6 X10*3/uL (0.1-1.2); Monocytes Percent Auto 9.7 % (2-11); Neutrophils Absolute Auto 2.9 x10*3/uL (2.0-8.3); Neutrophils Percent Auto 44.7 % (45-73); Platelet Count 260 X10*3/uL (160-400); Red Blood Count 4.06 X10*6/uL (4.20-5.50); Red Cell Distribution Width 13.4 % (11.0-16.0); White Blood Count 6.5 X10*3/uL (4.8-10.8)
[2023-12-17 11:12] LABS: B Type Natriuretic Peptide 101 pg/mL (<100)
[2023-12-17 11:24] LABS: Alanine Aminotransferase 10 U/L (0-31); Alkaline Phosphatase 71 U/L (39-117); Anion Gap 10 (12-20); Aspartate Amino Transferase 16 U/L (5-31); Bilirubin Total 0.3 mg/dL (0.0-1.0); Blood Urea Nitrogen 13 mg/dL (9-16); Calcium 9.1 mg/dL (8.4-10.2); Carbon Dioxide 30 mmol/L (22-29); Chloride 104 mmol/L (96-108); Cholesterol 192 mg/dL (<200); Estimated Glomerular Filt Rate > 60; Glucose Random 93 mg/dL (60-115); HDL Cholesterol 51 mg/dL (>40); LDL Cholesterol Calculated 105 mg/dL (<100); Magnesium 2.2 mg/dL (1.6-2.6); Potassium 3.7 mmol/L (3.3-5.1); Sodium 140 mmol/L (135-145); Triglycerides 181 mg/dL (<150)
[2023-12-17 11:41] LABS: Free T4 (Free Thyroxine) 0.77 ng/dL (0.71-1.85); Thyroid Stimulating Hormone 3.99 uIU/mL (0.32-4.0); Vitamin D 25-OH Total 40.6 ng/mL (>30)
[2023-12-17 11:56] LABS: Folate 13.1 ng/mL (> or = 4.0); Vitamin B12 875 pg/mL (200-900)
== END 2023-12-17 09:40 | disposition home or self-care (01) ==
LOC: HO.LAB 09:39
PROVIDERS: PCP Internal Medicine; Visit Provider Internal Medicine
DX: I50.30 Unspecified diastolic (congestive) heart failure (principal); E78.00 Pure hypercholesterolemia, unspecified; E78.2 Mixed hyperlipidemia; I25.10 Atherosclerotic heart disease of native coronary artery without angina pectoris
CPT/HCPCS: 36415; 80053; 80061; 81001; 82306; 82607; 82746; 83735; 83880; 84439; 84443; 85025; 87086

== ENCOUNTER 2024-01-08 10:30 | Outpatient (REF) | payer MEDICARE, SELFPAY | END 2024-01-08 10:31 | disposition home or self-care (01) | LOC: HO.LAB 10:30 | PROVIDERS: PCP Internal Medicine; Visit Provider Urology | DX: C67.9 Malignant neoplasm of bladder, unspecified (principal); R30.0 Dysuria; N39.0 Urinary tract infection, site not specified; K21.9 Gastro-esophageal reflux disease without esophagitis | CPT/HCPCS: 52000; 81003; 88121; 99212 ==

== ENCOUNTER 2024-01-08 10:30 | Outpatient (AMB) | payer MEDICARE, SELFPAY ==
--- NOTE | 2024-01-08 11:47 | MHC.OFFVIS ---
Intake Visit Reasons: Cystoscopy(Bladder CA) Intake Note: Patient is Present for Cystoscopy Urology Med:none Antibiotic Allergy: Blood Thinner: URO- n Disposable Cystoscope lot: [id number] exp: 05/22/2025 Business Support Liaison Required: No Allergies Penicillins Allergy (Severe, Verified 03/18/24 09:53) Anaphylaxis tamsulosin [Flomax] Allergy (Severe, Verified 03/18/24 09:53) severe chest pains ibuprofen [IBUPROFEN] Allergy (Intermediate, Verified 03/18/24 09:53) Rash, hives amoxicillin Allergy (Mild, Verified 03/18/24 09:53) Hives, bad rash levofloxacin [From LEVAQUIN] Allergy (Mild, Verified 03/18/24 09:53) Rash rabeprazole Allergy (Mild, Verified 03/18/24 09:53) Unknown Sulfa (Sulfonamide Antibiotics) Allergy (Mild, Verified 03/18/24 09:53) Rash atorvastatin Allergy (Unknown, Verified 03/18/24 09:53) Unknown Bifidobacterium infantis [Align] Allergy (Unknown, Verified 03/18/24 09:53) Unknown clarithromycin [Prevpac] Allergy (Unknown, Verified 03/18/24 09:53) Unknown omeprazole [From PRILOSEC] Allergy (Unknown, Verified 03/18/24 09:53) Unknown simvastatin [From ZOCOR] Allergy (Unknown, Verified 03/18/24 09:53) Unknown oxycodone [Percocet] Adverse Reaction (Severe, Verified 03/18/24 09:53) Vomiting amlodipine Adverse Reaction (Intermediate, Verified 03/18/24 09:53) breast pain clobetasol Adverse Reaction (Intermediate, Verified 03/18/24 09:53) made psoriasis worse dexlansoprazole [From Kapidex] Adverse Reaction (Intermediate, Verified 03/18/24 09:53) hyper,watery stool Iodinated Contrast Media [IV CONTRAST] Adverse Reaction (Intermediate, Verified 03/18/24 09:53) Weakness, Lightheaded and confusion lansoprazole [Prevacid] Adverse Reaction (Intermediate, Verified 03/18/24 09:53) hyper, watery stool methotrexate [METHOTREXATE] Adverse Reaction (Intermediate, Verified 03/18/24 09:53) Muscle and joint pain ranitidine Adverse Reaction (Intermediate, Verified 03/18/24 09:53) weak, watery stool alirocumab [From Praluent Pen] Adverse Reaction (Mild, Verified 03/18/24 09:53) Generalized ecchymoses aspirin Adverse Reaction (Mild, Verified 03/18/24 09:53) one sided facial pain, green spots in eye esomeprazole [Nexium] Adverse Reaction (Mild, Verified 03/18/24 09:53) Gastrointestinal Upset pantoprazole [Protonix] Adverse Reaction (Mild, Verified 03/18/24 09:53) one sided headache, yellow streak in left eye mirabegron Adverse Reaction (Unknown, Verified 03/18/24 09:53) Nausea and Vomiting fexofenadine [From [place]] Adverse Reaction (Verified 03/18/24 09:53) painful bones and muscles HPI Comments Details: Mary is a pleasant female. She is a patient of Dr. Gutierrez. She is seen for the following urologic conditions - microscopic hematuria - abnormal urine cytology - bladder cancer Some good response from therapy Cystoscopy normal Three-month follow-up cystoscopy office Bladder cancer - 11/06 - high-grade superficial, 06/09 TURBT low-grade superficial, 04/09 high-grade superficial Detected after evaluation for microscopic hematuria Interventions - TURBT 11/06 high-grade superficial, 02/06 BBx with fulgeration CIS, 06/09 low-grade superficial with MMC, 03/09 TURBT high-grade with fulguration Smoking history - 2nd exposure through Workplace exposure - plastics exposure, glue exposure Imaging - 10/06 CT urogram normal Cytology - 10/06 high-grade - 07/11 - atypical scant Adjuvant therapy - 11/06 6 week induction Gemcitabine, 3 week boost 10/07, 04/09 reinduction 6 week MMC/cytarabine, 10/08 three-week mitomycin-C cytarabine Therapeutic plan - continue surveillance [facility] Medical History UTI (urinary tract infection) Cardiac arrhythmia TSH elevation Age-related osteoporosis without current pathological fracture Painful breasts 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 Bladder cancer Diastolic heart failure Recurrent UTI Osteopenia Allergic rhinitis Lung fibrosis Skin cancer History of rib fracture History of hemorrhoids Hiatal hernia Diverticular disease Pulmonary nodule Psoriasis Barretts esophagus GERD (gastroesophageal reflux disease) History of CVA (cerebrovascular accident) HLD (hyperlipidemia) Postoperative atrial fibrillation CAD (coronary artery disease) Asthma Polymyalgia rheumatica Surgical History History of transurethral resection of bladder tumor (TURBT) History of nasal surgery History of cystoscopy S/P trigger finger release Hx of CABG History of bladder suspension procedure History of tonsillectomy and adenoidectomy History of tonsillectomy Hx of hemorrhoidectomy Family History Father No problems noted. Mother No problems noted. Social History Housing: House Are you a primary pharmacist critical care to a significant other at home: No Do you presently have visiting nurse or other home services: No Alcohol intake: never Patient Tobacco Use Status: Never used Tobacco Tobacco use type: Cigarette e-Cigarette/Vaping Use: Never Used Second Hand Smoke Exposure: No Advance Directives Date on File: 08/29/16 service: No Current occupational status: retired Current occupation: rt hand Current occupational exposures/hazards: No Cognitive needs: No Hearing needs: No Vision needs: No Review of Systems Const Denies chills and Denies fever(s) Card Reports no additional complaints and Denies syncope Resp Denies cough GI Denies abdominal pain and Denies heartburn Reports as per HPI and Denies change in libido Neuro Denies syncope Psych Denies change in libido Endo Denies change in libido Physical Exam Const General: cooperative, healthy appearing, comfortable and no acute distress Orientation/consciousness: patient oriented x3 HEENT Face and sinus: Yes normal facial exam Mouth: moist mucous membranes Neck Neck: Yes normal visual inspection, Yes full ROM and Yes trachea midline Chest Chest palpation & inspection: normal inspection of the chest Resp Effort & Inspection: normal respiratory effort, able to speak in complete sentences and no respiratory distress GI Inspection: Yes normal to inspection Back/Spine/Pelvis Cervical Spine: normal cervical lordosis Thoracic/Lumbar Spine: thoracic and lumbar spine normal to inspection Skin General skin exam: no rashes or lesions noted Neuro General: patient oriented x3, gait normal, tone normal and moves all extremities Extrem General: Yes normal to inspection and Yes capillary refill normal Office Procedures Cystoscopy Consent Discussed risk and benefit or proposed procedure with the patient. Information consent for procedure given to the patient. Discussed technical aspects, risks, benefits and alternatives in full. Addressed all of the patient's questions and concerns regarding the procedure. The patient demonstrated knowledge and understanding. They wish to proceed with this procedure. Preparation The patient was prepped in the usual manner. A contractor general engineering was present and in the room. Genitalia was prepped with betadine solution in a sterile manner. Lidocaine Jelly 2% was placed into the urethra and 16Fr flexible Olympus cystoscope was inserted into the meatus after adequate lubrication. Procedure Meatus normal physician Urethra normal Bladder examination with retroflexion of cystoscope Bladder Orifices normal shape and position Trigone normal Bladder Capacity median Trabeculations - Cellule Formation - Diverticulum Formation - Mucosal Erythema - Bladder Tumor - [id number] DISPOSABLE SCOPE URO-N NEEDLE SCOPE Procedure code (CPT) selection complete Office Meds lidocaine HCl 2 % mucosal jelly in applicator Performing Provider: Celio Mix MD Performing Location: [facility] Administered by: Anibal Reyes LPN on 01/08/24 12:28 Dose Route Admin Location Dispensed Lot Number Expiration Date NDC Public Relations Manager 10 mL intra-urethral 20 mL nitrofurantoin monohydrate/macrocrystals 100 mg capsule Performing Provider: Celio Mix MD Performing Location: [facility] Administered by: Anibal Reyes LPN on 01/08/24 12:28 Dose Route Admin Location Dispensed Lot Number Expiration Date NDC Public Relations Manager 100 mg PO 1 cap naproxen 500 mg tablet Performing Provider: Celio Mix MD Performing Location: [facility] Administered by: Anibal Reyes LPN on 01/08/24 12:28 Dose Route Admin Location Dispensed Lot Number Expiration Date NDC Public Relations Manager 500 mg PO 1 tab Results AMB Urinalysis, Automated UA Leukoctes 0 Mark/uL Last Edit by CHRYSTAL Vilchis on 01/08/24 11:55 UA Nitrite Negative Last Edit by CHRYSTAL Vilchis on 01/08/24 11:55 UA Urobilinogen 0.2 mg/dL Last Edit by CHRYSTAL Vilchis on 01/08/24 11:55 UA Protein 0 mg/dL Last Edit by CHRYSTAL Vilchis on 01/08/24 11:55 UA pH 6.0 Last Edit by CHRYSTAL Vilchis on 01/08/24 11:55 UA Blood 25 Sushant/uL Last Edit by CHRYSTAL Vilchis on 01/08/24 11:55 UA Specific [place] 1.010 Last Edit by CHRYSTAL Vilchis on 01/08/24 11:55 UA Ketone Negative Last Edit by CHRYSTAL Vilchis on 01/08/24 11:55 UA Bilirubin 0 mg/dL Last Edit by CHRYSTAL Vilchis on 01/08/24 11:55 UA Glucose 0 mg/dL Last Edit by CHRYSTAL Vilchis on 01/08/24 11:55 Results Reviewed Results Reviewed: Laboratory Last Values Urine pH (Auto) 6.0 01/08/24 11:50 Specific [place] (Auto) 1.010 01/08/24 11:50 Urine Protein (Auto) 0 mg/dL 01/08/24 11:50 Glucose (UA)(Auto) 0 mg/dL 01/08/24 11:50 Urine Ketones (Auto) Negative 01/08/24 11:50 Urine Blood (Auto) 25 Sushant/uL 01/08/24 11:50 Urine Nitrite (Auto) Negative 01/08/24 11:50 Urine Bilirubin (Auto) 0 mg/dL 01/08/24 11:50 Urine Urobilinogen (Auto) 0.2 mg/dL 01/08/24 11:50 Leukocyte Esterase (Auto) 0 Mark/uL 01/08/24 11:50 Assessment & Plan Assessment & Plan (1) Urinary bladder cancer: Comment: - High-grade papillary urothelial carcinoma, non-invasive. Bladder biopsy with extensive fulguration left-sided bladder Dr. Mix October 2021, January 2022 - 02/06 CIS TURBT and gemcitabine instillation Dr. Mix May 2022 biopsy 02/2023 high grade papillary carcinoma Code(s): C67.9 - Malignant neoplasm of bladder, unspecified Category: Medical Qualifiers: Bladder location: unspecified site Qualified Code(s): C67.9 - Malignant neoplasm of bladder, unspecified Plan Trial Gemtessa with vitamin-E Orders: Orders AMB Cystoscopy 01/08/24 C67.9 - Malignant neoplasm of bladder, unspecified FISH Bladder Cancer 01/08/24 C67.9 - Malignant neoplasm of bladder, unspecified AMB Urinalysis Automated 01/08/24 Z13.9 - Encounter for screening, unspecified Medications: New vitamin E (dl, acetate) 450 mg PO DAILY 90 caps 1RF 90 days C67.9 - Malignant neoplasm of bladder, unspecified vibegron (Gemtesa) 75 mg PO DAILY 30 tabs 1RF 30 days C67.9 - Malignant neoplasm of bladder, unspecified Patient Instructions: Imaging studies, laboratory and physical exam results were discussed and reviewed in detail. No major barriers to patient understanding were identified. An opportunity to ask questions regarding the treatment plan was provided. All questions were answered. The patient expressed understanding and agreement with the above treatment plan. The patient is aware they should contact our office by phone for worsening of their current condition or the appearance of new urologic symptoms. Compliance is encouraged with any medications and followup testing that is ordered. It is a privilege to participate in the urologic care of your patient. If you have any questions or concerns regarding treatment for the above conditions, or other urologic issues, please do not hesitate to contact me. The office telephone contact is [phone]. This note is constructed using voice recognition software. While every effort has been made to ensure accuracy floor layer tile errors may have been included. Yours sincerely, Dr Celio Mix MD, [facility] - Urology Providers of Expert, Compassionate Care for the Genitourinary System Coding Level of Care Code Est Pt Level 3 (09410) Diagnoses Malignant neoplasm of urinary bladder, unspecified site C67.9 Bladder location: unspecified site CPT Codes Cystoscopy - CPT: [id number] ([id number])
== END 2024-01-08 12:41 | disposition home or self-care (01) ==
PROVIDERS: PCP Internal Medicine; Visit Provider Urology
DX: C67.9 Malignant neoplasm of bladder, unspecified (principal)
CPT/HCPCS: 52000; 99213

== ENCOUNTER 2024-02-02 09:06 | Outpatient (AMB) | payer MEDICARE, SELFPAY ==
[2024-02-02 09:08] VITALS: BP 126/62; PULSE 78; O2SAT 97; BMI 25.7
--- NOTE | 2024-02-02 09:08 | A.OFFPC_ITS ---
Vital Signs 3 02/02/24 09:08 Height 5 ft 1 in Weight 136 lb BMI 25.7 BP 126/62 Blood Pressure Location Lt brachial Position Sitting Pulse 78 Pulse Source Pulse Oximeter Pulse Oximetry (%) 97 Oxygen Delivery Method Room Air Intake Visit Reasons: Bladder Cancer Stamp Clerk Required: No Accompanied by: Self / Same As Patient Allergies Penicillins Allergy (Severe, Verified 02/02/24 09:13) Anaphylaxis tamsulosin [Flomax] Allergy (Severe, Verified 02/02/24 09:13) severe chest pains ibuprofen [IBUPROFEN] Allergy (Intermediate, Verified 02/02/24 09:13) Rash, hives amoxicillin Allergy (Mild, Verified 02/02/24 09:13) Hives, bad rash levofloxacin [From LEVAQUIN] Allergy (Mild, Verified 02/02/24 09:13) Rash rabeprazole Allergy (Mild, Verified 02/02/24 09:13) Unknown Sulfa (Sulfonamide Antibiotics) Allergy (Mild, Verified 02/02/24 09:13) Rash atorvastatin Allergy (Unknown, Verified 02/02/24 09:13) Unknown Bifidobacterium infantis [Align] Allergy (Unknown, Verified 02/02/24 09:13) Unknown clarithromycin [Prevpac] Allergy (Unknown, Verified 02/02/24 09:13) Unknown omeprazole [From PRILOSEC] Allergy (Unknown, Verified 02/02/24 09:13) Unknown simvastatin [From ZOCOR] Allergy (Unknown, Verified 02/02/24 09:13) Unknown oxycodone [Percocet] Adverse Reaction (Severe, Verified 02/02/24 09:13) Vomiting amlodipine Adverse Reaction (Intermediate, Verified 02/02/24 09:13) breast pain clobetasol Adverse Reaction (Intermediate, Verified 02/02/24 09:13) made psoriasis worse dexlansoprazole [From Kapidex] Adverse Reaction (Intermediate, Verified 02/02/24 09:13) hyper,watery stool Iodinated Contrast Media [IV CONTRAST] Adverse Reaction (Intermediate, Verified 02/02/24 09:13) Weakness, Lightheaded and confusion lansoprazole [Prevacid] Adverse Reaction (Intermediate, Verified 02/02/24 09:13) hyper, watery stool methotrexate [METHOTREXATE] Adverse Reaction (Intermediate, Verified 02/02/24 09:13) Muscle and joint pain ranitidine Adverse Reaction (Intermediate, Verified 02/02/24 09:13) weak, watery stool alirocumab [From Praluent Pen] Adverse Reaction (Mild, Verified 02/02/24 09:13) Generalized ecchymoses aspirin Adverse Reaction (Mild, Verified 02/02/24 09:13) one sided facial pain, green spots in eye esomeprazole [Nexium] Adverse Reaction (Mild, Verified 02/02/24 09:13) Gastrointestinal Upset pantoprazole [Protonix] Adverse Reaction (Mild, Verified 02/02/24 09:13) one sided headache, yellow streak in left eye mirabegron Adverse Reaction (Unknown, Verified 02/02/24 09:13) Nausea and Vomiting fexofenadine [From [place]] Adverse Reaction (Verified 02/02/24 09:13) painful bones and muscles Tobacco use date assessed: 06/12/23 Fall risk assessment: No Falls in past year Last assessed Fall Risk: 02/02/24 Dental Screening Dental Screen Date: 06/12/23 HPI Bladder Cancer 2 HPI0 Details 83-year-old female with multiple medical problems coronary artery disease hypercholesterolemia Barretts esophagus polymyalgia rheumatica hypertension urinary bladder cancer coming in for follow-up. Last seen in 09/04/2022. Patient is mammogram is due, bone density is due colonoscopy no more. Review of the notes does follow-up with urology cystoscopy done trial of Myrbetriq for overactive bladder. Continuing with surveillance. myrbetriq taken with joint pain and nausea and stopped. 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 Bladder cancer Diastolic heart failure Recurrent UTI Osteopenia Allergic rhinitis Lung fibrosis Skin cancer History of rib fracture History of hemorrhoids Hiatal hernia Diverticular disease Pulmonary nodule Psoriasis Barretts esophagus GERD (gastroesophageal reflux disease) History of CVA (cerebrovascular accident) HLD (hyperlipidemia) Postoperative atrial fibrillation CAD (coronary artery disease) Asthma Polymyalgia rheumatica Surgical History History of transurethral resection of bladder tumor (TURBT) History of nasal surgery History of cystoscopy S/P trigger finger release Hx of CABG History of bladder suspension procedure History of tonsillectomy and adenoidectomy History of tonsillectomy Hx of hemorrhoidectomy Family History Father No problems noted. Mother No problems noted. Social History Housing: House Are you a primary date night caregiver to a significant other at home: No Do you presently have visiting nurse or other home services: No Alcohol intake: never Patient Tobacco Use Status: Never used Tobacco Tobacco use type: Cigarette e-Cigarette/Vaping Use: Never Used Second Hand Smoke Exposure: No Advance Directives Date on File: 08/29/16 service: No Current occupational status: retired Current occupation: rt hand Current occupational exposures/hazards: No Cognitive needs: No Hearing needs: No Vision needs: No Questionnaire PHQ-9 Over the last 2 weeks, how often have you been bothered by any of the following problems? 1. Little interest or pleasure in doing things: not at all 2. Feeling down, depressed, or hopeless: not at all 3. Trouble falling or staying asleep, or sleeping too much: not at all 4. Feeling tired or having little energy: not at all 5. Poor appetite or overeating: not at all 6. Feeling bad about yourself - or that you are a failure or have let yourself or your family down: not at all 7. Trouble concentrating on things, such as reading the newspaper or watching television: not at all 8. Moving or speaking so slowly that other people could have noticed. Or the opposite - being so fidgety or restless that you have been moving around a lot more than usual: not at all 9. Thoughts that you would be better off or of hurting yourself in some way: not at all Total score: 0 Depression Screening Interpretation: Negative Depression Screening Done: Yes Source: Developed by Drs. Librado Fraser, Ingris Fuentes, Harry Acevedo and colleagues, with an educational marissa from [employer]. Thrive Questionnaire Date Thrive assessed: 09/15/23 Are you currently unemployed and looking for a job?: No AUDIT C Alcohol Use Questionnaire (AUDIT-C) 1. How often do you have a drink containing alcohol?: Never 2. How many drinks containing alcohol do you have on a typical day when you are drinking?: 1 or 2 (0) 3. How often do you have six or more drinks on one occasion?: Never Total Score: 0 Score Reviewed/Action Taken: Yes BIRDIE-7 AMB Questionnaire BIRDIE-7 Date BIRDIE - 7 assessed: 06/12/23 Source: Developed by Drs. Librado Fraser, Ingris Fuentes, Harry Acevedo and colleagues, with an educational marissa from [employer]. Physical exam (Primary Care) Vital Signs: Last Vital Signs Pulse 78 02/02/24 09:08 BP 126/62 02/02/24 09:08 Pulse Ox 97 02/02/24 09:08 Oxygen Delivery Method Room Air 02/02/24 09:08 BMI result Body Mass Index 25.7 Tobacco/Smoking Status: Tobacco use Status Tobacco use date assessed 06/12/23 02/02/24 09:08 Patient Tobacco Use Status Never used Tobacco 02/02/24 09:08 Tobacco use type Cigarette 02/02/24 09:17 e-Cigarette/Vaping Use Never Used 02/02/24 09:08 PHQ-9: PHQ-9 Score PHQ-9: Total score 0 02/02/24 09:17 Depression Screening Interpretation: Negative Thrive Assessment: Date of Thrive Assessment Date Thrive assessed 09/15/23 02/02/24 09:08 Const General: alert; No acute distress Eyes Conjunctivae: conjunctivae normal Resp Auscultation: clear to auscultation bilaterally Cardio Rate: regular rate Rhythm: regular rhythm GI Inspection: Yes normal to inspection Skin Full body images: 2 1. erythematous papulovesicular rash on the L chest and L upper back 2. Extrem General: Yes normal to inspection and No edema Assessment and Plan Assessment & Plan (1) HTN (hypertension): Code(s): I10 - Essential (primary) hypertension Qualifiers: Hypertension type: primary hypertension Qualified Code(s): I10 - Essential (primary) hypertension Plan: Continue with blood pressure medication. Decrease salt intake and exercise patient on metoprolol 12.5 mg once a day (2) Urinary bladder cancer: Comment: - High-grade papillary urothelial carcinoma, non-invasive. Bladder biopsy with extensive fulguration left-sided bladder Dr. Mix October 2021, January 2022 - 02/06 CIS TURBT and gemcitabine instillation Dr. Mix May 2022 biopsy 02/2023 high grade papillary carcinoma Code(s): C67.9 - Malignant neoplasm of bladder, unspecified Qualifiers: Bladder location: unspecified site Qualified Code(s): C67.9 - Malignant neoplasm of bladder, unspecified Plan: Continue with surveillance under urology had cystoscopy done. (3) Barretts esophagus: Comment: January 2012 no more Code(s): K22.70 - Quiroz's esophagus without dysplasia Qualifiers: Quiroz's esophagus type: without dysplasia Qualified Code(s): K22.70 - Quiroz's esophagus without dysplasia Plan: Avoid the foods that causes that usually spicy foods, tomato products, juices, coffee, soda and foods that your sensitive to. After eating do not lie down, allow 3-4 hours before in lie down. And keep the head of bed above 30 degrees to avoid the acid from going up. (4) HLD (hyperlipidemia): Code(s): E78.5 - Hyperlipidemia, unspecified Qualifiers: Hyperlipidemia type: mixed hyperlipidemia Qualified Code(s): E78.2 - Mixed hyperlipidemia Plan: Avoid fried foods, chicken skin, eggs, butter margarine, pastries and meat. Be it pork or beef they have a lot of cholesterol LDL goal of less than 70 and triglyceride of less than 150 patient has statin intolerance and on Zetia 10 mg once a day (5) CAD (coronary artery disease): Comment: CABG x2 2017 WHITAKER to LAD, SVG to OM Dr. Godoy Code(s): I25.10 - Atherosclerotic heart disease of [place] coronary artery without angina pectoris Qualifiers: Coronary Disease-Associated Artery/Lesion type: [place] artery [place] vs. transplanted heart: [place] heart Associated angina: without angina Q ualified Code(s): I25.10 - Atherosclerotic heart disease of [place] coronary artery without angina pectoris Plan: Control the cholesterol, weight, blood pressure, can not tolerate aspirin on clopidogrel 75 mg once a day (6) Shingles: Code(s): B02.9 - Zoster without complications Plan: valcyclovir script sent and decline pain med Medications: New 2 valacyclovir (Valtrex) 1,000 mg PO TID 7 days 21 tabs 0RF B02.9 - Zoster without complications Coding Level of Care Code Est Pt Level 4 (62849) Diagnoses Primary hypertension I10 Hypertension type: primary hypertension Malignant neoplasm of urinary bladder, unspecified site C67.9 Bladder location: unspecified site Quiroz's esophagus without dysplasia K22.70 Quiroz's esophagus type: without dysplasia Mixed hyperlipidemia E78.2 Hyperlipidemia type: mixed hyperlipidemia Coronary artery disease involving [place] coronary artery of [place] heart without angina pectoris I25.10 Coronary Disease-Associated Artery/Lesion type: [place] artery [place] vs. transplanted heart: [place] heart Associated angina: without angina Shingles B02.9
== END 2024-02-02 09:57 | disposition home or self-care (01) ==
PROVIDERS: PCP Internal Medicine; Visit Provider Internal Medicine
DX: I10 Essential (primary) hypertension (principal); C67.9 Malignant neoplasm of bladder, unspecified; K22.70 Barrett's esophagus without dysplasia; E78.2 Mixed hyperlipidemia; I25.10 Atherosclerotic heart disease of native coronary artery without angina pectoris; B02.9 Zoster without complications

== ENCOUNTER → 2024-02-02 09:06 | Outpatient (BNVA) | payer MEDICARE, SELFPAY | PROVIDERS: PCP Internal Medicine; Visit Provider Internal Medicine | DX: C67.9 Malignant neoplasm of bladder, unspecified (principal); I10 Essential (primary) hypertension; K22.70 Barrett's esophagus without dysplasia; E78.2 Mixed hyperlipidemia; I25.10 Atherosclerotic heart disease of native coronary artery without angina pectoris; B02.9 Zoster without complications | CPT/HCPCS: 99212 ==

== ENCOUNTER 2024-02-18 08:20 | Outpatient (AMB) | payer MEDICARE, SELFPAY ==
[2024-02-18 08:26] VITALS: BP 114/72; PULSE 63; BMI 26.2
--- NOTE | 2024-02-18 08:26 | MHC.OFFVIS ---
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 Allergies Penicillins Allergy (Severe, Verified 02/02/24 09:13) Anaphylaxis tamsulosin [Flomax] Allergy (Severe, Verified 02/02/24 09:13) severe chest pains ibuprofen [IBUPROFEN] Allergy (Intermediate, Verified 02/02/24 09:13) Rash, hives amoxicillin Allergy (Mild, Verified 02/02/24 09:13) Hives, bad rash levofloxacin [From LEVAQUIN] Allergy (Mild, Verified 02/02/24 09:13) Rash rabeprazole Allergy (Mild, Verified 02/02/24 09:13) Unknown Sulfa (Sulfonamide Antibiotics) Allergy (Mild, Verified 02/02/24 09:13) Rash atorvastatin Allergy (Unknown, Verified 02/02/24 09:13) Unknown Bifidobacterium infantis [Align] Allergy (Unknown, Verified 02/02/24 09:13) Unknown clarithromycin [Prevpac] Allergy (Unknown, Verified 02/02/24 09:13) Unknown omeprazole [From PRILOSEC] Allergy (Unknown, Verified 02/02/24 09:13) Unknown simvastatin [From ZOCOR] Allergy (Unknown, Verified 02/02/24 09:13) Unknown oxycodone [Percocet] Adverse Reaction (Severe, Verified 02/02/24 09:13) Vomiting amlodipine Adverse Reaction (Intermediate, Verified 02/02/24 09:13) breast pain clobetasol Adverse Reaction (Intermediate, Verified 02/02/24 09:13) made psoriasis worse dexlansoprazole [From Kapidex] Adverse Reaction (Intermediate, Verified 02/02/24 09:13) hyper,watery stool Iodinated Contrast Media [IV CONTRAST] Adverse Reaction (Intermediate, Verified 02/02/24 09:13) Weakness, Lightheaded and confusion lansoprazole [Prevacid] Adverse Reaction (Intermediate, Verified 02/02/24 09:13) hyper, watery stool methotrexate [METHOTREXATE] Adverse Reaction (Intermediate, Verified 02/02/24 09:13) Muscle and joint pain ranitidine Adverse Reaction (Intermediate, Verified 02/02/24 09:13) weak, watery stool alirocumab [From Praluent Pen] Adverse Reaction (Mild, Verified 02/02/24 09:13) Generalized ecchymoses aspirin Adverse Reaction (Mild, Verified 02/02/24 09:13) one sided facial pain, green spots in eye esomeprazole [Nexium] Adverse Reaction (Mild, Verified 02/02/24 09:13) Gastrointestinal Upset pantoprazole [Protonix] Adverse Reaction (Mild, Verified 02/02/24 09:13) one sided headache, yellow streak in left eye mirabegron Adverse Reaction (Unknown, Verified 02/02/24 09:13) Nausea and Vomiting fexofenadine [From [place]] Adverse Reaction (Verified 02/02/24 09:13) painful bones and muscles Medication List - Last Reconciled 02/18/24 by Boo Jimenez MD cetirizine (Zyrtec) 10 mg PO BEDTIME clopidogrel 75 mg PO DAILY dupilumab (Dupixent) 300 mg subcut Q2W ezetimibe 10 mg PO DAILY fluorouracil 5% 1 appl topical BID furosemide 20 mg PO DAILY gentamicin 0.1% appl topical DAILY metoprolol succinate ER 12.5 mg (1/2 x 25 mg) PO DAILY prednisone mg PO BID PRN [Tums PRN] vitamin E (dl, acetate) 450 mg PO TID HPI Comments Details: Mary comes for follow-up. Recently had a illness with shingles. She said this knocked her down because she was not able to sleep in the night. She feels fatigued. She is worried about her heart health. She does not have any chest pain. Denies any shortness of breath, orthopnea, PND, leg edema. Takes all her medications. No lightheadedness, syncope. No prolonged palpitation irregular heartbeat. Complains of bruising easy. 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 Bladder cancer Diastolic heart failure Recurrent UTI Osteopenia Allergic rhinitis Lung fibrosis Skin cancer History of rib fracture History of hemorrhoids Hiatal hernia Diverticular disease Pulmonary nodule Psoriasis Barretts esophagus GERD (gastroesophageal reflux disease) History of CVA (cerebrovascular accident) HLD (hyperlipidemia) Postoperative atrial fibrillation CAD (coronary artery disease) Asthma Polymyalgia rheumatica Surgical History History of transurethral resection of bladder tumor (TURBT) History of nasal surgery History of cystoscopy S/P trigger finger release Hx of CABG History of bladder suspension procedure History of tonsillectomy and adenoidectomy History of tonsillectomy Hx of hemorrhoidectomy Family History Father No problems noted. Mother No problems noted. Social History Housing: House Are you a primary medicare specialist to a significant other at home: No Do you presently have visiting nurse or other home services: No Alcohol intake: never Patient Tobacco Use Status: Never used Tobacco Tobacco use type: Cigarette e-Cigarette/Vaping Use: Never Used Second Hand Smoke Exposure: No Advance Directives Date on File: 08/29/16 service: No Current occupational status: retired Current occupation: rt hand Current occupational exposures/hazards: No Cognitive needs: No Hearing needs: No Vision needs: No Review of Systems Const Denies chills, Denies fatigue, Denies fever(s), Denies frequent falls, Denies weakness, Denies weight gain and Denies weight loss ENT Denies dizziness Card Denies chest pain, Denies leg edema, Denies lightheadedness, Denies palpitations, Denies dyspnea, Denies dyspnea on exertion, Denies orthopnea and Denies other (loss of consciousness) Resp Denies cough, Denies dyspnea and Denies dyspnea on exertion GI Denies hematochezia and Denies change in stool character Musc Denies abnormal gait, Denies muscle weakness, Denies numbness, Denies radiating pain into limb and Denies tingling Neuro Denies abnormal gait, Denies dizziness, Denies frequent falls, Denies numbness, Denies tingling and Denies weakness Endo Denies fatigue and Denies palpitations Physical Exam Vital Signs: Last Vital Signs Pulse 63 02/18/24 08:26 BP 114/72 02/18/24 08:26 BMI result Body Mass Index 26.2 Const General: cooperative, comfortable, alert, awake and well groomed Nutritional Appearance: overweight Orientation/consciousness: patient oriented x3 Limitations: no limitations Neck Neck: Yes trachea midline, Yes supple and Yes no JVD Chest Chest palpation & inspection: abnormal inspection of the chest kyphotic and scoliotic and other (Well-healed sternotomy scar) Resp Effort & Inspection: normal respiratory effort Auscultation: crackles (Coarse crackles predominantly right base) Cardio Jugular venous distension: no JVD Palpation: normal PMI Rate: regular rate Rhythm: abnormal rhythm with ectopic beats Heart sounds: S1 normal heart sound present, S2 normal heart sound present, no click, no gallops and no murmurs GI Auscultation: normal bowel sounds Skin General skin exam: no rashes or lesions noted and ecchymosis Neuro General: patient oriented x3 and no focal motor deficits Extrem General: Yes no clubbing, cyanosis or edema and Yes other (Bilateral mild varicosities and venous stasis) Psych Appearance: grossly normal Office Procedures EKG Details: EKG shows normal sinus rhythm with T-wave inversion inferior leads and lateral leads, no significant change [id number], Complete Assessment & Plan Assessment & Plan (1) CAD (coronary artery disease): Comment: CABG x2 2018 WHITAKER to LAD, SVG to OM Dr. Godoy Code(s): I25.10 - Atherosclerotic heart disease of [place] coronary artery without angina pectoris Category: Medical Qualifiers: Coronary Disease-Associated Artery/Lesion type: [place] artery [place] vs. transplanted heart: [place] heart Associated angina: without angina Qualified Code(s): I25.10 - Atherosclerotic heart disease of [place] coronary artery without angina pectoris Plan: CAD status post two-vessel coronary artery bypass grafting 2018. Myocardial perfusion imaging last year was within normal limits. No current concerning symptoms. Symptoms of fatigue recently related to a systemic viral illness. I do not think she has ever clear any significant issues at this point time. Discussed with her about continuing medical therapy including antiplatelet therapy with Plavix. Continue aggressive blood pressure control which is currently optimized. Can not tolerate statin therapy, discussed as alternatives, she is not interested at point in. (2) Diastolic heart failure: Code(s): I50.30 - Unspecified diastolic (congestive) heart failure Category: Medical Plan: History of diastolic heart failure, clinically euvolemic and well compensated current low-dose diuretic therapy. Continue the same. Daily weight monitoring avoidance of salt loading was discussed. Additional diuretics as need be. Continue aggressive blood pressure control currently which is well optimized. Participate in regular physical activity. Follow up in the clinic after 1 year's time after an echo. Thank you for allowing me to partake in her care Medications: Changed From vitamin E (dl, acetate) 450 mg PO DAILY 90 days 90 caps 1RF C67.9 - Malignant neoplasm of bladder, unspecified To vitamin E (dl, acetate) 450 mg PO TID C67.9 - Malignant neoplasm of bladder, unspecified Coding Level of Care Code Est Pt Level 4 (77429) Diagnoses Coronary artery disease involving [place] coronary artery of [place] heart without angina pectoris I25.10 Coronary Disease-Associated Artery/Lesion type: [place] artery [place] vs. transplanted heart: [place] heart Associated angina: without angina Diastolic heart failure I50.30 CPT Codes EKG - CPT: 90073-[id number], Complete ([id number])
== END 2024-02-18 09:02 | disposition home or self-care (01) ==
PROVIDERS: PCP Internal Medicine; Visit Provider Internal Medicine Cardiovascular Disease
DX: I25.10 Atherosclerotic heart disease of native coronary artery without angina pectoris (principal); I50.30 Unspecified diastolic (congestive) heart failure
CPT/HCPCS: 93010; 99214

== ENCOUNTER → 2024-02-18 08:20 | Outpatient (BNVA) | payer MEDICARE, SELFPAY | PROVIDERS: PCP Internal Medicine; Visit Provider Internal Medicine Cardiovascular Disease | DX: I25.10 Atherosclerotic heart disease of native coronary artery without angina pectoris (principal); I50.30 Unspecified diastolic (congestive) heart failure | CPT/HCPCS: 93005; 99212 ==

== ENCOUNTER 2024-03-18 09:35 | Outpatient (AMB) | payer MEDICARE, SELFPAY ==
[2024-03-18 09:49] VITALS: BP 130/62; PULSE 57; O2SAT 97; BMI 25.9
--- NOTE | 2024-03-18 09:49 | A.OFFPC_ITS ---
Vital Signs 3 03/18/24 09:49 Height 5 ft 1 in Weight 137 lb 0.8 oz BMI 25.9 BP 130/62 Blood Pressure Location Lt brachial Position Sitting Pulse 57 Pulse Source Pulse Oximeter Pulse Oximetry (%) 97 Oxygen Delivery Method Room Air Intake Visit Reasons: LT neck/back pain Intake Note: pt c/o of back and neck pain X1 month with no relief Allergies Penicillins Allergy (Severe, Verified 03/18/24 09:53) Anaphylaxis tamsulosin [Flomax] Allergy (Severe, Verified 03/18/24:53) severe chest pains ibuprofen [IBUPROFEN] Allergy (Intermediate, Verified 03/18/24:53) Rash, hives amoxicillin Allergy (Mild, Verified 03/18/2453) Hives, bad rash levofloxacin [From LEVAQUIN] Allergy (Mild, Verified 03/18/2453) Rash rabeprazole Allergy (Mild, Verified 03/18/2453) Unknown Sulfa (Sulfonamide Antibiotics) Allergy (Mild, Verified 03/18/2453) Rash atorvastatin Allergy (Unknown, Verified 03/18/2453) Unknown Bifidobacterium infantis [Align] Allergy (Unknown, Verified 03/18/24:53) Unknown clarithromycin [Prevpac] Allergy (Unknown, Verified 03/18/2453) Unknown omeprazole [From PRILOSEC] Allergy (Unknown, Verified 03/18/2453) Unknown simvastatin [From ZOCOR] Allergy (Unknown, Verified 03/18/2453) Unknown oxycodone [Percocet] Adverse Reaction (Severe, Verified 03/18/24:53) Vomiting amlodipine Adverse Reaction (Intermediate, Verified 03/18/2453) breast pain clobetasol Adverse Reaction (Intermediate, Verified 03/18/24:53) made psoriasis worse dexlansoprazole [From Kapidex] Adverse Reaction (Intermediate, Verified 03/18/2453) hyper,watery stool Iodinated Contrast Media [IV CONTRAST] Adverse Reaction (Intermediate, Verified 03/18/24:53) Weakness, Lightheaded and confusion lansoprazole [Prevacid] Adverse Reaction (Intermediate, Verified 03/18/24:53) hyper, watery stool methotrexate [METHOTREXATE] Adverse Reaction (Intermediate, Verified 11/01/24 09:53) Muscle and joint pain ranitidine Adverse Reaction (Intermediate, Verified 03/18/24 09:53) weak, watery stool alirocumab [From Praluent Pen] Adverse Reaction (Mild, Verified 03/18/24 09:53) Generalized ecchymoses aspirin Adverse Reaction (Mild, Verified 03/18/24 09:53) one sided facial pain, green spots in eye esomeprazole [Nexium] Adverse Reaction (Mild, Verified 03/18/24 09:53) Gastrointestinal Upset pantoprazole [Protonix] Adverse Reaction (Mild, Verified 03/18/24 09:53) one sided headache, yellow streak in left eye mirabegron Adverse Reaction (Unknown, Verified 03/18/24 09:53) Nausea and Vomiting fexofenadine [From [place]] Adverse Reaction (Verified 03/18/24 09:53) painful bones and muscles Medication List - Last Reconciled 03/18/24 by Radha Fields PA-C cetirizine (Zyrtec) 10 mg PO BEDTIME clopidogrel 75 mg PO DAILY dupilumab (Dupixent) 300 mg subcut Q2W ezetimibe 10 mg PO DAILY fluorouracil 5% 1 appl topical BID furosemide 20 mg PO DAILY gentamicin 0.1% appl topical DAILY lidocaine 5% (Lidocan III) 1 patch topical DAILY metoprolol succinate ER 12.5 mg (1/2 x 25 mg) PO DAILY prednisone mg PO BID PRN [Tums PRN] vitamin E (dl, acetate) 450 mg PO TID Tobacco use date assessed: 06/12/23 Fall risk assessment: No Falls in past year Last assessed Fall Risk: 03/18/24 Dental Screening Dental Screen Date: 06/12/23 HPI LT neck/back pain 2 HPI0 Details 83-year-old female with multiple medical problems coronary artery disease hypercholesterolemia Barretts esophagus polymyalgia rheumatica hypertension urinary bladder cancer coming in for acute problem. Patient states for the last 2 months she has been having left-sided back, shoulder, neck pain. Denies any falls, inciting event or motor vehicle accidents. She has been using Tylenol in the morning and at night with very mild relief of the pain. Due to this pain she has been unable to do her normal exercises at the gym. Denies any loss of bowel or bladder. She also mentions a lesion back and has not been growing, changing or painful or irritating. 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 Bladder cancer Diastolic heart failure Recurrent UTI Osteopenia Allergic rhinitis Lung fibrosis Skin cancer History of rib fracture History of hemorrhoids Hiatal hernia Diverticular disease Pulmonary nodule Psoriasis Barretts esophagus GERD (gastroesophageal reflux disease) History of CVA (cerebrovascular accident) HLD (hyperlipidemia) Postoperative atrial fibrillation CAD (coronary artery disease) Asthma Polymyalgia rheumatica Surgical History History of transurethral resection of bladder tumor (TURBT) History of nasal surgery History of cystoscopy S/P trigger finger release Hx of CABG History of bladder suspension procedure History of tonsillectomy and adenoidectomy History of tonsillectomy Hx of hemorrhoidectomy Family History Father No problems noted. Mother No problems noted. Social History Housing: House Are you a primary care worker to a significant other at home: No Do you presently have visiting nurse or other home services: No Alcohol intake: never Patient Tobacco Use Status: Never used Tobacco Tobacco use type: Cigarette e-Cigarette/Vaping Use: Never Used Second Hand Smoke Exposure: No Advance Directives Date on File: 08/29/16 service: No Current occupational status: retired Current occupation: rt hand Current occupational exposures/hazards: No Cognitive needs: No Hearing needs: No Vision needs: No Questionnaire Thrive Questionnaire Date Thrive assessed: 09/15/23 Are you currently unemployed and looking for a job?: No AUDIT C Alcohol Use Questionnaire (AUDIT-C) 1. How often do you have a drink containing alcohol?: Never 2. How many drinks containing alcohol do you have on a typical day when you are drinking?: 1 or 2 (0) 3. How often do you have six or more drinks on one occasion?: Never Total Score: 0 Score Reviewed/Action Taken: Yes BIRDIE-7 AMB Questionnaire BIRDIE-7 Date BIRDIE - 7 assessed: 06/12/23 Source: Developed by Drs. Librado Fraser, Ingris Fuentes, Harry Acevedo and colleagues, with an educational marissa from [employer]. Review of Systems Const Denies body aches, Denies chills and Denies fever(s) Eyes Reports no additional complaints ENT Reports no additional complaints Card Denies chest pain, Denies leg edema, Denies lightheadedness and Denies dyspnea Resp Denies dyspnea GI Reports no additional complaints Reports no additional complaints Musc Details: Left-sided shoulder, neck, upper back pain Skin/Breast Details: Lesion on the back Physical exam (Primary Care) Vital Signs: Last Vital Signs Pulse 57 03/18/24 09:49 BP 130/62 03/18/24 09:49 Pulse Ox 97 03/18/24 09:49 Oxygen Delivery Method Room Air 03/18/24 09:49 BMI result Body Mass Index 25.9 Tobacco/Smoking Status: Tobacco use Status Tobacco use date assessed 06/12/23 03/18/24 09:49 Patient Tobacco Use Status Never used Tobacco 03/18/24 09:49 Tobacco use type Cigarette 03/18/24 09:49 e-Cigarette/Vaping Use Never Used 03/18/24 09:49 Thrive Assessment: Date of Thrive Assessment Date Thrive assessed 09/15/23 03/18/24 09:49 Const General: cooperative, healthy appearing, comfortable and no acute distress Orientation/consciousness: patient oriented x3 HENMT Head: Yes normocephalic Ears: hearing grossly normal bilaterally General nose exam: Normal external nose present Eyes General: appearance normal, both eyes and all related structures Conjunctivae: conjunctivae normal Neck Other: Limited range of motion due to pain Neck: Yes no lymphadenopathy Resp Effort & Inspection: normal respiratory effort Auscultation: clear to auscultation bilaterally, crackles on the left at the base, no rales, no rhonchi and no wheezes Cardio Rate: regular rate Rhythm: regular rhythm Back/Spine/Pelvis Other: Tenderness to palpation over entire left trapezius muscle. No tenderness to palpation of spine and no palpable deformities or step-offs Skin Other: Atypical raised, circular, nonerythematous lesion left-sided mid back Full body images: 2 1. Lesion Neuro General: patient oriented x3 Gait exam (Neuro): Normal gait present Extrem General: Yes normal to inspection, Yes full ROM and No edema Psych Affect: normal affect Attitude: cooperative Insight: Good insight present (Psych) Judgement: Good judgement present (Psych) Office Procedures Flu Questionnaire Does the patient have a severe egg allergy?: No Does the patient have severe life threatening allergies?: No Does the patient have a fever or illness today?: No Has the patient ever had Guillain-[place] Syndrome?: No Has the patient ever had any past reaction to a flu shot?: No Immunizations Fluarix Triv [id number] (PF) 45 mcg (15 mcg x 3)/0.5 mL IM syringe Performing Provider: Radha Fields PA-C [facility] [place] [facility] Administered by: ANITA Liriano on 03/18/24 09:56 2 Dose Route Admin Location Dispensed Lot Number Expiration Date NDC Laboratory [facility] 0.5 mL IM Left Deltoid 0.5 mL [id number] 11/14/24 [id number] [facility] 2 VIS Given Date VIS Provided VIS Publication Date 03/18/24 Single Vaccine 20 Eligibility Eligibility Date Funding Source Not [facility] Eligible 03/18/24 Private Coding Level of Care Code Est Pt Level 4 (88784) Diagnoses Shoulder pain M25.519 Back pain M54.9 Atypical nevi D22.9 Assessment & Plan Assessment & Plan (1) Shoulder pain: Code(s): M25.519 - Pain in unspecified shoulder Category: Medical Plan: Patient having left-sided shoulder/neck pain most consistent with muscle strain or spasm. Advised patient to use ibuprofen and Tylenol as needed along with muscle creams. Discussed gentle stretching for the shoulders and neck. Given muscle relaxer to use for nighttime pain and advised patient to follow up with physical therapy. (2) Back pain: Code(s): M54.9 - Dorsalgia, unspecified Category: Medical Plan: Back pain consistent with muscle spasm/strain most likely due to posture. Discussed gentle stretching advised to use ibuprofen and Tylenol along with muscle rubs as needed for pain. Muscle relaxer given for nighttime pain advised patient to undergo physical therapy. Referral placed for physical therapy (3) Atypical nevi: Code(s): D22.9 - Melanocytic nevi, unspecified Category: Medical Plan: Patient has atypical lesion on mid back. Advised patient to follow up with Dermatology for further evaluation and possible biopsy. Plan This note was constructed using voice recognition software. While every effort has been made to ensure accuracy and court of appeals judge, still areas may have been included sometimes these areas may affect the content or meeting of the given symptoms. Total time spent caring for the patient today was 20 minutes. This includes time spent before the visit reviewing the chart, time spent during the visit, and time spent after the visit and documentation. Orders: Orders 2 Influenza [id number] Immunization Today Z23 - Encounter for immunization PT Evaluation and Treatment Today M25.519 - Pain in unspecified shoulder, M54.9 - Dorsalgia, unspecified Medications: New 2 lidocaine 5% (Lidocan III) leave on most painful area for up to 12 hrs 1 patch topical DAILY 30 ea 0RF cyclobenzaprine 5 mg PO BEDTIME PRN 14 tabs 0RF muscle spasm
== END 2024-03-18 10:56 | disposition home or self-care (01) ==
LOC: HO.HMCH 09:36
PROVIDERS: PCP Internal Medicine
DX: M25.519 Pain in unspecified shoulder (principal); M54.9 Dorsalgia, unspecified; D22.9 Melanocytic nevi, unspecified; Z23 Encounter for immunization

== ENCOUNTER → 2024-03-18 09:35 | Outpatient (BNVA) | payer MEDICARE, SELFPAY | PROVIDERS: PCP Internal Medicine | DX: Z23 Encounter for immunization (principal); M54.9 Dorsalgia, unspecified; D22.9 Melanocytic nevi, unspecified | CPT/HCPCS: 90471; 90656; 99212 ==

== ENCOUNTER 2024-04-05 07:40 | Outpatient (REF) | payer MEDICARE, SELFPAY ==
--- NOTE | ~2024-04-05 | MM_ITS ---
EXAMINATION: BONE DENSITOMETRY CLINICAL INDICATION: Age-related osteoporosis without current pathological fracture. COMPARISON: Previous BD dated 08/29/2021 and baseline BD dated 02/29/2008. TECHNIQUE: Using a EyeQuant DXA System (software version: 13.1) manufactured by [employer], dual-energy x-ray absorptiometry was performed of the lumbar spine and left hip. The images are of good technical quality. Summary results are attached. FINDINGS: LEFT FEMUR, NECK: Current: BMD 0.763 g/cm2, Z-score 0.2, T-score -2.0, osteopenia. Prior: BMD 0.759 g/cm2. Baseline: BMD 0.874 g/cm2. LEFT FEMUR, TOTAL: Current: BMD 0.792 g/cm2, Z-score 0.3, T-score -1.7, osteopenia, 1.% decrease from previous, 18.4% decrease from baseline (<5% change is not significant). Prior: BMD 0.807 g/cm2. Baseline: BMD 0.970 g/cm2. AP SPINE L1-L4: Current: BMD 0.993 g/cm2, Z-score 0.2, T-score -1.6, osteopenia, 4.4% increase from previous, 4.2% decrease from baseline (<5% change is not significant). Prior: BMD 0.951 g/cm2. Baseline: BMD 1.036 g/cm2. IDENTIFIED RISK FACTORS: Early menopause, glucocorticoids (chronic), height loss, hysterectomy, low calcium intake, secondary osteoporosis (intestinal or bowel disease). HISTORY OF FRACTURE: None listed. MEDICATIONS: Multivitamin, vitamin D. MM/XR DEXA axial skeleton IMPRESSION: 1. DIAGNOSIS: Osteopenia based on the lowest T-score value of -2.0 in the femoral neck applying World Health Organization criteria. 2. 10-YEAR FRACTURE RISK PREDICTION, FRAX: Major osteoporotic fracture (clinical spine, forearm, hip or shoulder) 23.4%. Hip fracture 8.1%. 3. Treatment Recommendations: NOF guidelines recommend consideration for treatment in postmenopausal women and men age 50 and older presenting with the following: -A hip or vertebral (clinical or morphometric) fracture. -T-score less than or equal to -2.5 at the femoral neck or spine after appropriate evaluation to exclude secondary causes. -Low bone mass at the hip or spine and a 10-year fracture probability by FRAX of greater than or equal to 3% for hip fracture or greater than or equal to 20% for major osteoporotic fracture based on the [place] adapted WHO algorithm. 4. Other Recommendations: All treatment decisions require clinical judgment and consideration of individual patient factors, including patient preferences, comorbidities, previous drug use, risk factors not captured in the FRAX model (e.g. frailty, falls, vitamin D deficiency, increased bone turnover, interval significant decline in bone density) and possible under or overestimation of fracture risk by FRAX. Additional medical evaluation for secondary cause of low bone mineral density may be appropriate. FUTURE SCAN RECOMMENDATION: People with diagnosed cases of osteoporosis or at high risk for fracture should have regular bone mineral density tests. For patients eligible for Medicare, routine testing is allowed once every 2 years. The testing frequency can be increased to one year for patients who have rapidly progressing disease, those who are receiving or discontinuing medical therapy to restore bone mass, or have additional risk factors. Electronically signed by: Thelma Crowe MD 04/06/2024 12:24 PM JASON KUMAR
--- NOTE | ~2024-04-05 | MM_ITS ---
EXAMINATION: MM SCREENING DIGITAL BREAST TOMOSYNTHESIS, BILATERAL CLINICAL INFORMATION: Screening. Asymptomatic. COMPARISON: Mammography: Comparison is made with available priors TECHNIQUE: Digital breast mammography with tomosynthesis is performed in both the craniocaudal and mediolateral oblique views along with computer-aided detection (CAD). FINDINGS: There are scattered areas of fibroglandular density (ACR BI-RADS breast composition Category b). There are no significant masses, abnormal calcifications, or other abnormalities. MM/MM tomosynthesis screening BI IMPRESSION: No mammographic evidence of malignancy. ASSESSMENT: BI-RADS BI-RADS 1 - Negative RECOMMENDATION: Routine annual mammography screening. 1 year F/U This examination should not preclude the clinical evaluation of a suspicious palpable abnormality. This patient's information was entered into a reminder system with a target due date for their next mammogram. Electronically signed by: Janell Becerril DO 04/12/2024 04:38 PM JASON
== END 2024-04-05 07:41 | disposition home or self-care (01) ==
LOC: HO.MAMMO 07:40
PROVIDERS: PCP Internal Medicine; Visit Provider Internal Medicine
DX: Z12.31 Encounter for screening mammogram for malignant neoplasm of breast (principal); M81.0 Age-related osteoporosis without current pathological fracture; M85.89 Other specified disorders of bone density and structure, multiple sites
CPT/HCPCS: 77063; 77067; 77080

== ENCOUNTER → 2024-04-05 08:00 | Outpatient (BNV) | payer MEDICARE, SELFPAY | PROVIDERS: PCP Internal Medicine; Visit Provider Internal Medicine | DX: Z12.31 Encounter for screening mammogram for malignant neoplasm of breast (principal) | CPT/HCPCS: 77063; 77067 ==

== ENCOUNTER 2024-04-13 08:41 | Outpatient (AMB) | payer MEDICARE, SELFPAY ==
--- NOTE | 2024-04-13 08:56 | A.OFFVIS_ITS ---
Intake Visit Reasons: Med Review(Gemtessa with vitamin-E Intake Note: Patient is present for Med Review- Gemtesa, Vitamin E Urology Med: Vitamin E Antibiotic Allergy: Penicillins, Amoxicillin, Levofloxacin, Sufla Blood Thinner: Clopidogrel, Dehydrator Operator Required: No Accompanied by: Self / Same As Patient Allergies Penicillins Allergy (Severe, Verified 04/13/24 08:57) Anaphylaxis tamsulosin [Flomax] Allergy (Severe, Verified 04/13/24 08:57) severe chest pains ibuprofen [IBUPROFEN] Allergy (Intermediate, Verified 04/13/24 08:57) Rash, hives amoxicillin Allergy (Mild, Verified 04/13/24 08:57) Hives, bad rash levofloxacin [From LEVAQUIN] Allergy (Mild, Verified 04/13/24 08:57) Rash rabeprazole Allergy (Mild, Verified 04/13/24 08:57) Unknown Sulfa (Sulfonamide Antibiotics) Allergy (Mild, Verified 04/13/24 08:57) Rash atorvastatin Allergy (Unknown, Verified 04/13/24 08:57) Unknown Bifidobacterium infantis [Align] Allergy (Unknown, Verified 04/13/24 08:57) Unknown clarithromycin [Prevpac] Allergy (Unknown, Verified 04/13/24 08:57) Unknown omeprazole [From PRILOSEC] Allergy (Unknown, Verified 04/13/24 08:57) Unknown simvastatin [From ZOCOR] Allergy (Unknown, Verified 04/13/24 08:57) Unknown oxycodone [Percocet] Adverse Reaction (Severe, Verified 04/13/24 08:57) Vomiting amlodipine Adverse Reaction (Intermediate, Verified 04/13/24 08:57) breast pain clobetasol Adverse Reaction (Intermediate, Verified 04/13/24 08:57) made psoriasis worse dexlansoprazole [From Kapidex] Adverse Reaction (Intermediate, Verified 04/13/24 08:57) hyper,watery stool Iodinated Contrast Media [IV CONTRAST] Adverse Reaction (Intermediate, Verified 04/13/24 08:57) Weakness, Lightheaded and confusion lansoprazole [Prevacid] Adverse Reaction (Intermediate, Verified 04/13/24 08:57) hyper, watery stool methotrexate [METHOTREXATE] Adverse Reaction (Intermediate, Verified 04/13/24 08:57) Muscle and joint pain ranitidine Adverse Reaction (Intermediate, Verified 04/13/24 08:57) weak, watery stool alirocumab [From Praluent Pen] Adverse Reaction (Mild, Verified 04/13/24 08:57) Generalized ecchymoses aspirin Adverse Reaction (Mild, Verified 04/13/24 08:57) one sided facial pain, green spots in eye esomeprazole [Nexium] Adverse Reaction (Mild, Verified 04/13/24 08:57) Gastrointestinal Upset pantoprazole [Protonix] Adverse Reaction (Mild, Verified 04/13/24 08:57) one sided headache, yellow streak in left eye mirabegron Adverse Reaction (Unknown, Verified 04/13/24 08:57) Nausea and Vomiting fexofenadine [From [place]] Adverse Reaction (Verified 04/13/24 08:57) painful bones and muscles HPI Comments Details: Mary is a pleasant female. She is a patient of Dr. Gutierrez. She is seen for the following urologic conditions - microscopic hematuria - abnormal urine cytology - bladder cancer Three-month follow-up Unable to tolerate Gemtesa Trial trospium Three-month follow-up check cysto office Bladder cancer - 11/06 - high-grade superficial, 06/09 TURBT low-grade superficial, 04/09 high-grade superficial Detected after evaluation for microscopic hematuria Interventions - TURBT 11/06 high-grade superficial, 02/06 BBx with fulgeration CIS, 06/09 low- grade superficial with MMC, 03/09 TURBT high-grade with fulguration Smoking history - 2nd exposure through Workplace exposure - plastics exposure, glue exposure Imaging - 10/06 CT urogram normal Cytology - 10/06 high-grade, 07/11 - atypical scant, 10/08 NAD Adjuvant therapy - 11/06 6 week induction Gemcitabine, 3 week boost 10/07, 04/09 reinduction 6 week MMC/cytarabine, 10/08 three-week mitomycin-C cytarabine Therapeutic plan - continue surveillance PFSH Medical History UTI (urinary tract infection) Cardiac arrhythmia TSH elevation Age-related osteoporosis without current pathological fracture Painful breasts 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 Bladder cancer Diastolic heart failure Recurrent UTI Osteopenia Allergic rhinitis Lung fibrosis Skin cancer History of rib fracture History of hemorrhoids Hiatal hernia Diverticular disease Pulmonary nodule Psoriasis Barretts esophagus GERD (gastroesophageal reflux disease) History of CVA (cerebrovascular accident) HLD (hyperlipidemia) Postoperative atrial fibrillation CAD (coronary artery disease) Asthma Polymyalgia rheumatica Surgical History History of transurethral resection of bladder tumor (TURBT) History of nasal surgery History of cystoscopy S/P trigger finger release Hx of CABG History of bladder suspension procedure History of tonsillectomy and adenoidectomy History of tonsillectomy Hx of hemorrhoidectomy Family History Father No problems noted. Mother No problems noted. Social History Housing: House Are you a primary child care group leader to a significant other at home: No Do you presently have visiting nurse or other home services: No Alcohol intake: never Patient Tobacco Use Status: Never used Tobacco Tobacco use type: Cigarette e-Cigarette/Vaping Use: Never Used Second Hand Smoke Exposure: No Advance Directives Date on File: 08/29/16 service: No Current occupational status: retired Current occupation: rt hand Current occupational exposures/hazards: No Cognitive needs: No Hearing needs: No Vision needs: No Review of Systems Const Denies chills and Denies fever(s) Card Reports no additional complaints and Denies syncope Resp Denies cough GI Denies abdominal pain and Denies heartburn Reports as per HPI and Denies change in libido Neuro Denies syncope Psych Denies change in libido Endo Denies change in libido Physical Exam Const General: cooperative, healthy appearing, comfortable and no acute distress Orientation/consciousness: patient oriented x3 HEENT Face and sinus: Yes normal facial exam Mouth: moist mucous membranes Neck Neck: Yes normal visual inspection, Yes full ROM and Yes trachea midline Chest Chest palpation & inspection: normal inspection of the chest Resp Effort & Inspection: normal respiratory effort, able to speak in complete sentences and no respiratory distress GI Inspection: Yes normal to inspection Back/Spine/Pelvis Cervical Spine: normal cervical lordosis Thoracic/Lumbar Spine: thoracic and lumbar spine normal to inspection Skin General skin exam: no rashes or lesions noted Neuro General: patient oriented x3, gait normal, tone normal and moves all extremities Extrem General: Yes normal to inspection and Yes capillary refill normal Results AMB Urinalysis, Automated UA Leukoctes 0 Mark/uL Last Edit by Leticia Herrera [facility] [place] on 04/13/24 09:27 UA Nitrite Negative Last Edit by Leticia Herrera, A on 04/13/24 09:27 UA Urobilinogen 0.2 mg/dL Last Edit by Leticia Herrera A on 04/13/24 09:2 7 UA Protein 0 mg/dL Last Edit by Leticia Herrera A on 04/13/24 09:27 UA pH 6.0 Last Edit by Leticia Herrera A on 04/13/24 09:27 UA Blood 10 Sushant/uL Last Edit by Leticia Herrera A on 04/13/24 09:27 UA Specific [place] 1.015 Last Edit by Leticia Herrera A on 04/13/24 09: 27 UA Ketone Negative Last Edit by Leticia Herrera [facility] [place] on 04/13/24 09:27 UA Bilirubin 0 mg/dL Last Edit by Leticia Herrera A on 04/13/24 09:27 UA Glucose 0 mg/dL Last Edit by Leticia Herrera A on 04/13/24 09:27 Results Reviewed Results Reviewed: Laboratory Last Values Urine pH (Auto) 6.0 04/13/24 08:57 Specific [place] (Auto) 1.015 04/13/24 08:57 Urine Protein (Auto) 0 mg/dL 04/13/24 08:57 Glucose (UA)(Auto) 0 mg/dL 04/13/24 08:57 Urine Ketones (Auto) Negative 04/13/24 08:57 Urine Blood (Auto) 10 Sushant/uL 04/13/24 08:57 Urine Nitrite (Auto) Negative 04/13/24 08:57 Urine Bilirubin (Auto) 0 mg/dL 04/13/24 08:57 Urine Urobilinogen (Auto) 0.2 mg/dL 04/13/24 08:57 Leukocyte Esterase (Auto) 0 Mark/uL 04/13/24 08:57 Assessment & Plan Assessment & Plan (1) Urine incontinence: Code(s): R32 - Unspecified urinary incontinence Category: Medical (2) Urinary bladder cancer: Comment: - High-grade papillary urothelial carcinoma, non-invasive. Bladder biopsy with extensive fulguration left-sided bladder Dr. Mix October 2021, January 2022 - 02/06 CIS TURBT and gemcitabine instillation Dr. Mix May 2022 biopsy 02/2023 high grade papillary carcinoma Code(s): C67.9 - Malignant neoplasm of bladder, unspecified Category: Medical Qualifiers: Bladder location: unspecified site Qualified Code(s): C67.9 - Malignant neoplasm of bladder, unspecified Plan Trial trospium Orders: Orders AMB Urinalysis Automated Today Z13.9 - Encounter for screening, unspecified Urine Cytology Today C67.9 - Malignant neoplasm of bladder, unspecified Medications: New trospium administer on an empty stomach 20 mg PO BID 30 days 60 tabs 0RF R32 - Unspecified urinary incontinence Patient Instructions: Imaging studies, laboratory and physical exam results were discussed and reviewed in detail. No major barriers to patient understanding were identified. An opportunity to ask questions regarding the treatment plan was provided. All questions were answered. The patient expressed understanding and agreement with the above treatment plan. The patient is aware they should contact our office by phone for worsening of their current condition or the appearance of new urologic symptoms. Compliance is encouraged with any medications and followup testing that is ordered. It is a privilege to participate in the urologic care of your patient. If you have any questions or concerns regarding treatment for the above conditions, or other urologic issues, please do not hesitate to contact me. The office telephone contact is [phone]. This note is constructed using voice recognition software. While every effort has been made to ensure accuracy hospice care sales consultant errors may have been included. Yours sincerely, Dr Celio Mix MD, [facility] - Urology Providers of Expert, Compassionate Care for the Genitourinary System Coding Level of Care Code Est Pt Level 3 (41075) Diagnoses Urine incontinence R32 Malignant neoplasm of urinary bladder, unspecified site C67.9 Bladder location: unspecified site
== END 2024-04-13 09:52 | disposition home or self-care (01) ==
PROVIDERS: PCP Internal Medicine; Visit Provider Urology
DX: R32 Unspecified urinary incontinence (principal); C67.9 Malignant neoplasm of bladder, unspecified; Z13.9 Encounter for screening, unspecified
CPT/HCPCS: 99213

== ENCOUNTER 2024-04-13 08:41 | Outpatient (REF) | payer MEDICARE, SELFPAY ==
[2024-04-13 16:33] LABS: Urine Cytology See Pathology rpt
== END 2024-04-13 08:42 | disposition home or self-care (01) ==
LOC: HO.LAB 08:41
PROVIDERS: PCP Internal Medicine; Visit Provider Urology
DX: C67.9 Malignant neoplasm of bladder, unspecified (principal); R32 Unspecified urinary incontinence
CPT/HCPCS: 81003; 88112; 99212

== ENCOUNTER 2024-05-16 10:45 | Outpatient (RCR) | payer MEDICARE, SELFPAY ==
[2024-04-18 10:06] VITALS: BP 123/58; PULSE 66
== END 2024-05-16 11:47 | disposition home or self-care (01) ==
LOC: HO.PT 10:45
PROVIDERS: PCP Internal Medicine
DX: M54.9 Dorsalgia, unspecified (principal)
CPT/HCPCS: 97110; 97161

== ENCOUNTER 2024-05-23 09:43 | Outpatient (AMB) | payer MEDICARE, SELFPAY ==
--- NOTE | 2024-05-23 09:48 | A.OFFPC_ITS ---
Vital Signs 05/23/24 09:50 Height 5 ft 1 in Weight 138 lb BMI 26.1 BP 118/70 Blood Pressure Location Lt brachial Position Sitting Pulse 59 Pulse Source Pulse Oximeter Pulse Oximetry (%) 97 Oxygen Delivery Method Room Air Intake Visit Reasons: bladder cancer Allergies Penicillins Allergy (Severe, Verified 05/23/24 09:51) Anaphylaxis tamsulosin [Flomax] Allergy (Severe, Verified 05/23/24 09:51) severe chest pains ibuprofen [IBUPROFEN] Allergy (Intermediate, Verified 05/23/24 09:51) Rash, hives trospium Allergy (Intermediate, Unverified 05/23/24 10:21) Vomiting amoxicillin Allergy (Mild, Verified 05/23/24 09:51) Hives, bad rash levofloxacin [From LEVAQUIN] Allergy (Mild, Verified 05/23/24 09:51) Rash rabeprazole Allergy (Mild, Verified 05/23/24 09:51) Unknown Sulfa (Sulfonamide Antibiotics) Allergy (Mild, Verified 05/23/24 09:51) Rash atorvastatin Allergy (Unknown, Verified 05/23/24 09:51) Unknown Bifidobacterium infantis [Align] Allergy (Unknown, Verified 05/23/24 09:51) Unknown clarithromycin [Prevpac] Allergy (Unknown, Verified 05/23/24 09:51) Unknown omeprazole [From PRILOSEC] Allergy (Unknown, Verified 05/23/24 09:51) Unknown simvastatin [From ZOCOR] Allergy (Unknown, Verified 05/23/24 09:51) Unknown oxycodone [Percocet] Adverse Reaction (Severe, Verified 05/23/24 09:51) Vomiting amlodipine Adverse Reaction (Intermediate, Verified 05/23/24 09:51) breast pain clobetasol Adverse Reaction (Intermediate, Verified 05/23/24 09:51) made psoriasis worse dexlansoprazole [From Kapidex] Adverse Reaction (Intermediate, Verified 05/23/24 09:51) hyper,watery stool Iodinated Contrast Media [IV CONTRAST] Adverse Reaction (Intermediate, Verified 05/23/24 09:51) Weakness, Lightheaded and confusion lansoprazole [Prevacid] Adverse Reaction (Intermediate, Verified 05/23/24 09:51) hyper, watery stool methotrexate [METHOTREXATE] Adverse Reaction (Intermediate, Verified 05/23/24 09:51) Muscle and joint pain ranitidine Adverse Reaction (Intermediate, Verified 05/23/24 09:51) weak, watery stool alirocumab [From Praluent Pen] Adverse Reaction (Mild, Verified 05/23/24 09:51) Generalized ecchymoses aspirin Adverse Reaction (Mild, Verified 05/23/24 09:51) one sided facial pain, green spots in eye esomeprazole [Nexium] Adverse Reaction (Mild, Verified 05/23/24 09:51) Gastrointestinal Upset pantoprazole [Protonix] Adverse Reaction (Mild, Verified 05/23/24 09:51) one sided headache, yellow streak in left eye mirabegron Adverse Reaction (Unknown, Verified 05/23/24 09:51) Nausea and Vomiting fexofenadine [From [place]] Adverse Reaction (Verified 05/23/24 09:51) painful bones and muscles Tobacco use date assessed: 05/23/24 Fall risk assessment: No Falls in past year Last assessed Fall Risk: 05/23/24 Dental Screening Dental Screen Date: 05/23/24 Did you have a dental visit in the last 12 months?: Yes Did you have a dental problem in the last 6 months where you did not have access to dental care?: No Was dental information given to patient?: Patient has dentist HPI bladder cancer HPI Details The patient is an 83-year-old female presenting with medication tolerance issues and monitoring of bone density. She has a prior diagnosis of osteopenia, which has been stable with a bone density test conducted on April 05, showing a 1% decrease in the hip and a 4% increase in the spine, both of which are not significant changes. The patient has experienced intolerance to urological medications prescribed for bladder surveillance, including Gentesa and Crospium, both of which induced emesis upon administration. She is under the care of Dr. Mix for these medications but reports sensitivity to all medications prescribed. The patient has a history of shoulder pain associated with prior shingles, characterized by a burning sensation upon physical contact, persisting post-shingles recovery. She has attempted physical therapy in the past with some relief. The patient incorporates regular exercise at [employer] and reports that this activity positively impacts her bone density. 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 Bladder cancer Diastolic heart failure Recurrent UTI Osteopenia Allergic rhinitis Lung fibrosis Skin cancer History of rib fracture History of hemorrhoids Hiatal hernia Diverticular disease Pulmonary nodule Psoriasis Barretts esophagus GERD (gastroesophageal reflux disease) History of CVA (cerebrovascular accident) HLD (hyperlipidemia) Postoperative atrial fibrillation CAD (coronary artery disease) Asthma Polymyalgia rheumatica Surgical History History of transurethral resection of bladder tumor (TURBT) History of nasal surgery History of cystoscopy S/P trigger finger release Hx of CABG History of bladder suspension procedure History of tonsillectomy and adenoidectomy History of tonsillectomy Hx of hemorrhoidectomy Family History Father No problems noted. Mother No problems noted. Social History Housing: House Are you a primary palliative care nurse practitioner to a significant other at home: No Do you presently have visiting nurse or other home services: No Alcohol intake: never Patient Tobacco Use Status: Never used Tobacco Tobacco use type: Cigarette e-Cigarette/Vaping Use: Never Used Second Hand Smoke Exposure: No Advance Directives Date on File: 08/29/16 service: No Current occupational status: retired Current occupation: rt hand Current occupational exposures/hazards: No Cognitive needs: No Hearing needs: No Vision needs: No Questionnaire PHQ-9 Over the last 2 weeks, how often have you been bothered by any of the following problems? 1. Little interest or pleasure in doing things: not at all 2. Feeling down, depressed, or hopeless: not at all 3. Trouble falling or staying asleep, or sleeping too much: not at all 4. Feeling tired or having little energy: not at all 5. Poor appetite or overeating: not at all 6. Feeling bad about yourself - or that you are a failure or have let yourself or your family down: not at all 7. Trouble concentrating on things, such as reading the newspaper or watching te levision: not at all 8. Moving or speaking so slowly that other people could have noticed. Or the opposite - being so fidgety or restless that you have been moving around a lot more than usual: not at all 9. Thoughts that you would be better off or of hurting yourself in some way: not at all Total score: 0 Depression Screening Interpretation: Negative Depression Screening Done: Yes Source: Developed by Drs. Librado Fraser, Ingris Fuentes, Harry Acevedo and colleagues, with an educational marissa from [employer]. Thrive Questionnaire Date Thrive assessed: 05/23/24 I am a: Patient What is your living situation today?: I have a steady place to live Within the past 12 months, did the food you bought not last and you didn't have the money to get more?: Never true Within the past 12 months, did you worry whether your food would run out before you got money to buy more?: Never true Do you have trouble paying for medicines?: No Do you have trouble getting transportation to medical appointments?: No Do you have trouble paying your heating and electricity bill?: No Do you have trouble taking care of your child, family member or friend?: No Do you have trouble with day-to-day activities such as bathing, preparing meals, shopping, managing finances, etc.?: No Are you currently unemployed and looking for a job?: No Are you interested in more education?: No Currently or been in a relationship where the following occur: No concerns reported THRIVE Score: 0 AUDIT C Alcohol Use Questionnaire (AUDIT-C) 1. How often do you have a drink containing alcohol?: Never 2. How many drinks containing alcohol do you have on a typical day when you are drinking?: 1 or 2 3. How often do you have six or more drinks on one occasion?: Never Total Score: 0 Score Reviewed/Action Taken: Yes BIRDIE-7 AMB Questionnaire BIRDIE-7 Date BIRDIE - 7 assessed: 05/23/24 Feeling nervous, anxious, or on edge: 0 = Not at all Not being able to stop or control worryin = Not at all Worrying too much about different things: 0 = Not at all Trouble relaxin = Not at all Being so restless that it is hard to sit still: 0 = Not at all Becoming easily annoyed or irritable: 0 = Not at all Feeling afraid as if something awful might happen: 0 = Not at all Total BIRDIE-7 score (0-4 normal; 5-9 mild; 10-14 moderate; 15-21 severe): 0 Source: Developed by Drs. Librado Fraser, Ingris Fuentes, Harry Acevedo and colleagues, with an educational marissa from [employer]. BIRDIE-7 Assessment Billing BIRDIE-7 Assessment Tool: BIRDIE-7 Assessment 90878 Physical exam (Primary Care) Vital Signs: Last Vital Signs Pulse 59 05/23/24 09:50 BP 118/70 05/23/24 09:50 Pulse Ox 97 05/23/24 09:50 Oxygen Delivery Method Room Air 05/23/24 09:50 BMI result Body Mass Index 26.1 Tobacco/Smoking Status: Tobacco use Status Tobacco use date assessed 05/23/24 05/23/24 09:55 Patient Tobacco Use Status Never used Tobacco 05/23/24 09:49 Tobacco use type Cigarette 05/23/24 09:49 e-Cigarette/Vaping Use Never Used 05/23/24 09:49 PHQ-9: PHQ-9 Score PHQ-9: Total score 0 05/23/24 10:20 Depression Screening Interpretation: Negative Thrive Assessment: Date of Thrive Assessment Date Thrive assessed 05/23/24 05/23/24 09:55 Currently or been in a relationship where the following occur: No concerns reported Const General: alert; No acute distress Eyes Conjunctivae: conjunctivae normal Resp Auscultation: clear to auscultation bilaterally Cardio Rate: regular rate Rhythm: regular rhythm GI Inspection: Yes normal to inspection Extrem General: Yes normal to inspection and No edema Coding Level of Care Code Est Pt Level 4 (70827) Complex EM visit Add On G2211 Diagnoses Primary hypertension I10 Hypertension type: primary hypertension Shoulder pain M25.519 Malignant neoplasm of urinary bladder, unspecified site C67.9 Bladder location: unspecified site GERD (gastroesophageal reflux disease) K21.9 Mixed hyperlipidemia E78.2 Hyperlipidemia type: mixed hyperlipidemia Coronary artery disease involving [place] coronary artery of [place] heart without angina pectoris I25.10 Associated angina: without angina Coronary Disease-Associated Artery/Lesion type: [place] artery [place] vs. transplanted heart: [place] heart Additional Codes BIRDIE-7 Assessment Billing - BIRDIE-7 Assessment Tool: BIRDIE-7 Assessment 32105 ([id number]) Assessment & Plan Assessment & Plan (1) HTN (hypertension): Code(s): I10 - Essential (primary) hypertension Category: Medical Qualifiers: Hypertension type: primary hypertension Qualified Code(s): I10 - Essential (primary) hypertension (2) Shoulder pain: Code(s): M25.519 - Pain in unspecified shoulder Category: Medical (3) Urinary bladder cancer: Comment: - High-grade papillary urothelial carcinoma, non-invasive. Bladder biopsy with extensive fulguration left-sided bladder Dr. Mix October 2021, January 2022 - 02/06 CIS TURBT and gemcitabine instillation Dr. Mix May 2022 biopsy 02/2023 high grade papillary carcinoma Code(s): C67.9 - Malignant neoplasm of bladder, unspecified Category: Medical Qualifiers: Bladder location: unspecified site Qualified Code(s): C67.9 - Malignant neoplasm of bladder, unspecified (4) GERD (gastroesophageal reflux disease): Code(s): K21.9 - Gastro-esophageal reflux disease without esophagitis Category: Medical (5) HLD (hyperlipidemia): Code(s): E78.5 - Hyperlipidemia, unspecified Category: Medical Qualifiers: Hyperlipidemia type: mixed hyperlipidemia Qualified Code(s): E78.2 - Mixed hyperlipidemia (6) CAD (coronary artery disease): Comment: CABG x2 2017 WHITAKER to LAD, SVG to OM Dr. Godoy Code(s): I25.10 - Atherosclerotic heart disease of [place] coronary artery without angina pectoris Category: Medical Qualifiers: Associated angina: without angina Coronary Disease-Associated Artery/Lesion type: [place] artery [place] vs. transplanted heart: [place] heart Qualified Code(s): I25.10 - Atherosclerotic heart disease of [place] coronary artery without angina pectoris Plan - Continue monitoring bone density, maintaining current lifestyle interventions, including regular exercise with [employer] as it appears beneficial. - Given the intolerance to urological medications, evaluate alternative therapeutic strategies for bladder management. - For shoulder pain management, recommend trial of Capsaicin cream for symptomatic relief, considering prior shingles history and current symptoms, while avoiding aspirin-containing products due to a noted allergy. - Encourage continued hydration, balanced diet, and regular physical activity to support overall health and well-being. - Schedule routine follow-up blood work in six months to monitor kidney function and other relevant parameters, ensuring ongoing disease surveillance and management. - Discuss infection prevention strategies, including seasonal influenza vaccination and other relevant vaccines, in light of the patient's concerns regarding current viral illnesses. Orders: Orders Comprehensive Met. Panel 6 Months I10 - Essential (primary) hypertension Free T4 (Free Thyroxine) 6 Months I10 - Essential (primary) hypertension Thyroid Stimulating Hormone 6 Months I10 - Essential (primary) hypertension Vitamin D 25-OH Total 6 Months I10 - Essential (primary) hypertension Ferritin 6 Months I10 - Essential (primary) hypertension IRON PROFILE 6 Months I10 - Essential (primary) hypertension Uric Acid 6 Months I10 - Essential (primary) hypertension Complete Blood Count Auto Diff 6 Months I10 - Essential (primary) hypertension Lipid Panel 6 Months E78.00 - Pure hypercholesterolemia, unspecified, I10 - Essential (primary) hypertension Vitamin B12 and Folate 6 Months I10 - Essential (primary) hypertension Reticulocyte Count 6 Months I10 - Essential (primary) hypertension
[2024-05-23 09:50] VITALS: BP 118/70; PULSE 59; O2SAT 97; BMI 26.1
== END 2024-05-23 10:31 | disposition home or self-care (01) ==
PROVIDERS: PCP Internal Medicine; Visit Provider Internal Medicine
DX: I10 Essential (primary) hypertension (principal); M25.519 Pain in unspecified shoulder; C67.9 Malignant neoplasm of bladder, unspecified; K21.9 Gastro-esophageal reflux disease without esophagitis; E78.2 Mixed hyperlipidemia; I25.10 Atherosclerotic heart disease of native coronary artery without angina pectoris

== ENCOUNTER → 2024-05-23 09:43 | Outpatient (BNVA) | payer MEDICARE, SELFPAY | PROVIDERS: PCP Internal Medicine; Visit Provider Internal Medicine | DX: I10 Essential (primary) hypertension (principal); M25.519 Pain in unspecified shoulder; C67.9 Malignant neoplasm of bladder, unspecified; K21.9 Gastro-esophageal reflux disease without esophagitis; E78.2 Mixed hyperlipidemia; I25.10 Atherosclerotic heart disease of native coronary artery without angina pectoris | CPT/HCPCS: 96127; 99212 ==

== ENCOUNTER 2024-06-03 15:35 | Emergency (ER) | payer MEDICARE, SELFPAY ==
[2024-06-03 15:48] VITALS: BP 171/50; PULSE 76; RESP 18; TEMP 37.1; O2SAT 97; BMI 26.6
--- NOTE | 2024-06-03 15:52 | ED.GENADULT ---
HPI - General Adult General Chief complaint: Skin/Abscess/Foreign Body Stated complaint: hit leg , swollen and red Time Seen by Provider: 06/03/24 15:52 Source: patient, RN notes reviewed and old records reviewed Mode of arrival: ambulatory Limitations: no limitations History of Present Illness ED Provider: Cipriano HPI narrative: 83-year-old female presents for evaluation of a left leg injury. The patient has a history of sick sinus syndrome, hypertension, heart failure, osteopenia, coronary artery disease, hyperlipidemia, GERD presents for evaluation after injuring her left gupta. She was at the gym and accidentally bumped her left gupta against a machine She had some bruising immediately and then swelling She has a small hematoma that she was concerned may need to be drained This happened a few hours prior to arrival The patient is on Plavix but no anticoagulation Related Data Home Medications ?Medication ?Instructions ?Recorded ?Confirmed cetirizine 10 mg capsule (Zyrtec) 10 mg PO BEDTIME 10/28/21 03/18/24 dupilumab 300 mg/2 mL subcutaneous 300 mg subcut Q2W 10/28/21 03/18/24 pen injector ([employer]) Tums PRN Gastric Reflux 02/06/22 03/18/24 fluorouracil 5 % topical cream 1 appl topical BID 02/13/22 03/18/24 gentamicin 0.1 % topical cream appl topical DAILY 02/02/24 03/18/24 prednisone 1 mg tablet mg PO BID PRN 02/02/24 03/18/24 vitamin E (dl, acetate) 450 mg 450 mg PO TID 02/18/24 03/18/24 (1,000 unit) capsule Previous Rx's ?Medication ?Instructions ?Recorded clopidogrel 75 mg tablet 75 mg PO DAILY #90 tabs 09/09/23 ezetimibe 10 mg tablet 10 mg PO DAILY #90 tabs 03/09/24 cyclobenzaprine 5 mg tablet 5 mg PO BEDTIME PRN muscle spasm 03/18/24 #14 tabs lidocaine 5 % topical patch 1 patch topical DAILY #30 ea 03/18/24 (Lidocan III) furosemide 20 mg tablet 20 mg PO DAILY #90 tabs 05/23/24 metoprolol succinate 25 mg 12.5 mg (1/2 x 25 mg) PO DAILY #30 05/24/24 tablet,extended release 24 hr tabs Allergies Allergy/AdvReac Type Severity Reaction Status Date / Time Penicillins Allergy Severe Anaphylaxis Verified 06/03/24 15:51 tamsulosin [Flomax] Allergy Severe severe Verified 06/03/24 15:51 chest pains ibuprofen [IBUPROFEN] Allergy Intermediate Rash, hives Verified 06/03/24 15:51 trospium Allergy Intermediate Vomiting Verified 06/03/24 15:51 amoxicillin Allergy Mild Hives, bad Verified 06/03/24 15:51 rash levofloxacin [From LEVAQUIN] Allergy Mild Rash Verified 06/03/24 15:51 rabeprazole Allergy Mild Unknown Verified 06/03/24 15:51 Sulfa (Sulfonamide Allergy Mild Rash Verified 06/03/24 15:51 Antibiotics) atorvastatin Allergy Unknown Unknown Verified 06/03/24 15:51 Bifidobacterium infantis Allergy Unknown Unknown Verified 06/03/24 15:51 [Align] clarithromycin [Prevpac] Allergy Unknown Unknown Verified 06/03/24 15:51 omeprazole [From PRILOSEC] Allergy Unknown Unknown Verified 06/03/24 15:51 simvastatin [From ZOCOR] Allergy Unknown Unknown Verified 06/03/24 15:51 oxycodone [Percocet] AdvReac Severe Vomiting Verified 06/03/24 15:51 amlodipine AdvReac Intermediate breast pain Verified 06/03/24 15:51 clobetasol AdvReac Intermediate made Verified 06/03/24 15:51 psoriasis worse dexlansoprazole AdvReac Intermediate hyper,watery Verified 06/03/24 15:51 [From Kapidex] stool Iodinated Contrast Media AdvReac Intermediate Weakness, Verified 06/03/24 15:51 [IV CONTRAST] Lightheaded and confusion lansoprazole [Prevacid] AdvReac Intermediate hyper, Verified 06/03/24 15:51 watery stool methotrexate [METHOTREXATE] AdvReac Intermediate Muscle and Verified 06/03/24 15:51 joint pain ranitidine AdvReac Intermediate weak, Verified 06/03/24 15:51 watery stool alirocumab AdvReac Mild Generalized Verified 06/03/24 15:51 [From Praluent Pen] ecchymoses aspirin AdvReac Mild one sided Verified 06/03/24 15:51 facial pain, green spots in eye esomeprazole [Nexium] AdvReac Mild Gastrointestinal Verified 06/03/24 15:51 Upset pantoprazole [Protonix] AdvReac Mild one sided Verified 06/03/24 15:51 headache, yellow streak in left eye mirabegron AdvReac Unknown Nausea and Verified 06/03/24 15:51 Vomiting fexofenadine [From [place]] AdvReac painful Verified 06/03/24 15:51 bones and muscles Review of Systems Constitutional: Constitutional: Denies headache(s) ENT: Denies headache(s) Cardiovascular: Cardiovascular: Denies chest pain Musculoskeletal: Musculoskeletal: Denies back pain Integumentary/Breasts: Skin/Breast: Reports unusual bruising Neurologic: Denies headache(s) Psychiatric: Psychiatric: Denies anxiety PMFSH Past Medical History Medical History UTI (urinary tract infection) Cardiac arrhythmia TSH elevation Age-related osteoporosis without current pathological fracture Painful breasts 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 Bladder cancer Diastolic heart failure Recurrent UTI Osteopenia Allergic rhinitis Lung fibrosis Skin cancer History of rib fracture History of hemorrhoids Hiatal hernia Diverticular disease Pulmonary nodule Psoriasis Barretts esophagus GERD (gastroesophageal reflux disease) History of CVA (cerebrovascular accident) HLD (hyperlipidemia) Postoperative atrial fibrillation CAD (coronary artery disease) Asthma Polymyalgia rheumatica Surgical History History of transurethral resection of bladder tumor (TURBT) History of nasal surgery History of cystoscopy S/P trigger finger release Hx of CABG History of bladder suspension procedure History of tonsillectomy and adenoidectomy History of tonsillectomy Hx of hemorrhoidectomy Family History Family History Father No problems noted. Mother No problems noted. Social History Social History Housing: House Are you a primary health care / medical job titles to a significant other at home: No Do you presently have visiting nurse or other home services: No Alcohol intake: never Patient Tobacco Use Status: Never used Tobacco Tobacco use type: Cigarette e-Cigarette/Vaping Use: Never Used Second Hand Smoke Exposure: No Advance Directives: No Advance Directives Information Provided: No Advance Directives Date on File: 08/29/16 service: No Current occupational status: retired Current occupation: rt hand Current occupational exposures/hazards: No Cognitive needs: No Hearing needs: No Vision needs: No Physical Exam ED Vital Signs: Vital Signs - 24 hr 06/03/24 15:48 Temperature 98.8 F Pulse Rate 76 Respiratory Rate 18 Blood Pressure 171/50 H Pulse Oximetry 97 Oxygen Delivery Method Room Air BMI result Body Mass Index 26.6 Const General: healthy appearing, comfortable, no acute distress, alert and awake Nutritional Appearance: well nourished Orientation/consciousness: patient oriented x3 HENMT Head: Yes normocephalic and Yes atraumatic Eyes Eyelids: Yes eyelids normal Conjunctivae: conjunctivae normal Sclerae: sclerae normal Corneas: corneas normal Pupils: Equal, round and reactive pupils present EOM: EOMs intact bilaterally Neck Neck: Yes full ROM Resp Effort & Inspection: normal respiratory effort, able to speak in complete sentences and not labored Skin General skin exam: elasticity normal Neuro General: patient oriented x3 Cranial nerves: Yes Equal, round and reactive pupils present and Yes Bilaterally intact EOM present Cognition (Neuro): normal cognition Extrem Other: Patient has a large contusion to the left anterior gupta with about a 2 cm x 1 cm hematoma. No surrounding erythema no significant tenderness to palpation. No open wounds Medical Decision Making Medical Decision Making [facility] Narrative: 83-year-old female presents for evaluation of a small hematoma to the left gupta. I have a low suspicion for lower leg fracture given that she is ambulating without any difficulty. The patient is on Plavix but no anticoagulation. Given that there are no signs of infection and the hematoma does not appear to be growing, we will not attempt to aspirate the hematoma at this time. I did discuss return precautions Differential Diagnosis Differential Diagnoses: The differential diagnosis associated with the presentation includes Hematoma Contusion Blister Vesicle Discharge Plan Discharge Clinical Impression: Hematoma Patient Disposition: Home, Self-Care Instructions: Hematoma (ED) Additional Instructions: Do not pop the hematoma intentionally. If it does popped spontaneously you may apply topical antibiotic Apply ice to the area every 4 hours or so to help with swelling It will likely take a few days to a couple of weeks for this to completely resolve on its own Prescriptions: No Action clopidogrel 75 mg tablet 75 mg PO DAILY Qty: 90 3RF ezetimibe 10 mg tablet 10 mg PO DAILY Qty: 90 3RF furosemide 20 mg tablet 20 mg PO DAILY Qty: 90 3RF metoprolol succinate 25 mg tablet extended release 24 hr 12.5 mg PO DAILY Qty: 30 1RF Zyrtec 10 mg capsule 10 mg PO BEDTIME Dupixent Pen 300 mg/2 mL Pen Injector 300 mg SUBCUT Q2W Tums PRN (Reason: Gastric Reflux) fluorouracil 5 % cream 1 appl topical BID lidocaine [Lidocan III] 5 % adhesive patch,medicated 1 patch topical DAILY Qty: 30 0RF Rx Instructions: leave on most painful area for up to 12 hrs cyclobenzaprine 5 mg tablet 5 mg PO BEDTIME PRN (Reason: muscle spasm) Qty: 14 0RF vitamin E (dl, acetate) 450 mg (1,000 unit) capsule 450 mg PO TID prednisone 1 mg tablet PO BID PRN gentamicin 0.1 % cream topical DAILY Print Language: Sinhala
[2024-06-03 16:21] VITALS: BP 171/50; PULSE 76; RESP 18; TEMP 37.1; O2SAT 97
== END 2024-06-03 16:21 | disposition home or self-care (01) ==
PROVIDERS: Emergency Provider Emergency Medicine; PCP Internal Medicine
DX: S80.12XA Contusion of left lower leg, initial encounter (principal); W21.89XA Striking against or struck by other sports equipment, initial encounter; M79.605 Pain in left leg; Y93.A1 Activity, exercise machines primarily for cardiorespiratory conditioning; Y92.59 Other trade areas as the place of occurrence of the external cause; Y99.9 Unspecified external cause status
CPT/HCPCS: 99282

== ENCOUNTER 2024-06-14 08:44 | Outpatient (AMB) | payer MEDICARE, SELFPAY ==
--- NOTE | 2024-06-14 08:54 | A.OFFVIS_ITS ---
Intake Visit Reasons: Cystoscopy(Bladder Ca) Intake Note: Patient is present for Cystoscopy Urology Medication:VITAMIN E Antibiotic Allergy:PENICILLIN,TAMSULOSIN,AMOXICILLIN,SULFA,LEVOFLOXACIN,ATROVASTATIN,CLARIT HROMYCIN,SIMVASTATIN Blood Thinner:NONE Lot:[id number] Exp:03/21/27 Revenue Field Auditor Required: No Allergies Penicillins Allergy (Severe, Verified 06/14/24 09:02) Anaphylaxis tamsulosin [Flomax] Allergy (Severe, Verified 06/14/24 09:02) severe chest pains ibuprofen [IBUPROFEN] Allergy (Intermediate, Verified 06/14/24 09:02) Rash, hives trospium Allergy (Intermediate, Verified 06/14/24 09:02) Vomiting amoxicillin Allergy (Mild, Verified 06/14/24 09:02) Hives, bad rash levofloxacin [From LEVAQUIN] Allergy (Mild, Verified 06/14/24 09:02) Rash rabeprazole Allergy (Mild, Verified 06/14/24 09:02) Unknown Sulfa (Sulfonamide Antibiotics) Allergy (Mild, Verified 06/14/24 09:02) Rash atorvastatin Allergy (Unknown, Verified 06/14/24 09:02) Unknown Bifidobacterium infantis [Align] Allergy (Unknown, Verified 06/14/24 09:02) Unknown clarithromycin [Prevpac] Allergy (Unknown, Verified 06/14/24 09:02) Unknown omeprazole [From PRILOSEC] Allergy (Unknown, Verified 06/14/24 09:02) Unknown simvastatin [From ZOCOR] Allergy (Unknown, Verified 06/14/24 09:02) Unknown oxycodone [Percocet] Adverse Reaction (Severe, Verified 06/14/24 09:02) Vomiting amlodipine Adverse Reaction (Intermediate, Verified 06/14/24 09:02) breast pain clobetasol Adverse Reaction (Intermediate, Verified 06/14/24 09:02) made psoriasis worse dexlansoprazole [From Kapidex] Adverse Reaction (Intermediate, Verified 06/14/24 09:02) hyper,watery stool Iodinated Contrast Media [IV CONTRAST] Adverse Reaction (Intermediate, Verified 06/14/24 09:02) Weakness, Lightheaded and confusion lansoprazole [Prevacid] Adverse Reaction (Intermediate, Verified 06/14/24 09:02) hyper, watery stool methotrexate [METHOTREXATE] Adverse Reaction (Intermediate, Verified 06/14/24 09:02) Muscle and joint pain ranitidine Adverse Reaction (Intermediate, Verified 06/14/24 09:02) weak, watery stool alirocumab [From Praluent Pen] Adverse Reaction (Mild, Verified 06/14/24 09:02) Generalized ecchymoses aspirin Adverse Reaction (Mild, Verified 06/14/24 09:02) one sided facial pain, green spots in eye esomeprazole [Nexium] Adverse Reaction (Mild, Verified 06/14/24 09:02) Gastrointestinal Upset pantoprazole [Protonix] Adverse Reaction (Mild, Verified 06/14/24 09:02) one sided headache, yellow streak in left eye mirabegron Adverse Reaction (Unknown, Verified 06/14/24 09:02) Nausea and Vomiting fexofenadine [From [place]] Adverse Reaction (Verified 06/14/24 09:02) painful bones and muscles HPI Comments Details: Mary is a pleasant female. She is a patient of Dr. Gutierrez. She is seen for the following urologic conditions - microscopic hematuria - abnormal urine cytology - bladder cancer Three-month office follow-up check cystoscopy Recent Trospium Unable to tolerate Gemtesa Looks great on cystoscopy today. Moved to Q 4 month cystoscopy. Bladder cancer - 11/06 - high-grade superficial, 06/09 TURBT low-grade superficial, 04/09 high-grade superficial Detected after evaluation for microscopic hematuria Interventions - TURBT 11/06 high-grade superficial, 02/06 BBx with fulgeration CIS, 06/09 low- grade superficial with MMC, 03/09 TURBT high-grade with fulguration Smoking history - 2nd exposure through Workplace exposure - plastics exposure, glue exposure Imaging - 10/06 CT urogram normal Cytology - 10/06 high-grade, 07/11 - atypical scant, 10/08 NAD, 05/10 NAD Adjuvant therapy - 11/06 6 week induction Gemcitabine, 3 week boost 10/07, 04/09 reinduction 6 week MMC/cytarabine, 10/08 three-week mitomycin-C cytarabine Therapeutic plan - continue surveillance PFSH Medical History UTI (urinary tract infection) Cardiac arrhythmia TSH elevation Age-related osteoporosis without current pathological fracture Painful breasts 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 Bladder cancer Diastolic heart failure Recurrent UTI Osteopenia Allergic rhinitis Lung fibrosis Skin cancer History of rib fracture History of hemorrhoids Hiatal hernia Diverticular disease Pulmonary nodule Psoriasis Barretts esophagus GERD (gastroesophageal reflux disease) History of CVA (cerebrovascular accident) HLD (hyperlipidemia) Postoperative atrial fibrillation CAD (coronary artery disease) Asthma Polymyalgia rheumatica Surgical History History of transurethral resection of bladder tumor (TURBT) History of nasal surgery History of cystoscopy S/P trigger finger release Hx of CABG History of bladder suspension procedure History of tonsillectomy and adenoidectomy History of tonsillectomy Hx of hemorrhoidectomy Family History Father No problems noted. Mother No problems noted. Social History Housing: House Are you a primary managed care coordinator to a significant other at home: No Do you presently have visiting nurse or other home services: No Alcohol intake: never Patient Tobacco Use Status: Never used Tobacco Tobacco use type: Cigarette e-Cigarette/Vaping Use: Never Used Second Hand Smoke Exposure: No Advance Directives Date on File: 08/29/16 service: No Current occupational status: retired Current occupation: rt hand Current occupational exposures/hazards: No Cognitive needs: No Hearing needs: No Vision needs: No Review of Systems Const Denies chills and Denies fever(s) Card Reports no additional complaints and Denies syncope Resp Denies cough GI Denies abdominal pain and Denies heartburn Reports as per HPI and Denies change in libido Neuro Denies syncope Psych Denies change in libido Endo Denies change in libido Physical Exam Const General: cooperative, healthy appearing, comfortable and no acute distress Orientation/consciousness: patient oriented x3 HEENT Face and sinus: Yes normal facial exam Mouth: moist mucous membranes Neck Neck: Yes normal visual inspection, Yes full ROM and Yes trachea midline Chest Chest palpation & inspection: normal inspection of the chest Resp Effort & Inspection: normal respiratory effort, able to speak in complete sentences and no respiratory distress GI Inspection: Yes normal to inspection Back/Spine/Pelvis Cervical Spine: normal cervical lordosis Thoracic/Lumbar Spine: thoracic and lumbar spine normal to inspection Skin General skin exam: no rashes or lesions noted Neuro General: patient oriented x3, gait normal, tone normal and moves all extremities Extrem General: Yes normal to inspection and Yes capillary refill normal Office Procedures Cystoscopy Consent Discussed risk and benefit or proposed procedure with the patient. Information consent for procedure given to the patient. Discussed technical aspects, risks, benefits and alternatives in full. Addressed all of the patient's questions and concerns regarding the procedure. The patient demonstrated knowledge and understanding. They wish to proceed with this procedure. Preparation The patient was prepped in the usual manner. A software developer manager was present and in the room. Genitalia was prepped with betadine solution in a sterile manner. Lidocaine Jelly 2% was placed into the urethra and 16Fr flexible Olympus cystoscope was inserted into the meatus after adequate lubrication. Procedure Meatus normal position Urethra normal Bladder examination with retroflexion of cystoscope Bladder Orifices normal shape and position Trigone - Bladder Capacity normal Trabeculations mild Cellule Formation - Diverticulum Formation - Mucosal Erythema patchy small red spots Bladder Tumor - 76188-[id number] DISPOSABLE SCOPE URO-G FLEXIBLE SCOPE Procedure code (CPT) selection complete Office Meds lidocaine HCl 2 % mucosal jelly in applicator Performing Provider: Celio Mix MD Performing Location: [facility] Administered by: Nella Miranda RN on 06/14/24 09:31 Dose Route Admin Location Dispensed Lot Number Expiration Date NDC Theoretical Physics Teacher 10 mL intra-urethral 10 mL nitrofurantoin monohydrate/macrocrystals 100 mg capsule Performing Provider: Celio Mix MD Performing Location: [facility] Administered by: Nella Miranda RN on 06/14/24 09:31 Dose Route Admin Location Dispensed Lot Number Expiration Date ND Theoretical Physics Teacher 100 mg PO 1 cap Results AMB Urinalysis, Automated UA Leukoctes 15 Mark/uL Last Edit by CHRYSTAL Vilchis on 06/14/24 09:23 UA Nitrite Negative Last Edit by CHRYSTAL Vilchis on 06/14/24 09:23 UA Urobilinogen 0.2 mg/dL Last Edit by CHRYSTAL Vilchis on 06/14/24 09:2 3 UA Protein 30 mg/dL Last Edit by CHRYSTAL Vilchis on 06/14/24 09:23 UA pH 6.0 Last Edit by CHRYSTAL Vilchis on 06/14/24 09:23 UA Blood 80 Sushant/uL Last Edit by CHRYSTAL Vilchis on 06/14/24 09:23 UA Specific [place] 1.025 Last Edit by CHRYSTAL Vilchis on 06/14/24 09: 23 UA Ketone Positive Last Edit by CHRYSTAL Vilchis on 06/14/24 09:23 UA Bilirubin 0 mg/dL Last Edit by CHRYSTAL Vilchis on 06/14/24 09:23 UA Glucose 0 mg/dL Last Edit by CHRYSTAL Vilchis on 06/14/24 09:23 Results Reviewed Results Reviewed: Laboratory Last Values Urine pH (Auto) 6.0 06/14/24 09:22 Specific [place] (Auto) 1.025 06/14/24 09:22 Urine Protein (Auto) 30 mg/dL 06/14/24 09:22 Glucose (UA)(Auto) 0 mg/dL 06/14/24 09:22 Urine Ketones (Auto) Positive 06/14/24 09:22 Urine Blood (Auto) 80 Sushant/uL 06/14/24 09:22 Urine Nitrite (Auto) Negative 06/14/24 09:22 Urine Bilirubin (Auto) 0 mg/dL 06/14/24 09:22 Urine Urobilinogen (Auto) 0.2 mg/dL 06/14/24 09:22 Leukocyte Esterase (Auto) 15 Mark/uL 06/14/24 09:22 Assessment & Plan Assessment & Plan (1) Urinary bladder cancer: Comment: - High-grade papillary urothelial carcinoma, non-invasive. Bladder biopsy with extensive fulguration left-sided bladder Dr. Mix October 2021, January 2022 - 02/06 CIS TURBT and gemcitabine instillation Dr. Mix May 2022 biopsy 02/2023 high grade papillary carcinoma Code(s): C67.9 - Malignant neoplasm of bladder, unspecified Category: Medical Qualifiers: Bladder location: unspecified site Qualified Code(s): C67.9 - Malignant neoplasm of bladder, unspecified Plan Clear on cystoscopy today Four-month follow-up check cysto Orders: Orders AMB Urinalysis Automated Today Z13.9 - Encounter for screening, unspecified AMB Cystoscopy Today C67.9 - Malignant neoplasm of bladder, unspecified Urine Cytology Today N39.0 - Urinary tract infection, site not specified Patient Instructions: Imaging studies, laboratory and physical exam results were discussed and reviewed in detail. No major barriers to patient understanding were identified. An opportunity to ask questions regarding the treatment plan was provided. All questions were answered. The patient expressed understanding and agreement with the above treatment plan. The patient is aware they should contact our office by phone for worsening of their current condition or the appearance of new urologic symptoms. Compliance is encouraged with any medications and followup testing that is ordered. It is a privilege to participate in the urologic care of your patient. If you have any questions or concerns regarding treatment for the above conditions, or other urologic issues, please do not hesitate to contact me. The office telephone contact is [phone]. This note is constructed using voice recognition software. While every effort has been made to ensure accuracy mechanic foreman errors may have been included. Yours sincerely, Dr Celio Mix MD, [facility] - Urology Providers of Expert, Compassionate Care for the Genitourinary System Coding Level of Care Code Est Pt Level 3 (61084) Diagnoses Malignant neoplasm of urinary bladder, unspecified site C67.9 Bladder location: unspecified site CPT Codes Cystoscopy - CPT: 72538-Nycrmgizxy ([id number])
== END 2024-06-14 09:56 | disposition home or self-care (01) ==
PROVIDERS: PCP Internal Medicine; Visit Provider Urology
DX: C67.9 Malignant neoplasm of bladder, unspecified (principal)
CPT/HCPCS: 52000; 99213

== ENCOUNTER 2024-06-14 08:44 | Outpatient (REF) | payer MEDICARE, SELFPAY ==
[2024-06-14 16:19] LABS: Urine Cytology See Pathology rpt
== END 2024-06-14 08:45 | disposition home or self-care (01) ==
LOC: HO.LAB 08:44
PROVIDERS: PCP Internal Medicine; Visit Provider Urology
DX: N39.0 Urinary tract infection, site not specified (principal); C67.9 Malignant neoplasm of bladder, unspecified
CPT/HCPCS: 52000; 81003; 88112; 99212

== ENCOUNTER 2024-08-02 10:25 | Outpatient (AMB) | payer MEDICARE, SELFPAY ==
[2024-08-02 10:41] VITALS: BP 120/60; PULSE 54; O2SAT 98; BMI 26.4
--- NOTE | 2024-08-02 10:41 | A.OFFVIS_ITS ---
Vital Signs 08/02/24 10:41 Height 5 ft 1 in Weight 139 lb 15.896 oz BMI 26.4 BP 120/60 Blood Pressure Location Lt brachial Position Sitting Pulse 54 Pulse Source Pulse Oximeter Pulse Oximetry (%) 98 Oxygen Delivery Method Room Air Intake Visit Reasons: pulmonary fibrosis Intake Note: pt is here for follow up and states her only complaint is pain in the shoulder blade with left worse than right. Customer Solutions Specialist Required: No Allergies Penicillins Allergy (Severe, Verified 08/02/24 10:44) Anaphylaxis tamsulosin [Flomax] Allergy (Severe, Verified 08/02/24 10:44) severe chest pains ibuprofen [IBUPROFEN] Allergy (Intermediate, Verified 08/02/24 10:44) Rash, hives trospium Allergy (Intermediate, Verified 08/02/24 10:44) Vomiting amoxicillin Allergy (Mild, Verified 08/02/24 10:44) Hives, bad rash levofloxacin [From LEVAQUIN] Allergy (Mild, Verified 08/02/24 10:44) Rash rabeprazole Allergy (Mild, Verified 08/02/24 10:44) Unknown Sulfa (Sulfonamide Antibiotics) Allergy (Mild, Verified 08/02/24 10:44) Rash atorvastatin Allergy (Unknown, Verified 08/02/24 10:44) Unknown Bifidobacterium infantis [Align] Allergy (Unknown, Verified 08/02/24 10:44) Unknown clarithromycin [Prevpac] Allergy (Unknown, Verified 08/02/24 10:44) Unknown omeprazole [From PRILOSEC] Allergy (Unknown, Verified 08/02/24 10:44) Unknown simvastatin [From ZOCOR] Allergy (Unknown, Verified 08/02/24 10:44) Unknown oxycodone [Percocet] Adverse Reaction (Severe, Verified 08/02/24 10:44) Vomiting amlodipine Adverse Reaction (Intermediate, Verified 08/02/24 10:44) breast pain clobetasol Adverse Reaction (Intermediate, Verified 08/02/24 10:44) made psoriasis worse dexlansoprazole [From Kapidex] Adverse Reaction (Intermediate, Verified 08/02/24 10:44) hyper,watery stool Iodinated Contrast Media [IV CONTRAST] Adverse Reaction (Intermediate, Verified 08/02/24 10:44) Weakness, Lightheaded and confusion lansoprazole [Prevacid] Adverse Reaction (Intermediate, Verified 08/02/24 10:44) hyper, watery stool methotrexate [METHOTREXATE] Adverse Reaction (Intermediate, Verified 08/02/24 10:44) Muscle and joint pain ranitidine Adverse Reaction (Intermediate, Verified 08/02/24 10:44) weak, watery stool alirocumab [From Praluent Pen] Adverse Reaction (Mild, Verified 08/02/24 10:44) Generalized ecchymoses aspirin Adverse Reaction (Mild, Verified 08/02/24 10:44) one sided facial pain, green spots in eye esomeprazole [Nexium] Adverse Reaction (Mild, Verified 08/02/24 10:44) Gastrointestinal Upset pantoprazole [Protonix] Adverse Reaction (Mild, Verified 08/02/24 10:44) one sided headache, yellow streak in left eye mirabegron Adverse Reaction (Unknown, Verified 08/02/24 10:44) Nausea and Vomiting fexofenadine [From [place]] Adverse Reaction (Verified 08/02/24 10:44) painful bones and muscles Medication List - Last Reconciled 08/02/24 by Balaji Espino MD cetirizine (Zyrtec) 10 mg PO BEDTIME cholecalciferol (vitamin D3) 50 mcg PO .qod clopidogrel 75 mg PO DAILY cyclobenzaprine 5 mg PO BEDTIME PRN dupilumab (Dupixent) 300 mg subcut Q2W ezetimibe 10 mg PO DAILY fluorouracil 5% 1 appl topical BID furosemide 20 mg PO DAILY gentamicin 0.1% appl topical DAILY lidocaine 5% (Lidocan III) 1 patch topical DAILY metoprolol succinate ER 12.5 mg (1/2 x 25 mg) PO DAILY prednisone mg PO BID [Tums PRN] vitamin E (dl, acetate) 450 mg PO .qod Do you need a note to return to daycare/school/sports/work: No HPI HPI pulmonary fibrosis: Details: Kate is now 83 years old, very pleasant lady, who does have mild degree of pulmonary fibrosis in the basilar areas of both lungs. Her main symptom is only occasional mild cough. She has no significant shortness of breath. She gets around without any discomfort or shortness of breath, remains very active. Complains of discomfort in both sub scapular areas, which is most likely muscular pain. She is being chronically treated for polymyalgia rheumatica up with the low-dose prednisone 1 mg b.i.d. . She is also on Dupixent therapy. 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 Bladder cancer Diastolic heart failure Recurrent UTI Osteopenia Allergic rhinitis Lung fibrosis Skin cancer History of rib fracture History of hemorrhoids Hiatal hernia Diverticular disease Pulmonary nodule Psoriasis Barretts esophagus GERD (gastroesophageal reflux disease) History of CVA (cerebrovascular accident) HLD (hyperlipidemia) Postoperative atrial fibrillation CAD (coronary artery disease) Asthma Polymyalgia rheumatica Surgical History History of transurethral resection of bladder tumor (TURBT) History of nasal surgery History of cystoscopy S/P trigger finger release Hx of CABG History of bladder suspension procedure History of tonsillectomy and adenoidectomy History of tonsillectomy Hx of hemorrhoidectomy Family History Father No problems noted. Mother No problems noted. Social History Housing: House Are you a primary special needs child caregiver to a significant other at home: No Do you presently have visiting nurse or other home services: No Alcohol intake: never Patient Tobacco Use Status: Never used Tobacco Tobacco use type: Cigarette e-Cigarette/Vaping Use: Never Used Second Hand Smoke Exposure: No Advance Directives Date on File: 08/29/16 service: No Current occupational status: retired Current occupation: rt hand Current occupational exposures/hazards: No Cognitive needs: No Hearing needs: No Vision needs: No Physical Exam Vital Signs: Last Vital Signs Pulse 54 08/02/24 10:41 BP 120/60 08/02/24 10:41 Pulse Ox 98 08/02/24 10:41 Oxygen Delivery Method Room Air 08/02/24 10:41 BMI result Body Mass Index 26.4 Const General: comfortable, no acute distress, alert and awake Orientation/consciousness: patient oriented x3 HEENT Head: Yes normal to inspection General nose exam: No nasal polyps present and No nasal discharge present Face and sinus: Yes sinuses nontender Mouth: oropharynx normal Throat: Yes posterior oropharynx normal Eyes General: appearance normal, both eyes and all related structures Neck Neck: Yes normal visual inspection, Yes no lymphadenopathy, Yes trachea midline and Yes no JVD Thyroid: Thyroid normal Chest Chest palpation & inspection: abnormal inspection of the chest (She has mid sternal scar from previous cardiac surgery), normal palpation of entire chest w all and no tenderness Resp Other: Percussion note is resonant, she has equal breath sounds on both sides. A few fine inspiratory crackles over the basilar areas, no wheezes. Cardio Palpation: normal PMI Rate: regular rate Rhythm: regular rhythm Heart sounds: no gallops and no murmurs GI Palpation (GI): Soft to palpation, nontender, No hepatosplenomegaly present and no masses Auscultation: normal bowel sounds Back/Spine/Pelvis Thoracic/Lumbar Spine: thoracic and lumbar spine normal to inspection and thoraco-lumbar ROM limited Skin General skin exam: no rashes or lesions noted Neuro General: patient oriented x3 and no focal motor deficits Cranial nerves: Yes CN's II-XII intact bilaterally Extrem General: Yes normal to inspection, Yes no clubbing, cyanosis or edema and Yes no calf tenderness Psych Appearance: grossly normal and well kempt Speech and movement: Normal speech and movement present Assessment & Plan Assessment & Plan (1) Lung fibrosis: Comment: She has Mild sub plural Fibrotic changes in mid and lower parts of lungs. as per CT scan . last CT scan in 2022 , was stable . PULMONARY FUNCTION TEST ON 07/22/2022: Showed mild restrictive disorder but no obstructive airway disorder. Code(s): J84.10 - Pulmonary fibrosis, unspecified Category: Medical Plan: Pulmonary fibrosis is mild and not very symptomatic. Does not need any active treatment. However she is on prednisone 1 mg b.i.d. for polymyalgia rheumatica, and that helps to keep pulmonary fibrosis under control. She is advised to use calcium with D supplement lease 3 days a week. (2) Allergic rhinitis: Comment: She has chronic but mild allergic rhinitis. It is well controlled with use of Flonase 2 spray each nostril daily and loratadine 10 mg once a day p.r.n.. Code(s): J30.9 - Allergic rhinitis, unspecified Category: Medical Plan: Continue to use Flonase 2 spray in each nostril once a day whenever there is a flare up of allergic rhinitis. Also may use Claritin 10 mg once a day p.r.n. for active symptoms Coding Level of Care Code Est Pt Level 3 (89689) Diagnoses Lung fibrosis J84.10 Allergic rhinitis J30.9
== END 2024-08-02 14:59 | disposition home or self-care (01) ==
LOC: HO.HPS 10:26
PROVIDERS: PCP Internal Medicine; Visit Provider Internal Medicine
DX: J84.10 Pulmonary fibrosis, unspecified (principal); J30.9 Allergic rhinitis, unspecified
CPT/HCPCS: 99213

== ENCOUNTER → 2024-08-02 10:25 | Outpatient (BNVA) | payer MEDICARE, SELFPAY | PROVIDERS: PCP Internal Medicine; Visit Provider Internal Medicine | DX: J84.10 Pulmonary fibrosis, unspecified (principal); J30.9 Allergic rhinitis, unspecified; Z79.899 Other long term (current) drug therapy | CPT/HCPCS: 99212 ==

== ENCOUNTER 2024-10-04 09:43 | Outpatient (AMB) | payer MEDICARE, SELFPAY ==
--- NOTE | 2024-10-04 09:48 | A.OFFVIS_ITS ---
Intake Visit Reasons: Cystoscopy Intake Note: Pt presents to the office today for a cystoscopy procedure. Cystoscope: Lot:[id number] Exp:09/23/26 Allergies Penicillins Allergy (Severe, Verified 10/04/24 09:49) Anaphylaxis tamsulosin [Flomax] Allergy (Severe, Verified 10/04/24 09:49) severe chest pains ibuprofen [IBUPROFEN] Allergy (Intermediate, Verified 10/04/24 09:49) Rash, hives trospium Allergy (Intermediate, Verified 10/04/24 09:49) Vomiting amoxicillin Allergy (Mild, Verified 10/04/24 09:49) Hives, bad rash levofloxacin [From LEVAQUIN] Allergy (Mild, Verified 10/04/24 09:49) Rash rabeprazole Allergy (Mild, Verified 10/04/24 09:49) Unknown Sulfa (Sulfonamide Antibiotics) Allergy (Mild, Verified 10/04/24 09:49) Rash atorvastatin Allergy (Unknown, Verified 10/04/24 09:49) Unknown Bifidobacterium infantis [Align] Allergy (Unknown, Verified 10/04/24 09:49) Unknown clarithromycin [Prevpac] Allergy (Unknown, Verified 10/04/24 09:49) Unknown omeprazole [From PRILOSEC] Allergy (Unknown, Verified 10/04/24 09:49) Unknown simvastatin [From ZOCOR] Allergy (Unknown, Verified 10/04/24 09:49) Unknown oxycodone [Percocet] Adverse Reaction (Severe, Verified 10/04/24 09:49) Vomiting amlodipine Adverse Reaction (Intermediate, Verified 10/04/24 09:49) breast pain clobetasol Adverse Reaction (Intermediate, Verified 10/04/24 09:49) made psoriasis worse dexlansoprazole [From Kapidex] Adverse Reaction (Intermediate, Verified 10/04/24 09:49) hyper,watery stool Iodinated Contrast Media [IV CONTRAST] Adverse Reaction (Intermediate, Verified 10/04/24 09:49) Weakness, Lightheaded and confusion lansoprazole [Prevacid] Adverse Reaction (Intermediate, Verified 10/04/24 09:49) hyper, watery stool methotrexate [METHOTREXATE] Adverse Reaction (Intermediate, Verified 10/04/24 09:49) Muscle and joint pain ranitidine Adverse Reaction (Intermediate, Verified 10/04/24 09:49) weak, watery stool alirocumab [From Praluent Pen] Adverse Reaction (Mild, Verified 10/04/24 09:49) Generalized ecchymoses aspirin Adverse Reaction (Mild, Verified 10/04/24 09:49) one sided facial pain, green spots in eye esomeprazole [Nexium] Adverse Reaction (Mild, Verified 10/04/24 09:49) Gastrointestinal Upset pantoprazole [Protonix] Adverse Reaction (Mild, Verified 10/04/24 09:49) one sided headache, yellow streak in left eye mirabegron Adverse Reaction (Unknown, Verified 10/04/24 09:49) Nausea and Vomiting fexofenadine [From [place]] Adverse Reaction (Verified 10/04/24 09:49) painful bones and muscles HPI Comments Details: Mary is a pleasant female. She is a patient of Dr. Gutierrez. She is seen for the following urologic conditions - microscopic hematuria - abnormal urine cytology - bladder cancer 4 month follow-up cystoscopy Recent Trospium Bladder looks good Recheck in 4 months then moved every six-month Bladder cancer - 11/06 - high-grade superficial, 06/09 TURBT low-grade superficial, 04/09 high-grade superficial Detected after evaluation for microscopic hematuria Interventions - TURBT 11/06 high-grade superficial, 02/06 BBx with fulgeration CIS, 06/09 low- grade superficial with MMC, 03/09 TURBT high-grade with fulguration Smoking history - 2nd exposure through Workplace exposure - plastics exposure, glue exposure Imaging - 10/06 CT urogram normal Cytology - 10/06 high-grade, 07/11 - atypical scant, 10/08 NAD, 05/10 NAD Adjuvant therapy - 11/06 6 week induction Gemcitabine, 3 week boost 10/07, 04/09 reinduction 6 week MMC/cytarabine, 10/08 three-week mitomycin-C cytarabine Therapeutic plan - continue surveillance PFSH Medical History UTI (urinary tract infection) Cardiac arrhythmia TSH elevation Age-related osteoporosis without current pathological fracture Painful breasts 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 Bladder cancer Diastolic heart failure Recurrent UTI Osteopenia Allergic rhinitis Lung fibrosis Skin cancer History of rib fracture History of hemorrhoids Hiatal hernia Diverticular disease Pulmonary nodule Psoriasis Barretts esophagus GERD (gastroesophageal reflux disease) History of CVA (cerebrovascular accident) HLD (hyperlipidemia) Postoperative atrial fibrillation CAD (coronary artery disease) Asthma Polymyalgia rheumatica Surgical History History of transurethral resection of bladder tumor (TURBT) History of nasal surgery History of cystoscopy S/P trigger finger release Hx of CABG History of bladder suspension procedure History of tonsillectomy and adenoidectomy History of tonsillectomy Hx of hemorrhoidectomy Family History Father No problems noted. Mother No problems noted. Social History Housing: House Are you a primary client care coordinator to a significant other at home: No Do you presently have visiting nurse or other home services: No Alcohol intake: never Patient Tobacco Use Status: Never used Tobacco Tobacco use type: Cigarette e-Cigarette/Vaping Use: Never Used Second Hand Smoke Exposure: No Advance Directives Date on File: 08/29/16 service: No Current occupational status: retired Current occupation: rt hand Current occupational exposures/hazards: No Cognitive needs: No Hearing needs: No Vision needs: No Review of Systems Const Denies chills and Denies fever(s) Card Reports no additional complaints and Denies syncope Resp Denies cough GI Denies abdominal pain and Denies heartburn Reports as per HPI and Denies change in libido Neuro Denies syncope Psych Denies change in libido Endo Denies change in libido Physical Exam Const General: cooperative, healthy appearing, comfortable and no acute distress Orientation/consciousness: patient oriented x3 HEENT Face and sinus: Yes normal facial exam Mouth: moist mucous membranes Neck Neck: Yes normal visual inspection, Yes full ROM and Yes trachea midline Chest Chest palpation & inspection: normal inspection of the chest Resp Effort & Inspection: normal respiratory effort, able to speak in complete sentences and no respiratory distress GI Inspection: Yes normal to inspection Back/Spine/Pelvis Cervical Spine: normal cervical lordosis Thoracic/Lumbar Spine: thoracic and lumbar spine normal to inspection Skin General skin exam: no rashes or lesions noted Neuro General: patient oriented x3, gait normal, tone normal and moves all extremities Extrem General: Yes normal to inspection and Yes capillary refill normal Office Procedures Cystoscopy Consent Discussed risk and benefit or proposed procedure with the patient. Information consent for procedure given to the patient. Discussed technical aspects, risks, benefits and alternatives in full. Addressed all of the patient's questions and concerns regarding the procedure. The patient demonstrated knowledge and understanding. They wish to proceed with this procedure. Preparation The patient was prepped in the usual manner. A strategic account executive was present and in the room. Genitalia was prepped with betadine solution in a sterile manner. Lidocaine Jelly 2% was placed into the urethra and 16Fr flexible Olympus cystoscope was inserted into the meatus after adequate lubrication. Procedure Meatus normal position Urethra normal evidence of cystocele Bladder examination with retroflexion of cystoscope Bladder Orifices normal shape and position Trigone normal Bladder Capacity Normal Trabeculations grade 1 Cellule Formation None Diverticulum Formation None Mucosal Erythema None Bladder Tumor None [id number] DISPOSABLE SCOPE URO-G FLEXIBLE SCOPE Procedure code (CPT) selection complete Office Meds lidocaine HCl 2 % mucosal jelly in applicator Performing Provider: Celio Mix MD Performing Location: [facility] Administered by: Mable Delgado RN on 10/04/24 10:02 Dose Route Admin Location Dispensed Lot Number Expiration Date NDC [employer] 10 mL intra-urethral 10 mL nitrofurantoin monohydrate/macrocrystals 100 mg capsule Performing Provider: Celio Mix MD Performing Location: [facility] Administered by: Mable Delgado RN on 10/04/24 10:02 Dose Route Admin Location Dispensed Lot Number Expiration Date NDC [employer] 100 mg PO 1 cap Results AMB Urinalysis, Automated UA Leukoctes 0 Mark/uL Last Edit by Zoey Phillips CMA on 10/04/24 09:54 UA Nitrite Negative Last Edit by Zoey Phillips CMA on 10/04/24 09:54 UA Urobilinogen 0.2 mg/dL Last Edit by Zoey Phillips CMA on 10/04/24 09:54 UA Protein 0 mg/dL Last Edit by Zoey Phillips CMA on 10/04/24 09:54 UA pH 6.0 Last Edit by Zoey Phillips CMA on 10/04/24 09:54 UA Blood 80 Sushant/uL Last Edit by Zoey Phillips CMA on 10/04/24 09:54 UA Specific [place] 1.015 Last Edit by Zoey Phillips CMA on 10/04/24 09:54 UA Ketone Negative Last Edit by Zoey Phillips CMA on 10/04/24 09:54 UA Bilirubin 0 mg/dL Last Edit by Zoey Phillips CMA on 10/04/24 09:54 UA Glucose 0 mg/dL Last Edit by Zoey Phillips CMA on 10/04/24 09:54 Results Reviewed Results Reviewed: Laboratory Last Values Urine pH (Auto) 6.0 10/04/24 09:50 Specific [place] (Auto) 1.015 10/04/24 09:50 Urine Protein (Auto) 0 mg/dL 10/04/24 09:50 Glucose (UA)(Auto) 0 mg/dL 10/04/24 09:50 Urine Ketones (Auto) Negative 10/04/24 09:50 Urine Blood (Auto) 80 Sushant/uL 10/04/24 09:50 Urine Nitrite (Auto) Negative 10/04/24 09:50 Urine Bilirubin (Auto) 0 mg/dL 10/04/24 09:50 Urine Urobilinogen (Auto) 0.2 mg/dL 10/04/24 09:50 Leukocyte Esterase (Auto) 0 Mark/uL 10/04/24 09:50 Assessment & Plan Assessment & Plan (1) Urinary bladder cancer: Comment: - High-grade papillary urothelial carcinoma, non-invasive. Bladder biopsy with extensive fulguration left-sided bladder Dr. Mix October 2021, January 2022 - 02/06 CIS TURBT and gemcitabine instillation Dr. Mix May 2022 biopsy 02/2023 high grade papillary carcinoma Code(s): C67.9 - Malignant neoplasm of bladder, unspecified Category: Medical Qualifiers: Bladder location: unspecified site Qualified Code(s): C67.9 - Malignant neoplasm of bladder, unspecified Plan Four month follow-up check cystoscopy Orders: Orders AMB Cystoscopy Today C67.9 - Malignant neoplasm of bladder, unspecified, R32 - Unspecified urinary incontinence AMB Urinalysis Automated Today R32 - Unspecified urinary incontinence Patient Instructions: This note is constructed using voice recognition software. While every effort has been made to ensure accuracy geology faculty member errors may have been included. Imaging studies, laboratory and physical exam results were discussed and reviewed in detail. No major barriers to patient understanding were identified. An opportunity to ask questions regarding the treatment plan was provided. All questions were answered. The patient expressed understanding and agreement with the above treatment plan. The patient is aware they should contact our office by phone for worsening of their current condition or the appearance of new urologic symptoms. Compliance is encouraged with any medications and followup testing that is ordered. It is a privilege to participate in the urologic care of your patient. If you have any questions or concerns regarding treatment for the above conditions, or other urologic issues, please do not hesitate to contact me. The office telephone contact is [phone]. Sincerely, Dr Celio Mix MD, [facility] - Urology Compassionate Specialist Care for the Genitourinary System Coding Level of Care Code Est Pt Level 3 (38837) Diagnoses Malignant neoplasm of urinary bladder, unspecified site C67.9 Bladder location: unspecified site CPT Codes Cystoscopy - CPT: 98157-[id number] ([id number])
== END 2024-10-04 10:34 | disposition home or self-care (01) ==
LOC: HO.HUSH 09:43
PROVIDERS: PCP Internal Medicine; Visit Provider Urology
DX: C67.9 Malignant neoplasm of bladder, unspecified (principal); R32 Unspecified urinary incontinence
CPT/HCPCS: 52000; 99213

== ENCOUNTER → 2024-10-04 09:43 | Outpatient (BNVA) | payer MEDICARE, SELFPAY | PROVIDERS: PCP Internal Medicine; Visit Provider Urology | DX: C67.9 Malignant neoplasm of bladder, unspecified (principal); R32 Unspecified urinary incontinence | CPT/HCPCS: 52000; 81003; 99212 ==

== ENCOUNTER 2024-11-22 08:52 | Outpatient (AMB) | payer MEDICARE, SELFPAY ==
--- NOTE | 2024-11-22 09:06 | A.OFFVIS_ITS ---
Vital Signs 11/22/24 09:06 Height 5 ft 1 in Intake Visit Reasons: 6 month f/u Allergies Penicillins Allergy (Severe, Verified 11/22/24 09:11) Anaphylaxis tamsulosin (Flomax) Allergy (Severe, Verified 11/22/24 09:11) severe chest pains ibuprofen (IBUPROFEN) Allergy (Intermediate, Verified 11/22/24 09:11) Rash, hives trospium Allergy (Intermediate, Verified 11/22/24 09:11) Vomiting amoxicillin Allergy (Mild, Verified 11/22/24 09:11) Hives, bad rash levofloxacin (From LEVAQUIN) Allergy (Mild, Verified 11/22/24 09:11) Rash rabeprazole Allergy (Mild, Verified 11/22/24 09:11) Unknown Sulfa (Sulfonamide Antibiotics) Allergy (Mild, Verified 11/22/24 09:11) Rash atorvastatin Allergy (Unknown, Verified 11/22/24 09:11) Unknown Bifidobacterium infantis (Align) Allergy (Unknown, Verified 11/22/24 09:11) Unknown clarithromycin (Prevpac) Allergy (Unknown, Verified 11/22/24 09:11) Unknown omeprazole (From PRILOSEC) Allergy (Unknown, Verified 11/22/24 09:11) Unknown simvastatin (From ZOCOR) Allergy (Unknown, Verified 11/22/24 09:11) Unknown oxycodone (Percocet) Adverse Reaction (Severe, Verified 11/22/24 09:11) Vomiting amlodipine Adverse Reaction (Intermediate, Verified 11/22/24 09:11) breast pain clobetasol Adverse Reaction (Intermediate, Verified 11/22/24 09:11) made psoriasis worse dexlansoprazole (From Kapidex) Adverse Reaction (Intermediate, Verified 11/22/24 09:11) hyper,watery stool Iodinated Contrast Media (IV CONTRAST) Adverse Reaction (Intermediate, Verified 11/22/24 09:11) Weakness, Lightheaded and confusion lansoprazole (Prevacid) Adverse Reaction (Intermediate, Verified 11/22/24 09:11) hyper, watery stool methotrexate (METHOTREXATE) Adverse Reaction (Intermediate, Verified 11/22/24 09:11) Muscle and joint pain ranitidine Adverse Reaction (Intermediate, Verified 11/22/24 09:11) weak, watery stool alirocumab (From Praluent Pen) Adverse Reaction (Mild, Verified 11/22/24 09:11) Generalized ecchymoses aspirin Adverse Reaction (Mild, Verified 11/22/24 09:11) one sided facial pain, green spots in eye esomeprazole (Nexium) Adverse Reaction (Mild, Verified 11/22/24 09:11) Gastrointestinal Upset pantoprazole (Protonix) Adverse Reaction (Mild, Verified 11/22/24 09:11) one sided headache, yellow streak in left eye mirabegron Adverse Reaction (Unknown, Verified 11/22/24 09:11) Nausea and Vomiting fexofenadine (From [place]) Adverse Reaction (Verified 11/22/24 09:11) painful bones and muscles Medication List - Last Reconciled 11/22/24 by Marisel Olson CNP cetirizine (Zyrtec) 10 mg PO BEDTIME cholecalciferol (vitamin D3) 50 mcg PO .qod clopidogrel 75 mg PO DAILY cyclobenzaprine 5 mg PO BEDTIME PRN dupilumab (Dupixent) 300 mg subcut Q2W ezetimibe 10 mg PO DAILY fluorouracil 5% 1 appl topical BID furosemide 20 mg PO DAILY gentamicin 0.1% appl topical DAILY lidocaine 5% (Lidocan III) 1 patch topical DAILY metoprolol succinate ER 12.5 mg (1/2 x 25 mg) PO DAILY prednisone mg PO BID [Tums PRN] vitamin E (dl, acetate) 450 mg PO .qod HPI Comments Details: 84-year-old woman with bladder cancer diagnosed in 2021 treated with chemo, left MCA stenosis, cerebral microvascular changes, hemifacial spasm versus oral buccal dyskinesia, and polymyalgia rheumatica. She was doing very well, as long as she had her 2 of prednisone. She was not interested in trying lower dose of prednisone as she had increase in pains and trouble walking when dose was decreased in the past. She was still going to the gym for 70 minutes 3x/week and quilting. Balance could be off at times, but no falls. 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 Bladder cancer Diastolic heart failure Recurrent UTI Osteopenia Allergic rhinitis Lung fibrosis Skin cancer History of rib fracture History of hemorrhoids Hiatal hernia Diverticular disease Pulmonary nodule Psoriasis Barretts esophagus GERD (gastroesophageal reflux disease) History of CVA (cerebrovascular accident) HLD (hyperlipidemia) Postoperative atrial fibrillation CAD (coronary artery disease) Asthma Polymyalgia rheumatica Surgical History History of transurethral resection of bladder tumor (TURBT) History of nasal surgery History of cystoscopy S/P trigger finger release Hx of CABG History of bladder suspension procedure History of tonsillectomy and adenoidectomy History of tonsillectomy Hx of hemorrhoidectomy Family History Father No problems noted. Mother No problems noted. Social History Housing: House Are you a primary career development engineer to a significant other at home: No Do you presently have visiting nurse or other home services: No Alcohol intake: never Patient Tobacco Use Status: Never used Tobacco Tobacco use type: Cigarette e-Cigarette/Vaping Use: Never Used Second Hand Smoke Exposure: No Advance Directives Date on File: 08/29/16 service: No Current occupational status: retired Current occupation: rt hand Current occupational exposures/hazards: No Cognitive needs: No Hearing needs: No Vision needs: No Review of Systems Const Denies chills, Denies daytime sleepiness, Denies difficulty sleeping, Denies fatigue, Denies fever(s), Denies frequent falls, Denies headache(s), Denies increased appetite, Denies poor appetite, Denies snoring, Denies weakness, Denies weight gain and Denies weight loss Eyes Denies loss of vision ENT Denies vertigo, Denies dizziness and Denies headache(s) Card Denies chest pain at rest, Denies chest pain with activity, Denies leg edema and Denies palpitations Resp Denies snoring GI Denies constipation, Denies heartburn, Denies diarrhea and Denies nausea Denies urinary frequency, Denies urinary incontinence and Denies urinary urgency Musc Denies abnormal gait, Denies numbness and Denies tingling Skin/Breast Denies dry skin and Denies rash Neuro Denies abnormal gait, Denies vertigo, Denies dizziness, Denies frequent falls, Denies headache(s), Denies lack of coordination, Denies loss of vision, Denies memory loss, Denies numbness, Denies restless legs, Denies seizure-like activity, Denies tingling, Denies paresthesias, Denies tremor(s) and Denies weakness Psych Denies anxiety, Denies depression, Denies auditory hallucinations, Denies memory loss, Denies visual hallucinations and Denies suicidal ideation Endo Denies fatigue and Denies palpitations Physical Exam Const Other: General Appearance:? normal, in no acute distress. Skin:? no rashes, no significant birthmarks. Heart:? S1, S2 normal, no murmurs. Lungs:? clear anteriorly and posteriorly. Extremities:? no edema. Psych:? alert, oriented, cognitive function intact, cooperative with exam. Neuro Other: Mental Status:?Normal attention, orientation, memory and affect.? Cranial Nerves:?Pupils are equal, round and reactive to light. External occular muscles are intact. Visual ozuna are full. Face is symmetrical. Facial sensations are normal. Tongue is midline. Palate elevates symmetrically. Shoulder shrugging is normal. Hearing to bedside conversation is normal. Motor Examination:?Normal muscle tone, bulk and strength,?Deep tendon reflexes are 2+,?Plantars are flexor.? Sensory Exam:?JPS and vibration: Ok in toes Coordination:?No ataxia,?no titubation.? Gait Exam: Stooped, slow, cautious Cerebellar Signs:?[id number] is ok Extrapyramidal System:?No tremor, rigidity with normal facial expressions.? Pronator Drift:?Not present.? Involuntary Movements:?No tremors seen.? Speech:?Normal.? Assessment & Plan Assessment & Plan (1) Polymyalgia rheumatica: Code(s): M35.3 - Polymyalgia rheumatica Category: Medical Plan: Continue prednisone 1mg 2 tablets daily (2) Hemifacial spasm: Code(s): G51.39 - Clonic hemifacial spasm, unspecified Category: Medical Qualifiers: Laterality: unspecified laterality Qualified Code(s): G51.39 - Clonic hemifacial spasm, unspecified Plan: Stable at this time. (3) Stenosis of left middle cerebral artery: Code(s): I66.02 - Occlusion and stenosis of left middle cerebral artery Category: Medical Plan: Continue Plavix 75mg daily. Plan . Coding Level of Care Code Est Pt Level 4 (49151) Diagnoses Polymyalgia rheumatica M35.3 Hemifacial spasm, unspecified laterality G51.39 Laterality: unspecified laterality Stenosis of left middle cerebral artery I66.02
--- OUTSIDE RECORDS SUMMARY | 2024-11-22 09:10 | XMS_ITS | Patient Health Record ---
Author Organization [facility] Address [address] [place] [id number] Care Team Providers Care Roll Tension Tester Name Role Phone Mariya Gutierrez MD Primary Care Provider Librado Graf [phone] Allergies Allergen (clinical drug ingredient) Drug/Non Drug Allergy documented on EMR Reaction Allergy Type Onset Date Status aspirin aspirin (uncoded) Unknown Allergy Ac tive sulfamethoxazole / trimethoprim Bactrim (uncoded) Unknown Allergy Active Substance with sulfonamide structure and antibacterial mechanism of action (substance) sulfa drugs (uncoded) Unknown Allergy Active PCN (uncoded) Unknown Allergy Active amoxicillin amoxicillin (uncoded) Unknown Allergy Active esomeprazole Nexium (uncoded) Unknown Allergy Active omeprazole Prilosec (uncoded) Unknown Allergy Active omeprazole Omeprazole (uncoded) Unknown Allergy Active ranitidine Ranitidine (uncoded) Unknown Allergy Active zantac (uncoded) Unknown Allergy Act isaías Reason For Referral No Information Medications Medication SIG (Take, Route, Fr equency, Duration) Notes Start Date End Date Status Carafate 1 GM/10ML 10 ml Orally QID--30 -60 min AC and QHS for 30 day(s) 04/27/2013 05/18/2024 Active Carafate 1 gm 1 Orally 1/2hr AC & QHS 01/16/2013 Active MoviPrep 100 GM as directed Orally a s directed for 1 dose 04/27/2013 Active Plavix Active Problems Problem Type SNOMED Code ICD Code Onset Dates Problem Status W/U Status Risk Notes Problem Esophageal reflux (450467806) Esophageal reflux (530.81) Active confirmed Problem Quiroz's esophagus (606417065) Quiroz's esophagus (530.85) Active confirmed Problem Blood in stool (578.1) Active confirmed Problem GERD (gastroesophage al reflux disease) (530.81) Active confirmed Plan Of Treatment Future Test Test Name Order Date COLONOSCOPY 04/27/2013 Insurance Providers Payer Name Payer Address Payer Phone Subscriber Number Group Number Insured Name Patient Relationship to Insured Coverage Start Date Coverage End Date MEDICARE OF [place] [address] [place] [address] [id number] LAUREEN PERRY Self - patient is the insured [employer] ATT[employer] CLAIMS [address] [place] [address] [phone] [id number] LAUREEN PERRY Self - patient is the insured Medical (General) History Medical History History ICD Code GERD/esophagitis/Quiroz's e sophagus/Hiatal hernia--Last EGD in 01/2012--no Quiroz's identified asthma diverticulitis Denies OR,DM,CVA,renal disease TIA 06/2011 Colonoscopy 2005--neg except diverticulo sis Surgical History Surgery Date(Month/Year) Hysterectomy sinus polyps breast cysts-benign basal cell carcinoma hemorrhoids with Dr. Lopes
== END 2024-11-22 09:20 | disposition home or self-care (01) ==
LOC: HO.HSM 08:52
PROVIDERS: PCP Internal Medicine; Referring Provider Internal Medicine; Visit Provider Registered Nurse
DX: M35.3 Polymyalgia rheumatica (principal); G51.39 Clonic hemifacial spasm, unspecified; I66.02 Occlusion and stenosis of left middle cerebral artery
CPT/HCPCS: 99214

== ENCOUNTER → 2024-11-22 08:52 | Outpatient (BNVA) | payer MEDICARE, SELFPAY | PROVIDERS: PCP Internal Medicine; Referring Provider Internal Medicine; Visit Provider Registered Nurse | DX: M35.3 Polymyalgia rheumatica (principal); G51.39 Clonic hemifacial spasm, unspecified; I66.02 Occlusion and stenosis of left middle cerebral artery; Z79.52 Long term (current) use of systemic steroids; Z79.899 Other long term (current) drug therapy | CPT/HCPCS: 99212 ==

== ENCOUNTER 2024-11-23 07:55 | Emergency (ER) | payer MEDICARE, SELFPAY ==
--- NOTE | ~2024-11-23 | XR_ITS ---
EXAMINATION: XR CHEST CLINICAL INFORMATION: SOB COMPARISON: December 22, 2021 TECHNIQUE: 2 views of the chest were obtained. FINDINGS: Pulmonary reticular pattern. No consolidation, pleural effusion or pneumothorax. Cardiomediastinal silhouette size is unchanged. Sternal wires. Calcified plaque thoracic aorta. Multilevel thoracolumbar spondylosis. Osteopenia versus osteoporosis. Degenerative changes in the shoulders. Patient's large body habitus. XR/XR chest 2V IMPRESSION: Chronic interstitial lung disease. No gross acute airspace disease. Electronically signed by: Michael Ambriz MD 11/23/2024 08:29 AM EDT
--- NOTE | 2024-11-23 07:59 | ECG_ITS ---
Test Reason : weakness Blood Pressure : */* mmHG Vent. Rate : 63 BPM Atrial Rate : 63 BPM P-R Int : 174 ms QRS Dur : 90 ms QT Int : 428 ms P-R-T Axes : 48 1 25 degrees QTcB Int : 437 ms Normal sinus rhythm Normal ECG When compared to the previous EKG of No significant changes seen Referred By: Generic ED Physician Electronically Signed By: Jarred Lynn
[2024-11-23 08:11] VITALS: BP 141/54; PULSE 65; RESP 15; TEMP 37; O2SAT 97; BMI 26.4
--- NOTE | 2024-11-23 09:09 | ED.SOB ---
HPI - SOB/Dyspnea General Chief Complaint: Dyspnea Stated Complaint: Difficulty breathing earlier Time Seen by Provider: 11/23/24 08:40 Source: patient Mode of arrival: ambulatory Limitations: no limitations History of Present Illness ED Provider: HPI Narrative: 84-year-old woman with history of CAD status post two-vessel coronary artery bypass grafting 2017, woke up 01:00 in the morning with the shortness of breath that lasted for about a minute, she has history of CAD she came to emergency department for further evaluation, at the time of presentation she has had no chest pain or shortness of breath she was nauseous at the time and that it resolved. Nonsmoker nondrinker no drug use, compliant with all her medications. Related Data Home Medications ?Medication ?Instructions ?Recorded ?Confirmed cetirizine 10 mg capsule (Zyrtec) 10 mg PO BEDTIME 10/28/21 11/22/24 dupilumab 300 mg/2 mL subcutaneous 300 mg subcut Q2W 10/28/21 11/22/24 pen injector (ExtendEventixWebLinc) Tums PRN Gastric Reflux 02/06/22 11/22/24 fluorouracil 5 % topical cream 1 appl topical BID 02/13/22 03/18/24 gentamicin 0.1 % topical cream appl topical DAILY 02/02/24 03/18/24 cholecalciferol (vitamin D3) 50 50 mcg PO .qod 08/02/24 11/22/24 mcg (2,000 unit) capsule prednisone 1 mg tablet mg PO BID 08/02/24 11/22/24 vitamin E (dl, acetate) 450 mg 450 mg PO .qod 08/02/24 11/22/24 (1,000 unit) capsule Previous Rx's ?Medication ?Instructions ?Recorded ezetimibe 10 mg tablet 10 mg PO DAILY #90 tabs 03/09/24 cyclobenzaprine 5 mg tablet 5 mg PO BEDTIME PRN muscle spasm 03/18/24 #14 tabs lidocaine 5 % topical patch 1 patch topical DAILY #30 ea 03/18/24 (Lidocan III) furosemide 20 mg tablet 20 mg PO DAILY #90 tabs 05/23/24 clopidogrel 75 mg tablet 75 mg PO DAILY #90 tabs 11/04/24 metoprolol succinate 25 mg 12.5 mg (1/2 x 25 mg) PO DAILY #30 11/15/24 tablet,extended release 24 hr tabs Allergies Allergy/AdvReac Type Severity Reaction Status Date / Time Penicillins Allergy Severe Anaphylaxis Verified 11/23/24 08:13 tamsulosin (Flomax) Allergy Severe severe Verified 11/23/24 08:13 chest pains ibuprofen (IBUPROFEN) Allergy Intermediate Rash, hives Verified 11/23/24 08:13 trospium Allergy Intermediate Vomiting Verified 11/23/24 08:13 amoxicillin Allergy Mild Hives, bad Verified 11/23/24 08:13 rash levofloxacin (From LEVAQUIN) Allergy Mild Rash Verified 11/23/24 08:13 rabeprazole Allergy Mild Unknown Verified 11/23/24 08:13 Sulfa (Sulfonamide Allergy Mild Rash Verified 11/23/24 08:13 Antibiotics) atorvastatin Allergy Unknown Unknown Verified 11/23/24 08:13 Bifidobacterium infantis Allergy Unknown Unknown Verified 11/23/24 08:13 (Align) clarithromycin (Prevpac) Allergy Unknown Unknown Verified 11/23/24 08:13 omeprazole (From PRILOSEC) Allergy Unknown Unknown Verified 11/23/24 08:13 simvastatin (From ZOCOR) Allergy Unknown Unknown Verified 11/23/24 08:13 oxycodone (Percocet) AdvReac Severe Vomiting Verified 11/23/24 08:13 amlodipine AdvReac Intermediate breast pain Verified 11/23/24 08:13 clobetasol AdvReac Intermediate made Verified 11/23/24 08:13 psoriasis worse dexlansoprazole (From AdvReac Intermediate hyper,watery Verified 11/23/24 08:13 Kapidex) stool Iodinated Contrast Media (IV AdvReac Intermediate Weakness, Verified 11/23/24 08:13 CONTRAST) Lightheaded and confusion lansoprazole (Prevacid) AdvReac Intermediate hyper, Verified 11/23/24 08:13 watery stool methotrexate (METHOTREXATE) AdvReac Intermediate Muscle and Verified 11/23/24 08:13 joint pain ranitidine AdvReac Intermediate weak, Verified 11/23/24 08:13 watery stool alirocumab (From Praluent AdvReac Mild Generalized Verified 11/23/24 08:13 Pen) ecchymoses aspirin AdvReac Mild one sided Verified 11/23/24 08:13 facial pain, green spots in eye esomeprazole (Nexium) AdvReac Mild Gastrointestinal Verified 11/23/24 08:13 Upset pantoprazole (Protonix) AdvReac Mild one sided Verified 11/23/24 08:13 headache, yellow streak in left eye mirabegron AdvReac Unknown Nausea and Verified 11/23/24 08:13 Vomiting fexofenadine (From [place]) AdvReac painful Verified 11/23/24 08:13 bones and muscles Review of Systems Constitutional: Constitutional: Reports as per HPI [facility] Past Medical History Medical History (Updated 11/23/24 @ 12:35 by Kavin Gifford DO) Urinary bladder cancer HTN (hypertension) Polymyalgia Idiopathic orofacial dystonia Cerebral atherosclerosis 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 UTI (urinary tract infection) Cardiac arrhythmia TSH elevation Age-related osteoporosis without current pathological fracture Painful breasts 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 Bladder cancer Diastolic heart failure Recurrent UTI Osteopenia Allergic rhinitis Lung fibrosis Skin cancer History of rib fracture History of hemorrhoids Hiatal hernia Diverticular disease Pulmonary nodule Psoriasis Barretts esophagus GERD (gastroesophageal reflux disease) History of CVA (cerebrovascular accident) HLD (hyperlipidemia) Postoperative atrial fibrillation CAD (coronary artery disease) Asthma Polymyalgia rheumatica Surgical History History of transurethral resection of bladder tumor (TURBT) History of nasal surgery History of cystoscopy S/P trigger finger release Hx of CABG History of bladder suspension procedure History of tonsillectomy and adenoidectomy History of tonsillectomy Hx of hemorrhoidectomy Family History Family History Father No problems noted. Mother No problems noted. Social History Social History Housing: House Are you a primary manager care to a significant other at home: No Do you presently have visiting nurse or other home services: No Alcohol intake: never Patient Tobacco Use Status: Never used Tobacco Tobacco use type: Cigarette Smoked in Last 30 Days: No e-Cigarette/Vaping Use: Never Used Second Hand Smoke Exposure: No Use of substances other than those prescribed or required for medical reasons: No Advance Directives: No Advance Directives Information Provided: Yes Advance Directives Date on File: 04/14/17 service: No Current occupational status: retired Current occupation: rt hand Current occupational exposures/hazards: No Cognitive needs: No Hearing needs: No Vision needs: No Physical Exam Vital Signs: Vital Signs: Last Vital Signs Temp 98.2 F 11/23/24 10:00 Pulse 63 11/23/24 10:00 Resp 16 11/23/24 10:00 BP 125/50 L 11/23/24 10:00 Pulse Ox 97 11/23/24 10:00 O2 Del Method Room Air 11/23/24 10:00 BMI result Body Mass Index 26.4 Const: Other: Gen: ?Overall well-appearing patient HEENT: PERRLA, EOMI, MMM, Neck: Supple, no LAD CV: No obvious murmurs, S1-S2 radial pulses +2 bilaterally Resp: Kyphotic, ?No wheezing rales rhonchi no stridor moving air well Abd: ?Bowel sounds are present, no tenderness no rebound no rigidity MSK: FROM, strength 5/5 all extremities Skin: Warm, dry, intact, Neuro: ?Alert and oriented x3, moving upper and lower extremities symmetrically, no obvious facial asymmetry noted Medical Decision Making Medical Decision Making [facility] Narrative: Patient is presenting with an episode of dyspnea at less than 1 minute episode of nausea during this episode, the time of evaluation she is chest pain-free, non dyspnea, no wheezing no rales no rhonchi, low suspicion for CHF exacerbation or COPD exacerbation, chest x-ray without any evidence of pneumonia, pneumothorax, ACS workup has been discussed with the patient, considered PE workup however she has no hypoxia tachycardic to suspect underlying PE 10:17 patient updated of her workup thus far, we will await 2nd troponin Differential Diagnosis Differential Diagnoses: The differential diagnosis associated with the presentation includes CHF, COPD exacerbation, pneumonia, pneumothorax, ACS, PE, Admission/Observation Consideration of admission/observation: Escalation of care including admission/observation considered Lab Data [facility] Lab Attestation statement: I reviewed the patient's lab results. 11/23/24 09:11/23/24 09:26 Labs: Lab Results 11/23/24 11/23/24 11/23/24 Range/Units : 09:26 09:30 WBC 6.1 (4.8-10.8) X10*3/uL RBC 4.07 L (4.20-5.50) X10*6/uL Hgb 12.0 (12.0-16.0) g/dl Hct 35.9 L (37.0-47.0) % MCV 88.2 (80.0-98.0) fL MCH 29.5 (27.0-33.0) pg MCHC 33.4 (31.0-35.0) g/dl RDW 13.1 (11.0-16.0) % Plt Count 241 (160-400) X10*3/uL MPV 8.4 L (9.4-12.3) fL Immature Gran % (Auto) 0.3 (0.0-0.4) % Neut % (Auto) 57.8 (45-73) % Lymph % (Auto) 23.8 (20-40) % Sargent % (Auto) 7.7 (2-11) % Eos % (Auto) 9.6 H (0-4) % Baso % (Auto) 0.8 (0-2) % Lymph # (Auto) 1.5 (1.2-4.9) X10*3/uL Sargent # (Auto) 0.5 (0.1-1.2) X10*3/uL Eos # (Auto) 0.6 H (0.0-0.4) X10*3/uL Baso # (Auto) 0.1 (0.0-0.2) X10*3/uL Abs Immat Gran (auto) 0.02 (0.00-0.03) X10*3/uL Absolute Neuts (auto) 3.5 (2.0-8.3) x10*3/uL Absolute Nucleated RBC 0.000 (0.0-0.012) X10*3/uL Nucleated RBC % (auto) 0.0 (0.0-0.2) /100WBC VBG pH 7.39 (7.32-7.43) VBG pCO2 58 mmHg VBG pO2 30 mmHg VBG HCO3 35 H (22-26) mmol/L VBG O2 Saturation 40.0 % VBG Base Excess 9.1 mmol/L Sodium 141 (135-145) mmol/L Potassium 4.1 (3.3-5.1) mmol/L Chloride 105 (96-108) mmol/L Carbon Dioxide 31 H (22-29) mmol/L Anion Gap 9 L (12-20) BUN 15 (9-16) mg/dL Creatinine 0.84 (0.5-1.4) mg/dL Estim Creat Clear Calc 42.2 Estimated GFR > 60 Random Glucose 96 (60-115) mg/dL Calcium 9.0 (8.4-10.2) mg/dL Troponin I High Sens 3.6 (<3.5-17.0) ng/L B-Natriuretic Peptide 159 H (<100) pg/mL 11/23/24 Range/Units 11:50 WBC (4.8-10.8) X10*3/uL RBC (4.20-5.50) X10*6/uL Hgb (12.0-16.0) g/dl Hct (37.0-47.0) % MCV (80.0-98.0) fL MCH (27.0-33.0) pg MCHC (31.0-35.0) g/dl RDW (11.0-16.0) % Plt Count (160-400) X10*3/uL MPV (9.4-12.3) fL Immature Gran % (Auto) (0.0-0.4) % Neut % (Auto) (45-73) % Lymph % (Auto) (20-40) % Sargent % (Auto) (2-11) % Eos % (Auto) (0-4) % Baso % (Auto) (0-2) % Lymph # (Auto) (1.2-4.9) X10*3/uL Sargent # (Auto) (0.1-1.2) X10*3/uL Eos # (Auto) (0.0-0.4) X10*3/uL Baso # (Auto) (0.0-0.2) X10*3/uL Abs Immat Gran (auto) (0.00-0.03) X10*3/uL Absolute Neuts (auto) (2.0-8.3) x10*3/uL Absolute Nucleated RBC (0.0-0.012) X10*3/uL Nucleated RBC % (auto) (0.0-0.2) /100WBC VBG pH (7.32-7.43) VBG pCO2 mmHg VBG pO2 mmHg VBG HCO3 (22-26) mmol/L VBG O2 Saturation % VBG Base Excess mmol/L Sodium (135-145) mmol/L Potassium (3.3-5.1) mmol/L Chloride (96-108) mmol/L Carbon Dioxide (22-29) mmol/L Anion Gap (12-20) BUN (9-16) mg/dL Creatinine (0.5-1.4) mg/dL Estim Creat Clear Calc Estimated GFR Random Glucose (60-115) mg/dL Calcium (8.4-10.2) mg/dL Troponin I High Sens 4.1 (<3.5-17.0) ng/L B-Natriuretic Peptide (<100) pg/mL Independent Interpretation I performed an independent interpretation of an: EKG (63 beats per minute otherwise normal ECG without dysrhythmia, AV tay blocks or ST-T changes to suspect underlying ACS, my independent interpretation) and Plain X-Ray Interpretation: My independent chest xray interpretation: Lungs: Lungs are clear bilaterally without evidence of focal consolidation, pleural effusion, or pneumothorax. ?Cardiac silhouette is unremarkable, no obvious mediastinal widening, no obvious bony abnormalities such as fractures. Impression: Normal chest X-ray. Kyphotic spine Radiology Impression Discussion of test interpretation with radiology: I have reviewed the radiologist's reading. Discharge Plan Discharge Clinical Impression: Acute dyspnea Patient Disposition: Home, Self-Care Additional Instructions: You were evaluated with an episode of dyspnea, as discussed with you a wants to make sure that this was not related to a cardiac issue as you have had history of CABG in the past, your cardiac enzymes has been unremarkable, your heart failure markers were obtained as well these were reassuring, chest x-ray did not show any abnormalities, and you EKG has been unremarkable, please follow up with the PCP, consider discussing your ER visit and further workup with Dr. Jimenez the any other issues or concerns come back to the ER. And as discussed with the you a lot of times I do not know what causes his symptoms that patient's have at home however I gave her my workup to make sure that they do not have any life-threatening events on my workup and evaluation. Prescriptions: No Action ezetimibe 10 mg tablet 10 mg PO DAILY Qty: 90 3RF furosemide 20 mg tablet 20 mg PO DAILY Qty: 90 3RF clopidogrel 75 mg tablet 75 mg PO DAILY Qty: 90 3RF metoprolol succinate 25 mg tablet extended release 24 hr 12.5 mg PO DAILY Qty: 30 1RF Zyrtec 10 mg capsule 10 mg PO BEDTIME Dupixent Pen 300 mg/2 mL Pen Injector 300 mg SUBCUT Q2W Tums PRN (Reason: Gastric Reflux) fluorouracil 5 % cream 1 appl topical BID lidocaine [Lidocan III] 5 % adhesive patch,medicated 1 patch topical DAILY Qty: 30 0RF Rx Instructions: leave on most painful area for up to 12 hrs cyclobenzaprine 5 mg tablet 5 mg PO BEDTIME PRN (Reason: muscle spasm) Qty: 14 0RF vitamin E (dl, acetate) 450 mg (1,000 unit) capsule 450 mg PO .qod gentamicin 0.1 % cream topical DAILY prednisone 1 mg tablet PO BID cholecalciferol (vitamin D3) 50 mcg (2,000 unit) capsule 50 mcg PO .qod Referrals: Po,Mariya Metcalf MD [Primary Care Provider, Internal Medicine] - 2 weeks Clinical Impression: Acute dyspnea Print Language: Bulgarian
--- OUTSIDE RECORDS SUMMARY | 2024-11-23 09:15 | XMS_ITS | Patient Health Record ---
Author Organization [facility] Address [address] [place] [id number] Care Team Providers Care Metal Hanging Supervisor Name Role Phone Mariya Gutierrez MD Primary Care Provider Librado Graf [phone] Allergies Allergen (clinical drug ingredient) Drug/Non Drug Allergy documented on EMR Reaction Allergy Type Onset Date Status sulfamethoxazole / trimethoprim Bactrim (uncoded) Unknown Allergy [...] Active zantac (uncoded) Unknown Allergy Act isaías aspirin aspirin (uncoded) Unknown Allergy Ac tive Reason For Referral No Information Medications Medication [...] W/U Status Risk Notes Problem Esophageal reflux (643251518) Esophageal reflux (530.81) Active confirmed Problem Quiroz's esophagus (642209207) Quiroz's esophagus (530.85) Active confirmed Problem Blood in stool (694108084) Blood in stool (578.1) Active confirmed Problem Gastroesophageal reflux disease (061763199) GERD (gastroesophag eal reflux disease) (530.81) Active confirmed Plan Of Treatment Future Test Test Name Order Date COLONOSCOPY 04/27/2013 Insurance Providers Payer Name Payer Address Payer Phone Subscriber Number Group Number Insured Name Patient Relationship to Insured Coverage Start Date Coverage End Date MEDICARE OF [place] [address] [place] [address] [phone] [id number] LAUREEN PERRY Self - patient is the insured MED[employer] ATTN CLAIMS [address] [place] [address] [phone] [id number] LAUREEN PERRY Self - patient is the insured Medical (General) History Medical History History ICD Code GERD/esophagitis/Quiroz's e sophagus/Hiatal hernia--Last EGD in 01/2012--no Quiroz's identified asthma diverticulitis Denies DC,DM,CVA,renal disease TIA 06/2011 Colonoscopy 2005--neg except diverticulo sis Surgical History Surgery Date(Month/Year) Hysterectomy sinus polyps breast cysts-benign basal cell carcinoma hemorrhoids with Dr. Lopes
[2024-11-23 09:31] LABS: Hematocrit 35.9 % (37.0-47.0); Hemoglobin 12.0 g/dl (12.0-16.0); Imm Gran Abs Auto 0.02 X10*3/uL (0.00-0.03); Imm Gran Pct Auto 0.3 % (0.0-0.4); Lymphocytes Absolute Auto 1.5 X10*3/uL (1.2-4.9); MANUAL DIFF FLAG NO; Mean Corpuscular HGB Conc 33.4 g/dl (31.0-35.0); Mean Corpuscular Hemoglobin 29.5 pg (27.0-33.0); Mean Corpuscular Volume 88.2 fL (80.0-98.0); NRBC Abs Auto 0.000 X10*3/uL (0.0-0.012); NRBC Pct Auto 0.0 /100WBC (0.0-0.2); Platelet Count 241 X10*3/uL (160-400); Red Blood Count 4.07 X10*6/uL (4.20-5.50); White Blood Count 6.1 X10*3/uL (4.8-10.8)
[2024-11-23 09:33] LABS: Venous Blood Gas Refer to POC result
[2024-11-23 09:35] LABS: VBG HCO3 35 mmol/L (22-26); VBG O2 % Saturation 40.0 %
[2024-11-23 09:46] LABS: Anion Gap 9 (12-20); Blood Urea Nitrogen 15 mg/dL (9-16); Calcium 9.0 mg/dL (8.4-10.2); Carbon Dioxide 31 mmol/L (22-29); Chloride 105 mmol/L (96-108); Creatinine Clr Calc Pharmacy 42.2; Estimated Glomerular Filt Rate > 60; Potassium 4.1 mmol/L (3.3-5.1); Sodium 141 mmol/L (135-145)
[2024-11-23 09:53] LABS: B Type Natriuretic Peptide 159 pg/mL (<100)
[2024-11-23 09:55] LABS: Troponin-I High Sensitivity 3.6 ng/L (<3.5-17.0)
[2024-11-23 10:00] VITALS: BP 125/50; PULSE 63; RESP 16; TEMP 36.8; O2SAT 97
[2024-11-23 12:21] LABS: Troponin-I High Sensitivity 4.1 ng/L (<3.5-17.0)
[2024-11-23 12:42] VITALS: BP 155/82; PULSE 64; RESP 17; TEMP 36.8; O2SAT 98
[2024-11-23 12:47] VITALS: BP 155/82; PULSE 64; RESP 17; TEMP 36.8; O2SAT 98
== END 2024-11-23 12:47 | disposition home or self-care (01) ==
PROVIDERS: Emergency Provider Emergency Medicine; PCP Internal Medicine
DX: R06.02 Shortness of breath (principal); I25.10 Atherosclerotic heart disease of native coronary artery without angina pectoris; R11.0 Nausea; Z79.899 Other long term (current) drug therapy
CPT/HCPCS: 36415; 71046; 80048; 82803; 83880; 84484; 85025; 93005; 99283; 99285

== ENCOUNTER → 2024-11-23 07:59 | Outpatient (BNV) | payer MEDICARE, SELFPAY | PROVIDERS: Emergency Provider Emergency Medicine; PCP Internal Medicine; Visit Provider Internal Medicine Cardiovascular Disease | DX: R53.1 Weakness (principal) | CPT/HCPCS: 93010 ==

== ENCOUNTER → 2024-11-23 08:14 | Outpatient (BNV) | payer MEDICARE, SELFPAY | PROVIDERS: Emergency Provider Emergency Medicine; PCP Internal Medicine; Visit Provider Radiology Diagnostic Radiology | DX: J84.9 Interstitial pulmonary disease, unspecified (principal) | CPT/HCPCS: 71046 ==

== ENCOUNTER 2024-11-24 08:16 | Outpatient (REF) | payer MEDICARE, SELFPAY ==
--- OUTSIDE RECORDS SUMMARY | 2024-11-24 08:23 | XMS_ITS | Patient Health Record ---
Author Organization [facility] Address [address] [place] [id number] Care Team Providers Care Calender Machine Operator Name Role Phone Mariya Gutierrez MD Primary Care Provider Librado Graf [phone] Allergies Allergen (clinical drug ingredient) Drug/Non Drug Allergy documented on EMR Reaction Allergy Type Onset Date Status esomeprazole Nexium (uncoded) Unknown Allergy Active omeprazole [...] Active amoxicillin amoxicillin (uncoded) Unknown Allergy Active Reason For Referral No Information Medications Medication [...] W/U Status Risk Notes Problem Esophageal reflux (683914059) Esophageal reflux (530.81) Active confirmed Problem Quiroz's esophagus (903152882) Quiroz's esophagus (530.85) Active confirmed Problem Blood [...] [place] [address] [place] [address] [id number] LAUREEN PERRY Self - patient is the insured MED[employer] ATTN CLAIMS [address] [place] [address] [id number] LAUREEN PERRY Self - patient is the insured Medical (General) History Medical History History ICD Code GERD/esophagitis/Quiroz's e sophagus/Hiatal hernia--Last EGD in 01/2012--no Quiroz's identified asthma diverticulitis Denies [place],DM,CVA,renal disease TIA 06/2011 Colonoscopy 2005--neg except diverticulo sis Surgical History Surgery Date(Month/Year) Hysterectomy sinus polyps breast cysts-benign basal cell carcinoma hemorrhoids with Dr. Lopes
[2024-11-24 08:33] LABS: MANUAL DIFF FLAG NO
[2024-11-24 08:59] LABS: Hematocrit 36.4 % (37.0-47.0); Hemoglobin 12.3 g/dl (12.0-16.0); Imm Gran Abs Auto 0.02 X10*3/uL (0.00-0.03); Imm Gran Pct Auto 0.3 % (0.0-0.4); Lymphocytes Absolute Auto 2.1 X10*3/uL (1.2-4.9); Mean Corpuscular HGB Conc 33.8 g/dl (31.0-35.0); Mean Corpuscular Hemoglobin 29.8 pg (27.0-33.0); Mean Corpuscular Volume 88.1 fL (80.0-98.0); NRBC Abs Auto 0.000 X10*3/uL (0.0-0.012); NRBC Pct Auto 0.0 /100WBC (0.0-0.2); Platelet Count 241 X10*3/uL (160-400); Red Blood Count 4.13 X10*6/uL (4.20-5.50); Reticulocytes Absolute 0.079 X10*6/uL (0.026-0.095); White Blood Count 6.1 X10*3/uL (4.8-10.8)
[2024-11-24 09:28] LABS: Alanine Aminotransferase 12 U/L (0-31); Albumin Level 4.1 g/dL (3.5-5.0); Alkaline Phosphatase 57 U/L (39-117); Anion Gap 12 (12-20); Aspartate Amino Transferase 21 U/L (5-31); Blood Urea Nitrogen 12 mg/dL (9-16); Calcium 9.0 mg/dL (8.4-10.2); Carbon Dioxide 27 mmol/L (22-29); Chloride 104 mmol/L (96-108); Cholesterol 197 mg/dL (<200); Estimated Glomerular Filt Rate 54; HDL Cholesterol 52 mg/dL (>40); Iron 76 mcg/dL (30-160); Percent Iron Saturation 26 % (15-50); Potassium 3.6 mmol/L (3.3-5.1); Sodium 139 mmol/L (135-145); Total Iron Binding Capacity 287 mcg/dL (228-428); Total Protein 6.9 g/dL (6.5-8.0); Triglycerides 112 mg/dL (<150); Unsaturated Iron Binding 211 ug/dL; Uric Acid 6.6 mg/dL (2.4-5.7)
[2024-11-24 09:54] LABS: Ferritin 45 ng/mL (10-250); Free T4 (Free Thyroxine) 0.92 ng/dL (0.71-1.85); Thyroid Stimulating Hormone 4.99 uIU/mL (0.32-4.0)
[2024-11-24 09:58] LABS: Folate 13.0 ng/mL (> or = 4.0); Vitamin B12 913 pg/mL (200-900)
== END 2024-11-24 08:17 | disposition home or self-care (01) ==
LOC: HO.LAB 08:16
PROVIDERS: PCP Internal Medicine; Visit Provider Internal Medicine
DX: I10 Essential (primary) hypertension (principal); E78.00 Pure hypercholesterolemia, unspecified
CPT/HCPCS: 36415; 80053; 80061; 82306; 82607; 82728; 82746; 83540; 84439; 84443; 84550; 85025; 85045

== ENCOUNTER 2024-11-30 08:30 | Outpatient (AMB) | payer MEDICARE, SELFPAY ==
--- OUTSIDE RECORDS SUMMARY | 2024-11-30 08:35 | XMS_ITS | Patient Health Record ---
Author Organization [facility] Address [address] [place] [phone] Care Team Providers Care Geriatric Physician Name Role Phone Mariya Gutierrez MD Primary Care Provider Librado Graf [phone] Allergies Allergen (clinical drug ingredient) Drug/Non Drug [...] W/U Status Risk Notes Problem Esophageal reflux (837188341) Esophageal reflux (530.81) Active confirmed Problem Quiroz's esophagus (530.85) Active confirmed Problem Blood in stool (678801291) Blood in stool (578.1) Active confirmed Problem GERD (gastroesophage al reflux disease) (530.81) Active confirmed Plan Of Treatment Future Test Test Name Order Date COLONOSCOPY 04/27/2013 Insurance Providers Payer Name Payer Address Payer Phone Subscriber Number Group Number Insured Name Patient Relationship to Insured Coverage Start Date Coverage End Date [place] [address] [place] [address] [id number] LAUREEN PERRY Self - patient is the insured MED[employer] ATTN CLAIMS [address] [place] [address] [phone] [id number] LAUREEN PERRY Self - patient is the insured Medical (General) History Medical History History ICD Code GERD/esophagitis/Quiroz's e sophagus/Hiatal hernia--Last EGD in 01/2012--no Quiroz's identified asthma diverticulitis Denies [place],DM,CVA,renal disease TIA 06/2011 Colonoscopy 2005--neg except diverticulo sis Surgical History Surgery Date(Month/Year) Hysterectomy sinus polyps breast cysts-benign basal cell carcinoma hemorrhoids with Dr. Lopes
--- NOTE | 2024-11-30 08:41 | A.OFFVIS_ITS ---
Intake Vital Signs 11/30/24 08:44 Height 5 ft Weight 137 lb BMI 26.8 BP 118/62 Blood Pressure Location Lt brachial Position Sitting Pulse 65 Pulse Source Pulse Oximeter Pulse Oximetry (%) 97 Oxygen Delivery Method Room Air Intake Visit Reasons: AWV Intake Note: Patient here for an annual wellness visit, discuss [facility] ED visit, hard of hearing right ear Mileage Clerk Required: No Accompanied by: Self / Same As Patient Allergies Penicillins Allergy (Severe, Verified 11/30/24 08:42) Anaphylaxis tamsulosin (Flomax) Allergy (Severe, Verified 11/30/24 08:42) severe chest pains ibuprofen (IBUPROFEN) Allergy (Intermediate, Verified 11/30/24 08:42) Rash, hives trospium Allergy (Intermediate, Verified 11/30/24 08:42) Vomiting amoxicillin Allergy (Mild, Verified 11/30/24 08:42) Hives, bad rash levofloxacin (From LEVAQUIN) Allergy (Mild, Verified 11/30/24 08:42) Rash rabeprazole Allergy (Mild, Verified 11/30/24 08:42) Unknown Sulfa (Sulfonamide Antibiotics) Allergy (Mild, Verified 11/30/24 08:42) Rash atorvastatin Allergy (Unknown, Verified 11/30/24 08:42) Unknown Bifidobacterium infantis (Align) Allergy (Unknown, Verified 11/30/24 08:42) Unknown clarithromycin (Prevpac) Allergy (Unknown, Verified 11/30/24 08:42) Unknown omeprazole (From PRILOSEC) Allergy (Unknown, Verified 11/30/24 08:42) Unknown simvastatin (From ZOCOR) Allergy (Unknown, Verified 11/30/24 08:42) Unknown oxycodone (Percocet) Adverse Reaction (Severe, Verified 11/30/24 08:42) Vomiting amlodipine Adverse Reaction (Intermediate, Verified 11/30/24 08:42) breast pain clobetasol Adverse Reaction (Intermediate, Verified 11/30/24 08:42) made psoriasis worse dexlansoprazole (From Kapidex) Adverse Reaction (Intermediate, Verified 11/30/24 08:42) hyper,watery stool Iodinated Contrast Media (IV CONTRAST) Adverse Reaction (Intermediate, Verified 11/30/24 08:42) Weakness, Lightheaded and confusion lansoprazole (Prevacid) Adverse Reaction (Intermediate, Verified 11/30/24 08:42) hyper, watery stool methotrexate (METHOTREXATE) Adverse Reaction (Intermediate, Verified 11/30/24 08:42) Muscle and joint pain ranitidine Adverse Reaction (Intermediate, Verified 11/30/24 08:42) weak, watery stool alirocumab (From Praluent Pen) Adverse Reaction (Mild, Verified 11/30/24 08:42) Generalized ecchymoses aspirin Adverse Reaction (Mild, Verified 11/30/24 08:42) one sided facial pain, green spots in eye esomeprazole (Nexium) Adverse Reaction (Mild, Verified 11/30/24 08:42) Gastrointestinal Upset pantoprazole (Protonix) Adverse Reaction (Mild, Verified 11/30/24 08:42) one sided headache, yellow streak in left eye mirabegron Adverse Reaction (Unknown, Verified 11/30/24 08:42) Nausea and Vomiting fexofenadine (From [place]) Adverse Reaction (Verified 11/30/24 08:42) painful bones and muscles Medication List - Last Reconciled 11/30/24 by Mariya Gutierrez MD amlodipine 2.5 mg PO DAILY cetirizine (Zyrtec) 10 mg PO BEDTIME cholecalciferol (vitamin D3) 50 mcg PO .qod clopidogrel 75 mg PO DAILY dupilumab (Dupixent) 300 mg subcut Q2W ezetimibe 10 mg PO DAILY fluorouracil 5% 1 appl topical BID furosemide 20 mg PO DAILY metoprolol succinate ER 12.5 mg (1/2 x 25 mg) PO DAILY prednisone mg PO BID [Tums PRN] vitamin E (dl, acetate) 450 mg PO .qod HPI AWV HPI Details [place] of care neurology [facility], Urology Dr. Mix, pulmonary Dr. Espino, [facility], Orthopedics [facility] cardiology [facility] rheumatology [facility]. 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 Bladder cancer Diastolic heart failure Recurrent UTI Osteopenia Allergic rhinitis Lung fibrosis Skin cancer History of rib fracture History of hemorrhoids Hiatal hernia Diverticular disease Pulmonary nodule Psoriasis Barretts esophagus GERD (gastroesophageal reflux disease) History of CVA (cerebrovascular accident) HLD (hyperlipidemia) Postoperative atrial fibrillation CAD (coronary artery disease) Asthma Polymyalgia rheumatica Surgical History History of transurethral resection of bladder tumor (TURBT) History of nasal surgery History of cystoscopy S/P trigger finger release Hx of CABG History of bladder suspension procedure History of tonsillectomy and adenoidectomy History of tonsillectomy Hx of hemorrhoidectomy Family History Father No problems noted. Mother No problems noted. Social History Housing: House Are you a primary companion caregiver to a significant other at home: No Do you presently have visiting nurse or other home services: No Alcohol intake: never Patient Tobacco Use Status: Never used Tobacco Tobacco use type: Cigarette e-Cigarette/Vaping Use: Never Used Second Hand Smoke Exposure: No Advance Directives Date on File: 08/29/16 service: No Current occupational status: retired Current occupation: rt hand Current occupational exposures/hazards: No Cognitive needs: No Hearing needs: No Vision needs: No Questionnaire Medicare Wellness Checkup What is your age?: 82 or older What gender do you identify with?: female During the past 4 weeks, how much have you been bothered by emotional problems such as feeling anxious, depressed, irritable, sad or downhearted, and blue?: not at all During the past 4 weeks, has your physical & emotional health limited your social activities with family, friends, neighbors, or groups?: not at all During the past 4 weeks, how much bodily pain have you generally had?: moderate pain During the past 4 weeks, was someone available to help you if you needed & wanted help?: yes, quite a bit During the past 4 weeks, what was the hardest physical activity you could do for at least 2 minutes?: moderate Can you get to places out of walking distance without help? (For eg., can you travel alone on buses, taxis or drive your car?): Yes Can you go shopping for groceries or clothes without someone's help?: Yes Can you prepare your own meals?: Yes Can you do your housework without help?: Yes Because of any health problems, do you need the help of another person with your personal care needs such as eating, bathing, dressing or getting around the house?: No Can you handle your own money without help?: Yes During the past 4 weeks, how would you rate your health in general?: good During the past 4 weeks how have things been going for you?: good & bad parts about equal Are you having difficulties driving your car?: not applicable, I don't use a car Do you always fasten your seat belt when you are in a car?: yes, usually During past 4 weeks, have you been bothered by the following: never: Falling or dizzy when standing up, Sexual problems?, Trouble eating well?, Teeth or denture problems? and Problems using the telephone? and sometimes: Tiredness or fatigue? Have you fallen 2 or more times in the past year?: No Are you afraid of falling?: No Are you a smoker?: no During the past 4 weeks, how many drinks of wine, beer, or other alcoholic beverages did you have?: no alcohol at all Do you exercise for about 20 minutes 3 or more times a week?: yes, most of the time Have you been given information to help with the following?: no: Hazards in your house that might hurt you? and no: Keeping track of your medications? How often do you have trouble taking medicines the way you have been told to take them?: I always take medicine as prescribed How confident are you that you can control & manage most of your health problems?: very confident What is your race?: White PHQ-9 Over the last 2 weeks, how often have you been bothered by any of the following problems? 1. Little interest or pleasure in doing things: not at all 2. Feeling down, depressed, or hopeless: not at all 3. Trouble falling or staying asleep, or sleeping too much: several days 4. Feeling tired or having little energy: several days 5. Poor appetite or overeating: not at all 6. Feeling bad about yourself - or that you are a failure or have let yourself or your family down: not at all 7. Trouble concentrating on things, such as reading the newspaper or watching television: not at all 8. Moving or speaking so slowly that other people could have noticed. Or the opposite - being so fidgety or restless that you have been moving around a lot more than usual: not at all 9. Thoughts that you would be better off or of hurting yourself in some way: not at all Total score: 2 Source: Developed by Drs. Librado Fraser, Ingris Fuentes, Harry Acevedo and colleagues, with an educational marissa from [employer]. Fall Risk Assessment Fall Risk Assessment Fall risk assessment: No Falls in past year AUDIT C Alcohol Use Questionnaire (AUDIT-C) 1. How often do you have a drink containing alcohol?: Never Total Score: 0 BIRDIE-7 AMB Questionnaire BIRDIE-7 Date BIRDIE - 7 assessed: 05/23/24 Feeling nervous, anxious, or on edge: 0 = Not at all Not being able to stop or control worryin = Not at all Worrying too much about different things: 0 = Not at all Trouble relaxin = Not at all Being so restless that it is hard to sit still: 0 = Not at all Becoming easily annoyed or irritable: 0 = Not at all Feeling afraid as if something awful might happen: 0 = Not at all Total BIRDIE-7 score (0-4 normal; 5-9 mild; 10-14 moderate; 15-21 severe): 0 Source: Developed by Drs. Librado Fraser, Ingris Fuentes, Harry Acevedo and colleagues, with an educational marissa from [employer]. Thrive Questionnaire Date Thrive assessed: 11/23/24 I am a: Patient What is your living situation today?: I have a steady place to live Within the past 12 months, did the food you bought not last and you didn't have the money to get more?: Never true Within the past 12 months, did you worry whether your food would run out before you got money to buy more?: Never true Do you have trouble paying for medicines?: No Do you have trouble getting transportation to medical appointments?: No Do you have trouble paying your heating and electricity bill?: No Do you have trouble taking care of your child, family member or friend?: No Do you have trouble with day-to-day activities such as bathing, preparing meals, shopping, managing finances, etc.?: No Are you currently unemployed and looking for a job?: No Are you interested in more education?: No Please select the resources that you would like help with: None Currently or been in a relationship where the following occur: No concerns reported THRIVE Score: 0 Review of Systems Const Denies poor appetite and Denies weakness Eyes Denies no additional complaints ENT Reports Normal hearing present, Denies dizziness, Denies nasal congestion, Denies tinnitus and Denies sore throat Card Denies chest pain, Denies syncope, Denies rapid heart rate and Denies dyspnea Resp Denies cough and Denies dyspnea GI Denies change in stool character, Reports constipation, Denies diarrhea, Denies nausea and Denies vomiting Denies urinary frequency, Denies difficulty voiding and Denies dysuria Neuro Reports Normal hearing present, Denies confusion, Denies dizziness, Denies syncope and Denies weakness Psych Denies confusion Physical Exam Vital Signs: Last Vital Signs Pulse 65 11/30/24 08:44 BP 118/62 11/30/24 08:44 Pulse Ox 97 11/30/24 08:44 Oxygen Delivery Method Room Air 11/30/24 08:44 BMI result Body Mass Index 26.8 Const General: No confusion Orientation/consciousness: No confusion HEENT Other: impacted cerumen bilateral Head: Yes normocephalic Ears: external ears normal Face and sinus: Yes normal facial exam Mouth: moist mucous membranes Throat: Yes tonsils normal Eyes Conjunctivae: conjunctivae normal Pupils: Equal, round and reactive pupils present and Pupil accommodation reflex normal Direct Ophthalmoscopy: normal light reflex Neck Neck: No lymphadenopathy Thyroid: Thyroid normal Chest Chest palpation & inspection: normal inspection of the chest Resp Effort & Inspection: normal respiratory effort and no audible wheezes Auscultation: clear to auscultation bilaterally, no crackles, no wheezes and lung sounds not diminished Cardio Rate: regular rate Rhythm: regular rhythm Peripheral pulses: radial pulses present and dorsalis pedis present GI Palpation (GI): no masses Auscultation: normal bowel sounds and normoactive bowel sounds Rectal Exam - Female: deferred Skin General skin exam: no rashes or lesions noted Rashes: no rashes Neuro General: No confusion Cranial nerves: Yes Equal, round and reactive pupils present and Yes Normal hearing present Cognition (Neuro): normal cognition Gait exam (Neuro): Normal gait present Motor exam (neuro): 5/5 motor strength present throughout Deep tendon reflexes (DTR's): Right brachioradialis reflex intensity grade: 2+, Left brachioradialis reflex intensity grade: 2+, Right patellar reflex intensity grade: 2+ and Left patellar reflex intensity grade: 2+ Extrem General: No edema Results AMB Urinalysis, Automated UA Leukoctes 0 Mark/uL Last Edit by Loren Brewer, [facility] on 11/30/24 09:41 UA Nitrite Negative Last Edit by Loren Brewer, A on 11/30/24 09:41 UA Urobilinogen 0 mg/dL Last Edit by Loren Brewer, A on 11/30/24 09:41 UA Protein 0 mg/dL Last Edit by Loren Brewer, A on 11/30/24 09:41 UA pH 6.0 Last Edit by Loren Brewer, A on 11/30/24 09:41 UA Blood 0 Sushant/uL Last Edit by Loren Brewer, [facility] on 11/30/24 09:41 UA Specific [place] 1.020 Last Edit by Loren Brewer, A on 11/30/24 09 :41 UA Ketone Negative Last Edit by Loren Brewer, [facility] on 11/30/24 09:41 UA Bilirubin 0 mg/dL Last Edit by Loren Brewer, A on 11/30/24 09:41 UA Glucose 0 mg/dL Last Edit by [facility], [facility] on 11/30/24 09:41 Assessment & Plan Assessment & Plan (1) Encounter for subsequent annual wellness visit (AWV) in Medicare patient: Code(s): Z00.00 - Encounter for general adult medical examination without abnormal findings Plan: Patient is advised to eat healthy, keep well hydrated, keep active and have adequate sleep. (2) CAD (coronary artery disease): Comment: CABG x2 2017 WHITAKER to LAD, SVG to OM Dr. Godoy Code(s): I25.10 - Atherosclerotic heart disease of [place] coronary artery without angina pectoris Qualifiers: Coronary Disease-Associated Artery/Lesion type: [place] artery [place] vs. transplanted heart: [place] heart Associated angina: without angina Qualified Code(s): I25.10 - Atherosclerotic heart disease of [place] coronary artery without angina pectoris Plan: Control the cholesterol, weight, blood pressure, diabetes on clopidogrel 75 mg once a day (3) HTN (hypertension): Code(s): I10 - Essential (primary) hypertension Qualifiers: Hypertension type: primary hypertension Qualified Code(s): I10 - Essential (primary) hypertension Plan: Continue with blood pressure medication. Decrease salt intake and exercise on metoprolol 12.5 mg once a day (4) HLD (hyperlipidemia): Comment: Statin intolerance Code(s): E78.5 - Hyperlipidemia, unspecified Qualifiers: Hyperlipidemia type: mixed hyperlipidemia Qualified Code(s): E78.2 - Mixed hyperlipidemia Plan: Avoid fried foods, chicken skin, eggs, butter margarine, pastries and meat. Be it pork or beef they have a lot of cholesterol diet controlled as the patient can not tolerate statins (5) Sick sinus syndrome: Code(s): I49.5 - Sick sinus syndrome Plan: Continue to monitor (6) Barretts esophagus: Comment: January 2012 no more Code(s): K22.70 - Quiroz's esophagus without dysplasia Qualifiers: Quiroz's esophagus type: without dysplasia Qualified Code(s): K22.70 - Quiroz's esophagus without dysplasia Plan: Avoid the foods that causes that usually spicy foods, tomato products, juices, coffee, soda and foods that your sensitive to. After eating do not lie down, allow 3-4 hours before in lie down. And keep the head of bed above 30 degrees to avoid the acid from going up. (7) Urinary bladder cancer: Comment: - High-grade papillary urothelial carcinoma, non-invasive. Bladder biopsy with extensive fulguration left-sided bladder Dr. Mix October 2021, January 2022 - 02/06 CIS TURBT and gemcitabine instillation Dr. Mix May 2022 biopsy 02/2023 high grade papillary carcinoma Code(s): C67.9 - Malignant neoplasm of bladder, unspecified Qualifiers: Bladder location: unspecified site Qualified Code(s): C67.9 - Malignant neoplasm of bladder, unspecified Plan: Patient is under surveillance with urology having cystoscopy (8) Polymyalgia rheumatica: Code(s): M35.3 - Polymyalgia rheumatica Plan: on prednisone on 2 mg once a day (9) Stenosis of left middle cerebral artery: Code(s): I66.02 - Occlusion and stenosis of left middle cerebral artery Plan: Continue being with Plavix patient follows up with Neurology (10) Lung fibrosis: Comment: She has Mild sub plural Fibrotic changes in mid and lower parts of lungs. as per CT scan . last CT scan in 2022 , was stable . PULMONARY FUNCTION TEST ON 07/22/2022: Showed mild restrictive disorder but no ob structive airway disorder. Code(s): J84.10 - Pulmonary fibrosis, unspecified Plan: Mild and followed up by Pulmonary (11) Psoriasis: Code(s): L40.9 - Psoriasis, unspecified Plan: Continuing with Dermatology follow-up as well as medication. (12) Right flank pain: Code(s): R10.9 - Unspecified abdominal pain (13) Hearing difficulty: Code(s): H91.90 - Unspecified hearing loss, unspecified ear (14) Impacted cerumen of both ears: Code(s): H61.23 - Impacted cerumen, bilateral Plan: advised to schedule irrigation prior to hearing test Plan History of Present Illness The patient is an 84-year-old female presenting for an annual wellness visit. The patient has a history of polymyalgia rheumatica, for which she is currently on prednisone 2 mg daily. She reports stable hemifacial spasms and follows up with neurology for this condition. She has coronary artery disease and is on clopidogrel 75 mg daily. The patient experienced a recent episode of shortness of breath, leading to an emergency room visit where a cardiac workup was negative. The patient has a history of hypercholesterolemia with an LDL level of 123 mg/dL, which is managed with dietary modifications due to statin intolerance. She is aware of the potential need for alternative cholesterol-lowering therapies such as Repatha or Praluent injections. The patient has gastroesophageal reflux disease with Quiroz's esophagus and is under surveillance for this condition. She has a history of urinary bladder cancer, for which she underwent TURBT and gemcitabine instillation in May 2022, and continues with surveillance cystoscopies. The patient has pulmonary fibrosis, which is mild and currently requires no treatment. She reports hearing loss, particularly in the right ear, and is considering a hearing test. The patient experiences urinary frequency, waking up every hour and a half at night to urinate. She maintains an active lifestyle, exercising three times a week, and follows a healthy diet. Health Maintenance - Annual wellness visit conducted - Mammogram and bone density screening completed in March 2024 - Continues to follow a healthy diet and exercise regimen Social History - Exercise: Engages in physical activity three times a week - Diet: Follows a healthy diet - Functional status: Maintains independence in daily activities Review of Systems - Cardiovascular: Reports shortness of breath, denies chest pain - Respiratory: Denies cough, hemoptysis, or wheezing - Neurological: Reports hearing loss, denies dizziness or syncope - Genitourinary: Reports urinary frequency, denies dysuria Physical Exam General: Cooperative, healthy appearing, comfortable, no acute distress and well developed Orientation: Patient oriented x3 Limitations: No limitations Head: Normal to inspection Ears: Hearing decreased, more hard of hearing in general, fluid sensation in right ear Nose: Normal external nose present Face and sinus: Normal facial exam Eyes: Appearance normal, both eyes and all related structures Neck: Normal visual inspection and Yes full ROM Respiratory: Normal respiratory effort and able to speak in complete sentences. Clear to auscultation bilaterally Cardiovascular: Regular rate and rhythm. Normal S1 and S2 GI: Normal to inspection. Soft to palpation and nontender Skin: No rashes or lesions noted Neuro: Patient oriented x3 Extremities: Normal to inspection Results - Labs: Normal blood count, normal electrolytes, normal renal function, normal blood sugar, elevated LDL cholesterol at 123 mg/dL, mildly elevated thyroid l evel at 4.99 - Procedures: Cystoscopy normal, TURBT and gemcitabine instillation completed in May 2022 Plan The patient will continue on her current regimen of prednisone 2 mg daily for polymyalgia rheumatica and will follow up with neurology for hemifacial spasms. She will remain on clopidogrel 75 mg daily for coronary artery disease and will monitor for any recurrence of shortness of breath, with a plan to follow up on the pending echocardiogram request. For hypercholesterolemia, the patient will continue dietary management due to statin intolerance, and alternative therapies such as Repatha or Praluent injections may be considered if recommended by cardiology. The patient will continue surveillance for Quiroz's esophagus and urinary bladder cancer, with regular cystoscopies as part of her ongoing care. Pulmonary fibrosis will be monitored, with no current treatment required, and the patient will continue to avoid exposure to respiratory infections. Hearing loss will be evaluated further with a potential hearing test, and the patient will have a urinalysis to assess urinary frequency. Patient was informed and verbally consented to the use of an ambient scribe for clinic note documentation during this visit. Discussion Notes During the visit, I discussed with the patient the importance of continuing her current medication regimen, including prednisone for polymyalgia rheumatica and clopidogrel for coronary artery disease. We reviewed her recent episode of shortness of breath and the negative cardiac workup, emphasizing the need to follow up on the echocardiogram request. I explained the management of her hypercholesterolemia with dietary modifications and discussed potential alternative therapies if needed. We also covered the surveillance plans for Quiroz's esophagus and urinary bladder cancer, as well as the monitoring of her pulmonary fibrosis. The patient was advised to consider a hearing test for her hearing loss and to have a urinalysis to evaluate urinary frequency. Patient Instructions - Continue taking prednisone 2 mg daily for polymyalgia rheumatica. - Take clopidogrel 75 mg daily for coronary artery disease. - Follow a healthy diet to manage cholesterol levels. - Schedule and attend the echocardiogram appointment. - Continue surveillance for Quiroz's esophagus and urinary bladder cancer. - Avoid exposure to respiratory infections to manage pulmonary fibrosis. - Consider a hearing test for hearing loss. - Complete a urinalysis to assess urinary frequency. Orders: Orders AMB Urinalysis Automated Today R10.9 - Unspecified abdominal pain, Z13.9 - Encounter for screening, unspecified Referrals Speech and Hearing Referral H91.90 - Unspecified hearing loss, unspecified ear Medications: New docusate sodium (Colace) 100 mg PO DAILY 30 caps 0RF H91.90 - Unspecified hearing loss, unspecified ear Quality Reporting (2019) Fall Risk Screening ([facility] 139) Fall risk assessment: No Falls in past year Depression/Bipolar (159/160/161/177) PHQ-9: Total score: 2 Coding Level of Care Code Medicare Subsequent (G0439) Diagnoses Encounter for subsequent annual wellness visit (AWV) in Medicare patient Z00.00 Coronary artery disease involving [place] coronary artery of [place] heart without angina pectoris I25.10 Coronary Disease-Associated Artery/Lesion type: [place] artery [place] vs. 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
[2024-11-30 08:44] VITALS: BP 118/62; PULSE 65; O2SAT 97; BMI 26.8
== END 2024-11-30 09:39 | disposition home or self-care (01) ==
LOC: HO.HMCH 08:31
PROVIDERS: PCP Internal Medicine; Visit Provider Internal Medicine
DX: Z00.00 Encounter for general adult medical examination without abnormal findings (principal); I49.5 Sick sinus syndrome; C67.9 Malignant neoplasm of bladder, unspecified; J84.10 Pulmonary fibrosis, unspecified; I25.10 Atherosclerotic heart disease of native coronary artery without angina pectoris; I10 Essential (primary) hypertension; E78.2 Mixed hyperlipidemia; K22.70 Barrett's esophagus without dysplasia; M35.3 Polymyalgia rheumatica; I66.02 Occlusion and stenosis of left middle cerebral artery; L40.9 Psoriasis, unspecified; R10.9 Unspecified abdominal pain

== ENCOUNTER → 2024-11-30 08:30 | Outpatient (BNVA) | payer MEDICARE, SELFPAY | PROVIDERS: PCP Internal Medicine; Visit Provider Internal Medicine | DX: Z00.00 Encounter for general adult medical examination without abnormal findings (principal); I25.10 Atherosclerotic heart disease of native coronary artery without angina pectoris; I10 Essential (primary) hypertension; I49.5 Sick sinus syndrome; E78.2 Mixed hyperlipidemia; K22.70 Barrett's esophagus without dysplasia; C67.9 Malignant neoplasm of bladder, unspecified; M35.3 Polymyalgia rheumatica; I66.02 Occlusion and stenosis of left middle cerebral artery; J84.10 Pulmonary fibrosis, unspecified; L40.9 Psoriasis, unspecified; R10.9 Unspecified abdominal pain; H61.23 Impacted cerumen, bilateral | CPT/HCPCS: 81003 ==

== ENCOUNTER 2024-12-23 12:45 | Outpatient (AMB) | payer MEDICARE, SELFPAY ==
--- OUTSIDE RECORDS SUMMARY | 2024-12-23 12:47 | XMS_ITS | Patient Health Record ---
Author Organization [facility] Address [address] [place] [id number] Care Team Providers Care Wrap Checker Name Role Phone Mariya Gutierrez MD Primary Care Provider Librado Graf [phone] Allergies Allergen (clinical drug ingredient) Drug/Non Drug [...] W/U Status Risk Notes Problem Esophageal reflux (567627720) Esophageal reflux (530.81) Active confirmed Problem Quiroz's esophagus (530.85) Active confirmed Problem Blood in stool (115510460) Blood in stool (578.1) Active confirmed Problem GERD (gastroesophage al reflux disease) (530.81) Active confirmed Plan Of Treatment Future Test Test Name Order Date COLONOSCOPY 04/27/2013 Insurance Providers Payer Name Payer Address Payer Phone Subscriber Number Group Number Insured Name Patient Relationship to Insured Coverage Start Date Coverage End Date MEDICARE OF [place] [address] [place] [address] [id number] LAUREEN PERRY Self - patient is the insured MEDEX ATTN CLAIMS [address] [place] [address] [id number] LAUREEN PERRY Self - patient is the insured Medical (General) History Medical History History ICD Code GERD/esophagitis/Quiroz's e sophagus/Hiatal hernia--Last EGD in 01/2012--no Quiroz's identified asthma diverticulitis Denies PA,DM,CVA,renal disease TIA 06/2011 Colonoscopy 2005--neg except diverticulo sis Surgical History Surgery Date(Month/Year) Hysterectomy sinus polyps breast cysts-benign basal cell carcinoma hemorrhoids with Dr. Lopes
--- NOTE | 2024-12-23 12:54 | A.OFFPC_ITS ---
Vital Signs 12/23/24 12:56 Height 5 ft Weight 136 lb 2 oz BMI 26.6 BP 126/70 Blood Pressure Location Lt brachial Position Sitting Pulse 71 Pulse Source Pulse Oximeter Pulse Oximetry (%) 96 Oxygen Delivery Method Room Air Intake Visit Reasons: Ear irrigation Hardwood Faller Required: No Accompanied by: Self / Same As Patient Allergies Penicillins Allergy (Severe, Verified 12/23/24 12:55) Anaphylaxis tamsulosin (Flomax) Allergy (Severe, Verified 12/23/24 12:55) severe chest pains ibuprofen (IBUPROFEN) Allergy (Intermediate, Verified 12/23/24 12:55) Rash, hives trospium Allergy (Intermediate, Verified 12/23/24 12:55) Vomiting amoxicillin Allergy (Mild, Verified 12/23/24 12:55) Hives, bad rash levofloxacin (From LEVAQUIN) Allergy (Mild, Verified 12/23/24 12:55) Rash rabeprazole Allergy (Mild, Verified 12/23/24 12:55) Unknown Sulfa (Sulfonamide Antibiotics) Allergy (Mild, Verified 12/23/24 12:55) Rash atorvastatin Allergy (Unknown, Verified 12/23/24 12:55) Unknown Bifidobacterium infantis (Align) Allergy (Unknown, Verified 12/23/24 12:55) Unknown clarithromycin (Prevpac) Allergy (Unknown, Verified 12/23/24 12:55) Unknown omeprazole (From PRILOSEC) Allergy (Unknown, Verified 12/23/24 12:55) Unknown simvastatin (From ZOCOR) Allergy (Unknown, Verified 12/23/24 12:55) Unknown oxycodone (Percocet) Adverse Reaction (Severe, Verified 12/23/24 12:55) Vomiting amlodipine Adverse Reaction (Intermediate, Verified 12/23/24 12:55) breast pain clobetasol Adverse Reaction (Intermediate, Verified 12/23/24 12:55) made psoriasis worse dexlansoprazole (From Kapidex) Adverse Reaction (Intermediate, Verified 12/23/24 12:55) hyper,watery stool Iodinated Contrast Media (IV CONTRAST) Adverse Reaction (Intermediate, Verified 12/23/24 12:55) Weakness, Lightheaded and confusion lansoprazole (Prevacid) Adverse Reaction (Intermediate, Verified 12/23/24 12:55) hyper, watery stool methotrexate (METHOTREXATE) Adverse Reaction (Intermediate, Verified 12/23/24 12:55) Muscle and joint pain ranitidine Adverse Reaction (Intermediate, Verified 12/23/24 12:55) weak, watery stool alirocumab (From Praluent Pen) Adverse Reaction (Mild, Verified 12/23/24 12:55) Generalized ecchymoses aspirin Adverse Reaction (Mild, Verified 12/23/24 12:55) one sided facial pain, green spots in eye esomeprazole (Nexium) Adverse Reaction (Mild, Verified 12/23/24 12:55) Gastrointestinal Upset pantoprazole (Protonix) Adverse Reaction (Mild, Verified 12/23/24 12:55) one sided headache, yellow streak in left eye mirabegron Adverse Reaction (Unknown, Verified 12/23/24 12:55) Nausea and Vomiting fexofenadine (From [place]) Adverse Reaction (Verified 12/23/24 12:55) painful bones and muscles Medication List - Last Reconciled 12/23/24 by Radha Fields PA-C cetirizine (Zyrtec) 10 mg PO BEDTIME cholecalciferol (vitamin D3) 50 mcg PO .qod clopidogrel 75 mg PO DAILY docusate sodium (Colace) 100 mg PO DAILY dupilumab (Dupixent) 300 mg subcut Q2W ezetimibe 10 mg PO DAILY fluorouracil 5% 1 appl topical BID furosemide 20 mg PO DAILY metoprolol succinate ER 12.5 mg (1/2 x 25 mg) PO DAILY prednisone mg PO BID [Tums PRN] vitamin E (dl, acetate) 450 mg PO .qod Tobacco use date assessed: 12/23/24 Fall risk assessment: No Falls in past year Last assessed Fall Risk: 12/23/24 Dental Screening Dental Screen Date: 12/23/24 Did you have a dental visit in the last 12 months?: Yes Did you have a dental problem in the last 6 months where you did not have access to dental care?: No Was dental information given to patient?: Patient has dentist HPI Ear irrigation HPI Details 83-year-old female with multiple medical problems coronary artery disease hypercholesterolemia Barretts esophagus polymyalgia rheumatica hypertension urinary bladder cancer coming in for ear cleaning. Patient tells us today she has a bilateral ear clogged feeling that may shift from side to side. She has no other concerns today. 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 Bladder cancer Diastolic heart failure Recurrent UTI Osteopenia Allergic rhinitis Lung fibrosis Skin cancer History of rib fracture History of hemorrhoids Hiatal hernia Diverticular disease Pulmonary nodule Psoriasis Barretts esophagus GERD (gastroesophageal reflux disease) History of CVA (cerebrovascular accident) HLD (hyperlipidemia) Postoperative atrial fibrillation CAD (coronary artery disease) Asthma Polymyalgia rheumatica Surgical History History of transurethral resection of bladder tumor (TURBT) History of nasal surgery History of cystoscopy S/P trigger finger release Hx of CABG History of bladder suspension procedure History of tonsillectomy and adenoidectomy History of tonsillectomy Hx of hemorrhoidectomy Family History Father No problems noted. Mother No problems noted. Social History Housing: House Are you a primary health care coach to a significant other at home: No Do you presently have visiting nurse or other home services: No Alcohol intake: never Patient Tobacco Use Status: Never used Tobacco Tobacco use type: Cigarette e-Cigarette/Vaping Use: Never Used Second Hand Smoke Exposure: No Advance Directives Date on File: 08/29/16 service: No Current occupational status: retired Current occupation: rt hand Current occupational exposures/hazards: No Cognitive needs: No Hearing needs: No Vision needs: No Questionnaire Thrive Questionnaire Date Thrive assessed: 12/23/24 I am a: Patient What is your living situation today?: I have a steady place to live Within the past 12 months, did the food you bought not last and you didn't have the money to get more?: Never true Within the past 12 months, did you worry whether your food would run out before you got money to buy more?: Never true Do you have trouble paying for medicines?: No Do you have trouble getting transportation to medical appointments?: No Do you have trouble paying your heating and electricity bill?: No Do you have trouble taking care of your child, family member or friend?: No Do you have trouble with day-to-day activities such as bathing, preparing meals, shopping, managing finances, etc.?: No Are you currently unemployed and looking for a job?: No Are you interested in more education?: No Please select the resources that you would like help with: None Currently or been in a relationship where the following occur: No concerns reported THRIVE Score: 0 AUDIT C Alcohol Use Questionnaire (AUDIT-C) 2. How many drinks containing alcohol do you have on a typical day when you are drinking?: 1 or 2 Total Score: 0 BIRDIE-7 AMB Questionnaire BIRDIE-7 Date BIRDIE - 7 assessed: 12/23/24 Source: Developed by Drs. Librado Fraser, Ingris Fuentes, Harry Acevedo and colleagues, with an educational marissa from [employer]. Review of Systems Const Denies body aches, Denies chills and Denies fever(s) Eyes Reports no additional complaints ENT Details: bilateral ear clogged feeling and occasional pressure sensation Denies otalgia and Denies sinus pain Physical exam (Primary Care) Vital Signs: Last Vital Signs Pulse 71 12/23/24 12:56 BP 126/70 12/23/24 12:56 Pulse Ox 96 12/23/24 12:56 Oxygen Delivery Method Room Air 12/23/24 12:56 BMI result Body Mass Index 26.6 Tobacco/Smoking Status: Tobacco use Status Tobacco use date assessed 12/23/24 12/23/24 13:02 Patient Tobacco Use Status Never used Tobacco 12/23/24 13:02 Tobacco use type Cigarette 12/23/24 13:02 e-Cigarette/Vaping Use Never Used 12/23/24 13:02 Thrive Assessment: Date of Thrive Assessment Date Thrive assessed 12/23/24 12/23/24 13:02 Currently or been in a relationship where the following occur: No concerns reported Const General: cooperative, healthy appearing, comfortable and no acute distress Orientation/consciousness: patient oriented x3 HENMT Head: Yes normocephalic Ears: hearing grossly normal bilaterally, TM's normal bilaterally and Abnormal EAC present (scant cerumen in bilateral ears) General nose exam: Normal external nose present Eyes General: appearance normal, both eyes and all related structures Conjunctivae: conjunctivae normal Neck Neck: Yes full ROM and Yes no lymphadenopathy Resp Effort & Inspection: normal respiratory effort Cardio Rate: regular rate Neuro General: patient oriented x3 Gait exam (Neuro): Normal gait present Psych Affect: normal affect Attitude: cooperative Insight: Good insight present (Psych) Judgement: Good judgement present (Psych) Coding Level of Care Code Est Pt Level 3 (17923) Diagnoses Sensation of plugged ear on both sides H93.8X3 Laterality: bilateral Assessment & Plan Assessment & Plan (1) Clogged ear: Code(s): H93.8X9 - Other specified disorders of ear, unspecified ear Category: Medical Qualifiers: Laterality: bilateral Qualified Code(s): H93.8X3 - Other specified disorders of ear, bilateral Plan: Very mild but hard wax in bilateral ears. Discussed with patient I would not recommend ear flushing as there is not much wax and may cause dizziness. Patient was given Debrox drops to soften existing wax and follow up as needed. For ear clogged sensation recommend taking Zyrtec daily and using allergy nasal spray such as flonase/Astepro. Plan This note was constructed using voice recognition software. While every effort has been made to ensure accuracy and malt house loader, still areas may have been included sometimes these areas may affect the content or meeting of the given symptoms. Total time spent caring for the patient today was 15 minutes. This includes time spent before the visit reviewing the chart, time spent during the visit, and time spent after the visit and documentation. Medications: New carbamide peroxide 6.5% (Debrox) 5 drps otic (ears) DAILY 15 mL 0RF 4 days
[2024-12-23 12:56] VITALS: BP 126/70; PULSE 71; O2SAT 96; BMI 26.6
== END 2024-12-23 13:27 | disposition home or self-care (01) ==
LOC: HO.HMCH 12:46
PROVIDERS: PCP Internal Medicine
DX: H93.8X3 Other specified disorders of ear, bilateral (principal)

== ENCOUNTER → 2024-12-23 12:45 | Outpatient (BNVA) | payer MEDICARE, SELFPAY | PROVIDERS: PCP Internal Medicine | DX: H93.8X3 Other specified disorders of ear, bilateral (principal) | CPT/HCPCS: 99212 ==

== ENCOUNTER → 2024-12-29 09:51 | Outpatient (REF) | payer MEDICARE, SELFPAY ==
--- NOTE | 2024-12-29 09:55 | CA_ITS ---
Transthoracic Echocardiogram Patient (Last, First, Middle): Mary Whitfield I Gender: Female Date of : 1940 Age: 84 Procedure Date: 12/29/2024 Procedure Type: Transthoracic Echocardiogram Location: OP Height: 152.4 cm Weight: 61.69 kg BSA: 1.58 m2 Heart Rate: bpm BP: 126 / 70 mmHg Corporate Sales Manager: TERRI Referring MD: Boo Jimenez MD Motor Man: Boo Jimenez MD Symptoms: R06.02 - Shortness of breath Study Quality: Fair ECG Rhythm: Sinus Conclusions: - 1. Normal LV ejection fraction 55-60% with restrictive filling pattern 2. Moderately dilated left atrium 3. Calcific aortic and mitral valve changes noted with normal cardiac valvular Dopplers 4. Upper limits normal ascending aortic size 5. No gross pericardial effusion Findings Left Ventricle Normal left ventricular size, thickness, and systolic function. The visually estimated ejection fraction is between 55-60%. Spectral Doppler is indicative of a restrictive filling pattern. E/E prime ratio is between 8 and 15 consistent with indeterminate filling pressures. Right Ventricle Normal right ventricular cavity size and systolic function. Atria The left atrium is moderately dilated. There is no evidence of interatrial shunt. The right atrium is normal in size. Aortic Valve Normal aortic valve structure and function. There is no aortic valve stenosis. There is no aortic valve regurgitation. Mitral Valve There is mild anterior and posterior mitral leaflet thickening. There is mild anterior and mild posterior mitral annular calcification. There is trace mitral valve regurgitation. There is no mitral valve stenosis. Pulmonic Valve The pulmonic valve is likely normal. There is trace pulmonic valve regurgitation. Tricuspid Valve Normal tricuspid valve structure. Tricuspid regurgitation envelope is inadequate for calculation of right ventricular systolic pressure. Normal right atrial pressure. Great Vessels The pulmonary artery was not well visualized. There is no dilatation of the ascending aorta measuring 3.50 cm. Small plaque is seen in the sino tubular ridge. Venous The inferior vena cava is normal in size and collapses greater than 50% with inspiration. Pericardium/Pleural There is no evidence of pericardial effusion. Measurements 2D Linear Measurements IVSd: 1.08 0.6-0.9/0.6-1.0 cm LVIDd: 4.47 3.9-5.3/4.2-5.9 cm LVIDd Index: 2.83 2.4-3.2/2.2-3.1 cm/m2 LVIDs: 2.63 2.0-3.6 cm LVPWd: 0.91 0.7-1.1 cm LA Diam: 3.90 2.7-3.8/3.0-4.0 cm LAIDs Index: 2.47 1.5-2.3 cm/m2 LV Mass: 187.61 67-162/88-224 g LV Mass Index: 118.74 43-95/49-115 g/m2 LVOT Diam: 2.10 3.0+(-)1.3 cm 2D Systolic Function EF 4C: 63.70 >55% EF 2C: 54.50 >55% EF BiP: 59.00 >55% Mitral Valve MV Pk E: 0.80 MV PK A: 0.45 MV Decel Time: 129.00 E/A: 1.80 E'Lateral: 7.40 E'Medial: 6.42 E/E' Med: 12.50 E/E' Lat: 10.80 PHT: 38.00 MVA PHT: 5.79 Decel [place]: 6.22 Aortic Valve AoV Pk Jose Raul: 1.17 AoV Mn Jose Raul: 0.86 AoV VTI: 0.30 AoV Pk Grad: 5.00 Aov Mn Grad: 3.00 ELIZABETH Cont.VTI: 2.14 LVOT LVOT Pk Jose Raul: 0.72 LVOT Mn Jose Raul: 0.55 LVOT VTI: 0.19 LVOT Pk Grad: 2.00 LVOT Mn Grad: 1.00 LVOT Diam: 2.10 LVOT Area: 3.46 Diastolic Function MV Pk E: 0.80 MV Pk A: 0.45 E/A: 1.80 E'Medial: 6.42 E/E' Med: 12.50 E' Laterial: 7.40 E/E' Lat: 10.80 Right Ventricle TAPSE (mm): 19.50 TVS' Jose Raul: 7.62 Tricuspid Valve RA Press: 3.00 Great Vessels Aorta Sinus of Valsalva: 3.17 2.0-3.[address] [place]: 2.43 1.7-3.4 cm Ao Asc: 3.50 2.1-3.4 cm Updated in Other Vendor System with Status of Final Boo Jimenez MD electronically signed on 12/29/2024 4:03:23 PM with status of Final
--- OUTSIDE RECORDS SUMMARY | 2024-12-29 10:32 | XMS_ITS | Patient Health Record ---
Author Organization [facility] Address [address] [place] [phone] Care Team Providers Care Intern Name Role Phone Mariya Gutierrez MD Primary Care Provider Librado Graf [phone] Allergies Allergen (clinical drug ingredient) Drug/Non Drug [...] W/U Status Risk Notes Problem Esophageal reflux (334435436) Esophageal reflux (530.81) Active confirmed Problem Quiroz's esophagus (224186112) Quiroz's esophagus (530.85) Active confirmed Problem Blood [...] [place] [address] [place] [address] [id number] LAUREEN PERRY Self - patient is the insured [employer] ATTN CLAIMS [address] [place] [address] [id number] LAUREEN PERRY Self - patient is the insured Medical (General) History Medical History History ICD Code GERD/esophagitis/Quiroz's e sophagus/Hiatal hernia--Last EGD in 01/2012--no Quiroz's identified asthma diverticulitis Denies AL,DM,CVA,renal disease TIA 06/2011 Colonoscopy 2005--neg except diverticulo sis Surgical History Surgery Date(Month/Year) Hysterectomy sinus polyps breast cysts-benign basal cell carcinoma hemorrhoids with Dr. Lopes
== END ==
LOC: HO.CARD 09:51
PROVIDERS: PCP Internal Medicine; Visit Provider Internal Medicine Cardiovascular Disease
DX: I25.10 Atherosclerotic heart disease of native coronary artery without angina pectoris (principal); I50.30 Unspecified diastolic (congestive) heart failure; I49.5 Sick sinus syndrome; R06.02 Shortness of breath
CPT/HCPCS: 93306

== ENCOUNTER → 2024-12-29 09:55 | Outpatient (BNV) | payer MEDICARE, SELFPAY | PROVIDERS: PCP Internal Medicine; Visit Provider Internal Medicine Cardiovascular Disease | DX: I51.89 Other ill-defined heart diseases (principal); I35.8 Other nonrheumatic aortic valve disorders; I34.81 Nonrheumatic mitral (valve) annulus calcification | CPT/HCPCS: 93306 ==

== ENCOUNTER 2025-01-18 13:39 | Outpatient (AMB) | payer MEDICARE, SELFPAY ==
--- NOTE | 2025-01-18 13:49 | A.OFFVIS_ITS ---
Vital Signs 01/18/25 13:56 Height 5 ft Weight 136 lb BMI 26.6 Intake Visit Reasons: INJ RT knee injection Intake Note: Mary an 84 year old female who presents today for an injection to her right knee, last injection 05/04/23. Patient reports injection provided relief until about 6 weeks ago, she would like to repeat injection. Allergies Penicillins Allergy (Severe, Verified 01/18/25 13:56) Anaphylaxis tamsulosin (Flomax) Allergy (Severe, Verified 01/18/25 13:56) severe chest pains ibuprofen (IBUPROFEN) Allergy (Intermediate, Verified 01/18/25 13:56) Rash, hives trospium Allergy (Intermediate, Verified 01/18/25 13:56) Vomiting amoxicillin Allergy (Mild, Verified 01/18/25 13:56) Hives, bad rash levofloxacin (From LEVAQUIN) Allergy (Mild, Verified 01/18/25 13:56) Rash rabeprazole Allergy (Mild, Verified 01/18/25 13:56) Unknown Sulfa (Sulfonamide Antibiotics) Allergy (Mild, Verified 01/18/25 13:56) Rash atorvastatin Allergy (Unknown, Verified 01/18/25 13:56) Unknown Bifidobacterium infantis (Align) Allergy (Unknown, Verified 01/18/25 13:56) Unknown clarithromycin (Prevpac) Allergy (Unknown, Verified 01/18/25 13:56) Unknown omeprazole (From PRILOSEC) Allergy (Unknown, Verified 01/18/25 13:56) Unknown simvastatin (From ZOCOR) Allergy (Unknown, Verified 01/18/25 13:56) Unknown oxycodone (Percocet) Adverse Reaction (Severe, Verified 01/18/25 13:56) Vomiting amlodipine Adverse Reaction (Intermediate, Verified 01/18/25 13:56) breast pain clobetasol Adverse Reaction (Intermediate, Verified 01/18/25 13:56) made psoriasis worse dexlansoprazole (From Kapidex) Adverse Reaction (Intermediate, Verified 01/18/25 13:56) hyper,watery stool Iodinated Contrast Media (IV CONTRAST) Adverse Reaction (Intermediate, Verified 01/18/25 13:56) Weakness, Lightheaded and confusion lansoprazole (Prevacid) Adverse Reaction (Intermediate, Verified 01/18/25 13:56) hyper, watery stool methotrexate (METHOTREXATE) Adverse Reaction (Intermediate, Verified 01/18/25 13:56) Muscle and joint pain ranitidine Adverse Reaction (Intermediate, Verified 01/18/25 13:56) weak, watery stool alirocumab (From Praluent Pen) Adverse Reaction (Mild, Verified 01/18/25 13:56) Generalized ecchymoses aspirin Adverse Reaction (Mild, Verified 01/18/25 13:56) one sided facial pain, green spots in eye esomeprazole (Nexium) Adverse Reaction (Mild, Verified 01/18/25 13:56) Gastrointestinal Upset pantoprazole (Protonix) Adverse Reaction (Mild, Verified 01/18/25 13:56) one sided headache, yellow streak in left eye mirabegron Adverse Reaction (Unknown, Verified 01/18/25 13:56) Nausea and Vomiting fexofenadine (From [place]) Adverse Reaction (Verified 01/18/25 13:56) painful bones and muscles HPI HPI INJ RT knee injection: Details: 84-year-old female returns to the office today for a follow-up right knee pain. She had an injection back in 2022 which was successful up until recently. She states she has been able to perform most activities up until recently where she has difficulty with prolonged walking standing and stairs. No new injuries. 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 Bladder cancer Diastolic heart failure Recurrent UTI Osteopenia Allergic rhinitis Lung fibrosis Skin cancer History of rib fracture History of hemorrhoids Hiatal hernia Diverticular disease Pulmonary nodule Psoriasis Barretts esophagus GERD (gastroesophageal reflux disease) History of CVA (cerebrovascular accident) HLD (hyperlipidemia) Postoperative atrial fibrillation CAD (coronary artery disease) Asthma Polymyalgia rheumatica Surgical History History of transurethral resection of bladder tumor (TURBT) History of nasal surgery History of cystoscopy S/P trigger finger release Hx of CABG History of bladder suspension procedure History of tonsillectomy and adenoidectomy History of tonsillectomy Hx of hemorrhoidectomy Family History Father No problems noted. Mother No problems noted. Social History Housing: House Are you a primary personal care service provider to a significant other at home: No Do you presently have visiting nurse or other home services: No Alcohol intake: never Patient Tobacco Use Status: Never used Tobacco Tobacco use type: Cigarette e-Cigarette/Vaping Use: Never Used Second Hand Smoke Exposure: No Advance Directives Date on File: 08/29/16 service: No Current occupational status: retired Current occupation: rt hand Current occupational exposures/hazards: No Cognitive needs: No Hearing needs: No Vision needs: No Review of Systems Const All systems reviewed & are unremarkable except as noted in HPI and below Physical Exam Vital Signs: BMI result Body Mass Index 26.6 Extrem Other: Right knee: Skin intact, no erythema or joint effusion. Tenderness along the medial and lateral joint line. Full ROM with crepitus. Negative Mamadou?s. No ligamentous laxity. NVI. Office Procedures AMB Joint Injection/Aspiration Joint Injection/Aspiration Primary Site: right knee Prep: site was prepped using aseptic technique, ethochloride spray was applied and injection warnings given Injected: 40 mg of, with 3 mL of, 1% plain lidocaine, 0.25% bupivacaine, in the joint and decadron Approach Used: anterolateral Coding 35523 - Glenohumeral/Tronchanteric Bursa/Intraarticular Procedure code (CPT) selection complete Assessment & Plan Assessment & Plan (1) Osteoarthritis of right knee: Code(s): M17.11 - Unilateral primary osteoarthritis, right knee Category: Medical Qualifiers: Osteoarthritis type: primary Qualified Code(s): M17.11 - Unilateral primary osteoarthritis, right knee Plan We discussed options today which include steroid injection. They did consent to move forward with the right knee injection, which was tolerated well. I recommended rest, ice and elevation and OTC anti-inflammatories PRN for discomfort. If symptoms persist or worsens over the next 6-8 weeks, patient will contact the office, otherwise follow-up as needed. Coding Level of Care Code Est Pt Level 3 (88625) Complex EM visit Add On G2211 Diagnoses Primary osteoarthritis of right knee M17.11 Osteoarthritis type: primary CPT Codes Coding - Joint 7: 64255 - Glenohumeral/Tronchanteric Bursa/Intraarticular ([id number])
[2025-01-18 13:56] VITALS: BMI 26.6
--- OUTSIDE RECORDS SUMMARY | 2025-01-18 15:49 | XMS_ITS | Patient Health Record ---
Author Organization [facility] Address [address] [place] [address] Care Team Providers Care Oil Recovery Unit Operator Name Role Phone Mariya Gutierrez MD Primary Care Provider Librado Graf [phone] Allergies Allergen (clinical drug ingredient) Drug/Non Drug [...] W/U Status Risk Notes Problem Esophageal reflux (461698032) Esophageal reflux (530.81) Active confirmed Problem Quiroz's esophagus (327653043) Quiroz's esophagus (530.85) Active confirmed Problem Blood in stool (880358093) Blood in stool (578.1) Active confirmed Problem Gastroesophageal reflux disease (437398047) GERD (gastroesophag eal reflux disease) (530.81) Active confirmed Plan Of Treatment Future Test Test Name Order Date COLONOSCOPY 04/27/2013 Insurance Providers Payer Name Payer Address Payer Phone Subscriber Number Group Number Insured Name Patient Relationship to Insured Coverage Start Date Coverage End Date [place] [address] [place] [address] [phone] [id number] LAUREEN PERRY Self - patient is the insured MED[employer] ATTN CLAIMS [address] [place] [address] [id number] LAUREEN PERRY Self - patient is the insured Medical (General) History Medical History History ICD Code GERD/esophagitis/Quiroz's e sophagus/Hiatal hernia--Last EGD in 01/2012--no Quiroz's identified asthma diverticulitis Denies [place],DM,CVA,renal disease TIA 06/2011 Colonoscopy 2005--neg except diverticulo sis Surgical History Surgery Date(Month/Year) Hysterectomy sinus polyps breast cysts-benign basal cell carcinoma hemorrhoids with Dr. Lopes
== END 2025-01-18 14:04 | disposition home or self-care (01) ==
LOC: HO.HOS 13:39
PROVIDERS: PCP Internal Medicine; Visit Provider Physician Assistant
DX: M17.11 Unilateral primary osteoarthritis, right knee (principal)
CPT/HCPCS: 20610; 99213

== ENCOUNTER → 2025-01-18 13:39 | Outpatient (BNVA) | payer MEDICARE, SELFPAY | PROVIDERS: PCP Internal Medicine; Visit Provider Physician Assistant | DX: M17.11 Unilateral primary osteoarthritis, right knee (principal) | CPT/HCPCS: 20610; 99212; J0665; J1100; J2003 ==

== ENCOUNTER 2025-01-24 10:41 | Outpatient (REF) | payer MEDICARE, SELFPAY ==
--- OUTSIDE RECORDS SUMMARY | 2025-01-24 12:40 | XMS_ITS | Patient Health Record ---
Author Organization [facility] Address [address] [place] [address] Care Team Providers Care Hemodialysis Charge Nurse Name Role Phone Mariya Gutierrez MD Primary Care Provider Librado Graf [phone] Allergies Allergen (clinical drug ingredient) Drug/Non Drug [...] W/U Status Risk Notes Problem Esophageal reflux (224056561) Esophageal reflux (530.81) Active confirmed Problem Quiroz's esophagus (524309715) Quiroz's esophagus (530.85) Active confirmed Problem Blood in stool (709718740) Blood in stool (578.1) Active confirmed Problem Gastroesophageal reflux disease (290113012) GERD (gastroesophag eal reflux disease) (530.81) Active confirmed Plan Of Treatment Future Test Test Name Order Date COLONOSCOPY 04/27/2013 Insurance Providers Payer Name Payer Address Payer Phone Subscriber Number Group Number Insured Name Patient Relationship to Insured Coverage Start Date Coverage End Date [place] [address] [place] [address] [id number] LAUREEN PERRY Self - patient is the insured MED[employer] ATTN CLAIMS [address] [place] [address] [id number] LAUREEN PERRY Self - patient is the insured Medical (General) History Medical History History ICD Code GERD/esophagitis/Quiroz's e sophagus/Hiatal hernia--Last EGD in 01/2012--no Quiroz's identified asthma diverticulitis Denies [place],DM,CVA,renal disease TIA 06/2011 Colonoscopy 2005--neg except diverticulo sis Surgical History Surgery Date(Month/Year) Hysterectomy sinus polyps breast cysts-benign basal cell carcinoma hemorrhoids with Dr. Lopes
== END 2025-01-24 10:42 | disposition home or self-care (01) ==
LOC: HO.SH 10:41
PROVIDERS: Visit Provider Internal Medicine
DX: Z01.118 Encounter for examination of ears and hearing with other abnormal findings (principal); H90.3 Sensorineural hearing loss, bilateral
CPT/HCPCS: 92557; 92567

== ENCOUNTER 2025-01-30 10:32 | Outpatient (REF) | payer MEDICARE, SELFPAY ==
[2025-01-30 11:22] LABS: Appearance Urine Clear; Glucose Urine UA Negative (Negative); PH 6.5 (5.0-9.0); Specific Gravity - Urine <= 1.005 (1.005-1.025); UMIC TRIGGER UA YES
--- OUTSIDE RECORDS SUMMARY | 2025-01-30 13:33 | XMS_ITS | Patient Health Record ---
Author Organization [facility] Address [address] [place] [address] Care Team Providers Care Flower Maker Name Role Phone Mariya Gutierrez MD Primary Care Provider Librado Graf [phone] Allergies Allergen (clinical drug ingredient) Drug/Non Drug Allergy documented on EMR Reaction Allergy Type Onset Date Status ranitidine Ranitidine (uncoded) Unknown Allergy Active zantac [...] Active omeprazole Omeprazole (uncoded) Unknown Allergy Active Reason For Referral [...] W/U Status Risk Notes Problem Esophageal reflux (596390566) Esophageal reflux (530.81) Active confirmed Problem Quiroz's esophagus (980681317) Quiroz's esophagus (530.85) Active confirmed Problem Blood in stool (178739740) Blood in stool (578.1) Active confirmed Problem Gastroesophageal reflux disease (191381741) GERD (gastroesophag eal reflux disease) (530.81) Active confirmed Plan Of Treatment Future Test Test Name Order Date COLONOSCOPY 04/27/2013 Insurance Providers Payer Name Payer Address Payer Phone Subscriber Number Group Number Insured Name Patient Relationship to Insured Coverage Start Date Coverage End Date [place] [address] [place] [address] [id number] LAUREEN PERRY Self - patient is the insured MED[employer] ATTN CLAIMS [address] [place] [address] [id number] LAUREEN PERRY Self - patient is the insured Medical (General) History Medical History History ICD Code GERD/esophagitis/Quiroz's e sophagus/Hiatal hernia--Last EGD in 01/2012--no Quiroz's identified asthma diverticulitis Denies [place],DM,CVA,renal disease TIA 06/2011 Colonoscopy 2005--neg except diverticulo sis Surgical History Surgery Date(Month/Year) Hysterectomy sinus polyps breast cysts-benign basal cell carcinoma hemorrhoids with Dr. Lopes
== END 2025-01-30 10:33 | disposition home or self-care (01) ==
LOC: HO.LAB 10:32
PROVIDERS: PCP Internal Medicine; Visit Provider Urology
DX: R39.9 Unspecified symptoms and signs involving the genitourinary system (principal)
CPT/HCPCS: 81001; 87086

== ENCOUNTER 2025-02-07 09:47 | Outpatient (AMB) | payer MEDICARE, SELFPAY ==
--- NOTE | 2025-02-07 09:51 | A.OFFVIS_ITS ---
Intake Visit Reasons: Cysto Intake Note: patient presents today for: cystoscopy urology medications: none blood thinners: none Manager Helpdesk Required: No Accompanied by: Self / Same As Patient Allergies Penicillins Allergy (Severe, Verified 02/07/25 09:52) Anaphylaxis tamsulosin (Flomax) Allergy (Severe, Verified 02/07/25 09:52) severe chest pains ibuprofen (IBUPROFEN) Allergy (Intermediate, Verified 02/07/25 09:52) Rash, hives trospium Allergy (Intermediate, Verified 02/07/25 09:52) Vomiting amoxicillin Allergy (Mild, Verified 02/07/25 09:52) Hives, bad rash levofloxacin (From LEVAQUIN) Allergy (Mild, Verified 02/07/25 09:52) Rash rabeprazole Allergy (Mild, Verified 02/07/25 09:52) Unknown Sulfa (Sulfonamide Antibiotics) Allergy (Mild, Verified 02/07/25 09:52) Rash atorvastatin Allergy (Unknown, Verified 02/07/25 09:52) Unknown Bifidobacterium infantis (Align) Allergy (Unknown, Verified 02/07/25 09:52) Unknown clarithromycin (Prevpac) Allergy (Unknown, Verified 02/07/25 09:52) Unknown omeprazole (From PRILOSEC) Allergy (Unknown, Verified 02/07/25 09:52) Unknown simvastatin (From ZOCOR) Allergy (Unknown, Verified 02/07/25 09:52) Unknown oxycodone (Percocet) Adverse Reaction (Severe, Verified 02/07/25 09:52) Vomiting amlodipine Adverse Reaction (Intermediate, Verified 02/07/25 09:52) breast pain clobetasol Adverse Reaction (Intermediate, Verified 02/07/25 09:52) made psoriasis worse dexlansoprazole (From Kapidex) Adverse Reaction (Intermediate, Verified 02/07/25 09:52) hyper,watery stool Iodinated Contrast Media (IV CONTRAST) Adverse Reaction (Intermediate, Verified 02/07/25 09:52) Weakness, Lightheaded and confusion lansoprazole (Prevacid) Adverse Reaction (Intermediate, Verified 02/07/25 09:52) hyper, watery stool methotrexate (METHOTREXATE) Adverse Reaction (Intermediate, Verified 02/07/25 09:52) Muscle and joint pain ranitidine Adverse Reaction (Intermediate, Verified 02/07/25 09:52) weak, watery stool alirocumab (From Praluent Pen) Adverse Reaction (Mild, Verified 02/07/25 09:52) Generalized ecchymoses aspirin Adverse Reaction (Mild, Verified 02/07/25 09:52) one sided facial pain, green spots in eye esomeprazole (Nexium) Adverse Reaction (Mild, Verified 02/07/25 09:52) Gastrointestinal Upset pantoprazole (Protonix) Adverse Reaction (Mild, Verified 02/07/25 09:52) one sided headache, yellow streak in left eye mirabegron Adverse Reaction (Unknown, Verified 02/07/25 09:52) Nausea and Vomiting fexofenadine (From [place]) Adverse Reaction (Verified 02/07/25 09:52) painful bones and muscles HPI Comments Details: Mary is a pleasant female. She is a patient of Dr. Gutierrez. She is seen for the following urologic conditions - microscopic hematuria - abnormal urine cytology - bladder cancer 4 month follow-up cystoscopy Would benefit from three-week boost mitomycin-C with cytarabine Bladder with mild irritation secondary to UTI Start Estrace cream Six-month follow-up check cysto office Bladder cancer - 11/06 - high-grade superficial, 06/09 TURBT low-grade superficial, 04/09 high-grade superficial Detected after evaluation for microscopic hematuria Interventions - TURBT 11/06 high-grade superficial, 02/06 BBx with fulgeration CIS, 06/09 low- grade superficial with MMC, 03/09 TURBT high-grade with fulguration Smoking history - 2nd exposure through Workplace exposure - plastics exposure, glue exposure Imaging - 10/06 CT urogram normal Cytology - 10/06 high-grade, 07/11 - atypical scant, 10/08 NAD, 05/10 NAD, 06/11 NAD Adjuvant therapy - 11/06 6 week induction Gemcitabine, 3 week boost 10/07, 04/09 reinduction 6 week MMC/cytarabine, 10/08 three-week mitomycin-C cytarabine Therapeutic plan - continue surveillance [facility] Medical History Urinary bladder cancer HTN (hypertension) Polymyalgia Idiopathic orofacial dystonia Cerebral atherosclerosis 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 UTI (urinary tract infection) Cardiac arrhythmia TSH elevation Age-related osteoporosis without current pathological fracture Painful breasts 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 Bladder cancer Diastolic heart failure Recurrent UTI Osteopenia Allergic rhinitis Lung fibrosis Skin cancer History of rib fracture History of hemorrhoids Hiatal hernia Diverticular disease Pulmonary nodule Psoriasis Barretts esophagus GERD (gastroesophageal reflux disease) History of CVA (cerebrovascular accident) HLD (hyperlipidemia) Postoperative atrial fibrillation CAD (coronary artery disease) Asthma Polymyalgia rheumatica Surgical History History of transurethral resection of bladder tumor (TURBT) History of nasal surgery History of cystoscopy S/P trigger finger release Hx of CABG History of bladder suspension procedure History of tonsillectomy and adenoidectomy History of tonsillectomy Hx of hemorrhoidectomy Family History Father No problems noted. Mother No problems noted. Social History Housing: House Are you a primary resident care director to a significant other at home: No Do you presently have visiting nurse or other home services: No Alcohol intake: never Patient Tobacco Use Status: Never used Tobacco Tobacco use type: Cigarette e-Cigarette/Vaping Use: Never Used Second Hand Smoke Exposure: No Advance Directives Date on File: 08/29/16 service: No Current occupational status: retired Current occupation: rt hand Current occupational exposures/hazards: No Cognitive needs: No Hearing needs: No Vision needs: No Review of Systems Const Denies chills and Denies fever(s) Card Reports no additional complaints and Denies syncope Resp Denies cough GI Denies abdominal pain and Denies heartburn Reports as per HPI and Denies change in libido Neuro Denies syncope Psych Denies change in libido Endo Denies change in libido Physical Exam Const General: cooperative, healthy appearing, comfortable and no acute distress Orientation/consciousness: patient oriented x3 HEENT Face and sinus: Yes normal facial exam Mouth: moist mucous membranes Neck Neck: Yes normal visual inspection, Yes full ROM and Yes trachea midline Chest Chest palpation & inspection: normal inspection of the chest Resp Effort & Inspection: normal respiratory effort, able to speak in complete sentences and no respiratory distress GI Inspection: Yes normal to inspection Back/Spine/Pelvis Cervical Spine: normal cervical lordosis Thoracic/Lumbar Spine: thoracic and lumbar spine normal to inspection Skin General skin exam: no rashes or lesions noted Neuro General: patient oriented x3, gait normal, tone normal and moves all extremities Extrem General: Yes normal to inspection and Yes capillary refill normal Office Procedures Cystoscopy Consent Discussed risk and benefit or proposed procedure with the patient. Information consent for procedure given to the patient. Discussed technical aspects, risks, benefits and alternatives in full. Addressed all of the patient's questions and concerns regarding the procedure. The patient demonstrated knowledge and under standing. They wish to proceed with this procedure. Preparation The patient was prepped in the usual manner. A anchorman was present and in the room. Genitalia was prepped with betadine solution in a sterile manner. Lidocaine Jelly 2% was placed into the urethra and 16Fr flexible Olympus cystoscope was inserted into the meatus after adequate lubrication. Procedure Meatus caruncle Urethra normal Bladder examination with retroflexion of cystoscope Bladder Orifices normal shape and position Trigone normal Bladder Capacity normal Trabeculations grade 1 Cellule Formation None Diverticulum Formation None Mucosal Erythema patchy erythema consistent with cystitis Bladder Tumor None [id number] DISPOSABLE SCOPE URO-G FLEXIBLE SCOPE Procedure code (CPT) selection complete Office Meds lidocaine HCl 2 % mucosal jelly in applicator Performing Provider: Celio Mix MD Performing Location: [facility] Administered by: Nella Miranda RN on 02/07/25 10:21 Dose Route Admin Location Dispensed Lot Number Expiration Date NDC Fleet Administrator 10 mL intra-urethral 10 mL nitrofurantoin monohydrate/macrocrystals 100 mg capsule Performing Provider: Celio Mix MD Performing Location: [facility] Administered by: Nella Miranda RN on 02/07/25 10:21 Dose Route Admin Location Dispensed Lot Number Expiration Date NDC Fleet Administrator 100 mg PO 1 cap Assessment & Plan Assessment & Plan (1) Urinary bladder cancer: Comment: - High-grade papillary urothelial carcinoma, non-invasive. Bladder biopsy with extensive fulguration left-sided bladder Dr. Mix October 2021, January 2022 - 02/06 CIS TURBT and gemcitabine instillation Dr. Mix May 2022 biopsy 02/2023 high grade papillary carcinoma Code(s): C67.9 - Malignant neoplasm of bladder, unspecified Category: Medical Qualifiers: Bladder location: unspecified site Qualified Code(s): C67.9 - Malignant neoplasm of bladder, unspecified Plan Three-week boost mitomycin-C cytarabine Start estradiol Six-month follow-up check cysto Orders: Orders AMB Cystoscopy Today C67.9 - Malignant neoplasm of bladder, unspecified FISH Bladder Cancer Today C67.9 - Malignant neoplasm of bladder, unspecified AMB Urinalysis Automated Today Z13.9 - Encounter for screening, unspecified Medications: New estradiol 0.01%(0.1mg/gram) vaginal 3XW apply pea sized amount to urethra 42.5 grams 1RF 30 days C67.9 - Malignant neoplasm of bladder, unspecified Patient Instructions: This note is constructed using voice recognition software. While every effort has been made to ensure accuracy securities consultant errors may have been included. Imaging studies, laboratory and physical exam results were discussed and reviewed in detail. No major barriers to patient understanding were identified. An opportunity to ask questions regarding the treatment plan was provided. All questions were answered. The patient expressed understanding and agreement with the above treatment plan. The patient is aware they should contact our office by phone for worsening of their current condition or the appearance of new urologic symptoms. Compliance is encouraged with any medications and followup testing that is ordered. It is a privilege to participate in the urologic care of your patient. If you have any questions or concerns regarding treatment for the above conditions, or other urologic issues, please do not hesitate to contact me. The office telephone contact is [phone]. Sincerely, Dr eClio Mix MD, [facility] - Urology Compassionate Specialist Care for the Genitourinary System Coding Level of Care Code Est Pt Level 4 (90623) Diagnoses Malignant neoplasm of urinary bladder, unspecified site C67.9 Bladder location: unspecified site CPT Codes Cystoscopy - CPT: [id number] ([id number])
--- OUTSIDE RECORDS SUMMARY | 2025-02-07 11:46 | XMS_ITS | Patient Health Record ---
Author Organization [facility] Address [address] [place] [phone] Care Team Providers Care Ground Operations Supervisor Name Role Phone Mariya Gutierrez MD Primary Care Provider Librado Graf [phone] Allergies Allergen (clinical drug ingredient) Drug/Non Drug [...] W/U Status Risk Notes Problem Esophageal reflux (681738971) Esophageal reflux (530.81) Active confirmed Problem Quiroz's esophagus (823284250) Quiroz's esophagus (530.85) Active confirmed Problem Blood in stool (816801317) Blood in stool (578.1) Active confirmed Problem Gastroesophageal reflux disease (566042590) GERD (gastroesophag eal reflux disease) (530.81) Active confirmed Plan Of Treatment Future Test Test Name Order Date COLONOSCOPY 04/27/2013 Insurance Providers Payer Name Payer Address Payer Phone Subscriber Number Group Number Insured Name Patient Relationship to Insured Coverage Start Date Coverage End Date [place] [address] [place] [address] [phone] [id number] LAUREEN PERRY Self - patient is the insured MED[employer] ATTN CLAIMS [address] [place] [address] [id number] LAUREEN PERRY Self - patient is the insured Medical (General) History Medical History History ICD Code GERD/esophagitis/Quiroz's e sophagus/Hiatal hernia--Last EGD in 01/2012--no Quiroz's identified asthma diverticulitis Denies [place],DM,CVA,renal disease TIA 06/2011 Colonoscopy 2005--neg except diverticulo sis Surgical History Surgery Date(Month/Year) Hysterectomy sinus polyps breast cysts-benign basal cell carcinoma hemorrhoids with Dr. Lopes
== END 2025-02-07 10:40 | disposition home or self-care (01) ==
LOC: HO.HUSH 09:48
PROVIDERS: PCP Internal Medicine; Visit Provider Urology
DX: C67.9 Malignant neoplasm of bladder, unspecified (principal); Z13.9 Encounter for screening, unspecified
CPT/HCPCS: 52000; 99213

== ENCOUNTER 2025-02-07 09:47 | Outpatient (REF) | payer MEDICARE, SELFPAY ==
--- OUTSIDE RECORDS SUMMARY | 2025-02-08 18:10 | XMS_ITS | Patient Health Record ---
Author Organization [facility] Address [address] [place] [address] Care Team Providers Care Sponge Packer Name Role Phone Mariya Gutierrez MD Primary Care Provider Librado Graf [phone] Allergies Allergen (clinical drug ingredient) Drug/Non Drug [...] W/U Status Risk Notes Problem Esophageal reflux (033584882) Esophageal reflux (530.81) Active confirmed Problem Quiroz's esophagus (625855085) Quiroz's esophagus (530.85) Active confirmed Problem Blood in stool (375504219) Blood in stool (578.1) Active confirmed Problem Gastroesophageal reflux disease (990564448) GERD (gastroesophag eal reflux disease) (530.81) Active confirmed Plan Of Treatment Future Test Test Name Order Date COLONOSCOPY 04/27/2013 Insurance Providers Payer Name Payer Address Payer Phone Subscriber Number Group Number Insured Name Patient Relationship to Insured Coverage Start Date Coverage End Date [place] [address] [place] [address] [phone] [id number] LAUREEN PERRY Self - patient is the insured MEDEX ATTN CLAIMS [address] [place] [address] [id number] LAUREEN PERRY Self - patient is the insured Medical (General) History Medical History History ICD Code GERD/esophagitis/Quiroz's e sophagus/Hiatal hernia--Last EGD in 01/2012--no Quiroz's identified asthma diverticulitis Denies [place],DM,CVA,renal disease TIA 06/2011 Colonoscopy 2005--neg except diverticulo sis Surgical History Surgery Date(Month/Year) Hysterectomy sinus polyps breast cysts-benign basal cell carcinoma hemorrhoids with Dr. Lopes
== END 2025-02-07 09:48 | disposition home or self-care (01) ==
LOC: HO.LNP 09:47
PROVIDERS: PCP Internal Medicine; Visit Provider Urology
DX: C67.9 Malignant neoplasm of bladder, unspecified (principal)
CPT/HCPCS: 52000; 81003; 88121; 99212

== ENCOUNTER 2025-02-16 10:22 | Outpatient (REF) | payer MEDICARE, SELFPAY ==
[2025-02-16 11:03] LABS: Appearance Urine Clear; Glucose Urine UA Negative (Negative); PH 5.5 (5.0-9.0); Specific Gravity - Urine <= 1.005 (1.005-1.025); UMIC TRIGGER UA YES
--- OUTSIDE RECORDS SUMMARY | 2025-02-16 11:51 | XMS_ITS | Patient Health Record ---
Author Organization [facility] Address [address] [place] [address] Care Team Providers Care Office Machine Mechanic Name Role Phone Mariya Gutierrez MD Primary Care Provider Librado Graf [phone] Allergies Allergen (clinical drug ingredient) Drug/Non Drug [...] W/U Status Risk Notes Problem Esophageal reflux (121757809) Esophageal reflux (530.81) Active confirmed Problem Quiroz's esophagus (394463209) Quiroz's esophagus (530.85) Active confirmed Problem Blood in stool (090912033) Blood in stool (578.1) Active confirmed Problem Gastroesophageal reflux disease (588512834) GERD (gastroesophag eal reflux disease) (530.81) Active confirmed Plan Of Treatment Future Test Test Name Order Date COLONOSCOPY 04/27/2013 Insurance Providers Payer Name Payer Address Payer Phone Subscriber Number Group Number Insured Name Patient Relationship to Insured Coverage Start Date Coverage End Date [place] [address] [place] [address] [phone] [id number] LAUREEN PERRY Self - patient is the insured MED[employer] ATTN CLAIMS [address] [place] [address] [id number] LAUREEN PERRY Self - patient is the insured Medical (General) History Medical History History ICD Code GERD/esophagitis/Quiroz's e sophagus/Hiatal hernia--Last EGD in 01/2012--no Quiroz's identified asthma diverticulitis Denies [place],DM,CVA,renal disease TIA 06/2011 Colonoscopy 2005--neg except diverticulo sis Surgical History Surgery Date(Month/Year) Hysterectomy sinus polyps breast cysts-benign basal cell carcinoma hemorrhoids with Dr. Lopes
== END 2025-02-16 10:23 | disposition home or self-care (01) ==
LOC: HO.LAB 10:22
PROVIDERS: PCP Internal Medicine; Visit Provider Urology
DX: R32 Unspecified urinary incontinence (principal)
CPT/HCPCS: 81001; 87086

== ENCOUNTER 2025-02-23 14:18 | Outpatient (AMB) | payer MEDICARE, SELFPAY ==
[2025-02-23 14:29] VITALS: BP 122/72; PULSE 62; BMI 26.7
--- NOTE | 2025-02-23 14:29 | MHC.OFFVIS ---
Vital Signs 02/23/25 14:29 Height 5 ft Weight 136 lb 10.986 oz BMI 26.7 BP 122/72 Blood Pressure Location Lt brachial Position Sitting Pulse 62 Intake Visit Reasons: 1 yr s/p echo Intake Note: 1 year follow-up with ekg after echo feeling good Material Dispatcher Required: No Donor Relations Coordinator: Donor Relations Coordinator Present Accompanied by: Spouse Allergies Penicillins Allergy (Severe, Verified 02/07/25 09:52) Anaphylaxis tamsulosin (Flomax) Allergy (Severe, Verified 02/07/25 09:52) severe chest pains ibuprofen (IBUPROFEN) Allergy (Intermediate, Verified 02/07/25 09:52) Rash, hives trospium Allergy (Intermediate, Verified 02/07/25 09:52) Vomiting amoxicillin Allergy (Mild, Verified 02/07/25 09:52) Hives, bad rash levofloxacin (From LEVAQUIN) Allergy (Mild, Verified 02/07/25 09:52) Rash rabeprazole Allergy (Mild, Verified 02/07/25 09:52) Unknown Sulfa (Sulfonamide Antibiotics) Allergy (Mild, Verified 02/07/25 09:52) Rash atorvastatin Allergy (Unknown, Verified 02/07/25 09:52) Unknown Bifidobacterium infantis (Align) Allergy (Unknown, Verified 02/07/25 09:52) Unknown clarithromycin (Prevpac) Allergy (Unknown, Verified 02/07/25 09:52) Unknown omeprazole (From PRILOSEC) Allergy (Unknown, Verified 02/07/25 09:52) Unknown simvastatin (From ZOCOR) Allergy (Unknown, Verified 02/07/25 09:52) Unknown oxycodone (Percocet) Adverse Reaction (Severe, Verified 02/07/25 09:52) Vomiting amlodipine Adverse Reaction (Intermediate, Verified 02/07/25 09:52) breast pain clobetasol Adverse Reaction (Intermediate, Verified 02/07/25 09:52) made psoriasis worse dexlansoprazole (From Kapidex) Adverse Reaction (Intermediate, Verified 02/07/25 09:52) hyper,watery stool Iodinated Contrast Media (IV CONTRAST) Adverse Reaction (Intermediate, Verified 02/07/25 09:52) Weakness, Lightheaded and confusion lansoprazole (Prevacid) Adverse Reaction (Intermediate, Verified 02/07/25 09:52) hyper, watery stool methotrexate (METHOTREXATE) Adverse Reaction (Intermediate, Verified 02/07/25 09:52) Muscle and joint pain ranitidine Adverse Reaction (Intermediate, Verified 02/07/25 09:52) weak, watery stool alirocumab (From Praluent Pen) Adverse Reaction (Mild, Verified 02/07/25 09:52) Generalized ecchymoses aspirin Adverse Reaction (Mild, Verified 02/07/25 09:52) one sided facial pain, green spots in eye esomeprazole (Nexium) Adverse Reaction (Mild, Verified 02/07/25 09:52) Gastrointestinal Upset pantoprazole (Protonix) Adverse Reaction (Mild, Verified 02/07/25 09:52) one sided headache, yellow streak in left eye mirabegron Adverse Reaction (Unknown, Verified 02/07/25 09:52) Nausea and Vomiting fexofenadine (From [place]) Adverse Reaction (Verified 02/07/25 09:52) painful bones and muscles Medication List - Last Reconciled 02/23/25 by Boo Jimenez MD carbamide peroxide 6.5% (Debrox) 5 drps otic (ears) DAILY 4 days cetirizine (Zyrtec) 10 mg PO BEDTIME cholecalciferol (vitamin D3) 50 mcg PO .qod clopidogrel 75 mg PO DAILY docusate sodium (Colace) 100 mg PO DAILY dupilumab (Dupixent) 300 mg subcut Q2W estradiol 0.01%(0.1mg/gram) vaginal 3XW apply pea sized amount to urethra 30 days ezetimibe 10 mg PO DAILY fluorouracil 5% 1 appl topical BID furosemide 20 mg PO DAILY metoprolol succinate ER 12.5 mg (1/2 x 25 mg) PO DAILY prednisone mg PO BID [Tums PRN] vitamin E (dl, acetate) 450 mg PO .qod HPI Comments Details: Mary comes for follow-up. She had 1 episode of acute dyspnea at lasted for about a minute and she came to the emergency room. Workup in the emergency room within normal limits. She then realized to following that as she was not taking clopidogrel and had forgotten to take it for 4 days. She thought the episode was related to the same. She had no clear leg edema, abdominal distension, orthopnea, PND preceding her sudden shortness of breath. Since then she has been exercising regularly in the gym and has no exertional shortness of breath or chest pain. Her anginal equivalent was shortness of breath with exertion. Her last LDL is 123 mg/dL on Zetia 10 mg. Her blood pressures been well optimized. She denies any prolonged palpitation irregular heartbeat. No lightheadedness, syncope. Her most recent echocardiogram shows normal LV ejection fraction with grade 3 diastolic dysfunction with moderate left atrial enlargement without significant valvular abnormality. 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 Bladder cancer Diastolic heart failure Recurrent UTI Osteopenia Allergic rhinitis Lung fibrosis Skin cancer History of rib fracture History of hemorrhoids Hiatal hernia Diverticular disease Pulmonary nodule Psoriasis Barretts esophagus GERD (gastroesophageal reflux disease) History of CVA (cerebrovascular accident) HLD (hyperlipidemia) Postoperative atrial fibrillation CAD (coronary artery disease) Asthma Polymyalgia rheumatica Surgical History History of transurethral resection of bladder tumor (TURBT) History of nasal surgery History of cystoscopy S/P trigger finger release Hx of CABG History of bladder suspension procedure History of tonsillectomy and adenoidectomy History of tonsillectomy Hx of hemorrhoidectomy Family History Father No problems noted. Mother No problems noted. Social History Housing: House Are you a primary direct care provider to a significant other at home: No Do you presently have visiting nurse or other home services: No Alcohol intake: never Patient Tobacco Use Status: Never used Tobacco Tobacco use type: Cigarette e-Cigarette/Vaping Use: Never Used Second Hand Smoke Exposure: No Advance Directives Date on File: 08/29/16 service: No Current occupational status: retired Current occupation: rt hand Current occupational exposures/hazards: No Cognitive needs: No Hearing needs: No Vision needs: No Review of Systems Const Denies chills, Denies fatigue, Denies fever(s), Denies frequent falls, Denies weakness, Denies weight gain and Denies weight loss ENT Denies dizziness Card Denies chest pain, Denies leg edema, Denies lightheadedness, Denies palpitations, Denies dyspnea, Denies dyspnea on exertion, Denies orthopnea and Denies other (loss of consciousness) Resp Denies cough, Denies dyspnea and Denies dyspnea on exertion GI Denies hematochezia and Denies change in stool character Musc Denies abnormal gait, Denies muscle weakness, Denies numbness, Denies radiating pain into limb and Denies tingling Neuro Denies abnormal gait, Denies dizziness, Denies frequent falls, Denies numbness, Denies tingling and Denies weakness Endo Denies fatigue and Denies palpitations Physical Exam Vital Signs: Last Vital Signs Pulse 62 02/23/25 14:29 BP 122/72 02/23/25 14:29 BMI result Body Mass Index 26.7 Const General: cooperative, comfortable, alert, awake and well groomed Nutritional Appearance: overweight Orientation/consciousness: patient oriented x3 Limitations: no limitations Neck Neck: Yes trachea midline, Yes supple and Yes no JVD Chest Chest palpation & inspection: abnormal inspection of the chest kyphotic and scoliotic and other (Well-healed sternotomy scar) Resp Effort & Inspection: normal respiratory effort Auscultation: crackles (Coarse crackles predominantly right base) Cardio Jugular venous distension: no JVD Palpation: normal PMI Rate: regular rate Rhythm: abnormal rhythm with ectopic beats Heart sounds: S1 normal heart sound present, S2 normal heart sound present, no click, no gallops and no murmurs GI Auscultation: normal bowel sounds Skin General skin exam: no rashes or lesions noted and ecchymosis Neuro General: patient oriented x3 and no focal motor deficits Extrem General: Yes no clubbing, cyanosis or edema and Yes other (Bilateral mild varicosities and venous stasis) Psych Appearance: grossly normal Office Procedures EKG Details: EKG shows normal sinus rhythm with PVCs with nonspecific STT wave changes with isolated Q-wave in lead 3 [id number], Complete Assessment & Plan Assessment & Plan (1) CAD (coronary artery disease): Comment: CABG x2 2018 WHITAKER to LAD, SVG to OM Dr. Godoy Code(s): I25.10 - Atherosclerotic heart disease of [place] coronary artery without angina pectoris Category: Medical Qualifiers: Coronary Disease-Associated Artery/Lesion type: [place] artery [place] vs. transplanted heart: [place] heart Associated angina: without angina Qualified Code(s): I25.10 - Atherosclerotic heart disease of [place] coronary artery without angina pectoris Plan: CAD with two-vessel coronary artery bypass grafting remotely with normal myocardial perfusion imaging. Patient has been overall stable from that perspective. Her myocardial perfusion imaging 2 years ago has been within normal limits. Recent episodes of acute dyspnea does not appear to be cardiac in origin. She has had no recurrent symptoms with exercise. Continue Plavix therapy at this point in time. Her LDL is still elevated and now she is willing to try PCSK9 inhibitor therapy. Will obtain insurance clearance and start on Repatha. Follow-up lipid panel in 2 months time after Repatha has been started. Target goal LDL less than 70 mg/dL. Continue aggressive blood pressure control which is currently well optimized. Encouraged to maintain activity level as tolerated (2) Diastolic heart failure: Code(s): I50.30 - Unspecified diastolic (congestive) heart failure Category: Medical Plan: Prior history of diastolic heart failure with advanced diastolic dysfunction echocardiogram although unlikely that her sudden shortness of breath was related to heart failure. At this point time I would continue with current low-dose diuretic therapy. Daily weight monitoring avoidance salt loading was discussed. Encouraged to maintain activity level as tolerated. No change in therapy. Continue to manage ischemia. Will follow up in the clinic in 1 year's time, sooner PRN. Thank you for allowing me to partake in her care Medications: New evolocumab (Repatha SureClick) 140 mg subcut Q2W 2 mL 5RF I25.10 - Atherosclerotic heart disease of [place] coronary artery without angina pectoris Coding Level of Care Code Est Pt Level 4 (29707) Complex EM visit Add On G2211 Diagnoses Coronary artery disease involving [place] coronary artery of [place] heart without angina pectoris I25.10 Coronary Disease-Associated Artery/Lesion type: [place] artery [place] vs. transplanted heart: [place] heart Associated angina: without angina Diastolic heart failure I50.30 CPT Codes EKG - CPT: 85883-[id number], Complete ([id number])
== END 2025-02-23 14:57 | disposition home or self-care (01) ==
LOC: HO.HCS 14:19
PROVIDERS: PCP Internal Medicine; Visit Provider Internal Medicine Cardiovascular Disease
DX: I25.10 Atherosclerotic heart disease of native coronary artery without angina pectoris (principal); I50.30 Unspecified diastolic (congestive) heart failure
CPT/HCPCS: 93010; 99214; G2211

== ENCOUNTER → 2025-02-23 14:18 | Outpatient (BNVA) | payer MEDICARE, SELFPAY | PROVIDERS: PCP Internal Medicine; Visit Provider Internal Medicine Cardiovascular Disease | DX: I25.10 Atherosclerotic heart disease of native coronary artery without angina pectoris (principal); I10 Essential (primary) hypertension; Z95.1 Presence of aortocoronary bypass graft; E78.5 Hyperlipidemia, unspecified | CPT/HCPCS: 93005; 99212 ==

== ENCOUNTER 2025-03-16 09:24 | Outpatient (REF) | payer MEDICARE, SELFPAY ==
[2025-03-16 09:58] LABS: MANUAL DIFF FLAG NO
[2025-03-16 10:39] LABS: Hematocrit 40.5 % (37.0-47.0); Hemoglobin 12.8 g/dl (12.0-16.0); Imm Gran Abs Auto 0.01 X10*3/uL (0.00-0.03); Imm Gran Pct Auto 0.2 % (0.0-0.4); Lymphocytes Absolute Auto 1.9 X10*3/uL (1.2-4.9); Mean Corpuscular HGB Conc 31.6 g/dl (31.0-35.0); Mean Corpuscular Hemoglobin 29.4 pg (27.0-33.0); Mean Corpuscular Volume 92.9 fL (80.0-98.0); NRBC Abs Auto 0.000 X10*3/uL (0.0-0.012); NRBC Pct Auto 0.0 /100WBC (0.0-0.2); Platelet Count 293 X10*3/uL (160-400); Red Blood Count 4.36 X10*6/uL (4.20-5.50); White Blood Count 5.9 X10*3/uL (4.8-10.8)
--- OUTSIDE RECORDS SUMMARY | 2025-03-16 10:51 | XMS_ITS | Patient Health Record ---
Author Organization [facility] Address [address] [place] [id number] Care Team Providers Care Chemical Blender Name Role Phone Mariya Gutierrez MD Primary Care Provider Librado Graf [phone] Allergies Allergen (clinical drug ingredient) Drug/Non Drug [...] ml Orally QID--30 -60 min AC and QHS; Duration: 30 day(s) 04/27/2013 05/18/2024 Act isaías Carafate 1 gm 1 Orally 1/2hr AC & QHS 01/16/2013 Active MoviPrep 100 GM as directed Orally a s directed; Duration: 1 dose 04/27/2013 Active Plavix Active Problems Problem Type SNOMED Code ICD Code Onset Dates Problem Status W/U Status Risk Notes Problem Esophageal reflux (629993679) Esophageal reflux (530.81) Active confirmed Problem Quiroz's esophagus (173217322) Quiroz's esophagus (530.85) Active confirmed Problem Blood in stool (071558068) Blood in stool (578.1) Active confirmed Problem Gastroesophageal reflux disease (714357733) GERD (gastroesophag eal reflux disease) (530.81) Active confirmed Plan Of Treatment Future Test Test Name Order Date COLONOSCOPY 04/27/2013 Insurance Providers Payer Name Payer Address Payer Phone Subscriber Number Group Number Insured Name Patient Relationship to Insured Coverage Start Date Coverage End Date MEDICARE OF [place] [address] [place] [address] [id number] LAUREEN PERRY Self - patient is the insured [employer] ATTN CLAIMS [address] [place] [address] [phone] [id number] LAUREEN PERRY Self - patient is the insured Medical (General) History Medical History History ICD Code GERD/esophagitis/Quiroz's e sophagus/Hiatal hernia--Last EGD in 01/2012--no Quiroz's identified asthma diverticulitis Denies CO,DM,CVA,renal disease TIA 06/2011 Colonoscopy 2005--neg except diverticulo sis Surgical History Surgery Date(Month/Year) Hysterectomy sinus polyps breast cysts-benign basal cell carcinoma hemorrhoids with Dr. Lopes
[2025-03-16 11:21] LABS: Alanine Aminotransferase 13 U/L (0-31); Albumin Level 4.4 g/dL (3.5-5.0); Alkaline Phosphatase 59 U/L (39-117); Anion Gap 10 (12-20); Aspartate Amino Transferase 25 U/L (5-31); Blood Urea Nitrogen 15 mg/dL (9-16); Calcium 9.1 mg/dL (8.4-10.2); Carbon Dioxide 31 mmol/L (22-29); Chloride 104 mmol/L (96-108); Cholesterol 206 mg/dL (<200); Estimated Glomerular Filt Rate > 60; HDL Cholesterol 56 mg/dL (>40); Magnesium 2.2 mg/dL (1.6-2.6); Potassium 3.8 mmol/L (3.3-5.1); Sodium 141 mmol/L (135-145); Total Protein 7.3 g/dL (6.5-8.0); Triglycerides 142 mg/dL (<150)
[2025-03-16 11:31] LABS: Appearance Urine Clear; Glucose Urine UA Negative (Negative); PH 5.5 (5.0-9.0); Specific Gravity - Urine 1.025 (1.005-1.025); UMIC TRIGGER UACC YES
[2025-03-16 11:45] LABS: Free T4 (Free Thyroxine) 0.87 ng/dL (0.71-1.85); Thyroid Stimulating Hormone 3.74 uIU/mL (0.32-4.0)
[2025-03-16 11:47] LABS: UACC Culture Trigger YES
[2025-03-16 11:50] LABS: Folate 12.1 ng/mL (> or = 4.0); Vitamin B12 631 pg/mL (200-900)
== END 2025-03-16 09:25 | disposition home or self-care (01) ==
LOC: HO.LAB 09:24
PROVIDERS: PCP Internal Medicine; Visit Provider Internal Medicine
DX: I10 Essential (primary) hypertension (principal); E78.00 Pure hypercholesterolemia, unspecified
CPT/HCPCS: 36415; 80053; 80061; 81001; 81003; 82306; 82607; 82746; 83735; 84439; 84443; 85025; 85652; 86140; 87086

== ENCOUNTER 2025-03-21 09:31 | Outpatient (AMB) | payer MEDICARE, SELFPAY ==
[2025-03-21 09:32] VITALS: BP 130/60; PULSE 65; TEMP 36.1; O2SAT 96; BMI 26.7
--- NOTE | 2025-03-21 09:32 | A.OFFPC_ITS ---
Vital Signs 03/21/25 09:32 Height 5 ft Weight 136 lb 8 oz BMI 26.7 BP 130/60 Blood Pressure Location Lt brachial Position Sitting Pulse 65 Pulse Source Pulse Oximeter Temp 97.0 F Temp Source Temporal Artery Scan Pulse Oximetry (%) 96 Oxygen Delivery Method Room Air Intake Visit Reasons: Coronary artery disease Allergies Penicillins Allergy (Severe, Verified 03/21/25 09:35) Anaphylaxis tamsulosin (Flomax) Allergy (Severe, Verified 03/21/25 09:35) severe chest pains ibuprofen (IBUPROFEN) Allergy (Intermediate, Verified 03/21/25 09:35) Rash, hives trospium Allergy (Intermediate, Verified 03/21/25 09:35) Vomiting amoxicillin Allergy (Mild, Verified 03/21/25 09:35) Hives, bad rash levofloxacin (From LEVAQUIN) Allergy (Mild, Verified 03/21/25 09:35) Rash rabeprazole Allergy (Mild, Verified 03/21/25 09:35) Unknown Sulfa (Sulfonamide Antibiotics) Allergy (Mild, Verified 03/21/25 09:35) Rash atorvastatin Allergy (Unknown, Verified 03/21/25 09:35) Unknown Bifidobacterium infantis (Align) Allergy (Unknown, Verified 03/21/25 09:35) Unknown clarithromycin (Prevpac) Allergy (Unknown, Verified 03/21/25 09:35) Unknown omeprazole (From PRILOSEC) Allergy (Unknown, Verified 03/21/25 09:35) Unknown simvastatin (From ZOCOR) Allergy (Unknown, Verified 03/21/25 09:35) Unknown oxycodone (Percocet) Adverse Reaction (Severe, Verified 03/21/25 09:35) Vomiting amlodipine Adverse Reaction (Intermediate, Verified 03/21/25 09:35) breast pain clobetasol Adverse Reaction (Intermediate, Verified 03/21/25 09:35) made psoriasis worse dexlansoprazole (From Kapidex) Adverse Reaction (Intermediate, Verified 03/21/25 09:35) hyper,watery stool Iodinated Contrast Media (IV CONTRAST) Adverse Reaction (Intermediate, Verified 03/21/25 09:35) Weakness, Lightheaded and confusion lansoprazole (Prevacid) Adverse Reaction (Intermediate, Verified 03/21/25 09:35) hyper, watery stool methotrexate (METHOTREXATE) Adverse Reaction (Intermediate, Verified 03/21/25 09:35) Muscle and joint pain ranitidine Adverse Reaction (Intermediate, Verified 03/21/25 09:35) weak, watery stool alirocumab (From Praluent Pen) Adverse Reaction (Mild, Verified 03/21/25 09:35) Generalized ecchymoses aspirin Adverse Reaction (Mild, Verified 03/21/25 09:35) one sided facial pain, green spots in eye esomeprazole (Nexium) Adverse Reaction (Mild, Verified 03/21/25 09:35) Gastrointestinal Upset pantoprazole (Protonix) Adverse Reaction (Mild, Verified 03/21/25 09:35) one sided headache, yellow streak in left eye mirabegron Adverse Reaction (Unknown, Verified 03/21/25 09:35) Nausea and Vomiting fexofenadine (From [place]) Adverse Reaction (Verified 03/21/25 09:35) painful bones and muscles Tobacco use date assessed: 03/21/25 Fall risk assessment: No Falls in past year Last assessed Fall Risk: 03/21/25 Dental Screening Dental Screen Date: 03/21/25 Did you have a dental visit in the last 12 months?: Yes Did you have a dental problem in the last 6 months where you did not have access to dental care?: No Was dental information given to patient?: Patient has dentist [facility] Medical History Urinary bladder cancer HTN (hypertension) Polymyalgia Idiopathic orofacial dystonia Cerebral atherosclerosis 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 UTI (urinary tract infection) Cardiac arrhythmia TSH elevation Age-related osteoporosis without current pathological fracture Painful breasts 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 Bladder cancer Diastolic heart failure Recurrent UTI Osteopenia Allergic rhinitis Lung fibrosis Skin cancer History of rib fracture History of hemorrhoids Hiatal hernia Diverticular disease Pulmonary nodule Psoriasis Barretts esophagus GERD (gastroesophageal reflux disease) History of CVA (cerebrovascular accident) HLD (hyperlipidemia) Postoperative atrial fibrillation CAD (coronary artery disease) Asthma Polymyalgia rheumatica Surgical History History of transurethral resection of bladder tumor (TURBT) History of nasal surgery History of cystoscopy S/P trigger finger release Hx of CABG History of bladder suspension procedure History of tonsillectomy and adenoidectomy History of tonsillectomy Hx of hemorrhoidectomy Family History Father No problems noted. Mother No problems noted. Social History Housing: House Are you a primary medicare nurse to a significant other at home: No Do you presently have visiting nurse or other home services: No Alcohol intake: never Patient Tobacco Use Status: Never used Tobacco Tobacco use type: Cigarette e-Cigarette/Vaping Use: Never Used Second Hand Smoke Exposure: No Advance Directives Date on File: 08/29/16 service: No Current occupational status: retired Current occupation: rt hand Current occupational exposures/hazards: No Cognitive needs: No Hearing needs: No Vision needs: No Questionnaire PHQ-9 Over the last 2 weeks, how often have you been bothered by any of the following problems? 1. Little interest or pleasure in doing things: not at all 2. Feeling down, depressed, or hopeless: not at all 3. Trouble falling or staying asleep, or sleeping too much: several days 4. Feeling tired or having little energy: several days 5. Poor appetite or overeating: not at all 6. Feeling bad about yourself - or that you are a failure or have let yourself or your family down: not at all 7. Trouble concentrating on things, such as reading the newspaper or watching television: not at all 8. Moving or speaking so slowly that other people could have noticed. Or the opposite - being so fidgety or restless that you have been moving around a lot more than usual: not at all 9. Thoughts that you would be better off or of hurting yourself in some way: not at all Total score: 2 Source: Developed by Drs. Librado Fraser, Ingris Fuentes, Harry Acevedo and colleagues, with an educational marissa from [employer]. Thrive Questionnaire Date Thrive assessed: 11/23/24 I am a: Patient What is your living situation today?: I have a steady place to live Within the past 12 months, did the food you bought not last and you didn't have the money to get more?: Never true Within the past 12 months, did you worry whether your food would run out before you got money to buy more?: Never true Do you have trouble paying for medicines?: No Do you have trouble getting transportation to medical appointments?: No Do you have trouble paying your heating and electricity bill?: No Do you have trouble taking care of your child, family member or friend?: No Do you have trouble with day-to-day activities such as bathing, preparing meals, shopping, managing finances, etc.?: No Are you currently unemployed and looking for a job?: No Are you interested in more education?: No Please select the resources that you would like help with: None Currently or been in a relationship where the following occur: No concerns reported THRIVE Score: 0 AUDIT C Alcohol Use Questionnaire (AUDIT-C) 1. How often do you have a drink containing alcohol?: Never 3. How often do you have six or more drinks on one occasion?: Never Total Score: 0 BIRDIE-7 AMB Questionnaire BIRDIE-7 Date BIRDIE - 7 assessed: 12/23/24 Feeling nervous, anxious, or on edge: 0 = Not at all Not being able to stop or control worryin = Not at all Worrying too much about different things: 0 = Not at all Trouble relaxin = Not at all Being so restless that it is hard to sit still: 0 = Not at all Becoming easily annoyed or irritable: 0 = Not at all Feeling afraid as if something awful might happen: 0 = Not at all Total BIRDIE-7 score (0-4 normal; 5-9 mild; 10-14 moderate; 15-21 severe): 0 Source: Developed by Drs. Librado Fraser, Ingris Fuentes, Harry Acevedo and colleagues, with an educational marissa from [employer]. Physical exam (Primary Care) Vital Signs: Last Vital Signs Temp 97.0 F 03/21/25 09:32 Pulse 65 03/21/25 09:32 BP 130/60 03/21/25 09:32 Pulse Ox 96 03/21/25 09:32 Oxygen Delivery Method Room Air 03/21/25 09:32 BMI result Body Mass Index 26.7 Tobacco/Smoking Status: Tobacco use Status Tobacco use date assessed 03/21/25 03/21/25 09:37 Patient Tobacco Use Status Never used Tobacco 03/21/25 09:37 Tobacco use type Cigarette 03/21/25 09:37 e-Cigarette/Vaping Use Never Used 03/21/25 09:37 PHQ-9: PHQ-9 Score PHQ-9: Total score 2 03/21/25 10:13 Thrive Assessment: Date of Thrive Assessment Date Thrive assessed 11/23/24 03/21/25 09:37 Currently or been in a relationship where the following occur: No concerns reported Const General: alert; No acute distress Eyes Conjunctivae: conjunctivae normal Resp Auscultation: clear to auscultation bilaterally Cardio Rate: regular rate Rhythm: regular rhythm GI Inspection: Yes normal to inspection Extrem General: Yes normal to inspection and No edema Coding Level of Care Code Est Pt Level 4 (50949) Complex EM visit Add On G2211 Diagnoses Primary hypertension I10 Hypertension type: primary hypertension Coronary artery disease involving sun'aq coronary artery of sun'aq heart without angina pectoris I25.10 Associated angina: without angina Coronary Disease-Associated Artery/Lesion type: sun'aq artery [place] vs. transplanted heart: sun'aq heart Quiroz's esophagus without dysplasia K22.70 Quiroz's esophagus type: without dysplasia Malignant neoplasm of urinary bladder, unspecified site C67.9 Bladder location: unspecified site Assessment & Plan Assessment & Plan (1) HTN (hypertension): Code(s): I10 - Essential (primary) hypertension Category: Medical Qualifiers: Hypertension type: primary hypertension Qualified Code(s): I10 - Essential (primary) hypertension Plan: Continue with blood pressure medication. Decrease salt intake and exercise (2) CAD (coronary artery disease): Comment: CABG x2 2017 WHITAKER to LAD, SVG to OM Dr. Godoy Code(s): I25.10 - Atherosclerotic heart disease of sun'aq coronary artery without angina pectoris Category: Medical Qualifiers: Associated angina: without angina Coronary Disease-Associated Artery/Lesion type: sun'aq artery [place] vs. transplanted heart: sun'aq heart Qualified Code(s): I25.10 - Atherosclerotic heart disease of sun'aq coronary artery without angina pectoris Plan: Control the cholesterol, weight, blood pressure, on Plavix (3) Barretts esophagus: Comment: January 2012 no more Code(s): K22.70 - Quiroz's esophagus without dysplasia Category: Medical Qualifiers: Quiroz's esophagus type: without dysplasia Qualified Code(s): K22.70 - Quiroz's esophagus without dysplasia Plan: Avoid the foods that causes that usually spicy foods, tomato products, juices, coffee, soda and foods that your sensitive to. After eating do not lie down, allow 3-4 hours before in lie down. And keep the head of bed above 30 degrees to avoid the acid from going up. (4) Urinary bladder cancer: Comment: - High-grade papillary urothelial carcinoma, non-invasive. Bladder biopsy with extensive fulguration left-sided bladder Dr. Mix October 2021, January 2022 - 02/06 CIS TURBT and gemcitabine instillation Dr. Mix May 2022 biopsy 02/2023 high grade papillary carcinoma Code(s): C67.9 - Malignant neoplasm of bladder, unspecified Category: Medical Qualifiers: Bladder location: unspecified site Qualified Code(s): C67.9 - Malignant neoplasm of bladder, unspecified Plan: Patient follows up with urology and for instillation of mitomycin C Plan History of Present Illness The patient is an 84-year-old overweight female with a history of coronary artery disease, hypercholesterolemia, GERD with Quiroz's esophagus, urinary bladder cancer, and hypertension, presenting for a follow-up visit. Her last visit was on December 23. Her cardiac history is significant for coronary artery disease, status post a two-vessel coronary artery bypass graft, and she is maintained on Plavix. She has a prior history of diastolic heart failure. A cardiology follow-up in February 2025 noted normal myocardial perfusion imaging. An echocardiogram from December 2024 showed an EF of 55-60%, a restrictive filling pattern, a moderately dilated left atrium, and calcific aortic and mitral valves. Regarding her hypercholesterolemia, her LDL was 122 on March 16. She has a history of statin intolerance, experiencing generalized soreness with simvastatin and atorvastatin. Cardiology had advised Repatha to target an LDL of 70, but the patient has not started it, citing an unaffordable cost of $900 every three months. For her history of urinary bladder cancer from 2021, she followed up with urology in January 2023. She has undergone cystoscopy, Gemcitabine insta llation in 2022, and a 3-week boost of Mitomycin C. She is scheduled for her first Mitomycin C instillation on the of the month. Other history includes a right knee injection on January 19 and a prescription for estradiol. Her last blood work in February was normal for blood count, electrolytes, renal function, blood sugar, and liver function. Her health maintenance includes an up-to-date bone density scan, but her mammogram is due. Health Maintenance The patient was reminded that her mammogram is due. A review of her vaccination history confirms she is up to date with her immunizations, including flu, RSV from last year, shingles, tetanus, and pneumonia shots. Social History - Nutritional Intake: Patient reports consuming half a cup of ice cream and two cookies daily but is willing to reduce or eliminate them. - Exercise: Reports exercising three times a week. - Financial Barriers: Reports being unable to afford Repatha due to a cost of $900 every three months. - Financial Barriers: Reports having to wait to purchase a hearing aid due to cost. Review of Systems - Auditory: Reports significant hearing impairment described as horrible. - Musculoskeletal: Reports a history of generalized soreness with statin medications (simvastatin, atorvastatin). Physical Exam - Otologic: Minimal cerumen noted on examination. Results - Labs (03/16): Blood count, electrolytes, renal function, blood sugar, and liver function were normal. - Lipid Panel (03/16): LDL was 122. - Echocardiogram (December 2024): Showed an ejection fraction of 55-60%, a restrictive filling pattern, a moderately dilated left atrium, and calcific aortic and mitral valves. - Myocardial Perfusion Imaging (per cardiology note from February 2025): Normal. - Cystoscopy: Performed, date not specified. Plan Patient was informed and verbally consented to the use of an ambient scribe for clinic note documentation during this visit. 1. Hypercholesterolemia The patient's LDL cholesterol remains elevated at 122, which is above the goal of less than 70 for her cardiac history. She has a history of intolerance to simvastatin and atorvastatin, causing generalized soreness. The patient has not started the prescribed PSK9 inhibitor, Repatha, due to unaffordable cost. A trial of rosuvastatin 5 mg will be initiated. Dietary counseling was provided, advising her to stop eating cookies and ice cream. A follow-up blood test is ordered for three months' time. 2. Coronary Artery Disease The patient is stable following a two-vessel CABG and will continue taking Plavix. Aggressive management of her hypercholesterolemia is crucial for secondary prevention. She will continue to follow up with cardiology. 3. Bladder Cancer The patient is scheduled for her first Mitomycin C bladder instillation on the 12th of the month. She will continue to follow up with urology. 4. Hypertension Plan is to continue current management for hypertension. Discussion Notes I reviewed the patient's recent lab work, noting the LDL of 122. I explained that because she has heart problems, her LDL target should be less than 70 to prevent the progression of atherosclerosis. We discussed that she has not started the wire harness assembler-recommended Repatha due to the high cost, which she cannot afford. We addressed her history of statin intolerance, specifically myalgias with atorvastatin and simvastatin. I proposed a trial of a different statin, rosuvastatin, at a low dose of 5 mg, and the patient agreed to try it. We also had a detailed discussion about dietary modifications, including stopping her daily intake of ice cream and cookies, and she was agreeable. I informed her that a prescription for rosuvastatin has been sent and she will need to have her blood tested again in three months. We confirmed she is scheduled for her mitomycin C bladder instillation on the . I also confirmed her vaccinations are up to date and reminded her that she is due for a mammogram. Patient Instructions - Start taking rosuvastatin 5 mg once a day for your high cholesterol. - If you feel sore all over your body after starting the new medication, please stop taking it and contact our office. - Please make changes to your diet to help lower your cholesterol, such as stopping your daily cookies and ice cream. - You will need a blood test in three months to check your cholesterol levels. - Go to your scheduled appointment for your bladder treatment on the . - You are due for a mammogram. - Your vaccines are up to date. You do not need an RSV shot at this time as you had one last year. Orders: Orders Comprehensive Met. Panel 3 Months E78.2 - Mixed hyperlipidemia Hemoglobin A1c 3 Months E78.2 - Mixed hyperlipidemia Liver Panel 3 Months E78.2 - Mixed hyperlipidemia, R79.89 - Other specified abnormal findings of blood chemistry Medications: New rosuvastatin 5 mg PO DAILY 30 tabs 3RF E78.2 - Mixed hyperlipidemia
== END 2025-03-21 10:26 | disposition home or self-care (01) ==
LOC: HO.HMCH 09:31
PROVIDERS: PCP Internal Medicine; Visit Provider Internal Medicine
DX: I10 Essential (primary) hypertension (principal); I25.10 Atherosclerotic heart disease of native coronary artery without angina pectoris; K22.70 Barrett's esophagus without dysplasia; C67.9 Malignant neoplasm of bladder, unspecified

== ENCOUNTER → 2025-03-21 09:31 | Outpatient (BNVA) | payer MEDICARE, SELFPAY | PROVIDERS: PCP Internal Medicine; Visit Provider Internal Medicine | DX: I10 Essential (primary) hypertension (principal); I25.10 Atherosclerotic heart disease of native coronary artery without angina pectoris; K22.70 Barrett's esophagus without dysplasia; C67.9 Malignant neoplasm of bladder, unspecified | CPT/HCPCS: 99212 ==

== ENCOUNTER 2025-04-11 07:45 | Outpatient (REF) | payer MEDICARE, SELFPAY ==
--- NOTE | ~2025-04-11 | MM_ITS ---
EXAMINATION: MM SCREENING DIGITAL BREAST TOMOSYNTHESIS, BILATERAL CLINICAL INFORMATION: Screening. Asymptomatic. COMPARISON: Comparison made to multiple prior, most recent April 05, 2024, and most remote May 20, 2018. TECHNIQUE: Digital breast tomosynthesis is performed in mediolateral oblique and craniocaudal views along with computer-aided detection (CAD). Synthesized 2D images are generated from the tomosynthesis. FINDINGS: BREAST COMPOSITION: There are scattered areas of fibroglandular density. BILATERAL BREASTS: No significant masses, suspicious calcifications or other abnormalities are seen in either breast. MM/MM tomosynthesis screening BI IMPRESSION: BILATERAL BREASTS: Negative, no mammographic evidence of malignancy. Normal interval follow-up is recommended in 12 months. ASSESSMENT: BI-RADS: Category 1: Negative RECOMMENDATION: Routine annual mammography screening. FOLLOW-UP: 1 year F/U This examination should not preclude the clinical evaluation of a suspicious palpable abnormality. This patient's information was entered into a reminder system with a target due date for their next mammogram. Electronically signed by: Jer Riley MD 04/11/2025 06:45 PM [facility]
== END 2025-04-11 07:46 | disposition home or self-care (01) ==
LOC: HO.MAMMO 07:45
PROVIDERS: PCP Internal Medicine; Visit Provider Internal Medicine
DX: Z12.31 Encounter for screening mammogram for malignant neoplasm of breast (principal)
CPT/HCPCS: 77063; 77067

== ENCOUNTER → 2025-04-11 08:00 | Outpatient (BNV) | payer MEDICARE, SELFPAY | PROVIDERS: PCP Internal Medicine; Visit Provider Radiology Body Imaging | DX: Z12.31 Encounter for screening mammogram for malignant neoplasm of breast (principal) | CPT/HCPCS: 77063; 77067 ==

== ENCOUNTER → 2025-05-12 17:28 | Outpatient (AMB) | payer MEDICARE, SELFPAY ==
--- NOTE | 2025-05-12 17:29 | MHC.PC.OV ---
Intake Visit Reasons: Cold Symptoms Allergies Penicillins Allergy (Severe, Verified 05/12/25 17:29) Anaphylaxis tamsulosin (Flomax) Allergy (Severe, Verified 05/12/25 17:29) severe chest pains ibuprofen (IBUPROFEN) Allergy (Intermediate, Verified 05/12/25 17:29) Rash, hives trospium Allergy (Intermediate, Verified 05/12/25 17:29) Vomiting amoxicillin Allergy (Mild, Verified 05/12/25 17:29) Hives, bad rash levofloxacin (From LEVAQUIN) Allergy (Mild, Verified 05/12/25 17:29) Rash rabeprazole Allergy (Mild, Verified 05/12/25 17:29) Unknown Sulfa (Sulfonamide Antibiotics) Allergy (Mild, Verified 05/12/25 17:29) Rash atorvastatin Allergy (Unknown, Verified 05/12/25 17:29) Unknown Bifidobacterium infantis (Align) Allergy (Unknown, Verified 05/12/25 17:29) Unknown clarithromycin (Prevpac) Allergy (Unknown, Verified 05/12/25 17:29) Unknown omeprazole (From PRILOSEC) Allergy (Unknown, Verified 05/12/25 17:29) Unknown simvastatin (From ZOCOR) Allergy (Unknown, Verified 05/12/25 17:29) Unknown oxycodone (Percocet) Adverse Reaction (Severe, Verified 05/12/25 17:29) Vomiting amlodipine Adverse Reaction (Intermediate, Verified 05/12/25 17:29) breast pain clobetasol Adverse Reaction (Intermediate, Verified 05/12/25 17:29) made psoriasis worse dexlansoprazole (From Kapidex) Adverse Reaction (Intermediate, Verified 05/12/25 17:29) hyper,watery stool Iodinated Contrast Media (IV CONTRAST) Adverse Reaction (Intermediate, Verified 05/12/25 17:29) Weakness, Lightheaded and confusion lansoprazole (Prevacid) Adverse Reaction (Intermediate, Verified 05/12/25 17:29) hyper, watery stool methotrexate (METHOTREXATE) Adverse Reaction (Intermediate, Verified 05/12/25 17:29) Muscle and joint pain ranitidine Adverse Reaction (Intermediate, Verified 05/12/25 17:29) weak, watery stool alirocumab (From Praluent Pen) Adverse Reaction (Mild, Verified 05/12/25 17:29) Generalized ecchymoses aspirin Adverse Reaction (Mild, Verified 05/12/25 17:29) one sided facial pain, green spots in eye esomeprazole (Nexium) Adverse Reaction (Mild, Verified 05/12/25 17:29) Gastrointestinal Upset pantoprazole (Protonix) Adverse Reaction (Mild, Verified 05/12/25 17:29) one sided headache, yellow streak in left eye mirabegron Adverse Reaction (Unknown, Verified 05/12/25 17:29) Nausea and Vomiting fexofenadine (From [place]) Adverse Reaction (Verified 05/12/25 17:29) painful bones and muscles Medication List - Last Reconciled 05/12/25 by Mariya Metcalf Po, benzonatate 200 mg PO BID PRN carbamide peroxide 6.5% (Debrox) 5 drps otic (ears) DAILY 4 days cetirizine (Zyrtec) 10 mg PO BEDTIME cholecalciferol (vitamin D3) 50 mcg PO .qod clopidogrel 75 mg PO DAILY docusate sodium (Colace) 100 mg PO DAILY dupilumab (Dupixent) 300 mg subcut Q2W estradiol 0.01%(0.1mg/gram) vaginal 3XW apply pea sized amount to urethra 30 days ezetimibe 10 mg PO DAILY fesoterodine ER (Toviaz) 4 mg PO DAILY 30 days fluorouracil 5% 1 appl topical BID furosemide 20 mg PO DAILY guaifenesin ER (Mucinex) 600 mg PO BID PRN metoprolol succinate ER 12.5 mg (1/2 x 25 mg) PO DAILY 90 days prednisone 1 mg PO BID 90 days rosuvastatin 5 mg PO DAILY [Tums PRN] vitamin E (dl, acetate) 450 mg PO .qod Tobacco use date assessed: 03/21/25 Dental Screening Dental Screen Date: 03/21/25 HPI HPI Comments History of Present Illness Details History of Present Illness The patient is an 84 year old female presenting for an acute problem. Her symptoms began the day before Kvng and included an episode of vomiting. She developed a fever of 101??F, which has since decreased to 99??F. She also has a cough, described as both dry and productive of phlegm, which causes her ribs to hurt. Her past medical history is significant for polymyalgia rheumatica, coronary artery disease, hypercholesterolemia, Quiroz's esophagus, psoriasis, and lung fibrosis. She also has a history of urinary bladder cancer, hypertension, and sick sinus syndrome. 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 Bladder cancer Diastolic heart failure Recurrent UTI Osteopenia Allergic rhinitis Lung fibrosis Skin cancer History of rib fracture History of hemorrhoids Hiatal hernia Diverticular disease Pulmonary nodule Psoriasis Barretts esophagus GERD (gastroesophageal reflux disease) History of CVA (cerebrovascular accident) HLD (hyperlipidemia) Postoperative atrial fibrillation CAD (coronary artery disease) Asthma Polymyalgia rheumatica Surgical History History of transurethral resection of bladder tumor (TURBT) History of nasal surgery History of cystoscopy S/P trigger finger release Hx of CABG History of bladder suspension procedure History of tonsillectomy and adenoidectomy History of tonsillectomy Hx of hemorrhoidectomy Family History Father No problems noted. Mother No problems noted. Social History Housing: House Are you a primary career development specialist to a significant other at home: No Do you presently have visiting nurse or other home services: No Alcohol intake: never Patient Tobacco Use Status: Never used Tobacco Tobacco use type: Cigarette e-Cigarette/Vaping Use: Never Used Second Hand Smoke Exposure: No Advance Directives Date on File: 08/29/16 service: No Current occupational status: retired Current occupation: rt hand Current occupational exposures/hazards: No Cognitive needs: No Hearing needs: No Vision needs: No Questionnaire Thrive Questionnaire Date Thrive assessed: 11/23/24 BIRDIE-7 AMB Questionnaire BIRDIE-7 Date BIRDIE - 7 assessed: 12/23/24 Source: Developed by Drs. Librado Fraser, Ingris Fuentes, Harry Acevedo and colleagues, with an educational marissa from [employer]. Review of Systems Narrative Review of Systems - Constitutional: Reports fever, initially 101??F, now 99??F. - Gastrointestinal: Reports one episode of emesis. - Respiratory: Reports a cough that is both dry and productive of phlegm. - Musculoskeletal: Reports rib pain associated with coughing. Physical exam (Primary Care) Tobacco/Smoking Status: Tobacco use Status Tobacco use date assessed 03/21/25 05/12/25 17:29 Patient Tobacco Use Status Never used Tobacco 05/12/25 17:29 Tobacco use type Cigarette 05/12/25 17:29 e-Cigarette/Vaping Use Never Used 05/12/25 17:29 Thrive Assessment: Date of Thrive Assessment Date Thrive assessed 11/23/24 05/12/25 17:29 Telehealth Telehealth Telehealth Platform: Telephone Location of provider rendering services: practice address Location of patient: address on file Patient Identification confirmed using: Name, : Yes Telehealth method: voice only Patient verbally consented to treatment: Yes Patient verbally consented to billing insurance company: Yes Patient informed of any privacy concerns related to visit: Yes Minutes spent on Phone/Video with Pt.: 15 Coding Level of Care Code Tele Est Pt Level 3 (42863) Diagnoses Cough R05.9 Assessment & Plan Assessment & Plan (1) Cough: Code(s): R05.9 - Cough, unspecified Category: Medical Plan Plan Patient was informed and verbally consented to the use of an ambient scribe for clinic note documentation during this visit. 1. Acute Viral Illness The differential diagnosis for the patient's symptoms includes COVID-19, influenza, and RSV, given the high prevalence of these viruses. Without testing, it is difficult to determine the specific etiology, and since the antiviral treatments differ for flu and COVID, prescribing both is avoided due to potential side effects. Diagnostic testing has been ordered, including tests for flu and COVID, along with a chest x-ray, all to be performed at the hospital. Symptomatic management will be initiated. For the cough, Mucinex (guaifenesin) is recommended during the daytime to act as an expectorant, with instructions to maintain adequate hydration. Tessalon (benzonatate) will be prescribed for nighttime use to suppress the cough and allow for rest. The patient has been instructed not to take both medications simultaneously. Tylenol can be used as needed for fever. Prescriptions for both benzonatate and guaifenesin are being sent to [facility]. Discussion Notes I discussed with the patient that her symptoms are consistent with a viral illness, with high suspicion for influenza, COVID-19, or RSV. I explained that because the antiviral treatments for flu and COVID are different, and prescribing both could cause significant side effects, we will proceed with diagnostic testing to determine the cause. We agreed on a plan for symptomatic management while awaiting test results. I informed her that I have ordered tests for flu and COVID, and a chest x-ray at the hospital. I detailed the plan for her cough, recommending Mucinex during the day to help clear phlegm and Tessalon at night to aid with rest, emphasizing that these should not be taken together. I also advised taking Tylenol for fever and maintaining hydration. The patient verbalized understanding and agreed to go for testing tomorrow and was advised to contact me for any worsening of symptoms. Patient Instructions - Please go to the hospital tomorrow morning to get tested for the flu and COVID. - An order for a chest X-ray has also been placed for you at the hospital. - If you have any at-home COVID tests, you can use one. - For your cough, take Mucinex (guaifenesin) during the daytime to help bring up phlegm. - At night, take the prescription Tessalon (benzonatate) to help stop the cough so you can rest. - Do not take Mucinex and Tessalon at the same time. - You can take Tylenol if you have a fever. - Be sure to drink plenty of water. - Please let the office know if you feel worse or have any other concerns. Medications: New guaifenesin ER (Mucinex) 600 mg PO BID PRN 14 tabs 0RF congestion benzonatate 200 mg PO BID PRN 20 caps 0RF cough
--- OUTSIDE RECORDS SUMMARY | 2025-05-12 17:31 | XMS_ITS | Patient Health Record ---
Author Organization [facility] Address [address] [place] [id number] Care Team Providers Care Wildfire Prevention Specialist Name Role Phone Mariya Gutierrez MD Primary Care Provider Librado Graf [phone] Allergies Allergen (clinical drug ingredient) Drug/Non Drug Allergy documented on EMR Reaction Allergy Type Onset Date Status amoxicillin amoxicillin (uncoded) Unknown Allergy Active aspirin aspirin (uncoded) Unknown Allergy Ac tive sulfamethoxazole / trimethoprim Bactrim (uncoded) Unknown Allergy Active esomeprazole Nexium (uncoded) Unknown Allergy Active omeprazole Omeprazole (uncoded) Unknown Allergy Active PCN (uncoded) Unknown Allergy Active omeprazole Prilosec (uncoded) Unknown Allergy Active ranitidine Ranitidine (uncoded) Unknown Allergy Active Substance with sulfonamide structure and antibacterial mechanism of action (substance) sulfa drugs (uncoded) Unknown Allergy Active zantac (uncoded) Unknown Allergy Act isaías Reason For Referral No Information Medications Medication SIG (Take, Route, Frequency, Duration) Notes Start Date End Date Status Carafate 1 GM/10ML Suspension 10 ml Orally QID--30-60 min AC and QHS; Duration: 30 day(s) 04/27/2013 Active Carafate 1 gm tablet 1 Orally 1/2hr AC & QHS 01/16 Active MoviPrep 100 GM Solution Reconstituted as directed Orally as directed; Duration: 1 dose 04/27/2013 Active Plavix Active Social History Social History Additional Details Category Social Info Options Details Miscellaneous: Marital status: Occupation: retired Section Notes: She does not smoke nor use a ny sig. amount of alcohol She does not smoke nor use a ny sig. amount of alcohol Problems Problem Type SNOMED Code ICD Code Onset Dates Problem Status W/U Status Risk Notes Problem Esophageal reflux (069520145) Esophageal reflux (530.81) Active confirmed Problem Quiroz's esophagus (651798016) Quiroz's esophagus (530.85) Active confirmed Problem Blood in stool (245519397) Blood in stool (578.1) Active confirmed Problem Gastroesophageal reflux disease (146269461) GERD (gastroesophag eal reflux disease) (530.81) Active confirmed Plan Of Treatment Future Test Test Name Order Date COLONOSCOPY 04/27/2013 Insurance Providers Payer Name Payer Address Payer Phone Subscriber Number Group Number Insured Name Patient Relationship to Insured Coverage Start Date Coverage End Date MEDICARE OF [place] [address] [facility] [place] [address] [phone] [id number] LAUREEN PERRY Self - patient is the insured [employer] ATT[employer] CLAIMS [address] [place] [address] [id number] LAUREEN PERRY Self - patient is the insured Medical (General) History Medical History History ICD Code GERD/esophagitis/Quiroz's e sophagus/Hiatal hernia--Last EGD in 01/2012--no Quiroz's identified asthma diverticulitis Denies MD,DM,CVA,renal disease TIA 06/2011 Colonoscopy 2005--neg except diverticulo sis Surgical History Surgery Date(Month/Year) Hysterectomy sinus polyps breast cysts-benign basal cell carcinoma hemorrhoids with Dr. Lopes
== END ==
LOC: HO.HMCH 17:28
PROVIDERS: PCP Internal Medicine; Visit Provider Internal Medicine
DX: R05.9 Cough, unspecified (principal); R50.9 Fever, unspecified

== ENCOUNTER 2025-05-15 12:33 | Outpatient (REF) | payer MEDICARE, SELFPAY ==
--- NOTE | ~2025-05-15 | XR_ITS ---
EXAMINATION: XR CHEST 2 VIEWS HISTORY: R05.9 - Cough, unspecified COMPARISON: Comparison is made with the prior examination dated 11/23/2024. FINDINGS: PA and lateral views of the chest are submitted. The lungs are expanded and clear. There is no pleural effusion, pneumothorax, or pulmonary vascular congestion. The heart is enlarged. The patient is status post median sternotomy and CABG. The aorta is calcified. There is degenerative disc disease of the spine. XR/XR chest 2V IMPRESSION: Cardiomegaly. No acute cardiopulmonary abnormality. Electronically signed by: Librado Webster MD 05/15/2025 01:55 PM EST
[2025-05-15 14:08] LABS: Hemoglobin A1C 149.4988 umol/L
[2025-05-15 14:29] LABS: Alanine Aminotransferase 23 U/L (0-31); Albumin Level 4.6 g/dL (3.5-5.0); Alkaline Phosphatase 66 U/L (39-117); Anion Gap 11 (12-20); Aspartate Amino Transferase 38 U/L (5-31); Blood Urea Nitrogen 17 mg/dL (9-16); Calcium 9.1 mg/dL (8.4-10.2); Carbon Dioxide 31 mmol/L (22-29); Chloride 100 mmol/L (96-108); Estimated Glomerular Filt Rate 58; Potassium 3.2 mmol/L (3.3-5.1); Sodium 139 mmol/L (135-145); Total Protein 7.8 g/dL (6.5-8.0)
--- OUTSIDE RECORDS SUMMARY | 2025-05-15 14:30 | XMS_ITS | Patient Health Record ---
Author Organization [facility] Address [address] [place] [phone] Care Team Providers Care Offset Second Press Operator Name Role Phone Mariya Gutierrez MD Primary Care Provider Librado Graf [phone] Allergies Allergen (clinical drug ingredient) Drug/Non Drug [...] W/U Status Risk Notes Problem Esophageal reflux (410117136) Esophageal reflux (530.81) Active confirmed Problem Quiroz's esophagus (008245947) Quiroz's esophagus (530.85) Active confirmed Problem Blood in stool (764835317) Blood in stool (578.1) Active confirmed Problem Gastroesophageal reflux disease (651123450) GERD (gastroesophag eal reflux disease) (530.81) Active confirmed Plan Of Treatment Future Test Test Name Order Date COLONOSCOPY 04/27/2013 Insurance Providers Payer Name Payer Address Payer Phone Subscriber Number Group Number Insured Name Patient Relationship to Insured Coverage Start Date Coverage End Date [place] [address] [facility] [place] [address] [id number] LAUREEN PERRY Self - patient is the insured [employer] ATTN CLAIMS [address] [place] [address] [id number] LAUREEN PERRY Self - patient is the insured Medical (General) History Medical History History ICD Code GERD/esophagitis/Quiroz's e sophagus/Hiatal hernia--Last EGD in 01/2012--no Quiroz's identified asthma diverticulitis Denies GA,DM,CVA,renal disease TIA 06/2011 Colonoscopy 2005--neg except diverticulo sis Surgical History Surgery Date(Month/Year) Hysterectomy sinus polyps breast cysts-benign basal cell carcinoma hemorrhoids with Dr. Lopes
[2025-05-15 14:46] LABS: Appearance Urine Clear; Glucose Urine UA Negative (Negative); PH 5.5 (5.0-9.0); Specific Gravity - Urine <= 1.005 (1.005-1.025); UMIC TRIGGER UACC YES
[2025-05-15 14:53] LABS: UACC Culture Trigger YES
[2025-05-15 15:04] LABS: Resp Syncy Virus RNA Qual PCR NEGATIVE (Negative); SARS COV2 PCR INHOUSE NEGATIVE (Negative)
== END 2025-05-15 12:34 | disposition home or self-care (01) ==
LOC: HO.XRAY 12:33
PROVIDERS: PCP Internal Medicine; Visit Provider Internal Medicine
DX: E78.2 Mixed hyperlipidemia (principal); R79.89 Other specified abnormal findings of blood chemistry; R05.9 Cough, unspecified; Z03.818 Encounter for observation for suspected exposure to other biological agents ruled out
CPT/HCPCS: 71046; 80053; 81001; 82248; 83036; 87086; 87637

== ENCOUNTER → 2025-05-15 13:22 | Outpatient (BNV) | payer MEDICARE, SELFPAY | PROVIDERS: PCP Internal Medicine; Visit Provider Radiology Diagnostic Radiology | DX: I51.7 Cardiomegaly (principal) | CPT/HCPCS: 71046 ==